=== PATIENT | male | born 1965 | race Caucasian/White ===

== ENCOUNTER 2021-12-19 12:47 | Inpatient (IN) | payer MEDICARE, MEDICAID, SELFPAY ==
--- NOTE | 2021-12-19 13:52 | ED_ITS ---
HPI - Psych General Chief Complaint: Psychiatric Symptoms <Slime Mcfarlane CNP - Last Filed: 12/19/21 17:21> Stated Complaint: SI <Slime Mcfarlane CNP - Last Filed: 12/19/21 17:21> Time Seen by Provider: 12/19/21 13:50 <Slime Mcfarlane CNP - Last Filed: 12/19/21 17:21> Source: patient <Slime Mcfarlane CNP - Last Filed: 12/19/21 17:21> Mode of arrival: EMS <Slime Mcfarlane CNP - Last Filed: 12/19/21 17:21> Limitations: no limitations <Slime Mcfarlane CNP - Last Filed: 12/19/21 17:21> History of Present Illness HPI Narrative: Patient presents to the emergency department via EMS on a Section 12. He is coming from a recovery treatment center. Patient has been having increased anxiety and depression. He is having suicidal ideations with plan and intent to cut himself with a knife. He states that approximately 1 year ago he attempted to hang himself in his apartment, but last minute stop himself from doing so and sought help. He is currently in the recovery program for reported use of alcohol and crack cocaine, however he states he has not used either in 1 year. He states he has been compliant with his medications. Denies any auditory or visual hallucinations. Denies any homicidal ideations. <Slime Mcfarlane CNP - Last Filed: 12/19/21 17:21> Related Data Home Medications: Home Medications Medication Instructions Recorded Confirmed benztropine 0.5 mg tablet 1 tab PO DAILY 12/19/21 12/19/21 chlorpromazine 100 mg tablet 2 tab PO BID 12/19/21 12/19/21 divalproex 500 mg tablet,extended 2 tab PO BID 12/19/21 12/19/21 release 24 hr hydroxyzine HCl 50 mg tablet 1 tab PO TID 12/19/21 12/19/21 lorazepam 0.5 mg tablet 1 tab PO TID PRN Anxiety 12/19/21 12/19/21 melatonin 3 mg tablet 2 tab PO BEDTIME 12/19/21 12/19/21 propranolol 10 mg tablet 1 tab PO TID 12/19/21 12/19/21 risperidone 2 mg tablet 1 mg PO DAILY 12/19/21 12/19/21 risperidone 2 mg tablet 2 mg PO BEDTIME 12/19/21 12/19/21 sennosides 8.6 mg tablet (senna) 2 tab DAILY PRN constipation 12/19/21 12/19/21 trazodone 100 mg tablet 2 tab PO BEDTIME PRN Insomnia 12/19/21 12/19/21 <Slime Mcfarlane CNP - Last Filed: 12/19/21 17:21> Allergies/Adverse Reactions: Allergies Allergy/AdvReac Type Severity Reaction Status Date / Time No Known Allergies Allergy Mild NOT Unverified 01/06/20 17:18 APPLICABLE <Slime Mcfarlane CNP - Last Filed: 12/19/21 17:21> Review of Systems 2 Review of Systems: Constitutional : No Fever, No Chills ENT/Mouth : No Ear Pain, No Nasal Congestion, No sore throat Eyes: No Eye Pain, No Swelling, No Redness Cardiovascular : No Chest Pain, No SOB Respiratory : No Cough, No Sputum, No Dyspnea Gastrointestinal : No Nausea, No Vomiting, No Diarrhea, No Hematochezia, No Melena Genitourinary : No Dysuria, No Urinary Frequency, No Hematuria Musculoskeletal : No Myalgias Skin : No Skin Lesions, No rash Neuro : No Weakness, No Numbness, No Paresthesias, No Dizziness, No Headache Psych : positive Anxiety, positive Depression, positive SI/HI Heme/Lymph: No Lymphadenopathy Endocrine : No Polyuria, No Polydipsia <Slime Mcfarlane CNP - Last Filed: 12/19/21 17:21> Yes all other systems are reviewed and are negative <Slime Mcfarlane CNP - Last Filed: 12/19/21 17:21> [facility] Past Medical History Attestation statement: The following information was validated with the patient. <Slime Mcfarlane CNP - Last Filed: 12/19/21 17:21> Social History Social History: Social History Advance Directives: No Advance Directives Information Provided: No <Slime Mcfarlane CNP - Last Filed: 12/19/21 17:21> Physical Exam Vital Signs: Vital Signs: Last Vital Signs Temp 97.2 F 12/19/21 20:07 Pulse 78 12/19/21 20:07 Resp 18 12/19/21 20:07 BP 128/67 12/19/21 20:07 Pulse Ox 95 12/19/21 20:07 O2 Del Method 12/19/21 20:07 BMI result Body Mass Index 22.2 <Slime Valentine SETPHANI Mcfarlane - Last Filed: 12/19/21 17:21> Vital Signs: Last Vital Signs Temp 97.2 F 12/19/21 20:07 Pulse 78 12/19/21 20:07 Resp 18 12/19/21 20:07 BP 128/67 12/19/21 20:07 Pulse Ox 95 12/19/21 20:07 O2 Del Method 12/19/21 20:07 BMI result Body Mass Index 22.2 <Bee Moe MD - Last Filed: 12/20/21 06:15> Appearance: Alert.?Oriented to person, place and time. No acute distress.?Normal affect. Eyes: Pupils equal, round and reactive to light.? ENT: Pharynx normal.?? Neck: Normal inspection.? Neck supple.?? CVS: Heart sounds normal. Normal heart rate and rhythm.? Pulses normal.?? Respiratory: No respiratory distress.? Lung sounds clear to auscultation bilaterally?? Abdomen: Soft and non-tender. Normoactive bowel sounds. Skin: Skin warm and dry.? Normal skin color.? Extremities: No lower extremity edema.? Neuro: Moves all extremities spontaneously. Sensation intact bilaterally. CN II- XII intact. No focal neuro deficits. Ambulates with normal steady gait. <Slime AlcazarSTEPHANI sanchez - Last Filed: 12/19/21 17:21> Course Course Course Narrative: Patient is a 56-year-old male with a past medical history of bipolar disorder, schizoaffective disorder, and alcohol usage who presents emergency department today on a Section 12 for suicidal ideations, he has already been evaluated in the community and is an inpatient bed search. He has a plan and reported intent to act upon it, and has attempted suicide within the last year. He is without any physical complaints. Overall well-appearing. No apparent d istress. Vital signs are stable. The obtain basic labs for medical clearance, and refer to [facility] for further evaluation for inpatient bed/ safe disposition <Slime Mcfarlane CNP - Last Filed: 12/19/21 17:21> Reevaluation(s) Reevaluation #1: Serum labs overall unremarkable, toxicology negative. Patient to be placed in physician observation at this time as he will require additional time for inpatient bed search. He is calm, cooperative, in no apparent distress. Speaking clear full sentences. <Slime McfarlaneSTEPHANI - Last Filed: 0 12/19/21 17:21> Time: 15:42 <Slime Mcfarlane REGENERATION OPERATOR - Last Filed: 12/19/21 17:21> Reevaluation #2: Advised by RN that patient has had a few outbursts, becoming very agitated and visibly distressed, seeming to respond to external stimuli. He has already had p.r.n. Ativan, will obtain EKG to assess QTC, and will trial Zyprexa at this time. <Slime McfarlaneSTEPHANI - Last Filed: 12/19/21 17:21> Time: 16:15 <Slime Mcfarlane REGENERATION OPERATOR - Last Filed: 12/19/21 17:21> Reevaluation #3: QTC is 418. EKG reveals normal sinus rhythm, V2 and V3 concerning for J- point elevations, however when compared to EKG in 2016 this does not appear new. Patient is without chest pain, shortness of breath, or alarming systems to be consistent with ACS. <Slime McfarlaneSTEPHANI - Last Filed: 12/19/21 17:21> Time: 16:20 <Slime Mcfarlane REGENERATION OPERATOR - Last Filed: 12/19/21 17:21> Additional Reevaluation(s): 1715: Patient has been calm in his room at this time. no additional outbursts per nursing staff. <Slime McfarlaneSTEPHANI - Last Filed: 12/19/21 17:21> 1715: Patient has been calm in his room at this time. no additional outbursts per nursing staff. 06:15 on 12/20/2021: No events overnight, patient has been taking his medications, remains on a Section 12, bed search. Vitals stable. <Bee Moe MD - Last Filed: 12/20/21 06:15> MDM - Psych Medical Records Attestation: I reviewed the patient's medical records. <Slime Mcfarlane CNP - Last Filed: 12/19/21 17:21> Lab Data Attestation: I reviewed the patient's lab results. <Slime Mcfarlane CNP - Last Filed: 12/19/21 17:21> Result diagrams: : 12/19/21 14:08 12/19/21 14:08 <Slime Mcfarlane CNP - Last Filed: 12/19/21 17:21> Labs: Lab Results 12/19/21 12/19/21 12/19/21 Range/Units 14:02 14:02 14:08 WBC 6.1 (4.8-10.8) X10*3/uL RBC 4.14 L (4.60-5.80) X10*6/uL Hgb 13.1 L (14.0-18.0) g/dl Hct 39.1 L (42.0-52.0) % MCV 94.4 (80.0-98.0) fL MCH 31.6 (27.0-33.0) pg MCHC 33.5 (31.0-36.0) g/dl RDW 12.8 (11.0-16.0) % Plt Count 217 (160-400) X10*3/uL MPV 9.5 (9.4-12.4) fL Immature Gran % (Auto) 0.2 (0.0-0.4) % Neut % (Auto) 56.8 (45-73) % Lymph % (Auto) 25.9 (20-40) % [place] % (Auto) 13.6 H (2-11) % Eos % (Auto) 2.5 (0-4) % Baso % (Auto) 1.0 (0-2) % Lymph # (Auto) 1.6 (1.2-4.9) X10*3/uL [place] # (Auto) 0.8 (0.1-1.2) X10*3/uL Eos # (Auto) 0.2 (0.0-0.4) X10*3/uL Baso # (Auto) 0.1 (0.0-0.2) X10*3/uL Abs Immat Gran (auto) 0.01 (0.00-0.03) X10*3/uL Absolute Neuts (auto) 3.5 (2.0-8.3) x10*3/uL Absolute Nucleated RBC 0.000 (0.0-0.012) X10*3/uL Nucleated RBC % (auto) 0.0 (0.0-0.2) /100WBC Sodium (135-145) mmol/L Potassium (3.3-5.1) mmol/L Chloride (96-108) mmol/L Carbon Dioxide (22-29) mmol/L Anion Gap (12-20) BUN (9-16) mg/dL Creatinine (0.5-1.4) mg/dL Estim Creat Clear Calc Estimated GFR Random Glucose (60-115) mg/dL Calcium (8.4-10.2) mg/dL Magnesium (1.6-2.6) mg/dL Total Bilirubin (0.0-1.0) mg/dL AST (5-37) U/L ALT (0-40) U/L Alkaline Phosphatase (39-117) U/L Total Protein (6.5-8.0) g/dL Albumin (3.5-5.0) g/dL Urine Opiates Screen Not Detected (Not Detect) Urine Fentanyl Screen Not Detected (Not Detect) Ur Barbiturates Screen Not Detected (Not Detect) Valproic Acid (50.0-100.0) mcg/mL Ur Phencyclidine Scrn Not Detected (Not Detect) Ur Amphetamines Screen Not Detected (Not Detect) U Benzodiazepines Scrn Not Detected (Not Detect) Urine Cocaine Screen Not Detected (Not Detect) U Marijuana (THC) Screen Not Detected (Not Detect) Ethyl Alcohol mg/dL COVID-19 (ZOILA) Negative (Negative) COVID-19 Clin Com See Note 12/19/21 12/19/21 Range/Units 14:08 14:08 WBC (4.8-10.8) X10*3/uL RBC (4.60-5.80) X10*6/uL Hgb (14.0-18.0) g/dl Hct (42.0-52.0) % MCV (80.0-98.0) fL MCH (27.0-33.0) pg MCHC (31.0-36.0) g/dl RDW (11.0-16.0) % Plt Count (160-400) X10*3/uL MPV (9.4-12.4) fL Immature Gran % (Auto) (0.0-0.4) % Neut % (Auto) (45-73) % Lymph % (Auto) (20-40) % [place]gard % (Auto) (2-11) % Eos % (Auto) (0-4) % Baso % (Auto) (0-2) % Lymph # (Auto) (1.2-4.9) X10*3/uL [place] # (Auto) (0.1-1.2) X10*3/uL Eos # (Auto) (0.0-0.4) X10*3/uL Baso # (Auto) (0.0-0.2) X10*3/uL Abs Immat Gran (auto) (0.00-0.03) X10*3/uL Absolute Neuts (auto) (2.0-8.3) x10*3/uL Absolute Nucleated RBC (0.0-0.012) X10*3/uL Nucleated RBC % (auto) (0.0-0.2) /100WBC Sodium 140 (135-145) mmol/L Potassium 4.1 (3.3-5.1) mmol/L Chloride 105 (96-108) mmol/L Carbon Dioxide 24 (22-29) mmol/L Anion Gap 15 (12-20) BUN 15 (9-16) mg/dL Creatinine 1.00 (0.5-1.4) mg/dL Estim Creat Clear Calc 83.9 Estimated GFR > 60 Random Glucose 128 H (60-115) mg/dL Calcium 9.1 (8.4-10.2) mg/dL Magnesium 2.1 (1.6-2.6) mg/dL Total Bilirubin 0.2 (0.0-1.0) mg/dL AST 19 (5-37) U/L ALT 9 (0-40) U/L Alkaline Phosphatase 48 (39-117) U/L Total Protein 7.1 (6.5-8.0) g/dL Albumin 4.0 (3.5-5.0) g/dL Urine Opiates Screen (Not Detect) Urine Fentanyl Screen (Not Detect) Ur Barbiturates Screen (Not Detect) Valproic Acid 74.7 (50.0-100.0) mcg/mL Ur Phencyclidine Scrn (Not Detect) Ur Amphetamines Screen (Not Detect) U Benzodiazepines Scrn (Not Detect) Urine Cocaine Screen (Not Detect) U Marijuana (THC) Screen (Not Detect) Ethyl Alcohol < 10 mg/dL COVID-19 (ZOILA) (Negative) COVID-19 Clin Com <Slime Mcfarlane CNP - Last Filed: 12/19/21 17:21> Lab Results 12/19/21 12/19/21 12/19/21 Range/Units 14:02 14:02 14:08 WBC 6.1 (4.8-10.8) X10*3/uL RBC 4.14 L (4.60-5.80) X10*6/uL Hgb 13.1 L (14.0-18.0) g/dl Hct 39.1 L (42.0-52.0) % MCV 94.4 (80.0-98.0) fL MCH 31.6 (27.0-33.0) pg MCHC 33.5 (31.0-36.0) g/dl RDW 12.8 (11.0-16.0) % Plt Count 217 (160-400) X10*3/uL MPV 9.5 (9.4-12.4) fL Immature Gran % (Auto) 0.2 (0.0-0.4) % Neut % (Auto) 56.8 (45-73) % Lymph % (Auto) 25.9 (20-40) % [place] % (Auto) 13.6 H (2-11) % Eos % (Auto) 2.5 (0-4) % Baso % (Auto) 1.0 (0-2) % Lymph # (Auto) 1.6 (1.2-4.9) X10*3/uL [place] # (Auto) 0.8 (0.1-1.2) X10*3/uL Eos # (Auto) 0.2 (0.0-0.4) X10*3/uL Baso # (Auto) 0.1 (0.0-0.2) X10*3/uL Abs Immat Gran (auto) 0.01 (0.00-0.03) X10*3/uL Absolute Neuts (auto) 3.5 (2.0-8.3) x10*3/uL Absolute Nucleated RBC 0.000 (0.0-0.012) X10*3/uL Nucleated RBC % (auto) 0.0 (0.0-0.2) /100WBC Sodium (135-145) mmol/L Potassium (3.3-5.1) mmol/L Chloride (96-108) mmol/L Carbon Dioxide (22-29) mmol/L Anion Gap (12-20) BUN (9-16) mg/dL Creatinine (0.5-1.4) mg/dL Estim Creat Clear Calc Estimated GFR Random Glucose (60-115) mg/dL Calcium (8.4-10.2) mg/dL Magnesium (1.6-2.6) mg/dL Total Bilirubin (0.0-1.0) mg/dL AST (5-37) U/L ALT (0-40) U/L Alkaline Phosphatase (39-117) U/L Total Protein (6.5-8.0) g/dL Albumin (3.5-5.0) g/dL Urine Opiates Screen Not Detected (Not Detect) Urine Fentanyl Screen Not Detected (Not Detect) Ur Barbiturates Screen Not Detected (Not Detect) Valproic Acid (50.0-100.0) mcg/mL Ur Phencyclidine Scrn Not Detected (Not Detect) Ur Amphetamines Screen Not Detected (Not Detect) U Benzodiazepines Scrn Not Detected (Not Detect) Urine Cocaine Screen Not Detected (Not Detect) U Marijuana (THC) Screen Not Detected (Not Detect) Ethyl Alcohol mg/dL COVID-19 (ZOILA) Negative (Negative) COVID-19 Clin Com See Note 12/19/21 12/19/21 Range/Units 14:08 14:08 WBC (4.8-10.8) X10*3/uL RBC (4.60-5.80) X10*6/uL Hgb (14.0-18.0) g/dl Hct (42.0-52.0) % MCV (80.0-98.0) fL MCH (27.0-33.0) pg MCHC (31.0-36.0) g/dl RDW (11.0-16.0) % Plt Count (160-400) X10*3/uL MPV (9.4-12.4) fL Immature Gran % (Auto) (0.0-0.4) % Neut % (Auto) (45-73) % Lymph % (Auto) (20-40) % Bea[place]gard % (Auto) (2-11) % Eos % (Auto) (0-4) % Baso % (Auto) (0-2) % Lymph # (Auto) (1.2-4.9) X10*3/uL [place]gard # (Auto) (0.1-1.2) X10*3/uL Eos # (Auto) (0.0-0.4) X10*3/uL Baso # (Auto) (0.0-0.2) X10*3/uL Abs Immat Gran (auto) (0.00-0.03) X10*3/uL Absolute Neuts (auto) (2.0-8.3) x10*3/uL Absolute Nucleated RBC (0.0-0.012) X10*3/uL Nucleated RBC % (auto) (0.0-0.2) /100WBC Sodium 140 (135-145) mmol/L Potassium 4.1 (3.3-5.1) mmol/L Chloride 105 (96-108) mmol/L Carbon Dioxide 24 (22-29) mmol/L Anion Gap 15 (12-20) BUN 15 (9-16) mg/dL Creatinine 1.00 (0.5-1.4) mg/dL Estim Creat Clear Calc 83.9 Estimated GFR > 60 Random Glucose 128 H (60-115) mg/dL Calcium 9.1 (8.4-10.2) mg/dL Magnesium 2.1 (1.6-2.6) mg/dL Total Bilirubin 0.2 (0.0-1.0) mg/dL AST 19 (5-37) U/L ALT 9 (0-40) U/L Alkaline Phosphatase 48 (39-117) U/L Total Protein 7.1 (6.5-8.0) g/dL Albumin 4.0 (3.5-5.0) g/dL Urine Opiates Screen (Not Detect) Urine Fentanyl Screen (Not Detect) Ur Barbiturates Screen (Not Detect) Valproic Acid 74.7 (50.0-100.0) mcg/mL Ur Phencyclidine Scrn (Not Detect) Ur Amphetamines Screen (Not Detect) U Benzodiazepines Scrn (Not Detect) Urine Cocaine Screen (Not Detect) U Marijuana (THC) Screen (Not Detect) Ethyl Alcohol < 10 mg/dL COVID-19 (ZOILA) (Negative) COVID-19 Clin Com <Bee Moe MD - Last Filed: 12/20/21 06:15> ECG Data Attestation: I personally reviewed and interpreted this ECG as follows: <Slime Mcfarlane CNP - Last Filed: 12/19/21 17:21> ECG interpretation date: 12/19/21 <Slime Mcfarlane CNP - Last Filed: 12/19/21 17:21> Prior ECG tracings: available for review <Slime Mcfarlane CNP - Last Filed: 12/19/21 17:21> Interpretation: Rate: 87 Rhythm:? Normal sinus rhythm [place]:? Normal Normal P waves.? Normal BRUCE.?? Normal QRS complex.?? ST T wave :??J-point elevation in V2-V3, however consistent with prior EKG in 2016 does not appear new. qTC: 418 The study has been interpreted contemporaneously by me. <Slime Mcfarlane CNP - Last Filed: 12/19/21 17:21> Discharge Plan Discharge Clinical Impression: Suicidal ideation, Bipolar disorder, Depression, Chronic schizophrenia <Slime Mcfarlane CNP - Last Filed: 12/19/21 17:21> Patient Disposition: Still a Patient <Slime Mcfarlane CNP - Last Filed: 12/19/21 17:21> Prescriptions: No Action sennosides [senna] 8.6 mg tablet 2 tab DAILY PRN (Reason: constipation) benztropine 0.5 mg tablet 1 tab PO DAILY chlorpromazine 100 mg tablet 2 tab PO BID hydroxyzine HCl 50 mg tablet 1 tab PO TID melatonin 3 mg tablet 2 tab PO BEDTIME risperidone 2 mg tablet 2 mg PO BEDTIME risperidone 2 mg tablet 1 mg PO DAILY propranolol 10 mg tablet 1 tab PO TID lorazepam 0.5 mg tablet 1 tab PO TID PRN (Reason: Anxiety) trazodone 100 mg tablet 2 tab PO BEDTIME PRN (Reason: Insomnia) divalproex 500 mg tablet extended release 24 hr 2 tab PO BID <Slime Mcfarlane, STEPHANI - Last Filed: 12/19/21 17:21>
[2021-12-19] MEDS: LORazepam 0.5 MG TABLET PO (13:59)
[2021-12-19 14:14] VITALS: BP 120/90; BP 122/87; PULSE 111; PULSE 88; RESP 18; TEMP 36.6; O2SAT 97; O2SAT 98; BMI 22.2
[2021-12-19 14:17] LABS: Basophils Absolute Auto 0.1 X10*3/uL (0.0-0.2); Eosinophils Absolute Auto 0.2 X10*3/uL (0.0-0.4); Eosinophils Percent Auto 2.5 % (0-4); Hematocrit 39.1 % (42.0-52.0); Hemoglobin 13.1 g/dl (14.0-18.0); Imm Gran Abs Auto 0.01 X10*3/uL (0.00-0.03); Imm Gran Pct Auto 0.2 % (0.0-0.4); Lymphocytes Absolute Auto 1.6 X10*3/uL (1.2-4.9); Lymphocytes Percent Auto 25.9 % (20-40); MANUAL DIFF FLAG NO; Mean Corpuscular HGB Conc 33.5 g/dl (31.0-36.0); Mean Corpuscular Hemoglobin 31.6 pg (27.0-33.0); Mean Corpuscular Volume 94.4 fL (80.0-98.0); Mean Platelet Volume 9.5 fL (9.4-12.4); Monocytes Absolute Auto 0.8 X10*3/uL (0.1-1.2); Monocytes Percent Auto 13.6 % (2-11); Neutrophils Absolute Auto 3.5 x10*3/uL (2.0-8.3); Neutrophils Percent Auto 56.8 % (45-73); Platelet Count 217 X10*3/uL (160-400); Red Blood Count 4.14 X10*6/uL (4.60-5.80); Red Cell Distribution Width 12.8 % (11.0-16.0); White Blood Count 6.1 X10*3/uL (4.8-10.8)
[2021-12-19 14:33] LABS: Amphetamine Screen Urine Not Detected (Not Detect); Barbiturates, Urine Not Detected (Not Detect); Benzodiazepines Screen Urine Not Detected (Not Detect); Cannabinoid Screen Urine Not Detected (Not Detect); Cocaine Screen Urine Not Detected (Not Detect); Fentanyl, urine Not Detected (Not Detect); Opiate Screen Urine Not Detected (Not Detect); Phencyclidine Screen Urine Not Detected (Not Detect)
[2021-12-19 14:36] LABS: Alanine Aminotransferase 9 U/L (0-40); Alkaline Phosphatase 48 U/L (39-117); Anion Gap 15 (12-20); Aspartate Amino Transferase 19 U/L (5-37); Bilirubin Total 0.2 mg/dL (0.0-1.0); Blood Urea Nitrogen 15 mg/dL (9-16); Calcium 9.1 mg/dL (8.4-10.2); Carbon Dioxide 24 mmol/L (22-29); Chloride 105 mmol/L (96-108); Creatinine Clr Calc Pharmacy 83.9; Estimated Glomerular Filt Rate > 60; Ethanol < 10 mg/dL; Glucose Random 128 mg/dL (60-115); Magnesium 2.1 mg/dL (1.6-2.6); Potassium 4.1 mmol/L (3.3-5.1); Sodium 140 mmol/L (135-145); Total Protein 7.1 g/dL (6.5-8.0)
[2021-12-19 14:43] LABS: COVID-19 Test Negative (Negative); IDNOW Serial# 16C4AD1C
[2021-12-19 14:47] LABS: Valproate 74.7 mcg/mL (50.0-100.0)
--- NOTE | 2021-12-19 14:59 | PHA.MEDREC ---
Pharmacy Consult ? Medication Reconciliation Pharmacy has completed the medication reconciliation.
--- NOTE | 2021-12-19 16:12 | ECG_ITS ---
Test Reason : medical clearance Blood Pressure : / mmHG Vent. Rate : 087 BPM Atrial Rate : 087 BPM P-R Int : 136 ms QRS Dur : 086 ms QT Int : 348 ms P-R-T Axes : 054 061 037 degrees QTc Int : 418 ms Normal sinus rhythm Early Repolarization Abnormal ECG When compared with ECG of 11-MAR-2016 14:48, Heart rate has decreased Early Repolarization is now Present Referred By: Slime Mcfarlane Electronically Signed By:DANYEL GAMBOA
[2021-12-19] MEDS: OLANZapine 5 MG TABLET 10 MG PO (16:33)
--- NOTE | 2021-12-19 17:33 | PC.NURSE ---
patient while cohorted with peer got up and unprovoked yelling episode toward peer
[2021-12-19 20:07] VITALS: BP 128/67; PULSE 78; RESP 18; TEMP 36.2; O2SAT 95
[2021-12-19] MEDS: hydrOXYzine HCL 50 MG TABLET PO (20:08)
[2021-12-19] MEDS: Propranolol HCL 10 MG TABLET PO (20:08)
[2021-12-19] MEDS: chlorproMAZINE HCl 100 MG TABLET 200 MG PO (20:08)
[2021-12-19] MEDS: Divalproex Sodium ER 500 MG TAB.ER.24H 1000 MG PO (20:08)
[2021-12-19] MEDS: Melatonin 3 MG TABLET 6 MG PO (20:08)
[2021-12-19] MEDS: risperiDONE 2 MG TABLET PO (20:08)
--- NOTE | 2021-12-20 07:07 | PC.NURSE ---
Patient slept through the night, no distress observed/reported, behavior non concerning, N section 12 inpatient bed search, VSS, medication compliant, will continue to monitor.
--- NOTE | 2021-12-20 07:37 | PC.NURSE ---
patient appears to remain asleep at present respirations are even and unlabored patient appears in no distress
--- NOTE | 2021-12-20 07:57 | PC.NURSE ---
late entry from afternoon
[2021-12-20] MEDS: chlorproMAZINE HCl 100 MG TABLET 200 MG PO ×2 (08:03→20:44)
[2021-12-20] MEDS: hydrOXYzine HCL 50 MG TABLET PO ×3 (08:03→20:44)
[2021-12-20] MEDS: risperiDONE 1 MG TABLET PO (08:03)
[2021-12-20] MEDS: Benztropine Mesylate 0.5 MG TABLET PO (08:03)
[2021-12-20] MEDS: Propranolol HCL 10 MG TABLET PO ×3 (08:03→20:44)
[2021-12-20] MEDS: Divalproex Sodium ER 500 MG TAB.ER.24H 1000 MG PO ×2 (08:04→20:44)
[2021-12-20 10:20] VITALS: BP 120/69; PULSE 92; RESP 16; TEMP 36.3; O2SAT 97
--- NOTE | 2021-12-20 12:46 | PC.NURSE ---
Report received from Doretha ARNDT. Patient has been walking about the pod, resting in his room at times. Patient with loud verbal outbursts at times. Easily able to de-escalate and regain control. Patient has been cooperative. Respirations regular and even. Ambulates with balanced and steady gait. Skin PWD. Plan is for patient to be admitted to later today.
[2021-12-20 17:48] VITALS: BP 113/72; PULSE 87; TEMP 36.6; O2SAT 97
--- NOTE | 2021-12-20 18:38 | PC.ADMIT ---
pt is a 56 year old male who presented to the ED with SI with a plan to slit his wrist with a knife and increased anxiety. pt has a history of alcohol use disorder( been in a few treatment facilities), cocaine use disorder, anxiety, aggressive behavior and paranoid thought process. pt has limited support and is homeless. during admission, pt refused to answer questions and had angry outbursts. pt wanted to sleep and be left alone. pt is assaultive and throws objects during outbursts. pt has limited coping skills.
[2021-12-20] MEDS: Melatonin 3 MG TABLET 6 MG PO (20:44)
[2021-12-20] MEDS: risperiDONE 2 MG TABLET PO (20:46)
[2021-12-20 20:53] VITALS: BP 104/64
[2021-12-21 08:58] LABS: Cholesterol 162 mg/dL; HDL Cholesterol 41 mg/dL; LDL Cholesterol Calculated 107 mg/dl; Magnesium 2.1 mg/dL (1.6-2.6); Triglycerides 71 mg/dL
[2021-12-21 09:05] VITALS: BP 108/77; PULSE 94; TEMP 36.6
[2021-12-21] MEDS: LORazepam 0.5 MG TABLET PO ×2 (09:13→11:16)
[2021-12-21] MEDS: Benztropine Mesylate 0.5 MG TABLET PO (09:14)
[2021-12-21] MEDS: chlorproMAZINE HCl 100 MG TABLET 200 MG PO ×3 (09:14→19:26)
[2021-12-21] MEDS: Divalproex Sodium ER 500 MG TAB.ER.24H 1000 MG PO ×2 (09:14→19:25)
[2021-12-21] MEDS: risperiDONE 1 MG TABLET PO (09:14)
[2021-12-21] MEDS: Propranolol HCL 10 MG TABLET PO ×3 (09:14→19:25)
[2021-12-21] MEDS: hydrOXYzine HCL 50 MG TABLET PO ×3 (09:14→19:25)
[2021-12-21 09:22] LABS: Free T4 (Free Thyroxine) 1.21 ng/dL (0.71-1.85); Thyroid Stimulating Hormone 1.95 uIU/mL (0.32-4.0)
[2021-12-21 09:23] LABS: Estimated Average Glucose 97 mg/dL
[2021-12-21 09:34] LABS: Folate 10.5 ng/mL (> or = 4.0); Vitamin B12 411 pg/mL (200-900)
[2021-12-21] MEDS: hydrOXYzine HCL 25 MG TABLET PO (11:16)
[2021-12-21] MEDS: Nicotine Polacrilex 2 MG GUM 4 MG BUCCAL (12:40)
--- NOTE | 2021-12-21 13:47 | PC.NURSE ---
Pt states he uses tobacco. Pt reports smoking 3 packs a day. Pt received Rx for nicotine gum and patch.
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
[2021-12-21] MEDS: Benztropine Mesylate 1 MG TABLET PO (14:14)
[2021-12-21 16:07] VITALS: BP 103/61; PULSE 81; RESP 18; TEMP 36.7; O2SAT 96
[2021-12-21] MEDS: Acetaminophen 325 MG TABLET 650 MG PO (16:45)
[2021-12-21] MEDS: risperiDONE 2 MG TABLET PO (19:25)
[2021-12-21] MEDS: Melatonin 3 MG TABLET 6 MG PO (19:25)
[2021-12-22] MEDS: LORazepam 0.5 MG TABLET PO ×2 (05:04→17:39)
[2021-12-22 06:00] VITALS: BP 115/60; PULSE 85; RESP 20; TEMP 35.7; O2SAT 98
[2021-12-22] MEDS: hydrOXYzine HCL 50 MG TABLET PO ×3 (08:36→19:51)
[2021-12-22] MEDS: risperiDONE 1 MG TABLET PO (08:36)
[2021-12-22] MEDS: Propranolol HCL 10 MG TABLET PO ×3 (08:36→19:51)
[2021-12-22] MEDS: chlorproMAZINE HCl 100 MG TABLET 200 MG PO ×2 (08:37→19:50)
[2021-12-22] MEDS: Divalproex Sodium ER 500 MG TAB.ER.24H 1000 MG PO ×2 (08:37→19:50)
[2021-12-22] MEDS: Benztropine Mesylate 1 MG TABLET PO (08:37)
[2021-12-22] MEDS: Nicotine Polacrilex 2 MG GUM 4 MG BUCCAL (08:48)
[2021-12-22] MEDS: hydrOXYzine HCL 25 MG TABLET PO ×2 (09:41→17:41)
[2021-12-22] MEDS: chlorproMAZINE HCl 100 MG TABLET PO ×2 (09:41→16:40)
--- NOTE | 2021-12-22 11:54 | PC.NURSE ---
pt appears very sedated, vitals checked, WNL. Pt responsive and arousable.
[2021-12-22 14:50] VITALS: BP 123/71; PULSE 106
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
[2021-12-22 19:30] VITALS: BP 103/57; PULSE 86; TEMP 35.9
[2021-12-22] MEDS: risperiDONE 2 MG TABLET PO (19:49)
[2021-12-22] MEDS: Melatonin 3 MG TABLET 6 MG PO (19:50)
[2021-12-22] MEDS: Ibuprofen 600 MG TABLET PO (22:44)
--- NOTE | 2021-12-22 23:48 | PC.NURSE ---
Pt had a witnessed fall in the [place] at about 2150. Staff said pt appeared to walk into the wall. Pt said he was running in the [place] and moving too fast. Pt had an abrasion on his right knee and c/o pain 12/29. Pt had a full ROM and visible swelling. Pt requested Ibuprofen. Dr. Cervantes was informed and an order was obtained for Ibuprofen 600mg PO Q6H. Pt received med and appeared to go to sleep in bed in his room.
[2021-12-23] MEDS: Acetaminophen 325 MG TABLET 650 MG PO (03:38)
[2021-12-23] MEDS: Nicotine Polacrilex 2 MG GUM 4 MG BUCCAL ×4 (06:04→13:53)
[2021-12-23 08:02] VITALS: BP 109/63; PULSE 75; TEMP 36.2
[2021-12-23] MEDS: Benztropine Mesylate 1 MG TABLET PO (08:48)
[2021-12-23] MEDS: chlorproMAZINE HCl 100 MG TABLET 200 MG PO ×2 (08:48→20:28)
[2021-12-23] MEDS: hydrOXYzine HCL 50 MG TABLET PO ×3 (08:49→20:27)
[2021-12-23] MEDS: risperiDONE 1 MG TABLET PO (08:49)
[2021-12-23] MEDS: Divalproex Sodium ER 500 MG TAB.ER.24H 1000 MG PO ×2 (08:49→20:29)
[2021-12-23] MEDS: Propranolol HCL 10 MG TABLET PO ×3 (08:49→20:27)
[2021-12-23] MEDS: hydrOXYzine HCL 25 MG TABLET PO ×2 (09:51→17:02)
[2021-12-23] MEDS: LORazepam 0.5 MG TABLET PO ×3 (09:57→18:05)
[2021-12-23] MEDS: buPROPion HCl XL 150 MG TAB.ER.24H PO (12:38)
[2021-12-23 13:45] VITALS: BP 90/68; PULSE 92
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
[2021-12-23] MEDS: chlorproMAZINE HCl 100 MG TABLET PO (17:02)
[2021-12-23 20:20] VITALS: BP 108/71; PULSE 85; TEMP 35.9
[2021-12-23] MEDS: Melatonin 3 MG TABLET 6 MG PO (20:28)
[2021-12-23] MEDS: risperiDONE 2 MG TABLET PO (20:28)
[2021-12-24] MEDS: Ibuprofen 600 MG TABLET PO (04:22)
[2021-12-24 06:00] VITALS: BP 93/59; PULSE 97; RESP 18; TEMP 36.3; O2SAT 97
[2021-12-24] MEDS: Propranolol HCL 10 MG TABLET PO ×3 (08:10→19:58)
[2021-12-24] MEDS: buPROPion HCl XL 150 MG TAB.ER.24H PO (08:10)
[2021-12-24] MEDS: chlorproMAZINE HCl 100 MG TABLET 200 MG PO ×2 (08:11→19:58)
[2021-12-24] MEDS: Nicotine Polacrilex 2 MG GUM 4 MG BUCCAL (08:11)
[2021-12-24] MEDS: risperiDONE 1 MG TABLET PO (08:11)
[2021-12-24] MEDS: Benztropine Mesylate 1 MG TABLET PO (08:11)
[2021-12-24] MEDS: Divalproex Sodium ER 500 MG TAB.ER.24H 1000 MG PO ×2 (08:11→19:59)
[2021-12-24] MEDS: hydrOXYzine HCL 50 MG TABLET PO ×3 (08:11→19:58)
[2021-12-24 08:24] VITALS: BP 123/64; PULSE 95; RESP 16
[2021-12-24] MEDS: LORazepam 0.5 MG TABLET PO ×2 (09:52→19:58)
[2021-12-24] MEDS: chlorproMAZINE HCl 100 MG TABLET PO ×2 (09:52→17:41)
[2021-12-24] MEDS: Acetaminophen 325 MG TABLET 650 MG PO (10:42)
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
[2021-12-24 14:20] VITALS: BP 102/65; PULSE 83
[2021-12-24] MEDS: hydrOXYzine HCL 25 MG TABLET PO (17:41)
[2021-12-24 19:45] VITALS: BP 121/71; PULSE 110; TEMP 36.8
[2021-12-24] MEDS: risperiDONE 2 MG TABLET PO (19:57)
[2021-12-24] MEDS: Melatonin 3 MG TABLET 6 MG PO (19:58)
[2021-12-25 08:42] VITALS: BP 108/71; PULSE 94; RESP 17; TEMP 36.2; O2SAT 99
[2021-12-25] MEDS: chlorproMAZINE HCl 100 MG TABLET 200 MG PO ×2 (08:44→20:27)
[2021-12-25] MEDS: Divalproex Sodium ER 500 MG TAB.ER.24H 1000 MG PO ×2 (08:45→20:28)
[2021-12-25] MEDS: hydrOXYzine HCL 50 MG TABLET PO ×3 (08:45→20:28)
[2021-12-25] MEDS: risperiDONE 1 MG TABLET PO (08:46)
[2021-12-25] MEDS: Benztropine Mesylate 1 MG TABLET PO (08:46)
[2021-12-25] MEDS: Propranolol HCL 10 MG TABLET PO ×3 (08:46→20:27)
[2021-12-25] MEDS: buPROPion HCl XL 150 MG TAB.ER.24H PO (08:46)
[2021-12-25] MEDS: Nicotine Polacrilex 2 MG GUM 4 MG BUCCAL (09:14)
[2021-12-25] MEDS: hydrOXYzine HCL 25 MG TABLET PO (12:09)
[2021-12-25] MEDS: LORazepam 0.5 MG TABLET PO ×2 (12:09→21:09)
[2021-12-25 18:00] VITALS: BP 122/82; PULSE 96; RESP 16; TEMP 36.4; O2SAT 99
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
[2021-12-25] MEDS: Melatonin 3 MG TABLET 6 MG PO (20:27)
[2021-12-25] MEDS: risperiDONE 2 MG TABLET PO (20:28)
[2021-12-26] MEDS: Benztropine Mesylate 1 MG TABLET PO (07:54)
[2021-12-26] MEDS: Propranolol HCL 10 MG TABLET PO ×3 (07:54→20:44)
[2021-12-26] MEDS: chlorproMAZINE HCl 100 MG TABLET 200 MG PO ×2 (07:54→20:44)
[2021-12-26] MEDS: buPROPion HCl XL 150 MG TAB.ER.24H PO (07:54)
[2021-12-26] MEDS: risperiDONE 1 MG TABLET PO (07:54)
[2021-12-26] MEDS: Divalproex Sodium ER 500 MG TAB.ER.24H 1000 MG PO ×2 (07:54→20:44)
[2021-12-26 07:55] VITALS: BP 101/70; PULSE 84; TEMP 36.1; O2SAT 98
[2021-12-26] MEDS: Nicotine Polacrilex 2 MG GUM 4 MG BUCCAL ×5 (07:55→20:44)
[2021-12-26] MEDS: hydrOXYzine HCL 50 MG TABLET PO ×3 (08:05→20:44)
[2021-12-26 13:58] VITALS: BP 101/64; PULSE 84
[2021-12-26] MEDS: LORazepam 0.5 MG TABLET PO (14:03)
[2021-12-26] MEDS: hydrOXYzine HCL 25 MG TABLET PO (16:43)
[2021-12-26] MEDS: chlorproMAZINE HCl 100 MG TABLET PO (16:44)
[2021-12-26 17:58] VITALS: BP 99/65; PULSE 85; RESP 16; TEMP 36.6; O2SAT 99
[2021-12-26] MEDS: risperiDONE 2 MG TABLET PO (20:43)
[2021-12-26] MEDS: Melatonin 3 MG TABLET 6 MG PO (20:43)
[2021-12-26] MEDS: Benztropine Mesylate 0.5 MG TABLET PO (21:15)
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
[2021-12-27] MEDS: Nicotine Polacrilex 2 MG GUM 4 MG BUCCAL ×5 (05:49→19:09)
[2021-12-27 08:10] VITALS: BP 113/74; PULSE 94; RESP 16; TEMP 36.4; O2SAT 98
[2021-12-27] MEDS: chlorproMAZINE HCl 100 MG TABLET 200 MG PO ×2 (08:13→20:09)
[2021-12-27] MEDS: buPROPion HCl XL 150 MG TAB.ER.24H PO (08:14)
[2021-12-27] MEDS: risperiDONE 1 MG TABLET PO (08:14)
[2021-12-27] MEDS: Divalproex Sodium ER 500 MG TAB.ER.24H 1000 MG PO ×2 (08:14→20:11)
[2021-12-27] MEDS: Propranolol HCL 10 MG TABLET PO ×3 (08:14→20:10)
[2021-12-27] MEDS: Benztropine Mesylate 0.5 MG TABLET PO ×3 (08:14→20:10)
[2021-12-27] MEDS: hydrOXYzine HCL 50 MG TABLET PO ×3 (08:14→20:10)
[2021-12-27] MEDS: Acetaminophen 325 MG TABLET 650 MG PO (08:42)
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
[2021-12-27] MEDS: LORazepam 0.5 MG TABLET PO (13:55)
[2021-12-27] MEDS: hydrOXYzine HCL 25 MG TABLET PO (17:50)
[2021-12-27] MEDS: chlorproMAZINE HCl 100 MG TABLET PO (17:50)
[2021-12-27 20:00] VITALS: BP 118/74; PULSE 77; TEMP 36.4
[2021-12-27] MEDS: Melatonin 3 MG TABLET 6 MG PO (20:11)
[2021-12-27] MEDS: risperiDONE 2 MG TABLET PO (20:11)
[2021-12-28 08:30] VITALS: BP 107/68; PULSE 78; RESP 18; TEMP 35.6; O2SAT 99
[2021-12-28] MEDS: Propranolol HCL 10 MG TABLET PO (08:36)
[2021-12-28] MEDS: Benztropine Mesylate 0.5 MG TABLET PO ×3 (08:36→20:04)
[2021-12-28] MEDS: hydrOXYzine HCL 50 MG TABLET PO ×3 (08:36→20:04)
[2021-12-28] MEDS: Divalproex Sodium ER 500 MG TAB.ER.24H 1000 MG PO ×2 (08:37→20:04)
[2021-12-28] MEDS: Naltrexone HCl 50 MG TABLET PO (08:37)
[2021-12-28] MEDS: buPROPion HCl XL 150 MG TAB.ER.24H PO (08:37)
[2021-12-28] MEDS: risperiDONE 1 MG TABLET PO (08:37)
[2021-12-28] MEDS: chlorproMAZINE HCl 100 MG TABLET 200 MG PO ×2 (08:38→20:04)
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
[2021-12-28] MEDS: Nicotine Polacrilex 2 MG GUM 4 MG BUCCAL ×2 (10:00→11:51)
[2021-12-28 16:55] VITALS: BP 114/72; PULSE 83
[2021-12-28] MEDS: Melatonin 3 MG TABLET 6 MG PO (20:04)
[2021-12-28] MEDS: risperiDONE 2 MG TABLET PO (20:04)
[2021-12-29 06:00] VITALS: BP 121/70; PULSE 86; RESP 17; TEMP 36.3; O2SAT 98
[2021-12-29 08:08] LABS: MANUAL DIFF FLAG NO
[2021-12-29 08:18] LABS: Basophils Absolute Auto 0.1 X10*3/uL (0.0-0.2); Basophils Percent Auto 0.9 % (0-2); Eosinophils Absolute Auto 0.3 X10*3/uL (0.0-0.4); Eosinophils Percent Auto 5.2 % (0-4); Hematocrit 40.2 % (42.0-52.0); Hemoglobin 13.4 g/dl (14.0-18.0); Imm Gran Abs Auto 0.02 X10*3/uL (0.00-0.03); Imm Gran Pct Auto 0.4 % (0.0-0.4); Lymphocytes Absolute Auto 2.4 X10*3/uL (1.2-4.9); Lymphocytes Percent Auto 42.9 % (20-40); Mean Corpuscular HGB Conc 33.3 g/dl (31.0-36.0); Mean Corpuscular Hemoglobin 31.7 pg (27.0-33.0); Mean Platelet Volume 10.2 fL (9.4-12.4); Monocytes Absolute Auto 0.6 X10*3/uL (0.1-1.2); Monocytes Percent Auto 11.3 % (2-11); Neutrophils Absolute Auto 2.2 x10*3/uL (2.0-8.3); Neutrophils Percent Auto 39.3 % (45-73); Platelet Count 243 X10*3/uL (160-400); Red Blood Count 4.23 X10*6/uL (4.60-5.80); Red Cell Distribution Width 12.2 % (11.0-16.0); White Blood Count 5.6 X10*3/uL (4.8-10.8)
[2021-12-29 08:40] LABS: Valproate 72.7 mcg/mL (50.0-100.0)
[2021-12-29] MEDS: hydrOXYzine HCL 50 MG TABLET PO ×3 (08:54→20:05)
[2021-12-29] MEDS: buPROPion HCl XL 150 MG TAB.ER.24H PO (08:54)
[2021-12-29] MEDS: Naltrexone HCl 50 MG TABLET PO (08:55)
[2021-12-29] MEDS: Divalproex Sodium ER 500 MG TAB.ER.24H 1000 MG PO ×2 (08:55→20:05)
[2021-12-29] MEDS: chlorproMAZINE HCl 100 MG TABLET 200 MG PO ×2 (08:55→20:06)
[2021-12-29] MEDS: risperiDONE 1 MG TABLET PO (08:55)
[2021-12-29] MEDS: Benztropine Mesylate 0.5 MG TABLET PO ×3 (08:55→20:05)
[2021-12-29] MEDS: Ibuprofen 600 MG TABLET PO (09:46)
[2021-12-29] MEDS: Nicotine Polacrilex 2 MG GUM 4 MG BUCCAL (09:46)
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
[2021-12-29 18:00] VITALS: BP 128/86; PULSE 79; RESP 16; TEMP 36.8; O2SAT 99
[2021-12-29] MEDS: risperiDONE 2 MG TABLET PO (20:05)
[2021-12-29] MEDS: Melatonin 3 MG TABLET 6 MG PO (20:06)
[2021-12-30] MEDS: chlorproMAZINE HCl 100 MG TABLET 200 MG PO ×2 (08:56→21:07)
[2021-12-30] MEDS: buPROPion HCl XL 150 MG TAB.ER.24H PO (08:57)
[2021-12-30] MEDS: Benztropine Mesylate 0.5 MG TABLET PO ×3 (08:57→21:07)
[2021-12-30] MEDS: hydrOXYzine HCL 50 MG TABLET PO ×3 (08:57→21:08)
[2021-12-30] MEDS: Nicotine Polacrilex 2 MG GUM 4 MG BUCCAL (08:57)
[2021-12-30] MEDS: risperiDONE 1 MG TABLET PO (08:57)
[2021-12-30] MEDS: Naltrexone HCl 50 MG TABLET PO (08:57)
[2021-12-30] MEDS: Divalproex Sodium ER 500 MG TAB.ER.24H 1000 MG PO ×2 (08:57→21:08)
[2021-12-30] MEDS: Nicotine 21 MG PATCH.TD24 TRANSDERMA (08:58)
[2021-12-30 09:00] VITALS: BP 110/77; PULSE 86; TEMP 36.1
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
[2021-12-30 18:00] VITALS: BP 96/66; PULSE 114; RESP 18; TEMP 36.3; O2SAT 97
[2021-12-30] MEDS: risperiDONE 2 MG TABLET PO (21:08)
[2021-12-30] MEDS: Melatonin 3 MG TABLET 6 MG PO (21:08)
[2021-12-30] MEDS: LORazepam 0.5 MG TABLET PO (21:09)
[2021-12-31 06:00] VITALS: BP 116/69; PULSE 81; RESP 16; TEMP 36.7; O2SAT 99
[2021-12-31] MEDS: Nicotine Polacrilex 2 MG GUM 4 MG BUCCAL ×2 (08:58→17:07)
[2021-12-31] MEDS: Divalproex Sodium ER 500 MG TAB.ER.24H 1000 MG PO ×2 (08:58→21:24)
[2021-12-31] MEDS: chlorproMAZINE HCl 100 MG TABLET 200 MG PO ×2 (08:58→21:25)
[2021-12-31] MEDS: hydrOXYzine HCL 50 MG TABLET PO ×3 (08:59→21:25)
[2021-12-31] MEDS: Benztropine Mesylate 0.5 MG TABLET PO ×3 (08:59→21:25)
[2021-12-31] MEDS: Nicotine 21 MG PATCH.TD24 TRANSDERMA (08:59)
[2021-12-31] MEDS: buPROPion HCl XL 150 MG TAB.ER.24H PO (08:59)
[2021-12-31] MEDS: risperiDONE 1 MG TABLET PO (08:59)
[2021-12-31] MEDS: Naltrexone HCl 50 MG TABLET PO (09:00)
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
[2021-12-31 18:15] VITALS: BP 108/63; PULSE 125; TEMP 36; O2SAT 98
[2021-12-31] MEDS: Melatonin 3 MG TABLET 6 MG PO (21:25)
[2021-12-31] MEDS: risperiDONE 2 MG TABLET PO (21:25)
[2022-01-01 06:00] VITALS: BP 122/72; PULSE 87; RESP 16; TEMP 36.4; O2SAT 99
[2022-01-01] MEDS: Nicotine 21 MG PATCH.TD24 TRANSDERMA (08:31)
[2022-01-01] MEDS: chlorproMAZINE HCl 100 MG TABLET 200 MG PO ×2 (08:31→20:32)
[2022-01-01] MEDS: Divalproex Sodium ER 500 MG TAB.ER.24H 1000 MG PO ×2 (08:31→20:32)
[2022-01-01] MEDS: risperiDONE 1 MG TABLET PO (08:32)
[2022-01-01] MEDS: Naltrexone HCl 50 MG TABLET PO (08:32)
[2022-01-01] MEDS: Benztropine Mesylate 0.5 MG TABLET PO ×3 (08:32→20:33)
[2022-01-01] MEDS: buPROPion HCl XL 150 MG TAB.ER.24H PO (08:32)
[2022-01-01] MEDS: hydrOXYzine HCL 50 MG TABLET PO ×3 (08:32→20:33)
[2022-01-01] MEDS: Nicotine Polacrilex 2 MG GUM 4 MG BUCCAL (17:15)
[2022-01-01 18:00] VITALS: BP 106/63; PULSE 91; RESP 16; TEMP 36.9; O2SAT 96
[2022-01-01] MEDS: risperiDONE 2 MG TABLET PO (20:33)
[2022-01-01] MEDS: Melatonin 3 MG TABLET 6 MG PO (20:33)
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
[2022-01-02 06:00] VITALS: BP 116/78; PULSE 97; TEMP 36.6; O2SAT 100
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
[2022-01-02] MEDS: chlorproMAZINE HCl 100 MG TABLET 200 MG PO (08:17)
[2022-01-02] MEDS: Benztropine Mesylate 0.5 MG TABLET PO (08:18)
[2022-01-02] MEDS: risperiDONE 1 MG TABLET PO (08:18)
[2022-01-02] MEDS: buPROPion HCl XL 150 MG TAB.ER.24H PO (08:18)
[2022-01-02] MEDS: Naltrexone HCl 50 MG TABLET PO (08:18)
[2022-01-02] MEDS: Divalproex Sodium ER 500 MG TAB.ER.24H 1000 MG PO (08:18)
[2022-01-02] MEDS: Nicotine Polacrilex 2 MG GUM 4 MG BUCCAL (08:18)
[2022-01-02] MEDS: hydrOXYzine HCL 50 MG TABLET PO (08:18)
[2022-01-02] MEDS: Naloxone HCl Nasal TAKE HOME 4 MG SPRAY NOSTRILALT (13:39)
== END 2022-01-02 13:50 | disposition home or self-care (01) | DRG 885 ==
LOC: HO.ED 12-20 11:12 → HO.PM5 12-20 14:18
PROVIDERS: Nurse Practitioner Family; Admitting Provider Psychiatry & Neurology Psychiatry; Emergency Provider Emergency Medicine; PCP Pediatrics; Visit Provider Clinical Nurse Specialist Psychiatric/Mental Health, Adult
DX: F25.0 Schizoaffective disorder, bipolar type (principal); R45.851 Suicidal ideations; I95.9 Hypotension, unspecified; F43.10 Post-traumatic stress disorder, unspecified; F10.20 Alcohol dependence, uncomplicated; F14.10 Cocaine abuse, uncomplicated; Z20.822 Contact with and (suspected) exposure to COVID-19; Z79.899 Other long term (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
CPT/HCPCS: 36415; 80053; 80061; 80164; 80307; 82077; 82607; 82746; 83036; 83735; 84439; 84443; 85025; 87635; 93005; 99285

== ENCOUNTER 2024-07-17 09:35 | Emergency (ER) | payer MEDICAID, SELFPAY ==
[2024-07-17 09:42] VITALS: BP 135/78; BP 140/90; PULSE 100; PULSE 93; RESP 18; TEMP 36.2; O2SAT 99; BMI 33.7
--- NOTE | 2024-07-17 09:45 | ED_ITS ---
HPI - Psych General Chief Complaint: Psychiatric Symptoms Stated Complaint: SI PER EMS Time Seen by Provider: 07/17/24 09:45 Source: patient and EMS Mode of arrival: EMS Limitations: no limitations History of Present Illness ED Provider: CLARA ATKINSON PA-C HPI Narrative: 59 year old male with pmhx significant for polysubstance use disorder, PTSD, bipolar disorder, schizoaffective disorder, and etoh use disorder presents to the ED today via EMS from care home for evaluation of SI. He reports feelings of increased anxiety, depression, and paranoia. Feels overwhelmed at his care home. Contacted EMS himself today and requested to be brought to the ED today. He endorses SI with plan to cut wrists with butter knife. Denies HI. He endorses auditory hallucinations. States that these voices are telling him to harm himself. They do not tell him to harm anyone else. Reports visual hallucinations. Denies any illicit substance use. Denies EtOH consumption. Reports compliance with all medications. No missed doses. He admits he was recently evaluated at [facility] for same approximately 1 week ago. He denies any physical concerns at this time. Related Data Home Medications ?Medication ?Instructions ?Recorded ?Confirmed albuterol 90 mcg/actuation aerosol 90 mcg inhalation Q4H PRN SOB 07/17/24 07/17/24 inhaler ammonium lactate 12 % lotion 1 appl topical DAILY PRN Dry Skin 07/17/24 07/17/24 benztropine 1 mg tablet 1 mg PO BEDTIME 07/17/24 07/17/24 buspirone 15 mg tablet 15 mg PO BID 07/17/24 07/17/24 divalproex 500 mg tablet,extended 1,000 mg PO BEDTIME 07/17/24 07/17/24 release 24 hr (Depakote ER) fluoxetine 40 mg capsule 40 mg PO DAILY 07/17/24 07/17/24 hydroxyzine pamoate 50 mg capsule 50 mg PO QID PRN Anxiety 07/17/24 07/17/24 ibuprofen 400 mg tablet 400 mg PO Q6H PRN Pain 07/17/24 07/17/24 melatonin 6 mg PO BEDTIME 07/17/24 07/17/24 naltrexone 50 mg tablet 50 mg PO DAILY 07/17/24 07/17/24 nicotine (polacrilex) 4 mg gum 4 mg buccal Q2H PRN Nicotine 07/17/24 07/17/24 Cravings olanzapine 10 mg tablet (Zyprexa) 10 mg PO BID 07/17/24 07/17/24 pantoprazole 40 mg tablet,delayed 40 mg PO DAILY 07/17/24 07/17/24 release (Protonix) prazosin 2 mg capsule 2 mg PO BEDTIME 07/17/24 07/17/24 risperidone 2 mg tablet (Risperdal) 2 mg PO DAILY 07/17/24 07/17/24 risperidone 4 mg tablet (Risperdal) 4 mg PO BEDTIME 07/17/24 07/17/24 vitamin E 400 unit tablet 400 unit PO DAILY 07/17/24 07/17/24 Allergies Allergy/AdvReac Type Severity Reaction Status Date / Time No Known Allergies Allergy Mild NOT Verified 07/17/24 09:46 APPLICABLE Review of Systems 2 Review of Systems: Yes all other systems are reviewed and are negative PMFSH Past Medical History Attestation statement: The following information was validated with the patient. Source: old records reviewed and nursing notes reviewed Medical History Cocaine use disorder Alcohol use disorder, severe, dependence PTSD (post-traumatic stress disorder) Schizoaffective disorder, bipolar type Chronic schizophrenia Depression Bipolar disorder Suicidal ideation Social History Social History Housing: Homeless Do you presently have visiting nurse or other home services: No Unable to assess alcohol history related to: Refusing to respond Patient Tobacco Use Status: Tobacco use Unknown Substance Use Type: Crack/Cocaine Advance Directives: No Advance Directives Information Provided: Yes Do you have a plan to hurt others: Vague service: No Sexual orientation: Straight/Heterosexual Physical Exam 2 Vital Signs: Vital Signs: Last Vital Signs Temp 97.2 F 07/17/24 09:42 Pulse 93 07/17/24 09:42 Resp 18 07/17/24 09:42 BP 135/78 07/17/24 09:42 Pulse Ox 99 07/17/24 09:42 O2 Del Method Room Air 07/17/24 09:42 BMI result Body Mass Index 33.7 vital signs stable General: Well appearing, in no acute distress. Skin: +psoriatic lesions noted to b/l LEs Head: Normocephalic, atraumatic. EENT: Hearing is intact b/l. Conjunctiva clear. PERRLA. EOM intact. Moist mucous membranes.? Cardiac: Chest wall symmetric. RRR Lungs: Normal respiratory effort without accessory muscle use. CTA bilaterally Abdomen: Soft, non-tender, non-distended. No rebound tenderness or guarding. Positive BS x4. Back: No midline spinous or paraspinal tenderness. No step off deformity. Ext: Upper and lower extremities atraumatic, without tenderness, deformity, swelling or erythema Neuro: AOx3. Normal speech. CN 2-12 grossly intact. Ambulating with steady gait. Psych: Appropriate mood and affect. Responds appropriately to questions. Course Course Course Narrative: 1044 -- CBC without leukocytosis or left shift. Normocytic anemia, H and H around patient's baseline and above transfusion threshold. BUN slightly elevated at 28, creatinine WNL. Liver function at baseline. Urine without infection. Urine toxicology negative. Acetaminophen, salicylate and ethanol undetectable. > patient is medically cleared at this time. physician observation initiated pending CARE team evaluation. Medical Decision Making Medical Decision Making [facility] Narrative: 59 year old male with pmhx significant for polysubstance use disorder, PTSD, bipolar disorder, schizoaffective disorder, and etoh use disorder presents to the ED today via EMS from care home for evaluation of SI. ? Differential diagnosis includes anemia, electrolyte abnormality, mood disorder, anxiety, depression, SI, polysubstance abuse Presentation not consistent with acute organic causes to include delirium, dementia or drug induced disorders (acute ingestions or withdrawal; no evidence of toxidrome).? Given the H&P, I suspect this patient is suicidal and will require observation. Placed in the behavioral POD. Will consult care team to evaluate the patient. Will also obtain labs for medical clearance. Plan: labs, EKG, ASA/APAP levels, ETOH level, UDS, care team consultation, reassessment Differential Diagnosis Differential Diagnoses: The differential diagnosis associated with the presentation includes as above. Admission/Observation Consideration of admission/observation: Escalation of care including admission/observation considered Lab Data [facility] Lab Attestation statement: I reviewed the patient's lab results. as above. 07/17/24 10:14 07/17/24 10:14 Labs: Lab Results 03/29/25 Range/Units 10:14 WBC 5.5 (4.8-10.8) X10*3/uL RBC 4.07 L (4.60-5.80) X10*6/uL Hgb 12.5 L (14.0-18.0) g/dl Hct 37.6 L (42.0-52.0) % MCV 92.4 (80.0-98.0) fL MCH 30.7 (27.0-33.0) pg MCHC 33.2 (31.0-36.0) g/dl RDW 13.0 (11.0-16.0) % Plt Count 263 (160-400) X10*3/uL MPV 9.6 (9.4-12.4) fL Immature Gran % (Auto) 0.2 (0.0-0.4) % Neut % (Auto) 55.3 (45-73) % Lymph % (Auto) 27.4 (20-40) % [place] % (Auto) 11.3 H (2-11) % Eos % (Auto) 5.3 H (0-4) % Baso % (Auto) 0.5 (0-2) % Lymph # (Auto) 1.5 (1.2-4.9) X10*3/uL [place] # (Auto) 0.6 (0.1-1.2) X10*3/uL Eos # (Auto) 0.3 (0.0-0.4) X10*3/uL Baso # (Auto) 0.0 (0.0-0.2) X10*3/uL Abs Immat Gran (auto) 0.01 (0.00-0.03) X10*3/uL Absolute Neuts (auto) 3.1 (2.0-8.3) x10*3/uL Absolute Nucleated RBC 0.000 (0.0-0.012) X10*3/uL Nucleated RBC % (auto) 0.0 (0.0-0.2) /100WBC Sodium 141 (135-145) mmol/L Potassium 4.3 (3.3-5.1) mmol/L Chloride 113 H (96-108) mmol/L Carbon Dioxide 24 (22-29) mmol/L Anion Gap 8 L (12-20) BUN 28 H (9-16) mg/dL Creatinine 0.80 (0.5-1.4) mg/dL Estim Creat Clear Calc 98.8 Estimated GFR > 60 Random Glucose 94 (60-115) mg/dL Calcium 9.1 (8.4-10.2) mg/dL Magnesium 2.0 (1.6-2.6) mg/dL Total Bilirubin 0.2 (0.0-1.0) mg/dL AST 37 (5-37) U/L ALT 20 (0-40) U/L Alkaline Phosphatase 54 (39-117) U/L Total Protein 7.4 (6.5-8.0) g/dL Albumin 3.8 (3.5-5.0) g/dL Lipase 25 (8-78) U/L Urine Color Yellow Urine Appearance Clear Urine pH 6.5 (5.0-9.0) Ur Specific [place] 1.020 (1.005-1.025) Urine Protein Negative (Neg-Trace) mg/dL Urine Glucose (UA) Negative (Negative) mg/dL Urine Ketones Negative (Negative) mg/dL Urine Blood Small (1+) H (Negative) Urine Nitrite Negative (Negative) Ur Leukocyte Esterase Negative (Negative) Urine RBC 3-5 H (0-2) /HPF Urine WBC 0-5 (0-5) /HPF Ur Squamous Epith Cells 0-2 (0-2) /HPF Urine Bacteria None Seen (None Seen) Hyaline Casts 0-2 (0-2) /LPF Salicylates < 5.0 L (15-30) mg/dL Urine Opiates Screen Not Detected (Not Detect) Ur Buprenorphine Scrn Not Detected (Not Detect) ng/mL Ur Oxycodone Screen Not Detected (Not Detect) ng/mL Urine Methadone Screen Not Detected (Not Detect) ng/mL Urine Fentanyl Screen Not Detected (Not Detect) Acetaminophen < 3 (<30) mcg/mL Ur Barbiturates Screen Not Detected (Not Detect) Ur Phencyclidine Scrn Not Detected (Not Detect) Ur Amphetamines Screen Not Detected (Not Detect) U Benzodiazepines Scrn Not Detected (Not Detect) Urine Cocaine Screen Not Detected (Not Detect) U Marijuana (THC) Screen Not Detected (Not Detect) Ethyl Alcohol < 10 mg/dL External Record Review External record reviewed: Inpatient record Chronic Conditions Patient?s care impacted by: Other (Polysubstance use, ETOH abuse, SI, PTSD, bipolar, schizoaffective) Social Determinants Patient?s care significantly limited by Social Determinants of Health including: Alcoholism and drug addiction in family and Other Social Determinant of Health Critical Care Time Critical Care Time Critical Care Time: No Discharge Plan Discharge Clinical Impression: Suicidal ideation Patient Disposition: Still a Patient Prescriptions: No Action fluoxetine 40 mg Capsule 40 mg PO DAILY ammonium lactate 12 % Lotion 1 appl TOPICAL DAILY PRN (Reason: Dry Skin) risperidone [Risperdal] 4 mg Tablet 4 mg PO BEDTIME naltrexone 50 mg Tablet 50 mg PO DAILY olanzapine [Zyprexa] 10 mg Tablet 10 mg PO BID risperidone [Risperdal] 2 mg Tablet 2 mg PO DAILY nicotine (polacrilex) 4 mg Gum 4 mg BUCCAL Q2H PRN (Reason: Nicotine Cravings) pantoprazole [Protonix] 40 mg Tablet,Delayed Release (Dr/Ec) 40 mg PO DAILY ibuprofen 400 mg Tablet 400 mg PO Q6H PRN (Reason: Pain) vitamin E 400 unit Tablet 400 unit PO DAILY albuterol 90 mcg/actuation Aerosol 90 mcg INHALATION Q4H PRN (Reason: SOB) Rx Instructions: 2 puffs Q 4 hours PRN buspirone [BuSpar] 15 mg Tablet 15 mg PO BID hydroxyzine pamoate 50 mg Capsule 50 mg PO QID PRN (Reason: Anxiety) divalproex [Depakote ER] 500 mg Tablet Extended Release 24 Hr 1,000 mg PO BEDTIME benztropine [Cogentin] 1 mg Tablet 1 mg PO BEDTIME prazosin 2 mg Capsule 2 mg PO BEDTIME melatonin 6 MG tablet 6 mg PO BEDTIME Interventions: [place]-Suicide Risk Severity Scale Last Done: 07/17/24 09:47 Print Language: Hong Konger
[2024-07-17 10:19] LABS: MANUAL DIFF FLAG NO
[2024-07-17 10:20] LABS: Basophils Percent Auto 0.5 % (0-2); Eosinophils Absolute Auto 0.3 X10*3/uL (0.0-0.4); Eosinophils Percent Auto 5.3 % (0-4); Hematocrit 37.6 % (42.0-52.0); Hemoglobin 12.5 g/dl (14.0-18.0); Imm Gran Abs Auto 0.01 X10*3/uL (0.00-0.03); Imm Gran Pct Auto 0.2 % (0.0-0.4); Lymphocytes Absolute Auto 1.5 X10*3/uL (1.2-4.9); Lymphocytes Percent Auto 27.4 % (20-40); Mean Corpuscular HGB Conc 33.2 g/dl (31.0-36.0); Mean Corpuscular Hemoglobin 30.7 pg (27.0-33.0); Mean Corpuscular Volume 92.4 fL (80.0-98.0); Mean Platelet Volume 9.6 fL (9.4-12.4); Monocytes Absolute Auto 0.6 X10*3/uL (0.1-1.2); Monocytes Percent Auto 11.3 % (2-11); Neutrophils Absolute Auto 3.1 x10*3/uL (2.0-8.3); Neutrophils Percent Auto 55.3 % (45-73); Platelet Count 263 X10*3/uL (160-400); Red Blood Count 4.07 X10*6/uL (4.60-5.80); White Blood Count 5.5 X10*3/uL (4.8-10.8)
[2024-07-17 10:21] LABS: Appearance Urine Clear; Color Urine Yellow; Glucose Urine UA Negative (Negative); Leukocyte Esterase Urine Negative (Negative); Nitrite Urine Negative (Negative); PH 6.5 (5.0-9.0); UMIC TRIGGER UACC YES; Urine Blood Small (1+) (Negative); Urine Ketones Negative (Negative); Urine Protein Negative (Neg-Trace)
[2024-07-17 10:36] LABS: Amphetamine Screen Urine Not Detected (Not Detect); Bacteria Urine None Seen (None Seen); Barbiturates, Urine Not Detected (Not Detect); Benzodiazepines Screen Urine Not Detected (Not Detect); Buprenorphine Scr Not Detected (Not Detect); Cannabinoid Screen Urine Not Detected (Not Detect); Cocaine Screen Urine Not Detected (Not Detect); Fentanyl, urine Not Detected (Not Detect); Hyaline Casts Urine 0-2 /LPF (0-2); Methadone Screen, Urine Not Detected (Not Detect); Opiate Screen Urine Not Detected (Not Detect); Oxycodone Screen Urine Not Detected (Not Detect); Phencyclidine Screen Urine Not Detected (Not Detect); Squamous Epithelial Cell Urine 0-2 /HPF (0-2); WBC Urine 0-5 /HPF (0-5)
[2024-07-17 10:41] LABS: Acetaminophen LAB < 3 mcg/mL (<30); Alanine Aminotransferase 20 U/L (0-40); Albumin Level 3.8 g/dL (3.5-5.0); Alkaline Phosphatase 54 U/L (39-117); Anion Gap 8 (12-20); Aspartate Amino Transferase 37 U/L (5-37); Bilirubin Total 0.2 mg/dL (0.0-1.0); Blood Urea Nitrogen 28 mg/dL (9-16); Calcium 9.1 mg/dL (8.4-10.2); Carbon Dioxide 24 mmol/L (22-29); Chloride 113 mmol/L (96-108); Creatinine Clr Calc Pharmacy 98.8; Estimated Glomerular Filt Rate > 60; Ethanol < 10 mg/dL; Glucose Random 94 mg/dL (60-115); Lipase 25 U/L (8-78); Potassium 4.3 mmol/L (3.3-5.1); Salicylate < 5.0 mg/dL (15-30); Sodium 141 mmol/L (135-145); Total Protein 7.4 g/dL (6.5-8.0)
--- NOTE | 2024-07-17 11:30 | PC.NURSE ---
Patient alert and oriented. Cooperative with care. Patient hyper-focusing on items throughout the day with assoc psychomotor agitation. Unable to remain in one place for an extended period of time. Respirations even and non-labored. Lunch provided. Patient denies any complaints. No distress noted at this time. Pending care team eval.
[2024-07-17 14:00] VITALS: BP 121/69; PULSE 84; RESP 14; TEMP 37.1; O2SAT 99
--- NOTE | 2024-07-17 17:15 | MHC.CARE ---
Patient evaluated by the CARE Team, disposition not reached today, will be reassessed in the morning. ED provider Dr. Allen updated
--- NOTE | 2024-07-17 19:32 | PC.NURSE ---
patient appears to remain at rest prsently respirations are even and unlabored patient appears in no distress.
[2024-07-17] MEDS: OLANZapine 10 MG TABLET PO (22:43)
[2024-07-17] MEDS: Divalproex Sodium ER 500 MG TAB.ER.24H 1000 MG PO (22:43)
[2024-07-18 06:07] VITALS: RESP 16
--- NOTE | 2024-07-18 08:00 | PHA.MEDREC ---
Addendum entered by Reji Fuentes [facility] 07/18/24 08:19: MED REC CHECK BY [facility] Original Note: Pharmacy Consult ? Medication Reconciliation Pharmacy has completed the medication reconciliation. Reviewed med rec done by nursing. CARE note explains, Per group home manager, at patient's most recent psychiatric appointment the provider discontinued all medications except Prozac, Depakote and Olanzapine.
[2024-07-18 08:56] VITALS: BP 100/69; PULSE 83; RESP 16; TEMP 36.5; O2SAT 100
[2024-07-18] MEDS: FLUoxetine HCl 20 MG CAPSULE 40 MG PO (09:09)
[2024-07-18] MEDS: OLANZapine 10 MG TABLET PO (09:09)
[2024-07-18 10:12] VITALS: BP 100/69; PULSE 83; RESP 16; TEMP 36.5; O2SAT 100
== END 2024-07-18 10:12 | disposition home or self-care (01) ==
PROVIDERS: Physician Assistant Medical; Emergency Provider Internal Medicine; PCP Internal Medicine
DX: R45.851 Suicidal ideations (principal); F33.1 Major depressive disorder, recurrent, moderate; F41.9 Anxiety disorder, unspecified; F20.0 Paranoid schizophrenia; F14.90 Cocaine use, unspecified, uncomplicated; Z51.81 Encounter for therapeutic drug level monitoring; Z79.899 Other long term (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
CPT/HCPCS: 36415; 80053; 80143; 80179; 80307; 81001; 83690; 83735; 85025; 99285; S9485

== ENCOUNTER 2024-07-28 09:48 | Inpatient (IN) | payer MEDICARE, SELFPAY ==
[2024-07-28 09:55] VITALS: BP 136/76; PULSE 105; O2SAT 100
[2024-07-28 10:03] VITALS: RESP 16; BMI 22.3
[2024-07-28 10:06] VITALS: BP 110/59; PULSE 95; RESP 18; TEMP 36.1; O2SAT 99
--- NOTE | 2024-07-28 10:10 | ED.GENADULT ---
HPI - General Adult General Chief complaint: Psychiatric Symptoms Stated complaint: SI, ATTEMPTED TO RUN IN STREET TO GET HIT Time Seen by Provider: 07/28/24 10:10 Source: patient and EMS Mode of arrival: EMS Limitations: no limitations History of Present Illness ED Provider: Brittney Madden PA-C HPI narrative: Patient is a 59 year old assigned male at with a history of cocaine use disorder, PTSD, alcohol use, depression, schizoaffective disorder, and bipolar disorder presenting to the emergency department today with suicidal ideation. Patient states that he has been having increasing issues at his residential and they are making him suicidal. Patient denies any dizziness, lightheadedness, abdominal pain, nausea, vomiting, fever, chills, blurry vision, double vision, loss of vision, chest pain, difficulty breathing, shortness of breath, back pain, night sweats, pain with urination, increased urinary frequency, increased urinary urgency, blood in his urine or stool, syncope or a near syncopal episode, recent trauma or falls, bowel incontinence, bladder incontinence, or any other complaints at this time. Relieving factors: none Exacerbating factors: none Associated symptoms: denies other symptoms Treatments prior to arrival: none Related Data Home Medications ?Medication ?Instructions ?Recorded ?Confirmed albuterol 90 mcg/actuation aerosol 90 mcg inhalation Q4H PRN SOB 07/17/24 07/28/24 inhaler ibuprofen 400 mg tablet 400 mg PO Q6H PRN Pain 07/17/24 07/28/24 ammonium lactate 12 % lotion 1 appl topical DAILY PRN Dry Skin 07/28/24 07/28/24 divalproex 250 mg tablet,extended 750 mg PO BEDTIME 07/28/24 07/28/24 release 24 hr (Depakote ER) fluoxetine 20 mg capsule 20 mg PO DAILY 07/28/24 07/28/24 melatonin 1 mg tablet 6 mg PO BEDTIME 07/28/24 07/28/24 nicotine (polacrilex) 4 mg gum 4 mg buccal Q2H PRN Nicotine 07/28/24 07/28/24 Cravings olanzapine 15 mg tablet (Zyprexa) 15 mg PO BID 07/28/24 07/28/24 pantoprazole 40 mg tablet,delayed 40 mg PO DAILY 07/28/24 07/28/24 release (Protonix) vitamin E 400 unit tablet 400 unit PO DAILY 07/28/24 07/28/24 Allergies Allergy/AdvReac Type Severity Reaction Status Date / Time No Known Allergies Allergy Mild NOT Verified 07/28/24 10:06 APPLICABLE Review of Systems Constitutional: Constitutional: Reports no additional constitutional complaints, Denies chills, Denies fever(s) and Denies night sweats Eyes: Eyes: Reports no additional eye complaints, Denies blurry vision, Denies change in vision, Denies diplopia, Denies eye discharge, Denies loss of vision and Denies eye pain ENT: Denies dizziness Cardiovascular: Cardiovascular: Reports no additional cardiovascular complaints, Denies chest pain, Denies lightheadedness, Denies Loss of Consciousness and Denies dyspnea Respiratory: Respiratory: Reports no additional respiratory complaints and Denies dyspnea Gastrointestinal: Gastrointestinal: Reports no additional gastrointestinal complaints, Denies abdominal pain, Denies melena, Denies hematochezia, Denies change in bowel habits and Denies change in stool character Genitourinary: Genitourinary: Reports no additional male genitourinary complaints, Denies hematuria, Denies oliguria, Denies difficulty urinating, Denies dysuria, Denies urinary frequency, Denies urinary hesitancy, Denies urinary incontinence and Denies urinary urgency Musculoskeletal: Musculoskeletal: Reports no additional musculoskeletal complaints, Denies numbness and Denies tingling Neurologic: Denies dizziness, Denies loss of vision, Denies numbness and Denies tingling Psychiatric: Psychiatric: Denies homicidal ideation and Reports suicidal ideation Endocrine: Endocrine: Reports no additional endocrine complaints Hematologic/Lymphatic: Hematologic/Lymphatic: Reports no additional hematologic/lymphatic complaints Allergic/Immunologic: Allergic/Immunologic: Reports no additional allergic/immunologic complaints [facility] Past Medical History Attestation statement: The following information was validated with the patient. Source: old records reviewed and nursing notes reviewed Medical History Cocaine use disorder Alcohol use disorder, severe, dependence PTSD (post-traumatic stress disorder) Schizoaffective disorder, bipolar type Chronic schizophrenia Depression Bipolar disorder Suicidal ideation Social History Social History Household Members: Other Household Members Other:: Pt resides in residential. Housing: Homeless Do you presently have visiting nurse or other home services: No Unable to assess alcohol history related to: Refusing to respond Patient Tobacco Use Status: Current everyday Tobacco user Tobacco use type: Cigarette Cigarette Packs Per Day: 0.5 Cigarettes Per Day: 10.0 Smoked in Last 30 Days: Yes Patient Interested in Nicotine Replacement: Yes Use of substances other than those prescribed or required for medical reasons: No Substance Use Type: Crack/Cocaine Currently Displaying Signs/Symptoms of Drug Intoxication Withdrawal: No Other Past Substance Use Problem:: hx of cocaine/ETOH use, but pt reports no substance use in several years. Any prior treatment program specific to substance use: Yes Have you been hit, kicked, punched, or otherwise hurt by someone within the past year? If so, by whom?: No Do you feel safe in your current relationship?: No Current Relationship Is there a partner from a previous relationship who is making you feel unsafe now?: No Are you made to feel afraid or neglected: No Advance Directives: No Advance Directives Information Provided: Yes Do you have a plan to hurt others: No Plan Recently lost weight without trying: No Eating poorly because of decreased appetite: No Nutrition Risks: No Nutritional Risk service: No Sexual orientation: Straight/Heterosexual Physical Exam ED Vital Signs: Vital Signs - 24 hr 07/28/24 17:33 07/29/24 06:11 Temperature 97.2 F 98.4 F Pulse Rate 77 69 Respiratory Rate 20 17 Blood Pressure 105/67 113/76 Pulse Oximetry 98 98 Oxygen Delivery Method Room Air Room Air BMI result Body Mass Index 22.3 Const General: cooperative, no acute distress, alert and awake Nutritional Appearance: well nourished Orientation/consciousness: patient oriented x3 Limitations: no limitations [facility] Head: Yes normal to inspection and Yes atraumatic Ears: hearing grossly normal bilaterally and external ears normal General nose exam: Normal external nose present, no nasal discharge noted and no epistaxis Face and sinus: Yes normal facial exam, No abrasion and No laceration Mouth: Normal oral and palatal mucosa present, no drooling and no muffled voice Eyes General: appearance normal, both eyes and all related structures Periorbital: periorbital findings normal Eyelids: Yes eyelids normal Conjunctivae: conjunctivae normal Pupils: Equal, round and reactive pupils present EOM: EOMs intact bilaterally Neck Neck: Yes normal visual inspection, Yes full ROM and Yes no lymphadenopathy Chest Chest palpation & inspection: normal inspection of the chest Resp Effort & Inspection: normal respiratory effort and able to speak in complete sentences GI Inspection: Yes normal to inspection Neuro General: patient oriented x3, moves all extremities and CN's II-XI intact bilaterally Cranial nerves: Yes Equal, round and reactive pupils present Cognition (Neuro): normal cognition Extrem General: Yes normal to inspection, Yes full ROM and Yes capillary refill normal Psych Appearance: grossly normal Mental Status: mental status grossly normal Affect: Labile affect present Attitude: Guarded attititude/behavior present Thought process: Circumstantial thought process present Thought content: Suicidality present Course Course Course Narrative: Brittney Madden PA-C 07/29/2024 1130 --> Patient admitted to the inpatient psychiatric unit here at [facility]. Medications Administered Generic Name Dose Route Start Last Admin Trade Name Freq PRN Reason Stop Dose Admin Divalproex Sodium 750 mg 07/28/24 21:00 07/28/24 21:59 Divalproex Sodium Er 250 Mg Tab.Er.24h PO 750 mg BEDTIME CARLITA Administration Fluoxetine HCl 20 mg 07/29/24 09:00 07/29/24 08:32 Fluoxetine Hcl 20 Mg Capsule PO 20 mg DAILY CARLITA Administration Melatonin 6 mg 07/28/24 21:00 07/28/24 21:58 Melatonin 3 Mg Tablet PO 6 mg BEDTIME CARLITA Administration Multi-Ingred Cream/Lotion/Oil/Oint 1 appl 07/29/24 13:13 07/29/24 15:07 Mineral Oil/Petrolatum,White 106 Gm Tube TOPICAL 1 appl BID CARLITA Administration Protocol Nicotine Polacrilex 4 mg 07/28/24 11:25 07/29/24 05:49 Nicotine Polacrilex 2 Mg Gum BUCCAL 4 mg Q2H PRN Administration Nicotine Cravings Olanzapine 15 mg 07/28/24 21:00 07/29/24 08:32 Olanzapine 7.5 Mg Tablet PO 15 mg BID CARLITA Administration Pantoprazole Sodium 40 mg 07/29/24 06:30 07/29/24 05:46 Pantoprazole Sodium 20 Mg Tablet. PO 40 mg DAILY@0630 CARLITA Administration Vitamin E 180 mg 07/29/24 09:00 07/29/24 09:03 Vitamin E (Dl,Tocopheryl Acet) 180 Mg (400 Unit) Capsule PO 180 mg DAILY CARLITA Administration Discontinued Medications Generic Name Dose Route Start Last Admin Trade Name Freq PRN Reason Stop Dose Admin Lorazepam 1 mg 07/28/24 10:37 07/28/24 10:41 Lorazepam 1 Mg Tablet PO 07/28/24 10:38 1 mg ONCE ONE Administration Medical Decision Making Medical Decision Making [facility] Narrative: Patient is a 59 year old assigned male at with a history of cocaine use disorder, PTSD, alcohol use, depression, schizoaffective disorder, and bipolar disorder presenting to the emergency department today with suicidal ideation. Patient's physical exam was as noted in the physical exam portion of this note. Patient's blood work showed a valporic acid level of <12.5 - this is concerning given the patient and residential have stated he is compliant with his medications including Depakote yet it is not at therapeutic level. Patient's urine showed no acute process. Patient's EKG was unremarkable. I explained my physical exam findings as well as all test results to the patient. I answered all questions asked by the patient. Patient was feeling anxious upon arrival to the department and was given PO ativan. Patient's disposition will be determined after CARE team evaluation. Differential Diagnosis Differential Diagnoses: The differential diagnosis associated with the presentation includes Suicidal Depression Increased life stressors Medication non-compliance Admission/Observation Consideration of admission/observation: Escalation of care including admission/observation considered Patient's disposition will be determined after CARE team evaluation. Lab Data [facility] Lab Attestation statement: I reviewed the patient's lab results. My interpretation of these results are in the MDM Rationale portion of this note. 07/28/24 10:10 07/28/24 10:10 Labs: Lab Results 07/28/24 07/28/24 Range/Units 10:10 10:45 WBC 6.3 (4.8-10.8) X10*3/uL RBC 4.50 L (4.60-5.80) X10*6/uL Hgb 13.8 L (14.0-18.0) g/dl Hct 39.7 L (42.0-52.0) % MCV 88.2 (80.0-98.0) fL MCH 30.7 (27.0-33.0) pg MCHC 34.8 (31.0-36.0) g/dl RDW 13.0 (11.0-16.0) % Plt Count 338 D (160-400) X10*3/uL MPV 9.6 (9.4-12.4) fL Immature Gran % (Auto) 0.3 (0.0-0.4) % Neut % (Auto) 60.1 (45-73) % Lymph % (Auto) 27.6 (20-40) % King % (Auto) 8.5 (2-11) % Eos % (Auto) 2.9 (0-4) % Baso % (Auto) 0.6 (0-2) % Lymph # (Auto) 1.7 (1.2-4.9) X10*3/uL King # (Auto) 0.5 (0.1-1.2) X10*3/uL Eos # (Auto) 0.2 (0.0-0.4) X10*3/uL Baso # (Auto) 0.0 (0.0-0.2) X10*3/uL Abs Immat Gran (auto) 0.02 (0.00-0.03) X10*3/uL Absolute Neuts (auto) 3.8 (2.0-8.3) x10*3/uL Absolute Nucleated RBC 0.000 (0.0-0.012) X10*3/uL Nucleated RBC % (auto) 0.0 (0.0-0.2) /100WBC Sodium 139 (135-145) mmol/L Potassium 3.8 (3.3-5.1) mmol/L Chloride 110 H (96-108) mmol/L Carbon Dioxide 22 (22-29) mmol/L Anion Gap 11 L (12-20) BUN 25 H (9-16) mg/dL Creatinine 0.95 (0.5-1.4) mg/dL Estim Creat Clear Calc 88.0 Estimated GFR > 60 Random Glucose 82 (60-115) mg/dL Calcium 9.2 (8.4-10.2) mg/dL Total Bilirubin 0.3 (0.0-1.0) mg/dL AST 24 (5-37) U/L ALT 17 (0-40) U/L Alkaline Phosphatase 56 (39-117) U/L Total Protein 7.9 (6.5-8.0) g/dL Albumin 4.2 (3.5-5.0) g/dL Hold Yellow Top See Note Urine Color Yellow Urine Appearance Clear Urine pH 5.5 (5.0-9.0) Ur Specific [place] 1.025 (1.005-1.025) Urine Protein Trace (Neg-Trace) mg/dL Urine Glucose (UA) Negative (Negative) mg/dL Urine Ketones Trace (Negative) mg/dL Urine Blood Small (1+) H (Negative) Urine Nitrite Negative (Negative) Ur Leukocyte Esterase Trace H (Negative) Urine RBC 3-5 H (0-2) /HPF Urine WBC 11-20 H (0-5) /HPF Ur Squamous Epith Cells 0-2 (0-2) /HPF Urine Bacteria None Seen (None Seen) Hyaline Casts 3-5 (0-2) /LPF Granular Casts Present Urine Opiates Screen Not Detected (Not Detect) Ur Buprenorphine Scrn Not Detected (Not Detect) ng/mL Ur Oxycodone Screen Not Detected (Not Detect) ng/mL Urine Methadone Screen Not Detected (Not Detect) ng/mL Urine Fentanyl Screen Not Detected (Not Detect) Ur Barbiturates Screen Not Detected (Not Detect) Valproic Acid < 12.5 L (50.0-100.0) mcg/mL Ur Phencyclidine Scrn Not Detected (Not Detect) Ur Amphetamines Screen Not Detected (Not Detect) U Benzodiazepines Scrn Not Detected (Not Detect) Urine Cocaine Screen Not Detected (Not Detect) U Marijuana (THC) Screen Not Detected (Not Detect) Ethyl Alcohol < 10 mg/dL Independent Interpretation I performed an independent interpretation of an: EKG Interpretation: I independently interpreted this EKG and am in agreement with the below findings: Vent. Rate: 75 BPM Atrial Rate: 75 BPM P-R Int: 146 ms QRS Dur: 84 ms QT Int: 382 ms P-R-T Axes: 54 68 69 degrees QTcB Int: 426 ms Normal sinus rhythm Normal ECG When compared with ECG of 19-Dec-2021 16:09, No significant change was found Electronically Signed By: Keyshawn Plasencia Dictated By: Keyshawn Plasencia MD Signed By: Electronically signed by Keyshawn Plasencia MD 07/28/24 1422 Independent Historian Clinical information obtained from an independent historian. History obtained from or confirmed by: EMS (EMS provided additional history and confirmed the history provided by the patient.) External Record Review External record reviewed: Inpatient record Critical Care Time Critical Care Time Critical Care Time: Yes Total Critical Care Time: 34 Attestation: I spent 34 minutes of Critical Care Time with this patient. This does not include time spent on separately reported billable procedures. Discharge Plan Discharge Clinical Impression: Suicidal ideation Patient Disposition: Admitted As Inpatient Interventions: Admission Worksheet (ED) Last Done: 07/29/24 12:14 Discharge Date/Time: 07/29/24 13:50
--- NOTE | 2024-07-28 10:11 | PC.NURSE ---
Belongings: LOCKER 1
[2024-07-28 10:25] LABS: MANUAL DIFF FLAG NO
[2024-07-28 10:27] LABS: Basophils Percent Auto 0.6 % (0-2); Eosinophils Absolute Auto 0.2 X10*3/uL (0.0-0.4); Eosinophils Percent Auto 2.9 % (0-4); Hematocrit 39.7 % (42.0-52.0); Hemoglobin 13.8 g/dl (14.0-18.0); Imm Gran Abs Auto 0.02 X10*3/uL (0.00-0.03); Imm Gran Pct Auto 0.3 % (0.0-0.4); Lymphocytes Absolute Auto 1.7 X10*3/uL (1.2-4.9); Lymphocytes Percent Auto 27.6 % (20-40); Mean Corpuscular HGB Conc 34.8 g/dl (31.0-36.0); Mean Corpuscular Hemoglobin 30.7 pg (27.0-33.0); Mean Corpuscular Volume 88.2 fL (80.0-98.0); Mean Platelet Volume 9.6 fL (9.4-12.4); Monocytes Absolute Auto 0.5 X10*3/uL (0.1-1.2); Monocytes Percent Auto 8.5 % (2-11); Neutrophils Absolute Auto 3.8 x10*3/uL (2.0-8.3); Neutrophils Percent Auto 60.1 % (45-73); Platelet Count 338 X10*3/uL (160-400); White Blood Count 6.3 X10*3/uL (4.8-10.8)
[2024-07-28] MEDS: LORazepam 1 MG TABLET PO (10:41)
[2024-07-28 11:01] LABS: Appearance Urine Clear; Color Urine Yellow; Glucose Urine UA Negative (Negative); Leukocyte Esterase Urine Trace (Negative); Nitrite Urine Negative (Negative); PH 5.5 (5.0-9.0); Specific Gravity - Urine 1.025 (1.005-1.025); UMIC TRIGGER UACC YES; Urine Blood Small (1+) (Negative); Urine Ketones Trace mg/dL (Negative); Urine Protein Trace mg/dL (Neg-Trace)
[2024-07-28 11:05] LABS: Alanine Aminotransferase 17 U/L (0-40); Albumin Level 4.2 g/dL (3.5-5.0); Alkaline Phosphatase 56 U/L (39-117); Anion Gap 11 (12-20); Aspartate Amino Transferase 24 U/L (5-37); Bilirubin Total 0.3 mg/dL (0.0-1.0); Blood Urea Nitrogen 25 mg/dL (9-16); Calcium 9.2 mg/dL (8.4-10.2); Carbon Dioxide 22 mmol/L (22-29); Chloride 110 mmol/L (96-108); Estimated Glomerular Filt Rate > 60; Ethanol < 10 mg/dL; Glucose Random 82 mg/dL (60-115); Potassium 3.8 mmol/L (3.3-5.1); Sodium 139 mmol/L (135-145); Total Protein 7.9 g/dL (6.5-8.0)
[2024-07-28 11:09] LABS: Amphetamine Screen Urine Not Detected (Not Detect); Barbiturates, Urine Not Detected (Not Detect); Benzodiazepines Screen Urine Not Detected (Not Detect); Buprenorphine Scr Not Detected (Not Detect); Cannabinoid Screen Urine Not Detected (Not Detect); Cocaine Screen Urine Not Detected (Not Detect); Fentanyl, urine Not Detected (Not Detect); Methadone Screen, Urine Not Detected (Not Detect); Opiate Screen Urine Not Detected (Not Detect); Oxycodone Screen Urine Not Detected (Not Detect); Phencyclidine Screen Urine Not Detected (Not Detect)
[2024-07-28 11:11] LABS: Valproate < 12.5 mcg/mL (50.0-100.0)
[2024-07-28 11:19] LABS: Bacteria Urine None Seen (None Seen); Granular Casts Urine Present; Squamous Epithelial Cell Urine 0-2 /HPF (0-2); UACC Culture Trigger YES
--- NOTE | 2024-07-28 11:43 | PHA.MEDREC ---
Pharmacy Consult ? Medication Reconciliation Pharmacy has reviewed the medication reconciliation done by RN. Patient was sent from custodial with a medications list. The med rec matches medication list but does not make claim history. When I spoke with the RN she stated the patient doesnt know much about his medications and takes them how the custodial administers them. For this reason the custodial list was utilized.
--- NOTE | 2024-07-28 12:33 | ECG_ITS ---
Test Reason : medical clearance Blood Pressure : */* mmHG Vent. Rate : 75 BPM Atrial Rate : 75 BPM P-R Int : 146 ms QRS Dur : 84 ms QT Int : 382 ms P-R-T Axes : 54 68 69 degrees QTcB Int : 426 ms Normal sinus rhythm Normal ECG When compared with ECG of 19-Dec-2021 16:09, No significant change was found Referred By: Brittney Madden Electronically Signed By: Keyshawn Plasencia
--- NOTE | 2024-07-28 13:42 | MHC.CARE ---
Pt will be a bedsearch
--- OUTSIDE RECORDS SUMMARY | 2024-07-28 14:04 | XMS_ITS | Encounter Summary ---
Author Organization [employer] Address [address] [facility] [address] [place] [address] Care Team Providers Care Mainspring Strip Gauger Name Role Phone Alison Valentine MD Primary Care Provider [phone] Encounter Details Date Type Department Care Team (Late st Contact Info) Description 04/12/2022 Orders Only [facility] [address] [place] [address] Alison Valentine MD [address] [place], [place] [phone] Gastroesophageal reflux disease without esophagitis (Primary Dx) Social History Tobacco Use Types Packs/Day Years Used Date Smoking Tobacco: Never Assessed Sex and Gender Information Value Date Recorded Sex Assigned at Male 02/18/2022 10:20 AM EDT Legal Sex Male 10:20 AM EDT Gender Identity Choose not to disclose 10:20 AM EDT Sexual Orientation Choose not to disclose 2021 10:20 AM EDT documented as of this encounter Plan of Treatment Not on file documented as of this encounter Visit Diagnoses Diagnosis Gastroesophageal reflux disease without esophagitis- Primary Esophageal reflux documented in this encounter Care Teams [employer] Strip Gauger Relationship Specialty Start Date End Date Alison Valentine MD [address] [place], [place] [phone] PCP - General Internal Medicine 05/21/13 documented as of this encounter
--- OUTSIDE RECORDS SUMMARY | 2024-07-28 14:05 | XMS_ITS | Encounter Summary ---
Author Organization [employer] Address [address] [facility] [address] [place] [address] Care Team Providers Care Oil Pit Attendant Name Role Phone Alison Valentine MD Primary Care Provider [phone]- [phone] Reason for Visit * Reason Comments Med Refill Encounter Details Date Type Department Care Team ([facility] st Contact Info) Description 07/22/2023 Refill [facility] [address] [place], [place] [phone] Alison Valentine MD [address] [place], [place] [phone] Acute pain of right shoulder Social History Tobacco Use Types Packs/Day Years Used Date Smoking Tobacco: Every Day Cigarettes 3 35 Passive Smoke Exposure: Current Smokeless Tobacco: Never Depression Answer Date Recorded Patient Health Questionnaire-9 Score 4 09/23/2022 Housing Stability Answer Date Recorded What is your housing situation today? I have emely fowler 02/13/[address] you li ve. Do you have problems with any of the following? None of the above 02/13/2023 Food Insecurity Answer Date Recorded Within the past 12 months, y ou worried that your food would run out before you got money to buy more: Never True 02/13/2023 Within the past 12 months,th e food you bought just didn't last and you didn't have enough money to get more: Never True Transportation Answer Date Recorded In the past 12 months, has l ack of transportation kept you from medical appts, meetings, work or from getting things needed for daily living? No 02/13/2023 Utilities Answer Date Recorded In the past 12 months, has t he electric, gas, oil or water company threatened to shut off services in your home? No 02/13/2023 Depression Answer Date Recorded Patient Health Questionnaire-2 Score 1 09/23/2022 Sex and Gender Information Value Date Recorded Sex Assigned at Male 02/18/2022 10:20 AM EDT Legal Sex Male 10:20 AM EDT Gender Identity Choose not to disclose 10:20 AM EDT Sexual Orientation Choose not to disclose 2021 10:20 AM EDT documented as of this encounter Plan of Treatment Not on file documented as of this encounter Visit Diagnoses Diagnosis Acute pain of right shoulder documented in this encounter Additional Health Concerns Assessment Noted Time PHQ-9 Depression Total Score: 4 09/24/19 23 8:42 AM EDT documented as of this encounter Care Teams Oil Pit Attendant Relationship Specialty Start Date End Date Alison Valentine MD [address] [place] [id number] PCP - General Internal Medicine 05/21/13 documented as of this encounter
--- OUTSIDE RECORDS SUMMARY | 2024-07-28 14:05 | XMS_ITS | Clinical Summary ---
Author Organization [facility] Address [address] [place] [address] Phone Care Team Providers Care Glaze Supervisor Name Role Phone Physician, No Pcp Primary Care Provider Unavaila ble Allergies Active Allergy Reactions Criticality Noted Date Comments Lactose Other 09/12/2023 Nausea/vomiting/loose stools Encounters Date Type Department Care Team Description 05/28/2024 Lab Requisition [facility] - Main Lab [address] [facility] [place] [address] Radha Damon NP from Last 3 Months Medical History Medical History Date Comments Bipolar 1 disorder (CMS/HCC) Depression Schizoaffective disorder ([facility]) Social History Tobacco Use Types Packs/Day Years Used Date Smoking Tobacco: Never Assessed Sex and Gender Information Value Date Recorded Sex Assigned at Male 03/14/2024 10:32 AM EST Legal Sex Male 5:43 AM EST Gender Identity Male 03/14/2024 10:32 AM EST Sexual Orientation Straight 03/14/2024 10 :32 AM EST Obstetrics History Last Filed Vital Signs Vital Sign Reading Time Taken Comments Blood Pressure 110/69 03/14/2024 8:26 AM EST Pulse 93 03/14/2024 8:26 AM EST Temperature 36.5 ??C (97.7 ??F) 03/14/2024 8:26 AM ES T Respiratory Rate 18 03/14/2024 8:26 AM EST Oxygen Saturation 97% 03/14/2024 8:26 AM EST Inhaled Oxygen Concentration - - Weight 80.7 kg (178 lb) 03/14/2024 9:03 AM EST Height 180.3 cm (5' 11 ) 03/14/2024 9:03 AM EST Body Mass Index 24.83 03/14/2024 9:03 AM EST Plan of Treatment Health Maintenance Due Date Last Done Comments Hepatitis B Vaccines (1 of 3 - 19+ 3-dose series) 1986 Pneumococcal Vaccine: 50+ Years (2 of 2 - PCV) 08/27/2021 08/27/2020, 11/01/2009 Pneumococcal Vaccine: Pediatrics (0 to 5 Years) and At-Risk Patients (6 to 64 Years) (2 of 2 - PCV) 08/27/2021 08/27/2020, 11/01/2009 Zoster Vaccines (2 of 2) 02/11/2022 12/17/2021 Colorectal Cancer Screening: Colonoscopy 03/24/2022 HIV Screening 03/24/2022 Hepatitis C Screening 03/24/2022 Lung Cancer Screening (Low Dose CT) 03/24/2022 Medicare Annual Wellness Visit 03/24/2022 Social Influencers of Health Screening 03/24/2022 Depression Screening 09/24/2023 09/23/2022 COVID-19 Vaccine ( season) 2023 08/29/2021, 08/01/2021 Influenza Vaccine (#1) 2023 , 01/15/2022, 02/12/2021, Additional history exists Hypertension/CHF/CAD Annual BMP Blood Test 03/14/2025 03/14/2024 Cholesterol Screening (Lipid Panel) 04/28/2029 04/28/2024, 09/10/2023 DTaP,Tdap,and Td Vaccines (3 - Td or Tdap) 01/09/2034 01/10/2024, 10/01/2008 HIB Vaccines Aged Out No longer eligi ble based on patient's age to complete this topic HPV Vaccines Aged Out No longer eligi ble based on patient's age to complete this topic Hepatitis A Vaccines Aged Out No long er eligible based on patient's age to complete this topic IPV Vaccines Aged Out No longer eligi ble based on patient's age to complete this topic MMR Vaccines Aged Out No longer eligi ble based on patient's age to complete this topic Meningococcal ACWY Vaccine Aged Out N o longer eligible based on patient's age to complete this topic Meningococcal B Vaccine Aged Out No l onger eligible based on patient's age to complete this topic RSV Immunization Patients Under 20 months Aged Out No longer eligible based on patient's age to complete this topic Varicella Vaccines Aged Out No longer eligible based on patient's age to complete this topic Procedures Procedure Name Priority Date/Time Associated Diagnosis Comments LIPID PANEL WITH REFLEX TO DIRECT LDL Routine 04/28/2024 7:00 AM EST Other alf (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 COMPREHENSIVE METABOLIC PANEL STAT 03/14/2024 8:39 AM EST from Last 3 Months or Most Recently Relevant to Health Maintenance Results * (ABNORMAL) Lipid panel with reflex to direct LDL (04/28/2024 7:00 AM EST) Cholesterol 201(H) 0 - 200 mg/dL LAB CHEMISTRY METHOD 04/28/2024 1:24 PM EST [facility] Triglycerides 116 0 - 150 mg/dL LAB CHEMISTRY METHOD 04/28/2024 1:24 PM EST [facility] HDL 47 >=40 mg/dL LAB CHEMISTRY METHOD 04/28/2024 1:24 PM EST [facility] LDL Calculated 131(H) 0 - 100 mg/dL LAB CHEMISTRY METHOD 04/28/2024 1:24 PM EST [facility] VLDL Cholesterol Von 23.2 mg/dL LAB CHEMISTRY METHOD 04/28/2024 1:24 PM EST [facility] Non HDL Chol. (LDL+VLDL) 154(H) <145 mg/dL LAB CHEMISTRY METHOD 04/28/2024 1:24 PM EST [facility] Chol/HDL Ratio 4.3 0.0 - 4.4 LAB CHEMISTRY METHOD 04/28/2024 1:24 PM [facility] Blood Venous blood specimen / Unknown Venipuncture / Unknown 04/28/2024 7:00 AM EST 04/28/2024 12:15 PM EST us Radha Neel Damon [employer] LAB BLOOD ORDERABLES Fi nal Result [facility] [address] [place] [address], [place] [phone] * (ABNORMAL) Comprehensive metabolic panel (03/14/2024 8:39 AM EST) Sodium 141 133 - 145 mmol/L LAB CHEMISTRY METHOD 03/14/2024 9:29 AM [facility] Potassium 4.5 3.5 - 5.5 mmol/L LAB CHEMISTRY METHOD 03/14/2024 9:29 AM [facility] Comment:Hemolysis present Chloride 109 96 - 110 mmol/L LAB CHEMISTRY METHOD 03/14/2024 9:29 AM [facility] CO2 25 21 - 32 mmol/L LAB CHEMISTRY METHOD 03/14/2024 9:29 AM [facility] Anion Gap 7 3 - 11 LAB CHEMISTRY METHOD 03/14/2024 9:29 AM [facility] Glucose 93 70 - 100 mg/dL LAB CHEMISTRY METHOD 03/14/2024 9:29 AM [facility] BUN 17 5 - 25 mg/dL LAB CHEMISTRY METHOD 03/14/2024 9:29 AM [facility] Creatinine 1.05 0.70 - 1.30 mg/dL LAB CHEMISTRY METHOD 03/14/2024 9:29 AM [facility] eGFR 83 >=60 mL/min/1. 73m2 LAB CHEMISTRY METHOD 03/14/2024 9:29 AM [facility] Comment:Calculation based on the??Chronic Kidney Disease Epidemiology Collaboration (CKD-EPI) equation refit??without adjustment for race. BUN/Creatinine Ratio 16.2 LAB CHEMISTRY METHOD 03/14/2024 9:29 AM [facility] Calcium 9.0 8.5 - 10.5 mg/dL LAB CHEMISTRY METHOD 03/14/2024 9:29 AM [facility] AST (SGOT) 55(H) 10 - 42 unit/L LAB CHEMISTRY METHOD 03/14/2024 9:29 AM [facility] Comment:Hemolysis present ALT (SGPT) 116(H) 10 - 60 unit/L LAB CHEMISTRY METHOD 03/14/2024 9:29 AM [facility] Alkaline Phosphatase 91 42 - 121 unit/L LAB CHEMISTRY METHOD 03/14/2024 9:29 AM [facility] Total Protein 7.0 6.0 - 8.0 g/dL LAB CHEMISTRY METHOD 03/14/2024 9:29 AM [facility] Albumin 3.4 3.2 - 5.0 g/dL LAB CHEMISTRY METHOD 03/14/2024 9:29 AM [facility] Total Bilirubin 0.2 0.0 - 1.4 mg/dL LAB CHEMISTRY METHOD 03/14/2024 9:29 AM [facility] Blood Venous blood specimen / Unknown Venipuncture / Unknown 03/14/2024 8:39 AM EST 03/14/2024 8:42 AM EST us Last Aponte MD LAB BLOOD ORDERABLES Final Res ult [facility] [address] [place] [address], from Last 3 Months or Most Recently Relevant to Health Maintenance Insurance MEDICARE MEDICAID - [place] Advance Directives Documents on File Type Date Recorded Patient Knife Glazer Expl anation Health Care Decision (hx) 04/17/2017 AD WOLF DIRECTIVE Health Care Decision (hx) 04/17/2017 AD WOLF DIRECTIVE Health Care Decision (hx) 04/17/2017 AD WOLF DIRECTIVE Health Care Decision (hx) 04/17/2017 AD WOLF DIRECTIVE Health Care Decision (hx) 04/17/2017 AD WOLF DIRECTIVE Health Care Decision (hx) 04/17/2017 AD WOLF DIRECTIVE Health Care Decision (hx) 04/17/2017 AD WOLF DIRECTIVE Health Care Decision (hx) 04/17/2017 AD WOLF DIRECTIVE Health Care Decision (hx) 04/17/2017 AD WOLF DIRECTIVE Health Care Decision (hx) 04/17/2017 AD WOLF DIRECTIVE Health Care Decision (hx) 04/17/2017 AD WOLF DIRECTIVE Health Care Decision (hx) 04/17/2017 AD WOLF DIRECTIVE Care Teams Glaze Supervisor Relationship Specialty Start Date End Date Physician, No Pcp PCP - General 03/14/24
--- OUTSIDE RECORDS SUMMARY | 2024-07-28 14:05 | XMS_ITS | Clinical Summary ---
Author Organization [employer] Address [address] [facility] [address] [place] [address] Care Team Providers Care In Service Educator Name Role Phone Alison Valentine MD Primary Care Provider [phone]- [phone] Allergies Active Allergy Reactions Criticality Noted Date Comments Lactose Other 09/12/2023 Nausea/vomiting/loose stools Medications * This document contains information received from the source organization and may not represent a complete record from that organization. naltrexone (Depade) 50 MG tablet Take 1 tablet by mouth 1 (one) time each day. 2 Active Elastic Bandages & Supports (Medical Compression Socks) misc Active Ventolin HFA 108 (90 Base) MCG/ACT inhaler Inhale 1-2 puffs by mouth every 4-6 hours as needed; 2 hours prior to exercise 3 Active busPIRone (Buspar) 15 MG tablet Take 1 tablet by mouth 3 times daily. 3 Active gabapentin (Neurontin) 400 MG capsule Take 400 mg by mouth 3 times daily. 3 Active benztropine (Cogentin) 1 MG tablet Take 1 tablet by mouth at bedtime. Active melatonin 3 MG tablet Take 3 tablets by mouth at bedtime. Active Skin Protectants, Misc. (eucerin) cream Apply topically if needed in the morning and at bedtime for dry skin. Active Docusate Sodium (DSS) 100 MG capsule Take 1 capsule (100 mg) by mouth if needed at bedtime (nightly as needed). 90 capsule 1 3 Active divalproex (Depakote ER) 500 MG 24 hr tabletIndications:C hronic schizoaffective schizophrenia (CMS/HCC) Do not crush, chew, or split. 4 tablets daily at bedtime 160 tablet 11 3 Active risperiDONE (RisperDAL) 4 MG tabletIndications:C hronic schizoaffective schizophrenia (CMS/HCC) 4 mg at bedtime 30 tablet 11 3 Active hydrOXYzine HCl (Atarax) 50 MG tablet Take 1 tablet by mouth if needed in the morning, at noon, in the evening, and at bedtime for anxiety. 4 Active OLANZapine (ZyPREXA) 5 MG tablet Take 1 tablet by mouth every 4 (four) hours if needed. 4 Active traZODone (Desyrel) 50 MG tablet Take 1 tablet by mouth if needed at bedtime for sleep. 4 Active pantoprazole (ProtoNix) 40 MG EC tabletIndications:G astroesophageal reflux disease without esophagitis Take 1 tablet (40 mg) by mouth Once per day. 30 tablet 11 4 Active nicotine polacrilex (Nicorette) 4 MG gumIndications:Smok ing CHEW AND PARK 1 PIECE (4 MG) IF NEEDED FOR SMOKING CESSATION. 100 each 4 Active OLANZapine (ZyPREXA) 10 MG tablet Take 1 tablet by mouth 2 times daily. 4 Active ammonium lactate (Amlactin) 12 % creamIndications:Dr holguin skin dermatitis APPLY TOPICALLY DAILY IF NEEDED FOR DRY SKIN. 385 g 11 4 Active vitamin E 180 MG (400 UNIT) capsule PLACE 1 CAPSULE (180 MG) INTO MOUTH BETWEEN CHEEK AND GUM IN THE MORNING. 30 capsule 4 4 025 Active Active Problems Problem Noted Date Diagnosed Date Schizoaffective disorder 09/10/2023 Macrocytic anemia 01/23/2017 Chronic schizoaffective schizophrenia 11/14/2011 Assessment & Plan (09/23/2022 9:46 AM EDT): Assessment: Bishnu is being seen for a HDF after being admitted for agressive behavior (yelling and threatening staff member). Bishnu has a history of depression and anxiety. Bishnu denies SI, HI, hallucinations, self-harm, and suicidal attempts.Today he reports symptoms of feeling sad, low self-esteem, nervousness, not able to control worrying, worrying too much about different things, becoming easily irritated and worries something bad may happen. Bishnu has been in recovery for 10 months; he attends daily AA meeting, has a sponsor, and a voice coach that comes to the house on Tuesdays. Bishnu has also signed up for anger management classes. He is currently connected to a therapist and psychiatrist thru [facility]. At this time Bishnu Yen meets criteria for Visit Diagnoses: Problem List Items Addressed This Visit Other Chronic schizoaffective schizophrenia ([facility]) Patient ready to address current needs Yes Strengths include independence PLAN: 1. Follow up with [facility]: Not recommended for follow-up 2. Patient goal is to continue to engage in substance abuse and behavioral health services 3. Behavioral Recommendations a. Patient will continue to engage in OP therapy b. Patient will comply with medication and psychiatric appointment c. Patient will continue to attend AA and meet with sponsor and recover scrum coach d. Patient will engage in anger management class, once it begins Deep venous thrombosis of lower extremity 2011 Seizure 11/14/2011 Encounters Date Type Department Care Team Description 07/17/2024 Orders Only GENERIC EXTERNAL DATA DEPARTMENT Provider, Generic External Data 07/05/2024 Telephone [facility] [address] [place] [address] Alison Valentine MD No Show 06/24/2024 Telephone [facility] [address] [place] [address] Alison Valentine MD Appointment Request 06/15/2024 Telephone [facility] [address] [place] [address] Alison Valentine MD ER Follow-up 05/13/2024 Telephone [facility] [address] [place], [place] [phone] Alessia Gonzalez RN from Last 3 Months Immunizations Name Administration Dates Next Due Influenza injectable quadriv alent IIV4 with preservative 02/23/2018 Influenza injectable quadriv alent preservative free 04/10/2023,01/15/2022,02/12/2021,03/21,01/23/2017 Influenza, IIV3, injectable 03/20/2010 Influenza, Split (incl. gaudencio fied surface antigen) 02/11/2013 Influenza, seasonal, injecta ble, preservative free 03/12/2016 Influenza, trivalent, adjuvanted 03/12/2016 Moderna Covid-19 Vaccine 12+ 08/29/2021,08/02/19 Pneumococcal Polysaccharide PPSV23 08/27/2020 Zoster, Recombinant 12/17/2021 Social History Tobacco Use Types Packs/Day Years Used Date Smoking Tobacco: Every Day Cigarettes 3 35 Passive Smoke Exposure: Current Smokeless Tobacco: Never Depression Answer Date Recorded Patient Health Questionnaire-9 Score 4 09/23/2022 Housing Stability Answer Date Recorded What is your housing situation today? I have emely fowler 10/07/[address] you li ve. Do you have problems with any of the following? None of the above 10/07/2023 Food Insecurity Answer Date Recorded Within the past 12 months, y ou worried that your food would run out before you got money to buy more: Never True 10/07/2023 Within the past 12 months,th e food you bought just didn't last and you didn't have enough money to get more: Never True Transportation Answer Date Recorded In the past 12 months, has l ack of transportation kept you from medical appts, meetings, work or from getting things needed for daily living? No 10/07/2023 Utilities Answer Date Recorded In the past 12 months, has t he electric, gas, oil or water company threatened to shut off services in your home? No 10/07/2023 Depression Answer Date Recorded Patient Health Questionnaire-2 Score 1 09/23/2022 Internet Access Answer Date Recorded Internet Access Q1 Yes 12/22/2023 Internet Access Q2 Not on file 12/22/2023 Sex and Gender Information Value Date Recorded Sex Assigned at Male 02/18/2022 10:20 AM EDT Legal Sex Male 10:20 AM EDT Gender Identity Choose not to disclose 10:20 AM EDT Sexual Orientation Choose not to disclose 2021 10:20 AM EDT Last Filed Vital Signs Vital Sign Reading Time Taken Comments Blood Pressure 103/70 10/14/2023 2:19 PM EDT Pulse 107 10/14/2023 2:19 PM EDT Temperature 36.3 ??C (97.4 ??F) 10/14/2023 2:19 PM ED T Respiratory Rate 20 10/14/2023 2:19 PM EDT Oxygen Saturation 99% 10/14/2023 2:19 PM EDT Inhaled Oxygen Concentration - - Weight 74.8 kg (165 lb) 10/14/2023 2:19 PM EDT Height 180.3 cm (5' 11 ) 10/14/2023 2:19 PM EDT Body Mass Index 23.01 10/14/2023 2:19 PM EDT Plan of Treatment Health Maintenance Due Date Last Done Comments CT Colonography 1967 Colonoscopy 1967 Colorectal Cancer Screening 1967 Dental Oral Exam 1967 Dental Prophylaxis 1967 Dental X-Ray: Bitewings 1967 Dental X-Ray: Full Mouth 1967 FIT DNA/Cologuard 1967 FIT 1967 FOBT 1967 HIV Screening 1967 Lipid Panel 1967 Sigmoidoscopy 1967 Alcohol/Substance Use Screening 1979 Hepatitis C Screening 1985 Hepatitis B Vaccines (1 of 3 - 19+ 3-dose series) 1986 Lung Cancer Screening 2017 Pneumococcal Vaccine: 50+ Years (2 of 2 - PCV) 08/27/2021 08/27/2020 Zoster Vaccines (2 of 2) 02/11/2022 12/17/2021 Depression Screening 09/24/2023 09/23/2022, 09/24/19 23 COVID-19 Vaccine (3 - 2023- season) 2023 08/29/2021, 08/01/2021 Influenza Vaccine (#1) 2023 3, 01/15/2022, 02/12/2021, Additional history exists SDOH Screening 10/06/2024 10/07/2023 Tobacco Screening 10/14/2024 10/15/2023 DTaP/Tdap/Td Vaccines (2 - Td or Tdap) 01/09/2034 01/10/2024 RSV Patients and Patients Aged 60 years or older (1 - 1-dose 75+ series) 2042 HIB Vaccines Aged Out No longer eligi [...] patient's age to complete this topic Meningococcal Vaccine Aged Out No lissett mariah eligible based on patient's age to complete this topic RSV under 20 months Aged Out No longe r eligible based on patient's age to complete this topic Rotavirus Vaccines Aged Out No longer eligible based on patient's age to complete this topic Procedures Procedure Name Priority Date/Time Associated Diagnosis Comments ETHANOL Routine 07/17/2024 10:14 AM EDT LIPASE Routine 07/17/2024 10:14 AM EDT MAGNESIUM Routine 07/17/2024 10:14 AM EDT COMPREHENSIVE METABOLIC PANEL Routine 07/17/2024 10:14 AM EDT ACETAMINOPHEN LEVEL Routine 07/17/2024 1 0:14 AM EDT SALICYLATE Routine 07/17/2024 10:14 AM EDT DRUG MONITOR, PANEL 1, SCREEN, URINE Routine 07/17/2024 10:14 AM EDT URINALYSIS, COMPLETE, WITH REFLEX TO CULTURE Routine 07/17/2024 10:14 AM EDT CBC WITH AUTO DIFFERENTIAL Routine 07/17/2024 10:14 AM EDT from Last 3 Months Results * Ethanol (07/17/2024 10:14 AM EDT) ETHANOL (MG/DL) IN SER/PLAS <10 mg/dL [facility] Comment:Serum/plasma ethanol results are to be used formedical/treatment purposes only. 07/17/2024 10:1 4 AM EDT 07/17/2024 10:17 AM EDT us Generic External Data Provider LAB BLOOD ORDERAB LES Final Result Performing Organization Address [facility]/ZIP Co de Phone Number [facility] [address] [place] [address] [phone] * (ABNORMAL) Urinalysis, Complete, with Reflex to Culture (07/17/2024 10:14 AM EDT) Color Urine Yellow [facility] Appearance Urine Clear [facility] PH 6.5 5.0 - 9.0 [facility] Glucose Urine UA Negative Negative mg/dL [facility] Urine Blood Small (1+)(A) Negative [facility] Specific [place] - Urine 1.020 1.005 - 1.025 [facility] Urine Protein Negative Neg-Trace mg/dL [facility] Urine Ketones Negative Negative mg/dL [facility] Nitrite Urine Negative Negative [facility] Leukocyte Esterase Urine Negative Negative [facility] RBC Urine 3-5(A) 0 - 2 /HPF [facility] Urine WBC 0-5 0 - 5 /HPF [facility] Urine Squamous Epithelial Cell 0-2 0 - 2 /HPF [facility] Urine Bacteria None Seen None Seen [facility] Hyaline Casts, Urine 0-2 0 - 2 /LPF [facility] 07/17/2024 10:1 4 AM EDT 07/17/2024 10:17 AM EDT Narrative [facility] - 07/17/2024 10:37 AM EDT [id number], Clean Catch us Generic External Data Provider LAB URINE ORDERAB LES Final Result Performing Organization Address [facility]/ZIP Co de Phone Number [facility] [address] [place] [address] [phone] * Drug Monitoring, Panel 1, Screen, Urine (07/17/2024 10:14 AM EDT) Pathologist [facility] Opiate Screen Urine Not Detected Not Detect [facility] Comment:Opiate cut-off is 30 0 ng/mL.Positive results are unconfirmed and should not be used fornon-medical purposes. Barbiturates, Urine Not Detected Not Detect [facility] Comment:Barbiturate cut-off is 200 ng/mL.Positive results are unconfirmed and should not be used fornon-medical purposes. Phencyclidine Screen Urine Not Detected Not Detect [facility] Comment:Phencyclidine cut-of f is 25 ng/mL.Positive results are unconfirmed and should not be used fornon-medical purposes. Amphetamine Screen Urine Not Detected Not Detect [facility] Comment:Amphetamine cut-off is 1000 ng/mL.Positive results are unconfirmed and should not be used fornon-medical purposes. Benzodiazepines Screen Urine Not Detected Not Detect [facility] Comment:Benzodiazepine cut-o ff is 200 ng/mL.Positive results are unconfirmed and should not be used fornon-medical purposes. Cocaine Screen Urine Not Detected Not Detect [facility] Comment:Cocaine cut-off is 3 00 ng/mL.Positive results are unconfirmed and should not be used fornon-medical purposes. Cannabinoid Screen Urine Not Detected Not Detect [facility] Comment:Cannabinoid cut-off is 50 ng/mL.Positive results are unconfirmed and should not be used fornon-medical purposes. Methadone Screen, Urine Not Detected Not Detect ng/mL [facility] Comment:Methadone cut-off is 300 ng/mL.Positive results are unconfirmed and should not be used fornon-medical purposes. FENTANYL URINE Not Detected Not Detect [facility] Comment:Fentanyl cut-off is 1 ng/mL.Positive results are unconfirmed and should not be used fornon-medical purposes. Oxycodone Urine Screen Not Detected Not Detect ng/mL [facility] Comment:Oxycodone cut-off is 100 ng/mL.Positive results are unconfirmed and should not be used fornon-medical purposes. Buprenorphine Screen Not Detected Not Detect ng/mL [facility] Comment:Buprenorphine cut-of f is 5 ng/mL.Positive results are unconfirmed and should not be used fornon-medical purposes. 07/17/2024 10:1 4 AM EDT 07/17/2024 10:17 AM EDT us Generic External Data Provider LAB URINE ORDERAB LES Final Result [facility] [address] [place] [address] [phone] * (ABNORMAL) CBC auto differential (07/17/2024 10:14 AM EDT) White Blood Count 5.5 4.8 - 10.8 X10*3/uL [facility] Red Blood Count 4.07(L) 4.60 - 5.80 X10*6/uL [facility] Hemoglobin 12.5(L) 14.0 - 18.0 g/dl [facility] Hematocrit 37.6(L) 42.0 - 52.0 % [facility] Mean Corpuscular Volume 92.4 80.0 - 98.0 fL [facility] Mean Corpuscular Hemoglobin 30.7 27.0 - 33.0 pg [facility] Mean Corpuscular HGB Conc 33.2 31.0 - 36.0 g/dl [facility] Red Cell Distribution Width 13.0 11.0 - 16.0 % [facility] Platelet Count 263 160 - 400 X10*3/uL [facility] Mean Platelet Volume 9.6 9.4 - 12.4 fL [facility] Neutrophils Percent Auto 55.3 45 - 73 % [facility] Imm Gran Pct Auto 0.2 0.0 - 0.4 % [facility] Lymphocytes Percent Auto 27.4 20 - 40 % [facility] Monocytes Percent Auto 11.3(H) 2 - 11 % [facility] Eosinophils Percent Auto 5.3(H) 0 - 4 % [facility] Basophils Percent Auto 0.5 0 - 2 % [facility] NRBC Pct Auto 0.0 0.0 - 0.2 /100WBC [facility] Neutrophils Absolute Auto 3.1 2.0 - 8.3 x10*3/uL [facility] Imm Gran Abs Auto 0.01 0.00 - 0.03 X10*3/uL [facility] Lymphocytes Absolute Auto 1.5 1.2 - 4.9 X10*3/uL [facility] Monocytes Absolute Auto 0.6 0.1 - 1.2 X10*3/uL [facility] Eosinophils Absolute Auto 0.3 0.0 - 0.4 X10*3/uL [facility] Basophils Absolute Auto 0.0 0.0 - 0.2 X10*3/uL [facility] NRBC Abs Auto 0.000 0.0 - 0.012 X10*3/uL [facility] 07/17/2024 10:1 4 AM EDT 07/17/2024 10:17 AM EDT Generic External Data Provider LAB BLOOD ORDERAB LES Final Result Performing Organization Address City/[facility]/ZIP Co de Phone Number [facility] [address] [place] [phone] [phone] * Magnesium (07/17/2024 10:14 AM EDT) Magnesium 2.0 1.6 - 2.6 mg/dL [facility] 07/17/2024 10:1 4 AM EDT 07/17/2024 10:17 AM EDT Generic External Data Provider LAB BLOOD ORDERAB LES Final Result Performing Organization Address [facility] Co de Phone Number [facility] [address] [place] [address] [phone] * Lipase (07/17/2024 10:14 AM EDT) Lipase 25 8 - 78 U/L [facility] 07/17/2024 10:1 4 AM EDT 07/17/2024 10:17 AM EDT us Generic External Data Provider LAB BLOOD ORDERAB LES Final Result Performing Organization Address [facility]/ZIP Co de Phone Number [facility] [address] [place] [phone] * Acetaminophen level (07/17/2024 10:14 AM EDT) Acetaminophen LAB <3 <30 mcg/mL [facility] 07/17/2024 10:1 4 AM EDT 07/17/2024 10:17 AM EDT us Generic External Data Provider LAB BLOOD ORDERAB LES Final Result Performing Organization Address [facility] Co de Phone Number [facility] [address] [place] [phone] * (ABNORMAL) Salicylate (07/17/2024 10:14 AM EDT) Salicylate <5.0(L) 15 - 30 mg/dL [facility] 07/17/2024 10:1 4 AM EDT 07/17/2024 10:17 AM EDT us Generic External Data Provider LAB BLOOD ORDERAB LES Final Result Performing Organization Address [facility] Co de Phone Number [facility] [address] [place] [phone] * (ABNORMAL) Comprehensive Metabolic Panel (07/17/2024 10:14 AM EDT) Sodium 141 135 - 145 mmol/L [facility] Potassium 4.3 3.3 - 5.1 mmol/L [facility] Chloride 113(H) 96 - 108 mmol/L [facility] Carbon Dioxide 24 22 - 29 mmol/L [facility] Anion Gap 8(L) 12 - 20 [facility] Urea Nitrogen (BUN) 28(H) 9 - 16 mg/dL [facility] Creatinine, Serum 0.80 0.5 - 1.4 mg/dL [facility] Creatinine Clr Calc Pharmacy 98.8 [facility] Comment:eGFR (calculated fro m the MDRD study equation) and eCrCl(calculated from the Cockcroft-Gault equation) are based ondifferent parameters and may not yield comparable results.If eCrCl result is absurd, please check patient'sheight/weight. Estimated Glomerular Filt Rate >60 [facility] Comment:Chronic Kidney Disea se: Estimated GFR < 60 mL/min/[id number] Kidney Disease: Estimated GFR < 15 mL/min/1.73m2 Glucose 94 60 - 115 mg/dL [facility] Calcium 9.1 8.4 - 10.2 mg/dL [facility] Bilirubin, Total 0.2 0.0 - 1.0 mg/dL [facility] Aspartate Amino Transferase 37 5 - 37 U/L [facility] Alanine Aminotransferase 20 0 - 40 U/L [facility] Total Protein 7.4 6.5 - 8.0 g/dL [facility] Albumin Level 3.8 3.5 - 5.0 g/dL [facility] Alkaline Phosphatase 54 39 - 117 U/L [facility] 07/17/2024 10:1 4 AM EDT 07/17/2024 10:17 AM EDT us Generic External Data Provider LAB BLOOD ORDERAB LES Final Result [facility] [address] [place] [address] [phone] from Last 3 Months Insurance [facility] [employer]ICARE Care Teams In Service Educator Relationship Specialty Start Date End Date Alison Valentine MD [address] [place] [phone] PCP - General Internal Medicine 05/21/13
--- OUTSIDE RECORDS SUMMARY | 2024-07-28 14:05 | XMS_ITS | Encounter Summary ---
Author Organization [facility] Address [address] [place] [address] Care Team Providers Care Computer Forensic Examiner Name Role Phone Physician, No Pcp Primary Care Provider Unavaila ble Encounter Details Date Type Department Care Team (Late st Contact Info) Description 04/28/2024 Lab Requisition [facility] - Main Lab [address] [facility] [place] [place] [address] Radha Damon NP [address] [place] [address] Other assisted (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 Social History Tobacco Use Types Packs/Day Years Used Date Smoking Tobacco: Never Assessed Sex and Gender Information Value Date Recorded Sex Assigned at Male 03/14/2024 10:32 AM EST Legal Sex Male 5:43 AM EST Gender Identity Male 03/14/2024 10:32 AM EST Sexual Orientation Straight 03/14/2024 10 :32 AM EST documented as of this encounter Plan of Treatment Not on file documented as of this encounter Procedures Procedure Name Priority Date/Time Associated Diagnosis Comments LIPID PANEL WITH REFLEX TO DIRECT LDL Routine 04/28/2024 7:00 AM EST Other assisted (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 HEMOGLOBIN A1C Routine 04/28/2024 7:00 AM EST Other assisted (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 VALPROIC ACID LEVEL, TOTAL Routine 04/28/2024 7:00 AM EST Other manager bakery (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 documented in this encounter Results * Valproic acid level, total (04/28/2024 7:00 AM EST) Valproic Acid, Total 91 50 - 100 mcg/mL LAB CHEMISTRY METHOD 04/28/2024 1:24 PM EST [facility] Blood Venous blood specimen / Unknown Venipuncture / Unknown 04/28/2024 7:00 AM EST 04/28/2024 12:15 PM EST us Radha Damon REPORTING COORDINATOR LAB BLOOD ORDERABLES Fi nal Result [facility] [address] [place] [address], [place] [phone] * (ABNORMAL) Lipid panel with reflex to direct LDL (04/28/2024 7:00 AM EST) Cholesterol 201(H) 0 - 200 mg/dL LAB CHEMISTRY METHOD 04/28/2024 1:24 PM EST [facility] Triglycerides 116 0 - 150 mg/dL LAB CHEMISTRY METHOD 04/28/2024 1:24 PM [facility] HDL 47 >=40 mg/dL LAB CHEMISTRY METHOD 04/28/2024 1:24 PM [facility] LDL Calculated 131(H) 0 - 100 mg/dL LAB CHEMISTRY METHOD 04/28/2024 1:24 PM [facility] VLDL Cholesterol Von 23.2 mg/dL LAB CHEMISTRY METHOD 04/28/2024 1:24 PM [facility] Non HDL Chol. (LDL+VLDL) 154(H) <145 mg/dL LAB CHEMISTRY METHOD 04/28/2024 1:24 PM [facility] Chol/HDL Ratio 4.3 0.0 - 4.4 LAB CHEMISTRY METHOD 04/28/2024 1:24 PM [facility] Blood Venous blood specimen / Unknown Venipuncture / Unknown 04/28/2024 7:00 AM EST 04/28/2024 12:15 PM EST us Radha Damon REPORTING COORDINATOR LAB BLOOD ORDERABLES Fi nal Result Performing Organization Address City/[facility]/ZIP Co de Phone Number [facility] [address] [place] [address], [place] [phone] * Hemoglobin A1c (04/28/2024 7:00 AM EST) Hemoglobin A1C 5.2 <6.5 % LAB CHEMISTRY METHOD 04/28/2024 3:37 PM EST [facility] Mean Bld Glu Estim. 103 mg/dL LAB CHEMISTRY METHOD 04/28/2024 3:37 PM EST [facility] Blood Venous blood specimen / Unknown Venipuncture / Unknown 04/28/2024 7:00 AM EST 04/28/2024 12:15 PM EST Radha Damon REPORTING COORDINATOR LAB BLOOD ORDERABLES Fi nal Result Performing Organization Address 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
--- OUTSIDE RECORDS SUMMARY | 2024-07-28 14:05 | XMS_ITS | Encounter Summary ---
Author Organization [facility] Address [address] [place] [address] Care Team Providers Care Apparel Merchandiser Name Role Phone Physician, No Pcp Primary Care Provider Unavaila ble Encounter Details Date Type Department Care Team (Late st Contact Info) Description 05/28/2024 Lab Requisition [facility] - Main Lab [address] [facility] [place] [address] Radha Damon NP [address] [place] [address] Social History Tobacco Use Types Packs/Day Years Used Date Smoking Tobacco: Never Assessed Sex and Gender Information Value Date Recorded Sex Assigned at Male 03/14/2024 10:32 AM EST Legal Sex Male 5:43 AM EST Gender Identity Male 03/14/2024 10:32 AM EST Sexual Orientation Straight 03/14/2024 10 :32 AM EST documented as of this encounter Plan of Treatment Scheduled Orders Name Type Priority Associated Diagnoses Orde r Schedule Lipid panel with reflex to direct LDL Lab Routine Ordered: 025 Valproic acid level, total Lab Routine Ordered: 05/28/2024 Hemoglobin A1c Lab Routine Ordered: 0 05/28/2024 documented as of this encounter Visit Diagnoses Not on filedocumented in this encounter Care Teams Apparel Merchandiser Relationship Specialty Start Date End Date Physician, No Pcp PCP - General 03/14/24 documented as of this encounter
[2024-07-28] MEDS: Nicotine Polacrilex 2 MG GUM 4 MG BUCCAL (17:25)
--- NOTE | 2024-07-28 17:26 | PC.NURSE ---
patient sitting in rocking chair listening to music
[2024-07-28 17:33] VITALS: BP 105/67; PULSE 77; RESP 20; TEMP 36.2; O2SAT 98
[2024-07-28] MEDS: OLANZapine 7.5 MG TABLET 15 MG PO (21:58)
[2024-07-28] MEDS: Melatonin 3 MG TABLET 6 MG PO (21:58)
[2024-07-28] MEDS: Divalproex Sodium ER 250 MG TAB.ER.24H 750 MG PO (21:59)
[2024-07-29] MEDS: Pantoprazole Sodium 20 MG TABLET.DR 40 MG PO (05:46)
[2024-07-29] MEDS: Nicotine Polacrilex 2 MG GUM 4 MG BUCCAL ×3 (05:49→20:56)
[2024-07-29 06:11] VITALS: BP 113/76; PULSE 69; RESP 17; TEMP 36.9; O2SAT 98
--- NOTE | 2024-07-29 07:20 | PC.NURSE ---
Care of Pt assumed at change of shift. Pt currently resting comfortably in bed. NAD noted at this time.
[2024-07-29] MEDS: OLANZapine 7.5 MG TABLET 15 MG PO ×2 (08:32→20:55)
[2024-07-29] MEDS: FLUoxetine HCl 20 MG CAPSULE PO (08:32)
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
[2024-07-29] MEDS: Vitamin E (Dl,Tocopheryl Acet) 180 MG (400 UNIT) CAPSULE PO (09:03)
[2024-07-29 13:05] VITALS: BP 109/77; PULSE 83; RESP 16; TEMP 36.4; O2SAT 98
[2024-07-29] MEDS: Mineral Oil/Petrolatum,White 106 GM Tube 1 APPL TOPICAL ×2 (15:07→20:59)
[2024-07-29 15:13] VITALS: BMI 22.6
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
[2024-07-29] MEDS: hydrOXYzine HCL 25 MG TABLET PO (17:32)
[2024-07-29 20:15] VITALS: BP 116/72; PULSE 101; RESP 20; TEMP 36.6; O2SAT 98
[2024-07-29] MEDS: Acetaminophen 325 MG TABLET 650 MG PO (20:54)
[2024-07-29] MEDS: Melatonin 3 MG TABLET 6 MG PO (20:54)
[2024-07-29] MEDS: Divalproex Sodium ER 250 MG TAB.ER.24H 750 MG PO (20:54)
[2024-07-29] MEDS: traZODone HCL 50 MG TABLET PO (20:56)
[2024-07-30] MEDS: hydrOXYzine HCL 25 MG TABLET PO ×2 (00:51→14:20)
[2024-07-30] MEDS: traZODone HCL 50 MG TABLET PO (00:52)
[2024-07-30] MEDS: Nicotine Polacrilex 2 MG GUM 4 MG BUCCAL ×5 (04:09→21:09)
[2024-07-30] MEDS: Pantoprazole Sodium 20 MG TABLET.DR 40 MG PO (06:39)
[2024-07-30 08:00] VITALS: BP 108/70; PULSE 93; TEMP 36.4; O2SAT 100
[2024-07-30 08:10] LABS: Estimated Average Glucose 105 mg/dL; Hemoglobin A1C 124.8753 umol/L; Hemoglobin A1c % 5.3 % (<6.0); Total Hemoglobin (HGBA1C) 3635.5581 umol/L
[2024-07-30] MEDS: OLANZapine 7.5 MG TABLET 15 MG PO ×2 (08:22→21:07)
[2024-07-30] MEDS: FLUoxetine HCl 20 MG CAPSULE PO (08:22)
[2024-07-30] MEDS: Mineral Oil/Petrolatum,White 106 GM Tube 1 APPL TOPICAL (08:25)
[2024-07-30 08:27] LABS: Cholesterol 201 mg/dL (<200); HDL Cholesterol 40 mg/dL (>40); LDL Cholesterol Calculated 129 mg/dL (<100); Magnesium 2.2 mg/dL (1.6-2.6); Triglycerides 164 mg/dL (<150)
[2024-07-30 08:42] LABS: Free T4 (Free Thyroxine) 1.44 ng/dL (0.71-1.85); Thyroid Stimulating Hormone 5.64 uIU/mL (0.32-4.0)
[2024-07-30 08:57] LABS: Folate 10.8 ng/mL (> or = 4.0); Vitamin B12 384 pg/mL (200-900)
[2024-07-30] MEDS: Acetaminophen 325 MG TABLET 650 MG PO ×2 (09:27→16:46)
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
[2024-07-30] MEDS: Ibuprofen 800 MG TABLET PO (10:28)
[2024-07-30] MEDS: chlorproMAZINE HCl 25 MG TABLET 50 MG PO (17:12)
[2024-07-30 20:00] VITALS: BP 120/76; PULSE 94; RESP 16; TEMP 36.5; O2SAT 100
[2024-07-30] MEDS: Divalproex Sodium ER 500 MG TAB.ER.24H 1000 MG PO (21:05)
[2024-07-30] MEDS: Melatonin 3 MG TABLET 6 MG PO (21:06)
[2024-07-31 08:00] VITALS: BP 128/74; PULSE 87; RESP 16; TEMP 36.4; O2SAT 98
--- NOTE | 2024-07-31 08:04 | P.PNPSI_ITS ---
Subjective Subjective Date of Service: 07/31/24 Reason For Visit: Schizoaffective D/O Bipolar Type SI Subjective Notes: Conditional Voluntary Healthcare Proxy: No Guardianship: No Medical Problems Affecting Mental Status: No Interim History: 59 yo not feeling well not really wanting to meet- denies s/e with medications, slept , denies si Medication Compliance: Yes Side effects from medications: No Attending Groups: No Review of Systems Acute medical concerns: No Medical Review of Systems: changed (not feeling well) Mental Status Exam Mental Status Exam Patient Appearance: Unkempt Patient Orientation: Person and Place Level of Consciousness: Awake Patient Behavior: Passive, Resistive to Care and Isolative Mood Description: Withdrawn Affect Description: Constricted Patient Cognition Impaired: No Ability to Follow Directions: Fair Speech Pattern: Impoverished Thought Process: Intact and Goal Oriented Thought Content: positive for [place] Judgement: Fair Diagnostics Vital Signs (24Hr): Vital Signs - 24 hr 07/30/24 20:00 Temperature 97.7 F Pulse Rate 94 Respiratory Rate 16 Blood Pressure 120/76 Pulse Oximetry 100 Oxygen Delivery Method Room Air BMI result Body Mass Index 22.6 Labs 07/28/24 10:10 07/28/24 10:10 Labs: Laboratory Results - last 48 hr 07/30/24 07:54 Estimat Average Glucose 105 Hemoglobin A1c % 5.3 Magnesium 2.2 Triglycerides 164 H Cholesterol 201 H LDL Cholesterol, Calc 129 H HDL Cholesterol 40 L Vitamin B12 384 Folate 10.8 TSH 5.64 H Free T4 1.44 Medications Medications Current Medications Acetaminophen (Acetaminophen 325 Mg Tablet) 650 mg PO Q6H PRN PRN Reason: Headache/Pain, Scale 1-10 Last Admin: 07/30/24 16:46 Dose: 650 mg Al Hydroxide/Mg Hydroxide (Magnesium Hydrox/Alum Hydrox 30 Ml Oral.Susp) 30 ml PO Q6H PRN PRN Reason: Heartburn/Nausea Albuterol Sulfate (Albuterol Sulfate 90 Mcg 8 Gm Inhaler) 2 puff INHALE RQ4H PRN PRN Reason: Shortness of Breath Chlorpromazine HCl (Chlorpromazine Hcl 25 Mg Tablet) 50 mg PO TID PRN PRN Reason: agitation, anxiety,[place] Last Admin: 07/30/24 17:12 Dose: 50 mg Divalproex Sodium (Divalproex Sodium Er 500 Mg Tab.Er.24h) 1,000 mg PO BEDTIME [facility] Last Admin: 07/30/24 21:05 Dose: 1,000 mg Fluoxetine HCl (Fluoxetine Hcl 20 Mg Capsule) 20 mg PO DAILY [facility] Last Admin: 07/30/24 08:22 Dose: 20 mg Hydroxyzine HCl (Hydroxyzine Hcl 25 Mg Tablet) 25 mg PO Q6H PRN PRN Reason: mild anxiety Last Admin: 07/30/24 14:20 Dose: 25 mg Ibuprofen (Ibuprofen 800 Mg Tablet) 800 mg PO Q8H PRN PRN Reason: back pain Last Admin: 07/30/24 10:28 Dose: 800 mg Lactic Acid (Ammonium Lactate 12 % Lotion 226 Gm Bottle) 1 appl TOPICAL DAILY PRN; Protocol PRN Reason: Dry Skin Magnesium Hydroxide (Milk Of Magnesia 30 Ml Oral.Susp) 30 ml PO DAILY PRN PRN Reason: Constipation Magnesium Hydroxide (Milk Of Magnesia 30 Ml Oral.Susp) 30 ml PO DAILY PRN PRN Reason: Constipation Melatonin (Melatonin 3 Mg Tablet) 6 mg PO BEDTIME [facility] Last Admin: 07/30/24 21:06 Dose: 6 mg Multi-Ingred Cream/Lotion/Oil/Oint (Mineral Oil/Petrolatum,White 106 Gm Tube) 1 appl TOPICAL BID [facility]; Protocol Last Admin: 07/30/24 21:30 Dose: Not Given Nicotine Polacrilex (Nicotine Polacrilex 2 Mg Gum) 4 mg BUCCAL Q2H PRN PRN Reason: Nicotine Cravings Last Admin: 07/30/24 21:09 Dose: 4 mg Olanzapine (Olanzapine 7.5 Mg Tablet) 15 mg PO BID [facility] Last Admin: 07/30/24 21:07 Dose: 15 mg Pantoprazole Sodium (Pantoprazole Sodium 20 Mg Tablet.Dr) 40 mg PO DAILY@0630 [facility] Last Admin: 07/30/24 06:39 Dose: 40 mg Trazodone HCl (Trazodone Hcl 50 Mg Tablet) 50 mg PO BEDTIME MRX1 PRN PRN Reason: Insomnia Last Admin: 07/30/24 00:52 Dose: 50 mg Vitamin E (Vitamin E (Dl,Tocopheryl Acet) 180 Mg (400 Unit) Capsule) 180 mg PO DAILY [facility] Last Admin: 07/30/24 08:24 Dose: Not Given Allergies Allergies Allergy/AdvReac Type Severity Reaction Status Date / Time No Known Allergies Allergy Mild NOT Verified 07/28/24 10:06 APPLICABLE Assessment & Plan Assessment & Plan (1) Schizoaffective disorder, bipolar type: Status: Acute Code(s): F25.0 - Schizoaffective disorder, bipolar type Plan Admit, CV, 15 minute checks Re-establish regime Titrate Valproate- 1000 mg HS Pt has filed a three day notice. Today, he has no insight as to the severity of this attempt which is very concerning. Diagnostics as needed Collateral contact Encourage milieu engagement 07/31- somewhat withdrawn and resistent to care today - hx multiple suicide attempts over the years- Reason for continued inpatient stay Substantial Risk for: harm to self and rapid decompensation Time Spent With Patient Time: Total time managing care of this patient today ____ minutes.
[2024-07-31] MEDS: FLUoxetine HCl 20 MG CAPSULE PO (08:31)
[2024-07-31] MEDS: Vitamin E (Dl,Tocopheryl Acet) 180 MG (400 UNIT) CAPSULE PO (08:31)
[2024-07-31] MEDS: OLANZapine 7.5 MG TABLET 15 MG PO ×2 (08:31→20:19)
[2024-07-31] MEDS: Nicotine Polacrilex 2 MG GUM 4 MG BUCCAL ×2 (08:54→20:22)
[2024-07-31 19:58] VITALS: BP 139/82; PULSE 103; TEMP 36.4; O2SAT 97
[2024-07-31] MEDS: Melatonin 3 MG TABLET 6 MG PO (20:19)
[2024-07-31] MEDS: Divalproex Sodium ER 500 MG TAB.ER.24H 1000 MG PO (20:19)
--- NOTE | 2024-08-01 08:02 | HO.PSYCHPN ---
Subjective Subjective Date of Service: 08/01/24 Reason For Visit: Schizoaffective D/O Bipolar Type SI Subjective Notes: Conditional Voluntary Healthcare Proxy: No Guardianship: No Medical Problems Affecting Mental Status: No Interim History: 59 yo WM reported that he had conflict at custodial and became violent throwing and breaking his cell phone- said he spoke to his amanger and plans to go back there after 3 day up. Medication Compliance: Yes Side effects from medications: No Attending Groups: No Review of Systems Acute medical concerns: No Medical Review of Systems: unchanged Mental Status Exam Mental Status Exam Narrative: out of bed and dressed today Patient Appearance: Well Grooomed Patient Orientation: Person, Place and Situation Level of Consciousness: Awake Patient Behavior: Appropriate and Cooperative Mood Description: Calm Affect Description: Blunted Patient Cognition Impaired: No Ability to Follow Directions: Fair Speech Pattern: Clear Thought Process: Intact Depressive Symptoms: Increased Irritability (at the home) Diagnostics Vital Signs (24Hr): Vital Signs - 24 hr 07/31/24 19:58 Temperature 97.5 F Pulse Rate 103 H Blood Pressure 139/82 Pulse Oximetry 97 Oxygen Delivery Method Room Air BMI result Body Mass Index 22.6 Labs 07/28/24 10:10 07/28/24 10:10 Labs: Laboratory Results - last 48 hr 07/30/24 07:54 Estimat Average Glucose 105 Hemoglobin A1c % 5.3 Magnesium 2.2 Triglycerides 164 H Cholesterol 201 H LDL Cholesterol, Calc 129 H HDL Cholesterol 40 L Vitamin B12 384 Folate 10.8 TSH 5.64 H Free T4 1.44 Medications Medications Current Medications Acetaminophen (Acetaminophen 325 Mg Tablet) 650 mg PO Q6H PRN PRN Reason: Headache/Pain, Scale 1-10 Last Admin: 07/30/24 16:46 Dose: 650 mg Al Hydroxide/Mg Hydroxide (Magnesium Hydrox/Alum Hydrox 30 Ml Oral.Susp) 30 ml PO Q6H PRN PRN Reason: Heartburn/Nausea Albuterol Sulfate (Albuterol Sulfate 90 Mcg 8 Gm Inhaler) 2 puff INHALE RQ4H PRN PRN Reason: Shortness of Breath Chlorpromazine HCl (Chlorpromazine Hcl 25 Mg Tablet) 50 mg PO TID PRN PRN Reason: agitation, anxiety,[place] Last Admin: 07/30/24 17:12 Dose: 50 mg Divalproex Sodium (Divalproex Sodium Er 500 Mg Tab.Er.24h) 1,000 mg PO BEDTIME [facility] Last Admin: 07/31/24 20:19 Dose: 1,000 mg Fluoxetine HCl (Fluoxetine Hcl 20 Mg Capsule) 20 mg PO DAILY [facility] Last Admin: 07/31/24 08:31 Dose: 20 mg Hydroxyzine HCl (Hydroxyzine Hcl 25 Mg Tablet) 25 mg PO Q6H PRN PRN Reason: mild anxiety Last Admin: 07/30/24 14:20 Dose: 25 mg Ibuprofen (Ibuprofen 800 Mg Tablet) 800 mg PO Q8H PRN PRN Reason: back pain Last Admin: 07/30/24 10:28 Dose: 800 mg Lactic Acid (Ammonium Lactate 12 % Lotion 226 Gm Bottle) 1 appl TOPICAL DAILY PRN; Protocol PRN Reason: Dry Skin Magnesium Hydroxide (Milk Of Magnesia 30 Ml Oral.Susp) 30 ml PO DAILY PRN PRN Reason: Constipation Magnesium Hydroxide (Milk Of Magnesia 30 Ml Oral.Susp) 30 ml PO DAILY PRN PRN Reason: Constipation Melatonin (Melatonin 3 Mg Tablet) 6 mg PO BEDTIME [facility] Last Admin: 07/31/24 20:19 Dose: 6 mg Multi-Ingred Cream/Lotion/Oil/Oint (Mineral Oil/Petrolatum,White 106 Gm Tube) 1 appl TOPICAL BID [facility]; Protocol Last Admin: 08/01/24 00:53 Dose: Not Given Nicotine Polacrilex (Nicotine Polacrilex 2 Mg Gum) 4 mg BUCCAL Q2H PRN PRN Reason: Nicotine Cravings Last Admin: 07/31/24 20:22 Dose: 4 mg Olanzapine (Olanzapine 7.5 Mg Tablet) 15 mg PO BID [facility] Last Admin: 07/31/24 20:19 Dose: 15 mg Pantoprazole Sodium (Pantoprazole Sodium 20 Mg Tablet.Dr) 40 mg PO DAILY@0630 [facility] Last Admin: 07/31/24 08:32 Dose: Not Given Trazodone HCl (Trazodone Hcl 50 Mg Tablet) 50 mg PO BEDTIME MRX1 PRN PRN Reason: Insomnia Last Admin: 07/30/24 00:52 Dose: 50 mg Vitamin E (Vitamin E (Dl,Tocopheryl Acet) 180 Mg (400 Unit) Capsule) 180 mg PO DAILY [facility] Last Admin: 07/31/24 08:31 Dose: 180 mg Allergies Allergies Allergy/AdvReac Type Severity Reaction Status Date / Time No Known Allergies Allergy Mild NOT Verified 07/28/24 10:06 APPLICABLE Assessment & Plan Assessment & Plan (1) Schizoaffective disorder, bipolar type: Status: Acute Code(s): F25.0 - Schizoaffective disorder, bipolar type Plan Admit, CV, 15 minute checks Re-establish regime Titrate Valproate- 1000 mg HS Pt has filed a three day notice. Today, he has no insight as to the severity of this attempt which is very concerning. Diagnostics as needed Collateral contact Encourage milieu engagement 07/31- somewhat withdrawn and resistent to care today - hx multiple suicide attempts over the years- 08/01 - more open to discussion today, up and dressed, less withdrawn. tolerating inc depakote dose Patient educated on: medication risk/benefits and therapeutic strategies Informed Consent: understands Reason for continued inpatient stay Substantial Risk for: harm to others and rapid decompensation Time Spent With Patient Time: Total time managing care of this patient today ____ minutes.
[2024-08-01] MEDS: FLUoxetine HCl 20 MG CAPSULE PO (08:21)
[2024-08-01] MEDS: OLANZapine 7.5 MG TABLET 15 MG PO ×2 (08:21→21:03)
[2024-08-01] MEDS: Pantoprazole Sodium 20 MG TABLET.DR 40 MG PO (08:21)
[2024-08-01] MEDS: Vitamin E (Dl,Tocopheryl Acet) 180 MG (400 UNIT) CAPSULE PO (08:21)
[2024-08-01] MEDS: Nicotine Polacrilex 2 MG GUM 4 MG BUCCAL ×4 (08:26→21:02)
[2024-08-01 08:30] VITALS: BP 102/61; PULSE 82; RESP 18; TEMP 36.5; O2SAT 99
[2024-08-01] MEDS: chlorproMAZINE HCl 25 MG TABLET 50 MG PO ×3 (11:46→21:03)
[2024-08-01] MEDS: hydrOXYzine HCL 25 MG TABLET PO (16:18)
[2024-08-01 19:49] VITALS: RESP 18
[2024-08-01] MEDS: Divalproex Sodium ER 500 MG TAB.ER.24H 1000 MG PO (21:02)
[2024-08-01] MEDS: Melatonin 3 MG TABLET 6 MG PO (21:03)
[2024-08-02] MEDS: Nicotine Polacrilex 2 MG GUM 4 MG BUCCAL ×7 (01:53→23:34)
[2024-08-02] MEDS: Pantoprazole Sodium 20 MG TABLET.DR 40 MG PO (06:41)
[2024-08-02 08:00] VITALS: BP 127/74; PULSE 98; RESP 15; TEMP 36.9; O2SAT 100
[2024-08-02] MEDS: OLANZapine 7.5 MG TABLET 15 MG PO ×2 (08:21→20:45)
[2024-08-02] MEDS: FLUoxetine HCl 20 MG CAPSULE PO (08:21)
[2024-08-02] MEDS: Vitamin E (Dl,Tocopheryl Acet) 180 MG (400 UNIT) CAPSULE PO (08:21)
--- NOTE | 2024-08-02 09:40 | P.PNPSI_ITS ---
Subjective Subjective Date of Service: 08/02/24 Reason For Visit: Schizoaffective D/O Bipolar Type SI Subjective Notes: Conditional Voluntary Healthcare Proxy: No Guardianship: No Medical Problems Affecting Mental Status: No Interim History: Team reports a difficult weekend with outbursts of anger/lability. Tolerating increase of Depakote. Olanzapine prn added per team request. Will order Valproate level for 08/03. Pt very focused on discharge, planning rides. TDN to on 08/04. Medication Compliance: Yes Side effects from medications: No Attending Groups: Intermittent Review of Systems Acute medical concerns: No Medical Review of Systems: unchanged Review of Systems Review of Systems Denies Mental Status Exam Mental Status Exam Patient Appearance: Appropriate Patient Orientation: Person, Place, Time and Situation Level of Consciousness: Alert Patient Behavior: Talkative, Hyperactive, Anxious, Fearful, Distractible and Good Eye Contact Mood Description: Anxious, Labile and Apprehensive Affect Description: Anxious, Labile and Apprehensive Patient Cognition Impaired: No Ability to Follow Directions: Good Speech Pattern: Spontaneous Speech Memory Description: Episodic Impaired Hallucinations: None Delusions: Paranoid Ideation and Present Thought Process: Distracted Thought Content: positive for Circumstantial, positive for Perseveration, positive for Tangential and positive for Suicidal Ideation (denies) Depressive Symptoms: Increased Anxiety and Thoughts of /Suicide (denies) Abnormal Motor Activity Signs and Symptoms: Restlessness Judgement: Fair Diagnostics Vital Signs (24Hr): Vital Signs - 24 hr 08/01/24 19:49 08/02/24 08:00 Temperature 98.5 F Pulse Rate 98 Respiratory Rate 18 15 Blood Pressure 127/74 Pulse Oximetry 100 Oxygen Delivery Method Room Air BMI result Body Mass Index 22.6 Labs 07/28/24 10:10 07/28/24 10:10 Medications Medications Current Medications Acetaminophen (Acetaminophen 325 Mg Tablet) 650 mg PO Q6H PRN PRN Reason: Headache/Pain, Scale 1-10 Last Admin: 07/30/24 16:46 Dose: 650 mg Al Hydroxide/Mg Hydroxide (Magnesium Hydrox/Alum Hydrox 30 Ml Oral.Susp) 30 ml PO Q6H PRN PRN Reason: Heartburn/Nausea Albuterol Sulfate (Albuterol Sulfate 90 Mcg 8 Gm Inhaler) 2 puff INHALE RQ4H PRN PRN Reason: Shortness of Breath Chlorpromazine HCl (Chlorpromazine Hcl 25 Mg Tablet) 50 mg PO TID PRN PRN Reason: agitation, anxiety,[place] Last Admin: 08/01/24 21:03 Dose: 50 mg Divalproex Sodium (Divalproex Sodium Er 500 Mg Tab.Er.24h) 1,000 mg PO BEDTIME [facility] Last Admin: 08/01/24 21:02 Dose: 1,000 mg Fluoxetine HCl (Fluoxetine Hcl 20 Mg Capsule) 20 mg PO DAILY [facility] Last Admin: 08/02/24 08:21 Dose: 20 mg Hydroxyzine HCl (Hydroxyzine Hcl 25 Mg Tablet) 25 mg PO Q6H PRN PRN Reason: mild anxiety Last Admin: 08/01/24 16:18 Dose: 25 mg Ibuprofen (Ibuprofen 800 Mg Tablet) 800 mg PO Q8H PRN PRN Reason: back pain Last Admin: 07/30/24 10:28 Dose: 800 mg Lactic Acid (Ammonium Lactate 12 % Lotion 226 Gm Bottle) 1 appl TOPICAL DAILY PRN; Protocol PRN Reason: Dry Skin Magnesium Hydroxide (Milk Of Magnesia 30 Ml Oral.Susp) 30 ml PO DAILY PRN PRN Reason: Constipation Magnesium Hydroxide (Milk Of Magnesia 30 Ml Oral.Susp) 30 ml PO DAILY PRN PRN Reason: Constipation Melatonin (Melatonin 3 Mg Tablet) 6 mg PO BEDTIME [facility] Last Admin: 08/01/24 21:03 Dose: 6 mg Multi-Ingred Cream/Lotion/Oil/Oint (Mineral Oil/Petrolatum,White 106 Gm Tube) 1 appl TOPICAL BID [facility]; Protocol Last Admin: 08/02/24 08:26 Dose: Not Given Nicotine Polacrilex (Nicotine Polacrilex 2 Mg Gum) 4 mg BUCCAL Q2H PRN PRN Reason: Nicotine Cravings Last Admin: 08/02/24 06:44 Dose: 4 mg Olanzapine (Olanzapine 7.5 Mg Tablet) 15 mg PO BID [facility] Last Admin: 08/02/24 08:21 Dose: 15 mg Pantoprazole Sodium (Pantoprazole Sodium 20 Mg Tablet.Dr) 40 mg PO DAILY@0630 [facility] Last Admin: 08/02/24 06:41 Dose: 40 mg Trazodone HCl (Trazodone Hcl 50 Mg Tablet) 50 mg PO BEDTIME MRX1 PRN PRN Reason: Insomnia Last Admin: 07/30/24 00:52 Dose: 50 mg Vitamin E (Vitamin E (Dl,Tocopheryl Acet) 180 Mg (400 Unit) Capsule) 180 mg PO DAILY [facility] Last Admin: 08/02/24 08:21 Dose: 180 mg Allergies Allergies Allergy/AdvReac Type Severity Reaction Status Date / Time No Known Allergies Allergy Mild NOT Verified 07/28/24 10:06 APPLICABLE Assessment & Plan Assessment & Plan (1) Schizoaffective disorder, bipolar type: Status: Acute Code(s): F25.0 - Schizoaffective disorder, bipolar type Plan Admit, CV, 15 minute checks Re-establish regime Titrate Valproate- 1000 mg HS Pt has filed a three day notice. Today, he has no insight as to the severity of this attempt which is very concerning. Diagnostics as needed Collateral contact Encourage milieu engagement 07/31- somewhat withdrawn and resistent to care today - hx multiple suicide attempts over the years- 08/01 - more open to discussion today, up and dressed, less withdrawn. tolerating inc depakote dose 08/02- Valproate level 08/03. Continue titration when level is known. Reason for continued inpatient stay Substantial Risk for: rapid decompensation Time Spent With Patient Time: Total time managing care of this patient today ____ minutes.
[2024-08-02] MEDS: chlorproMAZINE HCl 25 MG TABLET 50 MG PO ×3 (11:22→19:01)
[2024-08-02] MEDS: hydrOXYzine HCL 25 MG TABLET PO (14:50)
[2024-08-02] MEDS: OLANZapine 5 MG TABLET PO ×2 (16:11→23:34)
[2024-08-02 19:57] VITALS: BP 127/81; PULSE 129; RESP 18; TEMP 36.5; O2SAT 99
[2024-08-02] MEDS: Divalproex Sodium ER 500 MG TAB.ER.24H 1000 MG PO (20:44)
[2024-08-02] MEDS: Melatonin 3 MG TABLET 6 MG PO (20:44)
[2024-08-02] MEDS: traZODone HCL 50 MG TABLET PO (23:34)
[2024-08-03] MEDS: Pantoprazole Sodium 20 MG TABLET.DR 40 MG PO (06:59)
[2024-08-03] MEDS: Nicotine Polacrilex 2 MG GUM 4 MG BUCCAL ×7 (07:14→22:17)
[2024-08-03 08:00] VITALS: BP 134/87; PULSE 110; TEMP 36.3; O2SAT 99
[2024-08-03] MEDS: OLANZapine 7.5 MG TABLET 15 MG PO ×2 (08:25→20:28)
[2024-08-03] MEDS: FLUoxetine HCl 20 MG CAPSULE PO (08:26)
[2024-08-03] MEDS: Vitamin E (Dl,Tocopheryl Acet) 180 MG (400 UNIT) CAPSULE PO (08:26)
[2024-08-03 08:28] LABS: Valproate 67.7 mcg/mL (50.0-100.0)
--- NOTE | 2024-08-03 11:24 | HO.PSYCHPN ---
Subjective Subjective Date of Service: 08/03/24 Reason For Visit: Schizoaffective D/O Bipolar Type SI Interim History: Met with patient; discussed with team Patient tells television writer that he wants to go home tomorrow SS 3 day notice is due. Says AH is low and denies any SI. Patient however remains intermittently agitated and was slamming doors on unit. Later, totally unprovoked yelled loudly in the hallway fuck you..fuck you and postured at this peer Mental Status Exam Mental Status Exam Narrative: Pt is alert and oriented; behavior is intermittently agitated and disorganized; patient is not in distress; dressed in casual attire with adequate hygiene; mood is described as anxious and affect congruent; eye contact appropriate; Speech is normal rate, volume and prosody and not pressured; psychomotor agitation present; thought process is goal directed; Thought content is on discharge but also with angry thoughts and some paranoid ideation; denies any SI/HI. Says AH is lower; Patients insight and judgment impaired Diagnostics Vital Signs (24Hr): Vital Signs - 24 hr 08/02/24 19:57 08/03/24 08:00 Temperature 97.7 F 97.4 F Pulse Rate 129 H 110 H Respiratory Rate 18 Blood Pressure 127/81 134/87 Pulse Oximetry 99 99 Oxygen Delivery Method Room Air Room Air BMI result Body Mass Index 22.6 Labs 07/28/24 10:10 07/28/24 10:10 Labs: Laboratory Results - last 48 hr 08/03/24 08:04 Valproic Acid 67.7 Medications Medications Current Medications Acetaminophen (Acetaminophen 325 Mg Tablet) 650 mg PO Q6H PRN PRN Reason: Headache/Pain, Scale 1-10 Last Admin: 07/30/24 16:46 Dose: 650 mg Al Hydroxide/Mg Hydroxide (Magnesium Hydrox/Alum Hydrox 30 Ml Oral.Susp) 30 ml PO Q6H PRN PRN Reason: Heartburn/Nausea Albuterol Sulfate (Albuterol Sulfate 90 Mcg 8 Gm Inhaler) 2 puff INHALE RQ4H PRN PRN Reason: Shortness of Breath Chlorpromazine HCl (Chlorpromazine Hcl 25 Mg Tablet) 50 mg PO TID PRN PRN Reason: agitation, anxiety,[place] Last Admin: 08/02/24 19:01 Dose: 50 mg Divalproex Sodium (Divalproex Sodium Er 500 Mg Tab.Er.24h) 1,000 mg PO BEDTIME [facility] Last Admin: 08/02/24 20:44 Dose: 1,000 mg Fluoxetine HCl (Fluoxetine Hcl 20 Mg Capsule) 20 mg PO DAILY [facility] Last Admin: 08/03/24 08:26 Dose: 20 mg Hydroxyzine HCl (Hydroxyzine Hcl 25 Mg Tablet) 25 mg PO Q6H PRN PRN Reason: mild anxiety Last Admin: 08/02/24 14:50 Dose: 25 mg Ibuprofen (Ibuprofen 800 Mg Tablet) 800 mg PO Q8H PRN PRN Reason: back pain Last Admin: 07/30/24 10:28 Dose: 800 mg Lactic Acid (Ammonium Lactate 12 % Lotion 226 Gm Bottle) 1 appl TOPICAL DAILY PRN; Protocol PRN Reason: Dry Skin Magnesium Hydroxide (Milk Of Magnesia 30 Ml Oral.Susp) 30 ml PO DAILY PRN PRN Reason: Constipation Magnesium Hydroxide (Milk Of Magnesia 30 Ml Oral.Susp) 30 ml PO DAILY PRN PRN Reason: Constipation Melatonin (Melatonin 3 Mg Tablet) 6 mg PO BEDTIME [facility] Last Admin: 08/02/24 20:44 Dose: 6 mg Multi-Ingred Cream/Lotion/Oil/Oint (Mineral Oil/Petrolatum,White 106 Gm Tube) 1 appl TOPICAL BID [facility]; Protocol Last Admin: 08/03/24 09:29 Dose: Not Given Nicotine Polacrilex (Nicotine Polacrilex 2 Mg Gum) 4 mg BUCCAL Q2H PRN PRN Reason: Nicotine Cravings Last Admin: 08/03/24 07:14 Dose: 4 mg Olanzapine (Olanzapine 7.5 Mg Tablet) 15 mg PO BID [facility] Last Admin: 08/03/24 08:25 Dose: 15 mg Olanzapine (Olanzapine 5 Mg Tablet) 5 mg PO BID PRN PRN Reason: agitation Last Admin: 08/02/24 23:34 Dose: 5 mg Pantoprazole Sodium (Pantoprazole Sodium 20 Mg Tablet.Dr) 40 mg PO DAILY@0630 [facility] Last Admin: 08/03/24 06:59 Dose: 40 mg Trazodone HCl (Trazodone Hcl 50 Mg Tablet) 50 mg PO BEDTIME MRX1 PRN PRN Reason: Insomnia Last Admin: 08/02/24 23:34 Dose: 50 mg Vitamin E (Vitamin E (Dl,Tocopheryl Acet) 180 Mg (400 Unit) Capsule) 180 mg PO DAILY [facility] Last Admin: 08/03/24 08:26 Dose: 180 mg Allergies Allergies Allergy/AdvReac Type Severity Reaction Status Date / Time No Known Allergies Allergy Mild NOT Verified 07/28/24 10:06 APPLICABLE Assessment & Plan Assessment & Plan (1) Schizoaffective disorder, bipolar type: Status: Acute Code(s): F25.0 - Schizoaffective disorder, bipolar type Plan Admit, CV, 15 minute checks Re-establish regime Titrate Valproate- 1000 mg HS Pt has filed a three day notice. Today, he has no insight as to the severity of this attempt which is very concerning. Diagnostics as needed Collateral contact Encourage milieu engagement 07/31- somewhat withdrawn and resistent to care today - hx multiple suicide attempts over the years- 08/01 - more open to discussion today, up and dressed, less withdrawn. tolerating inc depakote dose 08/02- Valproate level 08/03. Continue titration when level is known. 08/03 Patient tells television writer that he wants to go home tomorrow SS 3 day notice is due. Says AH is low and denies any SI. Patient however remains intermittently agitated and was slamming doors on unit. Later, totally unprovoked yelled loudly in the hallway govindk you..fuck you and postured at this peer -Depakote level WNL but room to increase. -increase Depakote ER to 1500 mg q.h.s. Patient educated on: diagnosis, medication risk/benefits and therapeutic strategies Informed Consent: understands, does not understand and further education needed Reason for continued inpatient stay Substantial Risk for: rapid decompensation Time Spent With Patient Time: Total time managing care of this patient today ____ minutes.
[2024-08-03] MEDS: chlorproMAZINE HCl 25 MG TABLET 50 MG PO ×3 (11:33→20:34)
[2024-08-03] MEDS: OLANZapine 5 MG TABLET PO ×2 (13:33→20:34)
[2024-08-03] MEDS: hydrOXYzine HCL 25 MG TABLET PO ×2 (13:33→20:33)
[2024-08-03] MEDS: LORazepam 1 MG TABLET PO (14:47)
[2024-08-03] MEDS: Divalproex Sodium ER 500 MG TAB.ER.24H PO (14:47)
[2024-08-03 20:00] VITALS: BP 129/65; PULSE 100; RESP 16; TEMP 36.6; O2SAT 98
[2024-08-03] MEDS: Divalproex Sodium ER 500 MG TAB.ER.24H 1000 MG PO (20:27)
[2024-08-03] MEDS: Melatonin 3 MG TABLET 6 MG PO (20:28)
[2024-08-03] MEDS: traZODone HCL 50 MG TABLET PO (22:15)
[2024-08-04] MEDS: Pantoprazole Sodium 20 MG TABLET.DR 40 MG PO (06:32)
[2024-08-04] MEDS: Nicotine Polacrilex 2 MG GUM 4 MG BUCCAL ×7 (06:32→22:03)
[2024-08-04] MEDS: chlorproMAZINE HCl 25 MG TABLET 50 MG PO (06:34)
[2024-08-04] MEDS: OLANZapine 5 MG TABLET PO ×2 (06:35→14:20)
[2024-08-04] MEDS: hydrOXYzine HCL 25 MG TABLET PO ×2 (06:36→12:10)
[2024-08-04 08:00] VITALS: BP 124/82; PULSE 112; TEMP 36.3
[2024-08-04] MEDS: OLANZapine 7.5 MG TABLET 15 MG PO ×2 (08:47→21:57)
[2024-08-04] MEDS: Vitamin E (Dl,Tocopheryl Acet) 180 MG (400 UNIT) CAPSULE PO (08:48)
[2024-08-04] MEDS: FLUoxetine HCl 20 MG CAPSULE PO (08:48)
[2024-08-04] MEDS: HaloperidoL 5 MG TABLET 10 MG PO ×2 (09:45→21:58)
--- NOTE | 2024-08-04 13:37 | HO.PSYCHPN ---
Subjective Subjective Date of Service: 08/04/24 Reason For Visit: Schizoaffective D/O Bipolar Type SI Subjective Notes: Section 7 Healthcare Proxy: No Guardianship: No Medical Problems Affecting Mental Status: No Interim History: Section 7 filed. Met with pt and team. Pt's MHC attended who is a significant support and who pt trusts. Explained to pt that his suicide attempt, reports from his OP team and his reported level of distress with mood changes need work and he is not ready for discharge at this time, possibly next week. Discussed Depakote increase, Haldol increase. Later in the day pt tells team anxiety is a real issue-Klonopin trial initiated. Pt was able to hear these rationales, mainly due to the support of his MHC. Medication Compliance: Yes Side effects from medications: No Attending Groups: Intermittent Review of Systems Acute medical concerns: No Medical Review of Systems: unchanged Review of Systems Review of Systems Denies Mental Status Exam Mental Status Exam Patient Appearance: Appropriate Patient Orientation: Person, Place, Time and Situation Level of Consciousness: Alert Patient Behavior: Appropriate, Talkative, Cooperative, Anxious, Distractible and Good Eye Contact Mood Description: Anxious, Labile and Apprehensive Affect Description: Anxious and Apprehensive Patient Cognition Impaired: No Ability to Follow Directions: Good Speech Pattern: Spontaneous Speech Memory Description: Episodic Impaired Hallucinations: None (denies,?) Delusions: Paranoid Ideation and Present Perceptual Disturbances: Depersonalization Thought Process: Rumination Thought Content: positive for [place], positive for Obsessional Thoughts, positive for Perseveration and positive for Suicidal Ideation (denies) Depressive Symptoms: Increased Anxiety, Diff. Making Decisions, Increased Irritability and Difficulty Concentrating Abnormal Motor Activity Signs and Symptoms: Restlessness Judgement: Poor Diagnostics Vital Signs (24Hr): Vital Signs - 24 hr 08/03/24 20:00 08/04/24 08:00 Temperature 97.8 F 97.4 F Pulse Rate 100 112 H Respiratory Rate 16 Blood Pressure 129/65 124/82 Pulse Oximetry 98 Oxygen Delivery Method Room Air Room Air BMI result Body Mass Index 22.6 Labs 07/28/24 10:10 07/28/24 10:10 Labs: Laboratory Results - last 48 hr 08/03/24 08:04 Valproic Acid 67.7 Medications Medications Current Medications Acetaminophen (Acetaminophen 325 Mg Tablet) 650 mg PO Q6H PRN PRN Reason: Headache/Pain, Scale 1-10 Last Admin: 07/30/24 16:46 Dose: 650 mg Al Hydroxide/Mg Hydroxide (Magnesium Hydrox/Alum Hydrox 30 Ml Oral.Susp) 30 ml PO Q6H PRN PRN Reason: Heartburn/Nausea Albuterol Sulfate (Albuterol Sulfate 90 Mcg 8 Gm Inhaler) 2 puff INHALE RQ4H PRN PRN Reason: Shortness of Breath Divalproex Sodium (Divalproex Sodium Er 500 Mg Tab.Er.24h) 1,500 mg PO BEDTIME [facility] Fluoxetine HCl (Fluoxetine Hcl 20 Mg Capsule) 20 mg PO DAILY [facility] Last Admin: 08/04/24 08:48 Dose: 20 mg Haloperidol (Haloperidol 5 Mg Tablet) 10 mg PO BID [facility] Last Admin: 08/04/24 09:45 Dose: 10 mg Hydroxyzine HCl (Hydroxyzine Hcl 25 Mg Tablet) 25 mg PO Q6H PRN PRN Reason: mild anxiety Last Admin: 08/04/24 12:10 Dose: 25 mg Ibuprofen (Ibuprofen 800 Mg Tablet) 800 mg PO Q8H PRN PRN Reason: back pain Last Admin: 07/30/24 10:28 Dose: 800 mg Lactic Acid (Ammonium Lactate 12 % Lotion 226 Gm Bottle) 1 appl TOPICAL DAILY PRN; Protocol PRN Reason: Dry Skin Magnesium Hydroxide (Milk Of Magnesia 30 Ml Oral.Susp) 30 ml PO DAILY PRN PRN Reason: Constipation Magnesium Hydroxide (Milk Of Magnesia 30 Ml Oral.Susp) 30 ml PO DAILY PRN PRN Reason: Constipation Melatonin (Melatonin 3 Mg Tablet) 6 mg PO BEDTIME [facility] Last Admin: 08/03/24 20:28 Dose: 6 mg Multi-Ingred Cream/Lotion/Oil/Oint (Mineral Oil/Petrolatum,White 106 Gm Tube) 1 appl TOPICAL BID [facility]; Protocol Last Admin: 08/04/24 09:54 Dose: Not Given Nicotine Polacrilex (Nicotine Polacrilex 2 Mg Gum) 4 mg BUCCAL Q2H PRN PRN Reason: Nicotine Cravings Last Admin: 08/04/24 12:10 Dose: 4 mg Olanzapine (Olanzapine 7.5 Mg Tablet) 15 mg PO BID [facility] Last Admin: 08/04/24 08:47 Dose: 15 mg Olanzapine (Olanzapine 5 Mg Tablet) 5 mg PO BID PRN PRN Reason: agitation Last Admin: 08/04/24 06:35 Dose: 5 mg Pantoprazole Sodium (Pantoprazole Sodium 20 Mg Tablet.Dr) 40 mg PO DAILY@0630 [facility] Last Admin: 08/04/24 06:32 Dose: 40 mg Trazodone HCl (Trazodone Hcl 50 Mg Tablet) 50 mg PO BEDTIME MRX1 PRN PRN Reason: Insomnia Last Admin: 08/03/24 22:15 Dose: 50 mg Vitamin E (Vitamin E (Dl,Tocopheryl Acet) 180 Mg (400 Unit) Capsule) 180 mg PO DAILY [facility] Last Admin: 08/04/24 08:48 Dose: 180 mg Allergies Allergies Allergy/AdvReac Type Severity Reaction Status Date / Time No Known Allergies Allergy Mild NOT Verified 07/28/24 10:06 APPLICABLE Assessment & Plan Assessment & Plan (1) Schizoaffective disorder, bipolar type: Status: Acute Code(s): F25.0 - Schizoaffective disorder, bipolar type Plan Admit, CV, 15 minute checks Re-establish regime Titrate Valproate- 1000 mg HS Pt has filed a three day notice. Today, he has no insight as to the severity of this attempt which is very concerning. Diagnostics as needed Collateral contact Encourage milieu engagement 07/31- somewhat withdrawn and resistent to care today - hx multiple suicide attempts over the years- 08/01 - more open to discussion today, up and dressed, less withdrawn. tolerating inc depakote dose 08/02- Valproate level 08/03. Continue titration when level is known. 08/03 Patient tells newswriter that he wants to go home tomorrow SS 3 day notice is due. Says AH is low and denies any SI. Patient however remains intermittently agitated and was slamming doors on unit. Later, totally unprovoked yelled loudly in the hallway fuck you..fuck you and postured at this peer -Depakote level WNL but room to increase. -increase Depakote ER to 1500 mg q.h.s. 08/04- repeat TSH Klonopin 1 mg bid Tolerating increase in Depakote Increase Haldol to 10 mg bid Reason for continued inpatient stay Substantial Risk for: rapid decompensation Time Spent With Patient Time: Total time managing care of this patient today ____ minutes.
[2024-08-04] MEDS: clonazePAM 1 MG TABLET PO ×2 (16:58→21:58)
[2024-08-04] MEDS: Divalproex Sodium ER 500 MG TAB.ER.24H 1500 MG PO (21:56)
[2024-08-04] MEDS: Melatonin 3 MG TABLET 6 MG PO (21:58)
[2024-08-05] MEDS: Ibuprofen 800 MG TABLET PO (06:24)
[2024-08-05] MEDS: Pantoprazole Sodium 20 MG TABLET.DR 40 MG PO (06:24)
[2024-08-05] MEDS: Nicotine Polacrilex 2 MG GUM 4 MG BUCCAL ×6 (06:25→20:17)
[2024-08-05 07:00] VITALS: BMI 24.7
[2024-08-05 08:03] VITALS: BP 104/62; PULSE 109; TEMP 36.6; O2SAT 98
[2024-08-05] MEDS: OLANZapine 7.5 MG TABLET 15 MG PO ×2 (08:52→20:17)
[2024-08-05] MEDS: Vitamin E (Dl,Tocopheryl Acet) 180 MG (400 UNIT) CAPSULE PO (08:52)
[2024-08-05] MEDS: HaloperidoL 5 MG TABLET 10 MG PO ×2 (08:52→20:21)
[2024-08-05] MEDS: FLUoxetine HCl 20 MG CAPSULE PO (08:59)
[2024-08-05] MEDS: clonazePAM 1 MG TABLET PO ×2 (10:03→20:20)
--- NOTE | 2024-08-05 11:17 | HO.PSYCHPN ---
Subjective Subjective Date of Service: 08/05/24 Reason For Visit: Schizoaffective D/O Bipolar Type SI Subjective Notes: Section 7 Healthcare Proxy: No Guardianship: No Medical Problems Affecting Mental Status: No Interim History: Pt is anxious to discharge. This afternoon, he had a verbal outburst with a peer, requiring team intervention, prn medication, and isolation from the milieu in order to calm. In discussion he reports, this is what I do at home. Focused on outbursts as being the rationale for his staying in hospital and for treatment interventions. He reports he was able to calm quicker today and still hopes to discharge next week. Medication Compliance: Yes Side effects from medications: No Attending Groups: Intermittent Review of Systems Acute medical concerns: No Review of Systems Review of Systems Denies Mental Status Exam Mental Status Exam Narrative: Pt experienced a verbal outburst this afternoon with a peer. Patient Appearance: Appropriate Patient Orientation: Person, Place, Time and Situation Level of Consciousness: Alert Patient Behavior: Appropriate, Talkative, Cooperative, Anxious, Distractible and Good Eye Contact Mood Description: Anxious, Labile and Apprehensive Affect Description: Anxious and Apprehensive Patient Cognition Impaired: No Ability to Follow Directions: Good Speech Pattern: Spontaneous Speech Memory Description: Episodic Impaired Hallucinations: None (denies,?) Delusions: Paranoid Ideation and Present Perceptual Disturbances: Depersonalization Thought Process: Rumination Thought Content: positive for [place], positive for Obsessional Thoughts, positive for Perseveration and positive for Suicidal Ideation (denies) Depressive Symptoms: Increased Anxiety, Diff. Making Decisions, Increased Irritability and Difficulty Concentrating Abnormal Motor Activity Signs and Symptoms: Restlessness Judgement: Poor Diagnostics Vital Signs (24Hr): Vital Signs - 24 hr 08/05/24 08:03 Temperature 98 F Pulse Rate 109 H Blood Pressure 104/62 Pulse Oximetry 98 Oxygen Delivery Method Room Air BMI result Body Mass Index 24.7 Labs 07/28/24 10:10 07/28/24 10:10 Medications Medications Current Medications Acetaminophen (Acetaminophen 325 Mg Tablet) 650 mg PO Q6H PRN PRN Reason: Headache/Pain, Scale 1-10 Last Admin: 07/30/24 16:46 Dose: 650 mg Al Hydroxide/Mg Hydroxide (Magnesium Hydrox/Alum Hydrox 30 Ml Oral.Susp) 30 ml PO Q6H PRN PRN Reason: Heartburn/Nausea Albuterol Sulfate (Albuterol Sulfate 90 Mcg 8 Gm Inhaler) 2 puff INHALE RQ4H PRN PRN Reason: Shortness of Breath Clonazepam (Clonazepam 1 Mg Tablet) 1 mg PO BID [facility] Last Admin: 08/05/24 10:03 Dose: 1 mg Divalproex Sodium (Divalproex Sodium Er 500 Mg Tab.Er.24h) 1,500 mg PO BEDTIME [facility] Last Admin: 08/04/24 21:56 Dose: 1,500 mg Fluoxetine HCl (Fluoxetine Hcl 20 Mg Capsule) 20 mg PO DAILY [facility] Last Admin: 08/05/24 08:59 Dose: 20 mg Haloperidol (Haloperidol 5 Mg Tablet) 10 mg PO BID [facility] Last Admin: 08/05/24 08:52 Dose: 10 mg Hydroxyzine HCl (Hydroxyzine Hcl 25 Mg Tablet) 25 mg PO Q6H PRN PRN Reason: mild anxiety Last Admin: 08/04/24 12:10 Dose: 25 mg Ibuprofen (Ibuprofen 800 Mg Tablet) 800 mg PO Q8H PRN PRN Reason: back pain Last Admin: 08/05/24 06:24 Dose: 800 mg Lactic Acid (Ammonium Lactate 12 % Lotion 226 Gm Bottle) 1 appl TOPICAL DAILY PRN; Protocol PRN Reason: Dry Skin Magnesium Hydroxide (Milk Of Magnesia 30 Ml Oral.Susp) 30 ml PO DAILY PRN PRN Reason: Constipation Magnesium Hydroxide (Milk Of Magnesia 30 Ml Oral.Susp) 30 ml PO DAILY PRN PRN Reason: Constipation Melatonin (Melatonin 3 Mg Tablet) 6 mg PO BEDTIME [facility] Last Admin: 08/04/24 21:58 Dose: 6 mg Multi-Ingred Cream/Lotion/Oil/Oint (Mineral Oil/Petrolatum,White 106 Gm Tube) 1 appl TOPICAL BID [facility]; Protocol Last Admin: 08/05/24 08:59 Dose: Not Given Nicotine Polacrilex (Nicotine Polacrilex 2 Mg Gum) 4 mg BUCCAL Q2H PRN PRN Reason: Nicotine Cravings Last Admin: 08/05/24 10:42 Dose: 4 mg Olanzapine (Olanzapine 7.5 Mg Tablet) 15 mg PO BID [facility] Last Admin: 08/05/24 08:52 Dose: 15 mg Olanzapine (Olanzapine 5 Mg Tablet) 5 mg PO BID PRN PRN Reason: agitation Last Admin: 08/04/24 14:20 Dose: 5 mg Pantoprazole Sodium (Pantoprazole Sodium 20 Mg Tablet.) 40 mg PO DAILY@0630 [facility] Last Admin: 08/05/24 06:24 Dose: 40 mg Trazodone HCl (Trazodone Hcl 50 Mg Tablet) 50 mg PO BEDTIME MRX1 PRN PRN Reason: Insomnia Last Admin: 08/03/24 22:15 Dose: 50 mg Vitamin E (Vitamin E (Dl,Tocopheryl Acet) 180 Mg (400 Unit) Capsule) 180 mg PO DAILY [facility] Last Admin: 08/05/24 08:52 Dose: 180 mg Allergies Allergies Allergy/AdvReac Type Severity Reaction Status Date / Time No Known Allergies Allergy Mild NOT Verified 07/28/24 10:06 APPLICABLE Assessment & Plan Assessment & Plan (1) Schizoaffective disorder, bipolar type: Status: Acute Code(s): F25.0 - Schizoaffective disorder, bipolar type Plan Admit, CV, 15 minute checks Re-establish regime Titrate Valproate- 1000 mg HS Pt has filed a three day notice. Today, he has no insight as to the severity of this attempt which is very concerning. Diagnostics as needed Collateral contact Encourage milieu engagement 07/31- somewhat withdrawn and resistent to care today - hx multiple suicide attempts over the years- 08/01 - more open to discussion today, up and dressed, less withdrawn. tolerating inc depakote dose 08/02- Valproate level 08/03. Continue titration when level is known. 08/03 Patient tells consumer loan underwriter that he wants to go home tomorrow SS 3 day notice is due. Says AH is low and denies any SI. Patient however remains intermittently agitated and was slamming doors on unit. Later, totally unprovoked yelled loudly in the hallway fuck you..fuck you and postured at this peer -Depakote level WNL but room to increase. -increase Depakote ER to 1500 mg q.h.s. 08/04- repeat TSH Klonopin 1 mg bid Tolerating increase in Depakote Increase Haldol to 10 mg bid 08/05 Outburst today Increase Depakote to 1750 mg HS Clonidine 0.1 mg bid TSH WNL today Reason for continued inpatient stay Substantial Risk for: rapid decompensation Time Spent With Patient Time: Total time managing care of this patient today ____ minutes.
[2024-08-05 12:21] LABS: Thyroid Stimulating Hormone 3.08 uIU/mL (0.32-4.0)
[2024-08-05] MEDS: hydrOXYzine HCL 25 MG TABLET PO (16:13)
[2024-08-05] MEDS: OLANZapine 5 MG TABLET PO (16:13)
[2024-08-05 17:45] VITALS: BP 125/68
[2024-08-05] MEDS: cloNIDine HCL 0.1 MG TABLET PO (17:45)
[2024-08-05 20:00] VITALS: BP 120/66; PULSE 101; TEMP 36.3; O2SAT 98
[2024-08-05] MEDS: traZODone HCL 50 MG TABLET PO (20:19)
[2024-08-05] MEDS: Divalproex Sodium ER 250 MG TAB.ER.24H 1750 MG PO (20:20)
[2024-08-05] MEDS: Melatonin 3 MG TABLET 6 MG PO (20:21)
--- NOTE | 2024-08-06 | EEG_ITS ---
FINDINGS: The waking background activity consists of low voltage fast frequencies seen diffusely intermixed with a low voltage fast 8 Hz alpha frequency. Photic stimulation was without activation. Hyperventilation was omitted. No focal, lateralizing, or paroxysmal discharges seen. IMPRESSION: This waking EEG is within normal limits. MD BETY Cuenca/BRIGHT / [id number]
[2024-08-06] MEDS: OLANZapine 5 MG TABLET PO ×2 (05:27→16:00)
[2024-08-06] MEDS: Nicotine Polacrilex 2 MG GUM 4 MG BUCCAL ×5 (05:29→16:00)
[2024-08-06] MEDS: Pantoprazole Sodium 20 MG TABLET.DR 40 MG PO (05:30)
[2024-08-06 08:00] VITALS: BP 113/70; PULSE 101; RESP 16; TEMP 36.7; O2SAT 97
[2024-08-06] MEDS: Vitamin E (Dl,Tocopheryl Acet) 180 MG (400 UNIT) CAPSULE PO (08:41)
[2024-08-06] MEDS: HaloperidoL 5 MG TABLET 10 MG PO (08:41)
[2024-08-06] MEDS: clonazePAM 1 MG TABLET PO ×2 (08:42→20:48)
[2024-08-06] MEDS: FLUoxetine HCl 20 MG CAPSULE PO (08:42)
[2024-08-06] MEDS: cloNIDine HCL 0.1 MG TABLET PO ×2 (08:42→20:48)
[2024-08-06] MEDS: OLANZapine 7.5 MG TABLET 15 MG PO ×2 (08:42→20:48)
[2024-08-06] MEDS: hydrOXYzine HCL 25 MG TABLET PO ×3 (08:53→20:47)
[2024-08-06] MEDS: chlorproMAZINE HCl 100 MG TABLET PO ×2 (10:06→13:03)
[2024-08-06] MEDS: chlorproMAZINE HCl 25 MG TABLET 50 MG PO ×2 (14:26→20:47)
--- NOTE | 2024-08-06 16:34 | P.PNPSI_ITS ---
Subjective Subjective Date of Service: 08/06/24 Reason For Visit: Schizoaffective D/O Bipolar Type SI Subjective Notes: Section 7 Healthcare Proxy: No Guardianship: No Medical Problems Affecting Mental Status: No Interim History: Intermittent outbursts. Haldol discontinued Chlorpromazine 50 mg tid with prn trial. Consistently asking about discharge, discussed getting sx under control prior to discharge. Will order EEG Medication Compliance: Yes Side effects from medications: No Attending Groups: Intermittent Review of Systems Acute medical concerns: No Review of Systems Review of Systems denies Mental Status Exam Mental Status Exam Narrative: Pt experienced a verbal outburst this afternoon Patient Appearance: Appropriate Patient Orientation: Person, Place, Time and Situation Level of Consciousness: Alert Patient Behavior: Appropriate, Talkative, Cooperative, Anxious, Distractible and Good Eye Contact Mood Description: Anxious, Labile and Apprehensive Affect Description: Anxious and Apprehensive Patient Cognition Impaired: No Ability to Follow Directions: Good Speech Pattern: Spontaneous Speech Memory Description: Episodic Impaired Hallucinations: None (denies,?) Delusions: Paranoid Ideation and Present Perceptual Disturbances: Depersonalization Thought Process: Rumination Thought Content: positive for [place], positive for Obsessional Thoughts, positive for Perseveration and positive for Suicidal Ideation (denies) Depressive Symptoms: Increased Anxiety, Diff. Making Decisions, Increased Irritability and Difficulty Concentrating Abnormal Motor Activity Signs and Symptoms: Restlessness Judgement: Poor Diagnostics Vital Signs (24Hr): Vital Signs - 24 hr 08/05/24 17:45 08/05/24 20:00 08/06/24 08:00 Temperature 97.3 F 98.1 F Pulse Rate 101 H 101 H Respiratory Rate 16 Blood Pressure 125/68 120/66 113/70 Pulse Oximetry 98 97 Oxygen Delivery Method Room Air Room Air BMI result Body Mass Index 24.7 Labs 07/28/24 10:10 07/28/24 10:10 Labs: Laboratory Results - last 48 hr 08/05/24 08/05/24 11:23 11:32 Hold Purple Top SEE NOTE TSH 3.08 Medications Medications Current Medications Acetaminophen (Acetaminophen 325 Mg Tablet) 650 mg PO Q6H PRN PRN Reason: Headache/Pain, Scale 1-10 Last Admin: 07/30/24 16:46 Dose: 650 mg Al Hydroxide/Mg Hydroxide (Magnesium Hydrox/Alum Hydrox 30 Ml Oral.Susp) 30 ml PO Q6H PRN PRN Reason: Heartburn/Nausea Albuterol Sulfate (Albuterol Sulfate 90 Mcg 8 Gm Inhaler) 2 puff INHALE RQ4H PRN PRN Reason: Shortness of Breath Chlorpromazine HCl (Chlorpromazine Hcl 100 Mg Tablet) 100 mg PO TID PRN PRN Reason: agitation, violence Last Admin: 08/06/24 13:03 Dose: 100 mg Chlorpromazine HCl (Chlorpromazine Hcl 25 Mg Tablet) 50 mg PO TID [facility] Last Admin: 08/06/24 14:26 Dose: 50 mg Clonazepam (Clonazepam 1 Mg Tablet) 1 mg PO BID [facility] Last Admin: 08/06/24 08:42 Dose: 1 mg Clonidine HCl (Clonidine Hcl 0.1 Mg Tablet) 0.1 mg PO BID [facility]; Protocol Last Admin: 08/06/24 08:42 Dose: 0.1 mg [place] Butter/Zinc Oxide ([place] Butter/Zinc Oxide Supp.Rect) 1 supp [place] BID PRN PRN Reason: Hemorrhoids Divalproex Sodium (Divalproex Sodium Er 250 Mg Tab.Er.24h) 1,750 mg PO BEDTIME [facility] Last Admin: 08/05/24 20:20 Dose: 1,750 mg Fluoxetine HCl (Fluoxetine Hcl 20 Mg Capsule) 20 mg PO DAILY [facility] Last Admin: 08/06/24 08:42 Dose: 20 mg Hydroxyzine HCl (Hydroxyzine Hcl 25 Mg Tablet) 25 mg PO Q6H PRN PRN Reason: mild anxiety Last Admin: 08/06/24 08:53 Dose: 25 mg Ibuprofen (Ibuprofen 800 Mg Tablet) 800 mg PO Q8H PRN PRN Reason: back pain Last Admin: 08/05/24 06:24 Dose: 800 mg Lactic Acid (Ammonium Lactate 12 % Lotion 226 Gm Bottle) 1 appl TOPICAL DAILY PRN; Protocol PRN Reason: Dry Skin Magnesium Hydroxide (Milk Of Magnesia 30 Ml Oral.Susp) 30 ml PO DAILY PRN PRN Reason: Constipation Magnesium Hydroxide (Milk Of Magnesia 30 Ml Oral.Susp) 30 ml PO DAILY PRN PRN Reason: Constipation Melatonin (Melatonin 3 Mg Tablet) 6 mg PO BEDTIME [facility] Last Admin: 08/05/24 20:21 Dose: 6 mg Multi-Ingred Cream/Lotion/Oil/Oint (Mineral Oil/Petrolatum,White 106 Gm Tube) 1 appl TOPICAL BID [facility]; Protocol Last Admin: 08/06/24 08:43 Dose: Not Given Nicotine Polacrilex (Nicotine Polacrilex 2 Mg Gum) 4 mg BUCCAL Q2H PRN PRN Reason: Nicotine Cravings Last Admin: 08/06/24 16:00 Dose: 4 mg Olanzapine (Olanzapine 7.5 Mg Tablet) 15 mg PO BID [facility] Last Admin: 08/06/24 08:42 Dose: 15 mg Olanzapine (Olanzapine 5 Mg Tablet) 5 mg PO BID PRN PRN Reason: agitation Last Admin: 08/06/24 16:00 Dose: 5 mg Pantoprazole Sodium (Pantoprazole Sodium 20 Mg Tablet.Dr) 40 mg PO DAILY@0630 [facility] Last Admin: 08/06/24 05:30 Dose: 40 mg Trazodone HCl (Trazodone Hcl 50 Mg Tablet) 50 mg PO BEDTIME MRX1 PRN PRN Reason: Insomnia Last Admin: 08/05/24 20:19 Dose: 50 mg Vitamin E (Vitamin E (Dl,Tocopheryl Acet) 180 Mg (400 Unit) Capsule) 180 mg PO DAILY [facility] Last Admin: 08/06/24 08:41 Dose: 180 mg Allergies Allergies Allergy/AdvReac Type Severity Reaction Status Date / Time No Known Allergies Allergy Mild NOT Verified 07/28/24 10:06 APPLICABLE Assessment & Plan Assessment & Plan (1) Schizoaffective disorder, bipolar type: Status: Acute Code(s): F25.0 - Schizoaffective disorder, bipolar type Plan Admit, CV, 15 minute checks Re-establish regime Titrate Valproate- 1000 mg HS Pt has filed a three day notice. Today, he has no insight as to the severity of this attempt which is very concerning. Diagnostics as needed Collateral contact Encourage milieu engagement 07/31- somewhat withdrawn and resistent to care today - hx multiple suicide attempts over the years- 08/01 - more open to discussion today, up and dressed, less withdrawn. tolerating inc depakote dose 08/02- Valproate level 08/03. Continue titration when level is known. 08/03 Patient tells property underwriter that he wants to go home tomorrow SS 3 day notice is due. Says AH is low and denies any SI. Patient however remains intermittently agitated and was slamming doors on unit. Later, totally unprovoked yelled loudly in the hallway randy aggarwal..govindk you and postured at this peer -Depakote level WNL but room to increase. -increase Depakote ER to 1500 mg q.h.s. 08/04- repeat TSH Klonopin 1 mg bid Tolerating increase in Depakote Increase Haldol to 10 mg bid 08/05 Outburst today Increase Depakote to 1750 mg HS Clonidine 0.1 mg bid TSH WNL today 08/06 DC Haldol Chlorpromazine 50 mg tid and prn EEG- ?Tourette type sx, may need MRI as well. Reason for continued inpatient stay Substantial Risk for: rapid decompensation Time Spent With Patient Time: Total time managing care of this patient today ____ minutes.
[2024-08-06 19:35] VITALS: BP 104/72; PULSE 106; TEMP 36.6; O2SAT 98
[2024-08-06] MEDS: traZODone HCL 50 MG TABLET PO (20:47)
[2024-08-06] MEDS: Divalproex Sodium ER 250 MG TAB.ER.24H 1750 MG PO (20:47)
[2024-08-06] MEDS: Melatonin 3 MG TABLET 6 MG PO (20:47)
[2024-08-07] MEDS: hydrOXYzine HCL 25 MG TABLET PO ×2 (00:30→16:02)
[2024-08-07] MEDS: Nicotine Polacrilex 2 MG GUM 4 MG BUCCAL ×6 (00:30→22:30)
[2024-08-07] MEDS: Ibuprofen 800 MG TABLET PO ×2 (00:30→20:35)
[2024-08-07] MEDS: traZODone HCL 50 MG TABLET PO ×2 (00:30→20:35)
[2024-08-07 08:31] VITALS: BP 113/79; PULSE 116; TEMP 36.3; O2SAT 97
[2024-08-07] MEDS: cloNIDine HCL 0.1 MG TABLET PO ×2 (08:31→20:37)
[2024-08-07] MEDS: FLUoxetine HCl 20 MG CAPSULE PO (08:31)
[2024-08-07] MEDS: clonazePAM 1 MG TABLET PO ×2 (08:31→20:35)
[2024-08-07] MEDS: Vitamin E (Dl,Tocopheryl Acet) 180 MG (400 UNIT) CAPSULE PO (08:31)
[2024-08-07] MEDS: Pantoprazole Sodium 20 MG TABLET.DR 40 MG PO (08:32)
[2024-08-07] MEDS: OLANZapine 7.5 MG TABLET 15 MG PO ×2 (08:32→20:35)
[2024-08-07] MEDS: chlorproMAZINE HCl 25 MG TABLET 50 MG PO ×3 (08:32→20:35)
--- NOTE | 2024-08-07 10:58 | HO.PSYCHPN ---
Subjective Subjective Date of Service: 08/07/24 Reason For Visit: Schizoaffective D/O Bipolar Type SI Subjective Notes: Section 7 Interim History: Patient was seen and discussed in rounds today. Records and plans were reviewed. He continues to be anxious, somewhat labile at times. Compliant with medications. No side effects to Thorazine. Some irritability reported. He is complaining of some back pain for which he is going to use an analgesic. No outbursts reported. No SI. No changes were made today Review of Systems Review of Systems Back pain Yes all other systems are reviewed and are negative Mental Status Exam Mental Status Exam Narrative: In today's visit he is alert, oriented and pleasant. Normal speech. Minimal eye contact. Affect is appropriate and constricted. No signs of psychosis. No AVH. Cognitively is grossly intact. Able to move all limbs. No gait abnormalities. Judgment is intact Diagnostics Vital Signs (24Hr): Vital Signs - 24 hr 08/06/24 19:35 08/07/24 08:31 08/07/24 08:31 Temperature 97.8 F 97.3 F Pulse Rate 106 H 116 H Blood Pressure 104/72 113/79 113/79 Pulse Oximetry 98 97 Oxygen Delivery Method Room Air Room Air BMI result Body Mass Index 24.7 Labs 07/28/24 10:10 07/28/24 10:10 Labs: Laboratory Results - last 48 hr 08/05/24 08/05/24 11:23 11:32 Hold Purple Top SEE NOTE TSH 3.08 Medications Medications Current Medications Acetaminophen (Acetaminophen 325 Mg Tablet) 650 mg PO Q6H PRN PRN Reason: Headache/Pain, Scale 1-10 Last Admin: 07/30/24 16:46 Dose: 650 mg Al Hydroxide/Mg Hydroxide (Magnesium Hydrox/Alum Hydrox 30 Ml Oral.Susp) 30 ml PO Q6H PRN PRN Reason: Heartburn/Nausea Albuterol Sulfate (Albuterol Sulfate 90 Mcg 8 Gm Inhaler) 2 puff INHALE RQ4H PRN PRN Reason: Shortness of Breath Chlorpromazine HCl (Chlorpromazine Hcl 100 Mg Tablet) 100 mg PO TID PRN PRN Reason: agitation, violence Last Admin: 08/06/24 13:03 Dose: 100 mg Chlorpromazine HCl (Chlorpromazine Hcl 25 Mg Tablet) 50 mg PO TID [facility] Last Admin: 08/07/24 08:32 Dose: 50 mg Clonazepam (Clonazepam 1 Mg Tablet) 1 mg PO BID [facility] Last Admin: 08/07/24 08:31 Dose: 1 mg Clonidine HCl (Clonidine Hcl 0.1 Mg Tablet) 0.1 mg PO BID [facility]; Protocol Last Admin: 08/07/24 08:31 Dose: 0.1 mg [place] Butter/Zinc Oxide ([place] Butter/Zinc Oxide Supp.Rect) 1 supp [place] BID PRN PRN Reason: Hemorrhoids Divalproex Sodium (Divalproex Sodium Er 250 Mg Tab.Er.24h) 1,750 mg PO BEDTIME [facility] Last Admin: 08/06/24 20:47 Dose: 1,750 mg Fluoxetine HCl (Fluoxetine Hcl 20 Mg Capsule) 20 mg PO DAILY [facility] Last Admin: 08/07/24 08:31 Dose: 20 mg Hydroxyzine HCl (Hydroxyzine Hcl 25 Mg Tablet) 25 mg PO Q6H PRN PRN Reason: mild anxiety Last Admin: 08/07/24 00:30 Dose: 25 mg Ibuprofen (Ibuprofen 800 Mg Tablet) 800 mg PO Q8H PRN PRN Reason: back pain Last Admin: 08/07/24 00:30 Dose: 800 mg Lactic Acid (Ammonium Lactate 12 % Lotion 226 Gm Bottle) 1 appl TOPICAL DAILY PRN; Protocol PRN Reason: Dry Skin Magnesium Hydroxide (Milk Of Magnesia 30 Ml Oral.Susp) 30 ml PO DAILY PRN PRN Reason: Constipation Magnesium Hydroxide (Milk Of Magnesia 30 Ml Oral.Susp) 30 ml PO DAILY PRN PRN Reason: Constipation Melatonin (Melatonin 3 Mg Tablet) 6 mg PO BEDTIME [facility] Last Admin: 08/06/24 20:47 Dose: 6 mg Multi-Ingred Cream/Lotion/Oil/Oint (Mineral Oil/Petrolatum,White 106 Gm Tube) 1 appl TOPICAL BID [facility]; Protocol Last Admin: 08/07/24 09:06 Dose: Not Given Nicotine Polacrilex (Nicotine Polacrilex 2 Mg Gum) 4 mg BUCCAL Q2H PRN PRN Reason: Nicotine Cravings Last Admin: 08/07/24 08:59 Dose: 4 mg Olanzapine (Olanzapine 7.5 Mg Tablet) 15 mg PO BID [facility] Last Admin: 08/07/24 08:32 Dose: 15 mg Olanzapine (Olanzapine 5 Mg Tablet) 5 mg PO BID PRN PRN Reason: agitation Last Admin: 08/06/24 16:00 Dose: 5 mg Pantoprazole Sodium (Pantoprazole Sodium 20 Mg Tablet.) 40 mg PO DAILY@0630 [facility] Last Admin: 08/07/24 08:32 Dose: 40 mg Trazodone HCl (Trazodone Hcl 50 Mg Tablet) 50 mg PO BEDTIME MRX1 PRN PRN Reason: Insomnia Last Admin: 08/07/24 00:30 Dose: 50 mg Vitamin E (Vitamin E (Dl,Tocopheryl Acet) 180 Mg (400 Unit) Capsule) 180 mg PO DAILY [facility] Last Admin: 08/07/24 08:31 Dose: 180 mg Allergies Allergies Allergy/AdvReac Type Severity Reaction Status Date / Time No Known Allergies Allergy Mild NOT Verified 07/28/24 10:06 APPLICABLE Assessment & Plan Assessment & Plan (1) Schizoaffective disorder, bipolar type: Status: Acute Code(s): F25.0 - Schizoaffective disorder, bipolar type Plan Admit, CV, 15 minute checks Re-establish regime Titrate Valproate- 1000 mg HS Pt has filed a three day notice. Today, he has no insight as to the severity of this attempt which is very concerning. Diagnostics as needed Collateral contact Encourage milieu engagement 07/31- somewhat withdrawn and resistent to care today - hx multiple suicide attempts over the years- 08/01 - more open to discussion today, up and dressed, less withdrawn. tolerating inc depakote dose 08/02- Valproate level 08/03. Continue titration when level is known. 08/03 Patient tells policy writer typist that he wants to go home tomorrow SS 3 day notice is due. Says AH is low and denies any SI. Patient however remains intermittently agitated and was slamming doors on unit. Later, totally unprovoked yelled loudly in the hallway fuck you..fuck you and postured at this peer -Depakote level WNL but room to increase. -increase Depakote ER to 1500 mg q.h.s. 08/04- repeat TSH Klonopin 1 mg bid Tolerating increase in Depakote Increase Haldol to 10 mg bid 08/05 Outburst today Increase Depakote to 1750 mg HS Clonidine 0.1 mg bid TSH WNL today 08/06 DC Haldol Chlorpromazine 50 mg tid and prn EEG- ?Tourette type sx, may need MRI as well. 08/07: Continue current regimen and plans Reason for continued inpatient stay Substantial Risk for: med/psych decompensation Time Spent With Patient Time: Total time managing care of this patient today ____ minutes.
[2024-08-07] MEDS: OLANZapine 5 MG TABLET PO (13:43)
[2024-08-07 19:32] VITALS: BP 141/96; PULSE 86; TEMP 36.4; O2SAT 94
[2024-08-07] MEDS: Divalproex Sodium ER 250 MG TAB.ER.24H 1750 MG PO (20:34)
[2024-08-07] MEDS: Melatonin 3 MG TABLET 6 MG PO (20:35)
[2024-08-07] MEDS: chlorproMAZINE HCl 100 MG TABLET PO (22:30)
[2024-08-08] MEDS: chlorproMAZINE HCl 25 MG TABLET 50 MG PO ×3 (07:55→21:32)
[2024-08-08] MEDS: Pantoprazole Sodium 20 MG TABLET.DR 40 MG PO (07:55)
[2024-08-08] MEDS: FLUoxetine HCl 20 MG CAPSULE PO (07:55)
[2024-08-08] MEDS: OLANZapine 7.5 MG TABLET 15 MG PO ×2 (07:55→21:31)
[2024-08-08 07:56] VITALS: BP 115/74; PULSE 121; TEMP 36.5; O2SAT 95
[2024-08-08] MEDS: cloNIDine HCL 0.1 MG TABLET PO ×2 (07:56→21:35)
[2024-08-08] MEDS: Vitamin E (Dl,Tocopheryl Acet) 180 MG (400 UNIT) CAPSULE PO (07:56)
[2024-08-08] MEDS: clonazePAM 1 MG TABLET PO ×2 (07:56→21:32)
[2024-08-08] MEDS: Nicotine Polacrilex 2 MG GUM 4 MG BUCCAL ×7 (08:00→21:32)
[2024-08-08 08:18] VITALS: PULSE 104
--- NOTE | 2024-08-08 10:05 | P.PNPSI_ITS ---
Subjective Subjective Date of Service: 08/08/24 Reason For Visit: Schizoaffective D/O Bipolar Type SI Subjective Notes: Section 7 Interim History: Patient was seen and discussed in rounds today. Records and plans were reviewed. He has been stable with moderate continued anxiety. No side effects. Continues to be quite paranoid but pleasant and interactive. Endorses AH. No outbursts. Slept 8 hours. No changes were made today Review of Systems Review of Systems Yes all other systems are reviewed and are negative Mental Status Exam Mental Status Exam Narrative: In today's visit he is alert, oriented and pleasant. Normal speech. Minimal eye contact. Affect is appropriate and constricted. No signs of psychosis. No AVH. Cognitively is grossly intact. No SI. Able to move all limbs. No gait abnormalities. Judgment is intact Diagnostics Vital Signs (24Hr): Vital Signs - 24 hr 08/07/24 19:32 08/08/24 07:56 08/08/24 07:56 Temperature 97.6 F 97.7 F Pulse Rate 86 121 H Blood Pressure 141/96 H 115/74 115/74 Pulse Oximetry 94 95 Oxygen Delivery Method Room Air Room Air 08/08/24 08:18 Temperature Pulse Rate 104 H Blood Pressure Pulse Oximetry Oxygen Delivery Method BMI result Body Mass Index 24.7 Labs 07/28/24 10:10 07/28/24 10:10 Medications Medications Current Medications Acetaminophen (Acetaminophen 325 Mg Tablet) 650 mg PO Q6H PRN PRN Reason: Headache/Pain, Scale 1-10 Last Admin: 07/30/24 16:46 Dose: 650 mg Al Hydroxide/Mg Hydroxide (Magnesium Hydrox/Alum Hydrox 30 Ml Oral.Susp) 30 ml PO Q6H PRN PRN Reason: Heartburn/Nausea Albuterol Sulfate (Albuterol Sulfate 90 Mcg 8 Gm Inhaler) 2 puff INHALE RQ4H PRN PRN Reason: Shortness of Breath Chlorpromazine HCl (Chlorpromazine Hcl 100 Mg Tablet) 100 mg PO TID PRN PRN Reason: agitation, violence Last Admin: 08/07/24 22:30 Dose: 100 mg Chlorpromazine HCl (Chlorpromazine Hcl 25 Mg Tablet) 50 mg PO TID [facility] Last Admin: 08/08/24 07:55 Dose: 50 mg Clonazepam (Clonazepam 1 Mg Tablet) 1 mg PO BID [facility] Last Admin: 08/08/24 07:56 Dose: 1 mg Clonidine HCl (Clonidine Hcl 0.1 Mg Tablet) 0.1 mg PO BID [facility]; Protocol Last Admin: 08/08/24 07:56 Dose: 0.1 mg [place] Butter/Zinc Oxide ([place] Butter/Zinc Oxide Supp.Rect) 1 supp [place] BID PRN PRN Reason: Hemorrhoids Divalproex Sodium (Divalproex Sodium Er 250 Mg Tab.Er.24h) 1,750 mg PO BEDTIME [facility] Last Admin: 08/07/24 20:34 Dose: 1,750 mg Fluoxetine HCl (Fluoxetine Hcl 20 Mg Capsule) 20 mg PO DAILY [facility] Last Admin: 08/08/24 07:55 Dose: 20 mg Hydroxyzine HCl (Hydroxyzine Hcl 25 Mg Tablet) 25 mg PO Q6H PRN PRN Reason: mild anxiety Last Admin: 08/07/24 16:02 Dose: 25 mg Ibuprofen (Ibuprofen 800 Mg Tablet) 800 mg PO Q8H PRN PRN Reason: back pain Last Admin: 08/07/24 20:35 Dose: 800 mg Lactic Acid (Ammonium Lactate 12 % Lotion 226 Gm Bottle) 1 appl TOPICAL DAILY PRN; Protocol PRN Reason: Dry Skin Magnesium Hydroxide (Milk Of Magnesia 30 Ml Oral.Susp) 30 ml PO DAILY PRN PRN Reason: Constipation Magnesium Hydroxide (Milk Of Magnesia 30 Ml Oral.Susp) 30 ml PO DAILY PRN PRN Reason: Constipation Melatonin (Melatonin 3 Mg Tablet) 6 mg PO BEDTIME [facility] Last Admin: 08/07/24 20:35 Dose: 6 mg Multi-Ingred Cream/Lotion/Oil/Oint (Mineral Oil/Petrolatum,White 106 Gm Tube) 1 appl TOPICAL BID [facility]; Protocol Last Admin: 08/08/24 09:03 Dose: Not Given Nicotine Polacrilex (Nicotine Polacrilex 2 Mg Gum) 4 mg BUCCAL Q2H PRN PRN Reason: Nicotine Cravings Last Admin: 08/08/24 08:00 Dose: 4 mg Olanzapine (Olanzapine 7.5 Mg Tablet) 15 mg PO BID [facility] Last Admin: 08/08/24 07:55 Dose: 15 mg Olanzapine (Olanzapine 5 Mg Tablet) 5 mg PO BID PRN PRN Reason: agitation Last Admin: 08/07/24 13:43 Dose: 5 mg Pantoprazole Sodium (Pantoprazole Sodium 20 Mg Tablet.) 40 mg PO DAILY@0630 [facility] Last Admin: 08/08/24 07:55 Dose: 40 mg Trazodone HCl (Trazodone Hcl 50 Mg Tablet) 50 mg PO BEDTIME MRX1 PRN PRN Reason: Insomnia Last Admin: 08/07/24 20:35 Dose: 50 mg Vitamin E (Vitamin E (Dl,Tocopheryl Acet) 180 Mg (400 Unit) Capsule) 180 mg PO DAILY [facility] Last Admin: 08/08/24 07:56 Dose: 180 mg Allergies Allergies Allergy/AdvReac Type Severity Reaction Status Date / Time No Known Allergies Allergy Mild NOT Verified 07/28/24 10:06 APPLICABLE Assessment & Plan Assessment & Plan (1) Schizoaffective disorder, bipolar type: Status: Acute Code(s): F25.0 - Schizoaffective disorder, bipolar type Plan Admit, CV, 15 minute checks Re-establish regime Titrate Valproate- 1000 mg HS Pt has filed a three day notice. Today, he has no insight as to the severity of this attempt which is very concerning. Diagnostics as needed Collateral contact Encourage milieu engagement 07/31- somewhat withdrawn and resistent to care today - hx multiple suicide attempts over the years- 08/01 - more open to discussion today, up and dressed, less withdrawn. tolerating inc depakote dose 08/02- Valproate level 08/03. Continue titration when level is known. 08/03 Patient tells remote mortgage underwriter that he wants to go home tomorrow SS 3 day notice is due. Says AH is low and denies any SI. Patient however remains intermittently agitated and was slamming doors on unit. Later, totally unprovoked yelled loudly in the hallway fuck you..fuck you and postured at this peer -Depakote level WNL but room to increase. -increase Depakote ER to 1500 mg q.h.s. 08/04- repeat TSH Klonopin 1 mg bid Tolerating increase in Depakote Increase Haldol to 10 mg bid 08/05 Outburst today Increase Depakote to 1750 mg HS Clonidine 0.1 mg bid TSH WNL today 08/06 DC Haldol Chlorpromazine 50 mg tid and prn EEG- ?Tourette type sx, may need MRI as well. 08/07: Continue current regimen and plans 08/08: Continue current plans and regimen Reason for continued inpatient stay Substantial Risk for: med/psych decompensation Time Spent With Patient Time: Total time managing care of this patient today ____ minutes.
[2024-08-08] MEDS: chlorproMAZINE HCl 100 MG TABLET PO ×3 (11:47→17:44)
[2024-08-08] MEDS: hydrOXYzine HCL 25 MG TABLET PO ×2 (11:47→17:44)
[2024-08-08 20:00] VITALS: BP 110/71; PULSE 112; RESP 18; TEMP 36.7; O2SAT 95
[2024-08-08] MEDS: Melatonin 3 MG TABLET 6 MG PO (21:31)
[2024-08-08] MEDS: Divalproex Sodium ER 250 MG TAB.ER.24H 1750 MG PO (21:32)
[2024-08-08 21:35] VITALS: BP 118/78
[2024-08-08] MEDS: Acetaminophen 325 MG TABLET 650 MG PO (21:41)
[2024-08-09 07:58] VITALS: BP 106/74; PULSE 114; RESP 20; TEMP 36.4; O2SAT 97
[2024-08-09] MEDS: FLUoxetine HCl 20 MG CAPSULE PO (08:16)
[2024-08-09] MEDS: cloNIDine HCL 0.1 MG TABLET PO ×2 (08:16→20:29)
[2024-08-09] MEDS: Pantoprazole Sodium 20 MG TABLET.DR 40 MG PO (08:17)
[2024-08-09] MEDS: Vitamin E (Dl,Tocopheryl Acet) 180 MG (400 UNIT) CAPSULE PO (08:17)
[2024-08-09] MEDS: clonazePAM 1 MG TABLET PO ×2 (08:17→20:28)
[2024-08-09] MEDS: chlorproMAZINE HCl 25 MG TABLET 50 MG PO ×3 (08:18→20:29)
[2024-08-09] MEDS: OLANZapine 7.5 MG TABLET 15 MG PO ×2 (08:18→20:29)
[2024-08-09] MEDS: Nicotine Polacrilex 2 MG GUM 4 MG BUCCAL ×6 (08:33→20:28)
--- NOTE | 2024-08-09 09:54 | HO.PSYCHPN ---
Subjective Subjective Date of Service: 08/09/24 Reason For Visit: Schizoaffective D/O Bipolar Type SI Interim History: met with patient; discussed with team; reviewed chart Intermittently slamming doors yesterday but otherwise no outbursts. Patient says the door slamming was because he got upset but that he will not do it anymore and that he is not feeling agitated. Asks about discharge plan and understands to discuss it with primary team when they return tomorrow. Otherwise slept, denies SI/HI Mental Status Exam Mental Status Exam Narrative: Pt is alert and oriented; behavior is more calm though still intermittently agitated; patient is not in distress; dressed in casual attire with adequate hygiene; mood is described as okay and affect congruent; eye contact appropriate; Speech is normal rate, volume and prosody and not pressured; psychomotor agitation present; thought process is goal directed; Thought content is on discharge; denies any SI/HI. Patients insight and judgment impaired Diagnostics Vital Signs (24Hr): Vital Signs - 24 hr 08/08/24 20:00 08/08/24 21:35 08/09/24 07:58 Temperature 98.0 F 97.6 F Pulse Rate 112 H 114 H Respiratory Rate 18 20 Blood Pressure 110/71 118/78 106/74 Pulse Oximetry 95 97 Oxygen Delivery Method Room Air Room Air BMI result Body Mass Index 24.7 Labs 07/28/24 10:10 07/28/24 10:10 Medications Medications Current Medications Acetaminophen (Acetaminophen 325 Mg Tablet) 650 mg PO Q6H PRN PRN Reason: Headache/Pain, Scale 1-10 Last Admin: 08/08/24 21:41 Dose: 650 mg Al Hydroxide/Mg Hydroxide (Magnesium Hydrox/Alum Hydrox 30 Ml Oral.Susp) 30 ml PO Q6H PRN PRN Reason: Heartburn/Nausea Albuterol Sulfate (Albuterol Sulfate 90 Mcg 8 Gm Inhaler) 2 puff INHALE RQ4H PRN PRN Reason: Shortness of Breath Chlorpromazine HCl (Chlorpromazine Hcl 100 Mg Tablet) 100 mg PO TID PRN PRN Reason: agitation, violence Last Admin: 08/08/24 17:44 Dose: 100 mg Chlorpromazine HCl (Chlorpromazine Hcl 25 Mg Tablet) 50 mg PO TID [facility] Last Admin: 08/09/24 08:18 Dose: 50 mg Clonazepam (Clonazepam 1 Mg Tablet) 1 mg PO BID [facility] Last Admin: 08/09/24 08:17 Dose: 1 mg Clonidine HCl (Clonidine Hcl 0.1 Mg Tablet) 0.1 mg PO BID [facility]; Protocol Last Admin: 08/09/24 08:16 Dose: 0.1 mg [place] Butter/Zinc Oxide ([place] Butter/Zinc Oxide Supp.Rect) 1 supp [place] BID PRN PRN Reason: Hemorrhoids Divalproex Sodium (Divalproex Sodium Er 250 Mg Tab.Er.24h) 1,750 mg PO BEDTIME [facility] Last Admin: 08/08/24 21:32 Dose: 1,750 mg Fluoxetine HCl (Fluoxetine Hcl 20 Mg Capsule) 20 mg PO DAILY [facility] Last Admin: 08/09/24 08:16 Dose: 20 mg Hydroxyzine HCl (Hydroxyzine Hcl 25 Mg Tablet) 25 mg PO Q6H PRN PRN Reason: mild anxiety Last Admin: 08/08/24 17:44 Dose: 25 mg Ibuprofen (Ibuprofen 800 Mg Tablet) 800 mg PO Q8H PRN PRN Reason: back pain Last Admin: 08/07/24 20:35 Dose: 800 mg Lactic Acid (Ammonium Lactate 12 % Lotion 226 Gm Bottle) 1 appl TOPICAL DAILY PRN; Protocol PRN Reason: Dry Skin Magnesium Hydroxide (Milk Of Magnesia 30 Ml Oral.Susp) 30 ml PO DAILY PRN PRN Reason: Constipation Magnesium Hydroxide (Milk Of Magnesia 30 Ml Oral.Susp) 30 ml PO DAILY PRN PRN Reason: Constipation Melatonin (Melatonin 3 Mg Tablet) 6 mg PO BEDTIME [facility] Last Admin: 08/08/24 21:31 Dose: 6 mg Multi-Ingred Cream/Lotion/Oil/Oint (Mineral Oil/Petrolatum,White 106 Gm Tube) 1 appl TOPICAL BID [facility]; Protocol Last Admin: 08/09/24 08:19 Dose: Not Given Nicotine Polacrilex (Nicotine Polacrilex 2 Mg Gum) 4 mg BUCCAL Q2H PRN PRN Reason: Nicotine Cravings Last Admin: 08/09/24 08:33 Dose: 4 mg Olanzapine (Olanzapine 7.5 Mg Tablet) 15 mg PO BID [facility] Last Admin: 08/09/24 08:18 Dose: 15 mg Olanzapine (Olanzapine 5 Mg Tablet) 5 mg PO BID PRN PRN Reason: agitation Last Admin: 08/07/24 13:43 Dose: 5 mg Pantoprazole Sodium (Pantoprazole Sodium 20 Mg Tablet.) 40 mg PO DAILY@0630 [facility] Last Admin: 08/09/24 08:17 Dose: 40 mg Trazodone HCl (Trazodone Hcl 50 Mg Tablet) 50 mg PO BEDTIME MRX1 PRN PRN Reason: Insomnia Last Admin: 08/07/24 20:35 Dose: 50 mg Vitamin E (Vitamin E (Dl,Tocopheryl Acet) 180 Mg (400 Unit) Capsule) 180 mg PO DAILY [facility] Last Admin: 08/09/24 08:17 Dose: 180 mg Allergies Allergies Allergy/AdvReac Type Severity Reaction Status Date / Time No Known Allergies Allergy Mild NOT Verified 07/28/24 10:06 APPLICABLE Assessment & Plan Assessment & Plan (1) Schizoaffective disorder, bipolar type: Status: Acute Code(s): F25.0 - Schizoaffective disorder, bipolar type Plan Admit, CV, 15 minute checks Re-establish regime Titrate Valproate- 1000 mg HS Pt has filed a three day notice. Today, he has no insight as to the severity of this attempt which is very concerning. Diagnostics as needed Collateral contact Encourage milieu engagement 07/31- somewhat withdrawn and resistent to care today - hx multiple suicide attempts over the years- 08/01 - more open to discussion today, up and dressed, less withdrawn. tolerating inc depakote dose 08/02- Valproate level 08/03. Continue titration when level is known. 08/03 Patient tells technical report writer that he wants to go home tomorrow SS 3 day notice is due. Says AH is low and denies any SI. Patient however remains intermittently agitated and was slamming doors on unit. Later, totally unprovoked yelled loudly in the hallway fuck you..fuck you and postured at this peer -Depakote level WNL but room to increase. -increase Depakote ER to 1500 mg q.h.s. 08/04- repeat TSH Klonopin 1 mg bid Tolerating increase in Depakote Increase Haldol to 10 mg bid 08/05 Outburst today Increase Depakote to 1750 mg HS Clonidine 0.1 mg bid TSH WNL today 08/06 DC Haldol Chlorpromazine 50 mg tid and prn EEG- ?Tourette type sx, may need MRI as well. 08/07: Continue current regimen and plans 08/08: Continue current plans and regimen 08/09 Intermittently slamming doors yesterday but otherwise no outbursts. Patient says the door slamming was because he got upset but that he will not do it anymore and that he is not feeling agitated. Asks about discharge plan and understands to discuss it with primary team when they return tomorrow. Otherwise slept, denies SI/HI/AVH Patient educated on: diagnosis Informed Consent: understands, does not understand and further education needed Reason for continued inpatient stay Substantial Risk for: rapid decompensation Time Spent With Patient Time: Total time managing care of this patient today ____ minutes.
[2024-08-09] MEDS: Ibuprofen 800 MG TABLET PO (10:29)
[2024-08-09] MEDS: hydrOXYzine HCL 25 MG TABLET PO (13:22)
[2024-08-09] MEDS: OLANZapine 5 MG TABLET PO ×2 (13:22→19:10)
[2024-08-09] MEDS: chlorproMAZINE HCl 100 MG TABLET PO (19:10)
[2024-08-09 20:00] VITALS: BP 117/66; PULSE 108; RESP 18; TEMP 36.8; O2SAT 96
[2024-08-09] MEDS: Divalproex Sodium ER 250 MG TAB.ER.24H 1750 MG PO (20:28)
[2024-08-09] MEDS: Melatonin 3 MG TABLET 6 MG PO (20:29)
[2024-08-10] MEDS: Nicotine Polacrilex 2 MG GUM 4 MG BUCCAL ×8 (02:53→21:44)
[2024-08-10 08:00] VITALS: BP 118/63; PULSE 122; RESP 18; TEMP 37; O2SAT 96
[2024-08-10] MEDS: Pantoprazole Sodium 20 MG TABLET.DR 40 MG PO ×2 (08:39→08:48)
[2024-08-10] MEDS: cloNIDine HCL 0.1 MG TABLET PO ×2 (08:39→20:10)
[2024-08-10] MEDS: clonazePAM 1 MG TABLET PO ×2 (08:39→20:10)
[2024-08-10] MEDS: chlorproMAZINE HCl 25 MG TABLET 50 MG PO ×3 (08:40→21:44)
[2024-08-10] MEDS: FLUoxetine HCl 20 MG CAPSULE PO (08:40)
[2024-08-10] MEDS: OLANZapine 7.5 MG TABLET 15 MG PO ×2 (08:40→20:10)
[2024-08-10] MEDS: Vitamin E (Dl,Tocopheryl Acet) 180 MG (400 UNIT) CAPSULE PO (08:41)
[2024-08-10] MEDS: chlorproMAZINE HCl 100 MG TABLET PO (09:46)
[2024-08-10] MEDS: hydrOXYzine HCL 25 MG TABLET PO ×2 (10:44→18:00)
[2024-08-10] MEDS: OLANZapine 5 MG TABLET PO ×2 (10:44→18:00)
--- NOTE | 2024-08-10 15:13 | P.PNPSI_ITS ---
Subjective Subjective Date of Service: 08/10/24 Reason For Visit: Schizoaffective D/O Bipolar Type SI Subjective Notes: [facility] [employer] Proxy: No Guardianship: No Medical Problems Affecting Mental Status: No Interim History: I think I am better. I feel ready to go home. Discussed outbursts which have continued per team report, mostly in the afternoons, however pt did experience an outburst this a.m. Discussed concern that prior to admission, pt made a suicide attempt during an outburst and given the severity of this attempt we want to attempt to find an etiology and treatment plan for his safety. Pt states they have been present since childhood and he identifies them as nicotine withdrawal and when people make me angry. Denies SI,HI. Discussed neurology consultation, EEG, which pt agrees with and the goal to have him return to his home as soon as possible. He agreed. Medication Compliance: Yes Side effects from medications: No Attending Groups: Intermittent Review of Systems Acute medical concerns: No Review of Systems Review of Systems Denies Mental Status Exam Mental Status Exam Patient Appearance: Appropriate Patient Orientation: Person, Place, Time and Situation Level of Consciousness: Alert Patient Behavior: Anxious Mood Description: Anxious and Apprehensive Affect Description: Anxious and Apprehensive Patient Cognition Impaired: No Ability to Follow Directions: Good Speech Pattern: Spontaneous Speech Memory Description: Intact Hallucinations: None (denies) Thought Process: Distracted and Rumination Thought Content: positive for Circumstantial, positive for Goal Oriented, positive for Suicidal Ideation (denies) and positive for Homicidal Ideation (denies) Depressive Symptoms: Thoughts of /Suicide (denies) Judgement: Fair Diagnostics Vital Signs (24Hr): Vital Signs - 24 hr 08/09/24 20:00 08/10/24 08:00 Temperature 98.2 F 98.6 F Pulse Rate 108 H 122 H Respiratory Rate 18 18 Blood Pressure 117/66 118/63 Pulse Oximetry 96 96 Oxygen Delivery Method Room Air Room Air BMI result Body Mass Index 24.7 Labs 07/28/24 10:10 07/28/24 10:10 Medications Medications Current Medications Acetaminophen (Acetaminophen 325 Mg Tablet) 650 mg PO Q6H PRN PRN Reason: Headache/Pain, Scale 1-10 Last Admin: 08/08/24 21:41 Dose: 650 mg Al Hydroxide/Mg Hydroxide (Magnesium Hydrox/Alum Hydrox 30 Ml Oral.Susp) 30 ml PO Q6H PRN PRN Reason: Heartburn/Nausea Albuterol Sulfate (Albuterol Sulfate 90 Mcg 8 Gm Inhaler) 2 puff INHALE RQ4H PRN PRN Reason: Shortness of Breath Chlorpromazine HCl (Chlorpromazine Hcl 100 Mg Tablet) 100 mg PO TID PRN PRN Reason: agitation, violence Last Admin: 08/10/24 09:46 Dose: 100 mg Chlorpromazine HCl (Chlorpromazine Hcl 25 Mg Tablet) 50 mg PO TID ON LICENSE OF [facility] Last Admin: 08/10/24 08:40 Dose: 50 mg Clonazepam (Clonazepam 1 Mg Tablet) 1 mg PO BID ON LICENSE OF [facility] Last Admin: 08/10/24 08:39 Dose: 1 mg Clonidine HCl (Clonidine Hcl 0.1 Mg Tablet) 0.1 mg PO BID ON [facility] OF [facility]; Protocol Last Admin: 08/10/24 08:39 Dose: 0.1 mg [place] Butter/Zinc Oxide ([place] Butter/Zinc Oxide Supp.Rect) 1 supp [place] BID PRN PRN Reason: Hemorrhoids Divalproex Sodium (Divalproex Sodium Er 250 Mg Tab.Er.24h) 1,750 mg PO BEDTIME ON [facility] OF [facility] Last Admin: 08/09/24 20:28 Dose: 1,750 mg Fluoxetine HCl (Fluoxetine Hcl 20 Mg Capsule) 20 mg PO DAILY ON [facility] OF [facility] Last Admin: 08/10/24 08:40 Dose: 20 mg Hydroxyzine HCl (Hydroxyzine Hcl 25 Mg Tablet) 25 mg PO Q6H PRN PRN Reason: mild anxiety Last Admin: 08/10/24 10:44 Dose: 25 mg Ibuprofen (Ibuprofen 800 Mg Tablet) 800 mg PO Q8H PRN PRN Reason: back pain Last Admin: 08/09/24 10:29 Dose: 800 mg Lactic Acid (Ammonium Lactate 12 % Lotion 226 Gm Bottle) 1 appl TOPICAL DAILY PRN; Protocol PRN Reason: Dry Skin Magnesium Hydroxide (Milk Of Magnesia 30 Ml Oral.Susp) 30 ml PO DAILY PRN PRN Reason: Constipation Magnesium Hydroxide (Milk Of Magnesia 30 Ml Oral.Susp) 30 ml PO DAILY PRN PRN Reason: Constipation Melatonin (Melatonin 3 Mg Tablet) 6 mg PO BEDTIME ON [facility] Last Admin: 08/09/24 20:29 Dose: 6 mg Multi-Ingred Cream/Lotion/Oil/Oint (Mineral Oil/Petrolatum,White 106 Gm Tube) 1 appl TOPICAL BID ON [facility] OF [facility]; Protocol Last Admin: 08/10/24 08:41 Dose: Not Given Nicotine Polacrilex (Nicotine Polacrilex 2 Mg Gum) 4 mg BUCCAL Q2H PRN PRN Reason: Nicotine Cravings Last Admin: 08/10/24 12:58 Dose: 4 mg Olanzapine (Olanzapine 7.5 Mg Tablet) 15 mg PO BID ON [facility] OF [facility] Last Admin: 08/10/24 08:40 Dose: 15 mg Olanzapine (Olanzapine 5 Mg Tablet) 5 mg PO BID PRN PRN Reason: agitation Last Admin: 08/10/24 10:44 Dose: 5 mg Pantoprazole Sodium (Pantoprazole Sodium 20 Mg Tablet.Dr) 40 mg PO DAILY@0630 ON [facility] Last Admin: 08/10/24 08:48 Dose: 40 mg Trazodone HCl (Trazodone Hcl 50 Mg Tablet) 50 mg PO BEDTIME MRX1 PRN PRN Reason: Insomnia Last Admin: 08/07/24 20:35 Dose: 50 mg Vitamin E (Vitamin E (Dl,Tocopheryl Acet) 180 Mg (400 Unit) Capsule) 180 mg PO DAILY ON [facility] Last Admin: 08/10/24 08:41 Dose: 180 mg Allergies Allergies Allergy/AdvReac Type Severity Reaction Status Date / Time No Known Allergies Allergy Mild NOT Verified 07/28/24 10:06 APPLICABLE Assessment & Plan Assessment & Plan (1) Schizoaffective disorder, bipolar type: Status: Acute Code(s): F25.0 - Schizoaffective disorder, bipolar type Plan Admit, CV, 15 minute checks Re-establish regime Titrate Valproate- 1000 mg HS Pt has filed a three day notice. Today, he has no insight as to the severity of this attempt which is very concerning. Diagnostics as needed Collateral contact Encourage milieu engagement 07/31- somewhat withdrawn and resistent to care today - hx multiple suicide attempts over the years- 08/01 - more open to discussion today, up and dressed, less withdrawn. tolerating inc depakote dose 08/02- Valproate level 08/03. Continue titration when level is known. 08/03 Patient tells investment underwriter that he wants to go home tomorrow SS 3 day notice is due. Says AH is low and denies any SI. Patient however remains intermittently agitated and was slamming doors on unit. Later, totally unprovoked yelled loudly in the hallway fuck you..fuck you and postured at this peer -Depakote level WNL but room to increase. -increase Depakote ER to 1500 mg q.h.s. 08/04- repeat TSH Klonopin 1 mg bid Tolerating increase in Depakote Increase Haldol to 10 mg bid 08/05 Outburst today Increase Depakote to 1750 mg HS Clonidine 0.1 mg bid TSH WNL today 08/06 DC Haldol Chlorpromazine 50 mg tid and prn EEG- ?Tourette type sx, may need MRI as well. 08/07: Continue current regimen and plans 08/08: Continue current plans and regimen 08/09 Intermittently slamming doors yesterday but otherwise no outbursts. Patient says the door slamming was because he got upset but that he will not do it anymore and that he is not feeling agitated. Asks about discharge plan and understands to discuss it with primary team when they return tomorrow. Otherwise slept, denies SI/HI/AVH 08/10: DC Chlorpromazine, Chlorpromazine 50 mg tid prn Topiramate 25 mg daily Neurology consultation- ?tics, ?Tourette type sx Patient educated on: medication risk/benefits and therapeutic strategies Reason for continued inpatient stay Substantial Risk for: rapid decompensation Time Spent With Patient Time: Total time managing care of this patient today ____ minutes.
[2024-08-10 20:00] VITALS: BP 116/60; PULSE 110; RESP 16; TEMP 36.6; O2SAT 97
[2024-08-10] MEDS: Divalproex Sodium ER 250 MG TAB.ER.24H 1750 MG PO (20:10)
[2024-08-10] MEDS: Melatonin 3 MG TABLET 6 MG PO (20:10)
[2024-08-11] MEDS: Nicotine Polacrilex 2 MG GUM 4 MG BUCCAL ×6 (04:33→21:13)
[2024-08-11] MEDS: hydrOXYzine HCL 25 MG TABLET PO ×2 (04:33→09:58)
[2024-08-11] MEDS: Ibuprofen 800 MG TABLET PO (04:33)
[2024-08-11] MEDS: OLANZapine 5 MG TABLET PO (05:12)
[2024-08-11] MEDS: chlorproMAZINE HCl 25 MG TABLET 50 MG PO ×3 (05:12→19:08)
[2024-08-11 08:06] VITALS: BP 115/69; PULSE 95; TEMP 36.8; O2SAT 97
[2024-08-11] MEDS: Pantoprazole Sodium 20 MG TABLET.DR 40 MG PO (08:06)
[2024-08-11] MEDS: cloNIDine HCL 0.1 MG TABLET PO ×2 (08:06→20:49)
[2024-08-11] MEDS: OLANZapine 7.5 MG TABLET 15 MG PO ×2 (08:27→20:56)
[2024-08-11] MEDS: Vitamin E (Dl,Tocopheryl Acet) 180 MG (400 UNIT) CAPSULE PO (08:28)
[2024-08-11] MEDS: clonazePAM 1 MG TABLET PO ×2 (08:28→20:49)
[2024-08-11] MEDS: FLUoxetine HCl 20 MG CAPSULE PO (08:28)
[2024-08-11] MEDS: Topiramate 25 MG TABLET PO (08:28)
--- NOTE | 2024-08-11 10:03 | P.PNPSI_ITS ---
Subjective Subjective Date of Service: 08/11/24 Reason For Visit: Schizoaffective D/O Bipolar Type SI Subjective Notes: [facility] [employer] Proxy: No Guardianship: No Medical Problems Affecting Mental Status: No Interim History: EEG completed. Pt with two outbursts today per team report. Asks about DC Friday. Attempting to complete neuro eval prior to DC. Topiramate initiated to assist with sx mgt. Denies SI,HI,AH,VH. Discussed wanting to make sure sx precipitating admit are properly evaluated medically prior to discharge. Pt verbalized understanding of this. I will not make another suicide attempt . I think the medicine changes are helping. Medication Compliance: Yes Side effects from medications: No Attending Groups: Yes Review of Systems Acute medical concerns: No Review of Systems Review of Systems Denies today Mental Status Exam Mental Status Exam Patient Appearance: Appropriate Patient Orientation: Person, Place, Time and Situation Level of Consciousness: Alert Patient Behavior: Anxious Mood Description: Anxious and Apprehensive Affect Description: Anxious and Apprehensive Patient Cognition Impaired: No Ability to Follow Directions: Good Speech Pattern: Spontaneous Speech Memory Description: Intact Hallucinations: None (denies) Thought Process: Distracted and Rumination Thought Content: positive for Circumstantial, positive for Goal Oriented, positive for Suicidal Ideation (denies) and positive for Homicidal Ideation (denies) Depressive Symptoms: Thoughts of /Suicide (denies) Judgement: Fair Diagnostics Vital Signs (24Hr): Vital Signs - 24 hr 08/10/24 20:00 08/11/24 08:06 08/11/24 08:06 Temperature 97.9 F 98.2 F Pulse Rate 110 H 95 Respiratory Rate 16 Blood Pressure 116/60 115/69 115/69 Pulse Oximetry 97 97 Oxygen Delivery Method Room Air Room Air BMI result Body Mass Index 24.7 Labs 07/28/24 10:10 07/28/24 10:10 Medications Medications Current Medications Acetaminophen (Acetaminophen 325 Mg Tablet) 650 mg PO Q6H PRN PRN Reason: Headache/Pain, Scale 1-10 Last Admin: 08/08/24 21:41 Dose: 650 mg Al Hydroxide/Mg Hydroxide (Magnesium Hydrox/Alum Hydrox 30 Ml Oral.Susp) 30 ml PO Q6H PRN PRN Reason: Heartburn/Nausea Albuterol Sulfate (Albuterol Sulfate 90 Mcg 8 Gm Inhaler) 2 puff INHALE RQ4H PRN PRN Reason: Shortness of Breath Chlorpromazine HCl (Chlorpromazine Hcl 25 Mg Tablet) 50 mg PO TID PRN PRN Reason: agitation, violence Last Admin: 08/11/24 05:12 Dose: 50 mg Clonazepam (Clonazepam 1 Mg Tablet) 1 mg PO BID [facility] Last Admin: 08/11/24 08:28 Dose: 1 mg Clonidine HCl (Clonidine Hcl 0.1 Mg Tablet) 0.1 mg PO BID [facility]; Protocol Last Admin: 08/11/24 08:06 Dose: 0.1 mg [place] Butter/Zinc Oxide ([place] Butter/Zinc Oxide Supp.Rect) [address] BID PRN PRN Reason: Hemorrhoids Divalproex Sodium (Divalproex Sodium Er 250 Mg Tab.Er.24h) 1,750 mg PO BEDTIME [facility] Last Admin: 08/10/24 20:10 Dose: 1,750 mg Fluoxetine HCl (Fluoxetine Hcl 20 Mg Capsule) 20 mg PO DAILY [facility] Last Admin: 08/11/24 08:28 Dose: 20 mg Hydroxyzine HCl (Hydroxyzine Hcl 25 Mg Tablet) 25 mg PO Q6H PRN PRN Reason: mild anxiety Last Admin: 08/11/24 09:58 Dose: 25 mg Ibuprofen (Ibuprofen 800 Mg Tablet) 800 mg PO Q8H PRN PRN Reason: back pain Last Admin: 08/11/24 04:33 Dose: 800 mg Lactic Acid (Ammonium Lactate 12 % Lotion 226 Gm Bottle) 1 appl TOPICAL DAILY PRN; Protocol PRN Reason: Dry Skin Magnesium Hydroxide (Milk Of Magnesia 30 Ml Oral.Susp) 30 ml PO DAILY PRN PRN Reason: Constipation Magnesium Hydroxide (Milk Of Magnesia 30 Ml Oral.Susp) 30 ml PO DAILY PRN PRN Reason: Constipation Melatonin (Melatonin 3 Mg Tablet) 6 mg PO BEDTIME [facility] Last Admin: 08/10/24 20:10 Dose: 6 mg Multi-Ingred Cream/Lotion/Oil/Oint (Mineral Oil/Petrolatum,White 106 Gm Tube) 1 appl TOPICAL BID [facility]; Protocol Last Admin: 08/11/24 09:59 Dose: Not Given Nicotine Polacrilex (Nicotine Polacrilex 2 Mg Gum) 4 mg BUCCAL Q2H PRN PRN Reason: Nicotine Cravings Last Admin: 08/11/24 08:06 Dose: 4 mg Olanzapine (Olanzapine 7.5 Mg Tablet) 15 mg PO BID [facility] Last Admin: 08/11/24 08:27 Dose: 15 mg Olanzapine (Olanzapine 5 Mg Tablet) 5 mg PO BID PRN PRN Reason: agitation Last Admin: 08/11/24 05:12 Dose: 5 mg Pantoprazole Sodium (Pantoprazole Sodium 20 Mg Tablet.) 40 mg PO DAILY@0630 [facility] Last Admin: 08/11/24 08:06 Dose: 40 mg Topiramate (Topiramate 25 Mg Tablet) 25 mg PO DAILY [facility] Last Admin: 08/11/24 08:28 Dose: 25 mg Trazodone HCl (Trazodone Hcl 50 Mg Tablet) 50 mg PO BEDTIME MRX1 PRN PRN Reason: Insomnia Last Admin: 08/07/24 20:35 Dose: 50 mg Vitamin E (Vitamin E (Dl,Tocopheryl Acet) 180 Mg (400 Unit) Capsule) 180 mg PO DAILY [facility] Last Admin: 08/11/24 08:28 Dose: 180 mg Allergies Allergies Allergy/AdvReac Type Severity Reaction Status Date / Time No Known Allergies Allergy Mild NOT Verified 07/28/24 10:06 APPLICABLE Assessment & Plan Assessment & Plan (1) Schizoaffective disorder, bipolar type: Status: Acute Code(s): F25.0 - Schizoaffective disorder, bipolar type Plan Admit, CV, 15 minute checks Re-establish regime Titrate Valproate- 1000 mg HS Pt has filed a three day notice. Today, he has no insight as to the severity of this attempt which is very concerning. Diagnostics as needed Collateral contact Encourage milieu engagement 07/31- somewhat withdrawn and resistent to care today - hx multiple suicide attempts over the years- 08/01 - more open to discussion today, up and dressed, less withdrawn. tolerating inc depakote dose 08/02- Valproate level 08/03. Continue titration when level is known. 08/03 Patient tells fiction writer that he wants to go home tomorrow SS 3 day notice is due. Says AH is low and denies any SI. Patient however remains intermittently agitated and was slamming doors on unit. Later, totally unprovoked yelled loudly in the hallway fuck you..fuck you and postured at this peer -Depakote level WNL but room to increase. -increase Depakote ER to 1500 mg q.h.s. 08/04- repeat TSH Klonopin 1 mg bid Tolerating increase in Depakote Increase Haldol to 10 mg bid 08/05 Outburst today Increase Depakote to 1750 mg HS Clonidine 0.1 mg bid TSH WNL today 08/06 DC Haldol Chlorpromazine 50 mg tid and prn EEG- ?Tourette type sx, may need MRI as well. 08/07: Continue current regimen and plans 08/08: Continue current plans and regimen 08/09 Intermittently slamming doors yesterday but otherwise no outbursts. Patient says the door slamming was because he got upset but that he will not do it anymore and that he is not feeling agitated. Asks about discharge plan and understands to discuss it with primary team when they return tomorrow. Otherwise slept, denies SI/HI/AVH 08/10: DC Chlorpromazine, Chlorpromazine 50 mg tid prn Topiramate 25 mg daily Neurology consultation- ?tics, ?Tourette type sx 08/11: EEG completed Await neuro consult. Reason for continued inpatient stay Substantial Risk for: rapid decompensation Time Spent With Patient Time: Total time managing care of this patient today ____ minutes.
[2024-08-11 20:49] VITALS: BP 100/61
[2024-08-11] MEDS: Melatonin 3 MG TABLET 6 MG PO (20:49)
[2024-08-11 20:50] VITALS: BP 100/61; PULSE 116; TEMP 37.1; O2SAT 97
[2024-08-11] MEDS: Divalproex Sodium ER 250 MG TAB.ER.24H 1750 MG PO (20:54)
[2024-08-11] MEDS: traZODone HCL 50 MG TABLET PO (20:55)
[2024-08-12 07:00] VITALS: BMI 25.7
[2024-08-12 08:00] VITALS: BP 107/59; PULSE 90; RESP 16; TEMP 36.6; O2SAT 98
[2024-08-12] MEDS: OLANZapine 7.5 MG TABLET 15 MG PO ×2 (08:53→20:23)
[2024-08-12 08:54] VITALS: BP 107/60
[2024-08-12] MEDS: cloNIDine HCL 0.1 MG TABLET PO ×2 (08:54→20:23)
[2024-08-12] MEDS: Vitamin E (Dl,Tocopheryl Acet) 180 MG (400 UNIT) CAPSULE PO (08:55)
[2024-08-12] MEDS: clonazePAM 1 MG TABLET PO ×2 (08:55→20:21)
[2024-08-12] MEDS: Pantoprazole Sodium 20 MG TABLET.DR 40 MG PO (08:55)
[2024-08-12] MEDS: FLUoxetine HCl 20 MG CAPSULE PO (08:56)
[2024-08-12] MEDS: Topiramate 25 MG TABLET PO (08:56)
[2024-08-12] MEDS: Nicotine Polacrilex 2 MG GUM 4 MG BUCCAL ×5 (08:57→20:21)
[2024-08-12 20:00] VITALS: BP 134/71; PULSE 122; TEMP 36.9; O2SAT 96
[2024-08-12] MEDS: Melatonin 3 MG TABLET 6 MG PO (20:21)
[2024-08-12] MEDS: traZODone HCL 50 MG TABLET PO (20:22)
[2024-08-12] MEDS: Divalproex Sodium ER 250 MG TAB.ER.24H 1750 MG PO (20:22)
[2024-08-12 20:23] VITALS: BP 134/71
--- NOTE | 2024-08-12 21:21 | P.PNPSI_ITS ---
Subjective Subjective Date of Service: 08/12/24 Reason For Visit: Schizoaffective D/O Bipolar Type SI Subjective Notes: [facility] [employer] Proxy: No Guardianship: No Medical Problems Affecting Mental Status: No Interim History: Pt reports feeling well, prepared to discharge. Reports he feels outbursts have decreased and he is feeling in improved control. He discussed his brother's visit and believes his brother received a letter from the court stating we would send pt to [facility]. We discussed that this is not accurate, that pt will discharge to his [facility] on 08/16 and we await neurology input regarding his symptoms to complete his assessment and treatment planning, thus his extended stay on [facility]. Discussed that upon discharge, the [employer] will not be in place any longer and he has no legal ties to this current treatment episode. Pt discussed that he thought medicine changes have been tolerated and of use. Encouraged to continue to work with his out pt team on dosages and efficacy. Pt denies SI,HI,AH,VH. He is in the milieu, in control and interactive with peers and team today. Team has completed MOCA, scoring 03/20. Medication Compliance: Yes Side effects from medications: No Attending Groups: Yes Review of Systems Acute medical concerns: No Review of Systems Review of Systems Denies Mental Status Exam Mental Status Exam Patient Appearance: Appropriate Patient Orientation: Person, Place, Time and Situation Level of Consciousness: Alert Patient Behavior: Anxious Mood Description: Anxious and Apprehensive Affect Description: Anxious and Apprehensive Patient Cognition Impaired: No Ability to Follow Directions: Good Speech Pattern: Spontaneous Speech Memory Description: Intact Hallucinations: None (denies) Thought Process: Distracted and Rumination Thought Content: positive for Circumstantial, positive for Goal Oriented, positive for Suicidal Ideation (denies) and positive for Homicidal Ideation (denies) Depressive Symptoms: Thoughts of /Suicide (denies) Judgement: Fair Diagnostics Vital Signs (24Hr): Vital Signs - 24 hr 08/12/24 08:00 08/12/24 08:54 08/12/24 20:23 Temperature 97.8 F Pulse Rate 90 Respiratory Rate 16 Blood Pressure 107/59 L 107/60 134/71 Pulse Oximetry 98 Oxygen Delivery Method Room Air BMI result Body Mass Index 25.7 Labs 07/28/24 10:10 07/28/24 10:10 Medications Medications Current Medications Acetaminophen (Acetaminophen 325 Mg Tablet) 650 mg PO Q6H PRN PRN Reason: Headache/Pain, Scale 1-10 Last Admin: 08/08/24 21:41 Dose: 650 mg Al Hydroxide/Mg Hydroxide (Magnesium Hydrox/Alum Hydrox 30 Ml Oral.Susp) 30 ml PO Q6H PRN PRN Reason: Heartburn/Nausea Albuterol Sulfate (Albuterol Sulfate 90 Mcg 8 Gm Inhaler) 2 puff INHALE RQ4H PRN PRN Reason: Shortness of Breath Chlorpromazine HCl (Chlorpromazine Hcl 25 Mg Tablet) 50 mg PO TID PRN PRN Reason: agitation, violence Last Admin: 08/11/24 19:08 Dose: 50 mg Clonazepam (Clonazepam 1 Mg Tablet) 1 mg PO BID [facility] Last Admin: 08/12/24 20:21 Dose: 1 mg Clonidine HCl (Clonidine Hcl 0.1 Mg Tablet) 0.1 mg PO BID [facility]; Protocol Last Admin: 08/12/24 20:23 Dose: 0.1 mg [place] Butter/Zinc Oxide ([place] Butter/Zinc Oxide Supp.Rect) 1 supp [place] BID PRN PRN Reason: Hemorrhoids Divalproex Sodium (Divalproex Sodium Er 250 Mg Tab.Er.24h) 1,750 mg PO BEDTIME [facility] Last Admin: 08/12/24 20:22 Dose: 1,750 mg Fluoxetine HCl (Fluoxetine Hcl 20 Mg Capsule) 20 mg PO DAILY [facility] Last Admin: 08/12/24 08:56 Dose: 20 mg Hydroxyzine HCl (Hydroxyzine Hcl 25 Mg Tablet) 25 mg PO Q6H PRN PRN Reason: mild anxiety Last Admin: 08/11/24 09:58 Dose: 25 mg Ibuprofen (Ibuprofen 800 Mg Tablet) 800 mg PO Q8H PRN PRN Reason: back pain Last Admin: 08/11/24 04:33 Dose: 800 mg Lactic Acid (Ammonium Lactate 12 % Lotion 226 Gm Bottle) 1 appl TOPICAL DAILY PRN; Protocol PRN Reason: Dry Skin Magnesium Hydroxide (Milk Of Magnesia 30 Ml Oral.Susp) 30 ml PO DAILY PRN PRN Reason: Constipation Magnesium Hydroxide (Milk Of Magnesia 30 Ml Oral.Susp) 30 ml PO DAILY PRN PRN Reason: Constipation Melatonin (Melatonin 3 Mg Tablet) 6 mg PO BEDTIME [facility] Last Admin: 08/12/24 20:21 Dose: 6 mg Multi-Ingred Cream/Lotion/Oil/Oint (Mineral Oil/Petrolatum,White 106 Gm Tube) 1 appl TOPICAL BID [facility]; Protocol Last Admin: 08/12/24 10:21 Dose: Not Given Nicotine Polacrilex (Nicotine Polacrilex 2 Mg Gum) 4 mg BUCCAL Q2H PRN PRN Reason: Nicotine Cravings Last Admin: 08/12/24 20:21 Dose: 4 mg Olanzapine (Olanzapine 7.5 Mg Tablet) 15 mg PO BID [facility] Last Admin: 08/12/24 20:23 Dose: 15 mg Olanzapine (Olanzapine 5 Mg Tablet) 5 mg PO BID PRN PRN Reason: agitation Last Admin: 08/11/24 05:12 Dose: 5 mg Pantoprazole Sodium (Pantoprazole Sodium 20 Mg Tablet.Dr) 40 mg PO DAILY@0630 [facility] Last Admin: 08/12/24 08:55 Dose: 40 mg Topiramate (Topiramate 25 Mg Tablet) 25 mg PO DAILY [facility] Last Admin: 08/12/24 08:56 Dose: 25 mg Trazodone HCl (Trazodone Hcl 50 Mg Tablet) 50 mg PO BEDTIME MRX1 PRN PRN Reason: Insomnia Last Admin: 08/12/24 20:22 Dose: 50 mg Vitamin E (Vitamin E (Dl,Tocopheryl Acet) 180 Mg (400 Unit) Capsule) 180 mg PO DAILY [facility] Last Admin: 08/12/24 08:55 Dose: 180 mg Allergies Allergies Allergy/AdvReac Type Severity Reaction Status Date / Time No Known Allergies Allergy Mild NOT Verified 07/28/24 10:06 APPLICABLE Assessment & Plan Assessment & Plan (1) Schizoaffective disorder, bipolar type: Status: Acute Code(s): F25.0 - Schizoaffective disorder, bipolar type Plan Admit, CV, 15 minute checks Re-establish regime Titrate Valproate- 1000 mg HS Pt has filed a three day notice. Today, he has no insight as to the severity of this attempt which is very concerning. Diagnostics as needed Collateral contact Encourage milieu engagement 07/31- somewhat withdrawn and resistent to care today - hx multiple suicide attempts over the years- 08/01 - more open to discussion today, up and dressed, less withdrawn. tolerating inc depakote dose 08/02- Valproate level 08/03. Continue titration when level is known. 08/03 Patient tells policy writer typist that he wants to go home tomorrow SS 3 day notice is due. Says AH is low and denies any SI. Patient however remains intermittently agitated and was slamming doors on unit. Later, totally unprovoked yelled loudly in the hallway fuck you..fuck you and postured at this peer -Depakote level WNL but room to increase. -increase Depakote ER to 1500 mg q.h.s. 08/04- repeat TSH Klonopin 1 mg bid Tolerating increase in Depakote Increase Haldol to 10 mg bid 08/05 Outburst today Increase Depakote to 1750 mg HS Clonidine 0.1 mg bid TSH WNL today 08/06 DC Haldol Chlorpromazine 50 mg tid and prn EEG- ?Tourette type sx, may need MRI as well. 08/07: Continue current regimen and plans 08/08: Continue current plans and regimen 08/09 Intermittently slamming doors yesterday but otherwise no outbursts. Patient says the door slamming was because he got upset but that he will not do it anymore and that he is not feeling agitated. Asks about discharge plan and understands to discuss it with primary team when they return tomorrow. Otherwise slept, denies SI/HI/AVH 08/10: DC Chlorpromazine, Chlorpromazine 50 mg tid prn Topiramate 25 mg daily Neurology consultation- ?tics, ?Tourette type sx 08/11: EEG completed Await neuro consult. 08/12 DC 08/16 Await neuro consult. Continue current regime/plan. Reason for continued inpatient stay Substantial Risk for: rapid decompensation Time Spent With Patient Time: Total time managing care of this patient today ____ minutes.
[2024-08-13] MEDS: Nicotine Polacrilex 2 MG GUM 4 MG BUCCAL ×6 (03:50→20:26)
[2024-08-13 08:12] VITALS: BP 132/77; PULSE 87; RESP 16; TEMP 36.4; O2SAT 97
[2024-08-13] MEDS: Vitamin E (Dl,Tocopheryl Acet) 180 MG (400 UNIT) CAPSULE PO (08:40)
[2024-08-13] MEDS: OLANZapine 7.5 MG TABLET 15 MG PO ×2 (08:40→20:26)
[2024-08-13] MEDS: cloNIDine HCL 0.1 MG TABLET PO ×2 (08:40→20:26)
[2024-08-13] MEDS: clonazePAM 1 MG TABLET PO ×2 (08:40→20:26)
[2024-08-13] MEDS: Pantoprazole Sodium 20 MG TABLET.DR 40 MG PO (08:40)
[2024-08-13] MEDS: FLUoxetine HCl 20 MG CAPSULE PO (08:40)
[2024-08-13] MEDS: Topiramate 25 MG TABLET PO (08:41)
--- NOTE | 2024-08-13 09:42 | HO.PSYCHPN ---
Subjective Subjective Date of Service: 08/13/24 Reason For Visit: Schizoaffective D/O Bipolar Type SI Subjective Notes: [employer] Proxy: No Guardianship: No Medical Problems Affecting Mental Status: No Interim History: I may need to go to respite on Friday. Pt discussing respite with a peer. Asked to go to respite on Friday, then made a decision change, no I do want to go home. Await neuro consult Some increased tension and stress this afternoon with peers. When addressed, I feel OK Medication Compliance: Yes Side effects from medications: No Attending Groups: Yes Review of Systems Acute medical concerns: No Review of Systems Review of Systems Denies Mental Status Exam Mental Status Exam Patient Appearance: Appropriate Patient Orientation: Person, Place, Time and Situation Level of Consciousness: Alert Patient Behavior: Anxious Mood Description: Anxious and Apprehensive Affect Description: Anxious and Apprehensive Patient Cognition Impaired: No Ability to Follow Directions: Good Speech Pattern: Spontaneous Speech Memory Description: Intact Hallucinations: None (denies) Thought Process: Distracted and Rumination Thought Content: positive for Circumstantial, positive for Goal Oriented, positive for Suicidal Ideation (denies) and positive for Homicidal Ideation (denies) Depressive Symptoms: Thoughts of /Suicide (denies) Judgement: Fair Diagnostics Vital Signs (24Hr): Vital Signs - 24 hr 08/12/24 20:00 08/12/24 20:23 08/13/24 08:12 Temperature 98.4 F 97.6 F Pulse Rate 122 H 87 Respiratory Rate 16 Blood Pressure 134/71 134/71 132/77 Pulse Oximetry 96 97 Oxygen Delivery Method Room Air Room Air BMI result Body Mass Index 25.7 Labs 07/28/24 10:10 07/28/24 10:10 Medications Medications Current Medications Acetaminophen (Acetaminophen 325 Mg Tablet) 650 mg PO Q6H PRN PRN Reason: Headache/Pain, Scale 1-10 Last Admin: 08/08/24 21:41 Dose: 650 mg Al Hydroxide/Mg Hydroxide (Magnesium Hydrox/Alum Hydrox 30 Ml Oral.Susp) 30 ml PO Q6H PRN PRN Reason: Heartburn/Nausea Albuterol Sulfate (Albuterol Sulfate 90 Mcg 8 Gm Inhaler) 2 puff INHALE RQ4H PRN PRN Reason: Shortness of Breath Chlorpromazine HCl (Chlorpromazine Hcl 25 Mg Tablet) 50 mg PO TID PRN PRN Reason: agitation, violence Last Admin: 08/11/24 19:08 Dose: 50 mg Clonazepam (Clonazepam 1 Mg Tablet) 1 mg PO BID [facility] Last Admin: 08/13/24 08:40 Dose: 1 mg Clonidine HCl (Clonidine Hcl 0.1 Mg Tablet) 0.1 mg PO BID [facility]ITA; Protocol Last Admin: 08/13/24 08:40 Dose: 0.1 mg [place] Butter/Zinc Oxide ([place] Butter/Zinc Oxide Supp.Rect) 1 supp [place] BID PRN PRN Reason: Hemorrhoids Divalproex Sodium (Divalproex Sodium Er 250 Mg Tab.Er.24h) 1,750 mg PO BEDTIME CARLITA Last Admin: 08/12/24 20:22 Dose: 1,750 mg Fluoxetine HCl (Fluoxetine Hcl 20 Mg Capsule) 20 mg PO DAILY [facility] Last Admin: 08/13/24 08:40 Dose: 20 mg Hydroxyzine HCl (Hydroxyzine Hcl 25 Mg Tablet) 25 mg PO Q6H PRN PRN Reason: mild anxiety Last Admin: 08/11/24 09:58 Dose: 25 mg Ibuprofen (Ibuprofen 800 Mg Tablet) 800 mg PO Q8H PRN PRN Reason: back pain Last Admin: 08/11/24 04:33 Dose: 800 mg Lactic Acid (Ammonium Lactate 12 % Lotion 226 Gm Bottle) 1 appl TOPICAL DAILY PRN; Protocol PRN Reason: Dry Skin Magnesium Hydroxide (Milk Of Magnesia 30 Ml Oral.Susp) 30 ml PO DAILY PRN PRN Reason: Constipation Magnesium Hydroxide (Milk Of Magnesia 30 Ml Oral.Susp) 30 ml PO DAILY PRN PRN Reason: Constipation Melatonin (Melatonin 3 Mg Tablet) 6 mg PO BEDTIME [facility]LITA Last Admin: 08/12/24 20:21 Dose: 6 mg Multi-Ingred Cream/Lotion/Oil/Oint (Mineral Oil/Petrolatum,White 106 Gm Tube) 1 appl TOPICAL BID CARLITA; Protocol Last Admin: 08/13/24 09:16 Dose: Not Given Nicotine Polacrilex (Nicotine Polacrilex 2 Mg Gum) 4 mg BUCCAL Q2H PRN PRN Reason: Nicotine Cravings Last Admin: 08/13/24 08:42 Dose: 4 mg Olanzapine (Olanzapine 7.5 Mg Tablet) 15 mg PO BID CARLITA Last Admin: 08/13/24 08:40 Dose: 15 mg Olanzapine (Olanzapine 5 Mg Tablet) 5 mg PO BID PRN PRN Reason: agitation Last Admin: 08/11/24 05:12 Dose: 5 mg Pantoprazole Sodium (Pantoprazole Sodium 20 Mg Tablet.) 40 mg PO DAILY@0630 [facility] Last Admin: 08/13/24 08:40 Dose: 40 mg Topiramate (Topiramate 25 Mg Tablet) 25 mg PO DAILY [facility] Last Admin: 08/13/24 08:41 Dose: 25 mg Trazodone HCl (Trazodone Hcl 50 Mg Tablet) 50 mg PO BEDTIME MRX1 PRN PRN Reason: Insomnia Last Admin: 08/12/24 20:22 Dose: 50 mg Vitamin E (Vitamin E (Dl,Tocopheryl Acet) 180 Mg (400 Unit) Capsule) 180 mg PO DAILY [facility] Last Admin: 08/13/24 08:40 Dose: 180 mg Allergies Allergies Allergy/AdvReac Type Severity Reaction Status Date / Time No Known Allergies Allergy Mild NOT Verified 07/28/24 10:06 APPLICABLE Assessment & Plan Assessment & Plan (1) Schizoaffective disorder, bipolar type: Status: Acute Code(s): F25.0 - Schizoaffective disorder, bipolar type Plan Admit, CV, 15 minute checks Re-establish regime Titrate Valproate- 1000 mg HS Pt has filed a three day notice. Today, he has no insight as to the severity of this attempt which is very concerning. Diagnostics as needed Collateral contact Encourage milieu engagement 07/31- somewhat withdrawn and resistent to care today - hx multiple suicide attempts over the years- 08/01 - more open to discussion today, up and dressed, less withdrawn. tolerating inc depakote dose 08/02- Valproate level 08/03. Continue titration when level is known. 08/03 Patient tells movie writer that he wants to go home tomorrow SS 3 day notice is due. Says AH is low and denies any SI. Patient however remains intermittently agitated and was slamming doors on unit. Later, totally unprovoked yelled loudly in the hallway fuck you..fuck you and postured at this peer -Depakote level WNL but room to increase. -increase Depakote ER to 1500 mg q.h.s. 08/04- repeat TSH Klonopin 1 mg bid Tolerating increase in Depakote Increase Haldol to 10 mg bid 08/05 Outburst today Increase Depakote to 1750 mg HS Clonidine 0.1 mg bid TSH WNL today 08/06 DC Haldol Chlorpromazine 50 mg tid and prn EEG- ?Tourette type sx, may need MRI as well. 08/07: Continue current regimen and plans 08/08: Continue current plans and regimen 08/09 Intermittently slamming doors yesterday but otherwise no outbursts. Patient says the door slamming was because he got upset but that he will not do it anymore and that he is not feeling agitated. Asks about discharge plan and understands to discuss it with primary team when they return tomorrow. Otherwise slept, denies SI/HI/AVH 08/10: DC Chlorpromazine, Chlorpromazine 50 mg tid prn Topiramate 25 mg daily Neurology consultation- ?tics, ?Tourette type sx 08/11: EEG completed Await neuro consult. 08/13: Continue plan DC 08/16 Reason for continued inpatient stay Substantial Risk for: rapid decompensation Time Spent With Patient Time: Total time managing care of this patient today ____ minutes.
[2024-08-13] MEDS: hydrOXYzine HCL 25 MG TABLET PO (13:10)
[2024-08-13] MEDS: OLANZapine 5 MG TABLET PO (16:22)
[2024-08-13] MEDS: chlorproMAZINE HCl 25 MG TABLET 50 MG PO (18:28)
[2024-08-13 20:24] VITALS: BP 116/72; PULSE 100; RESP 16; TEMP 37; O2SAT 98
[2024-08-13] MEDS: Divalproex Sodium ER 250 MG TAB.ER.24H 1750 MG PO (20:26)
[2024-08-13] MEDS: Melatonin 3 MG TABLET 6 MG PO (20:26)
[2024-08-14] MEDS: Pantoprazole Sodium 20 MG TABLET.DR 40 MG PO (06:06)
[2024-08-14] MEDS: Ibuprofen 800 MG TABLET PO (06:08)
[2024-08-14] MEDS: Nicotine Polacrilex 2 MG GUM 4 MG BUCCAL ×5 (06:16→21:19)
[2024-08-14 07:51] LABS: MANUAL DIFF FLAG NO
[2024-08-14 07:56] LABS: Basophils Percent Auto 0.6 % (0-2); Eosinophils Absolute Auto 0.6 X10*3/uL (0.0-0.4); Eosinophils Percent Auto 9.7 % (0-4); Hematocrit 35.2 % (42.0-52.0); Hemoglobin 11.7 g/dl (14.0-18.0); Imm Gran Pct Auto 1.6 % (0.0-0.4); Lymphocytes Absolute Auto 2.2 X10*3/uL (1.2-4.9); Lymphocytes Percent Auto 34.6 % (20-40); Mean Corpuscular HGB Conc 33.2 g/dl (31.0-36.0); Mean Corpuscular Hemoglobin 30.7 pg (27.0-33.0); Mean Corpuscular Volume 92.4 fL (80.0-98.0); Mean Platelet Volume 9.7 fL (9.4-12.4); Neutrophils Absolute Auto 2.4 x10*3/uL (2.0-8.3); Neutrophils Percent Auto 37.5 % (45-73); Platelet Count 283 X10*3/uL (160-400); Red Blood Count 3.81 X10*6/uL (4.60-5.80); White Blood Count 6.3 X10*3/uL (4.8-10.8)
[2024-08-14 08:05] VITALS: BP 92/65; PULSE 94; RESP 16; TEMP 36.7; O2SAT 100
[2024-08-14 08:12] LABS: Ammonia 66 umol/L (13-55)
[2024-08-14 08:19] LABS: Valproate 50.9 mcg/mL (50.0-100.0)
[2024-08-14 08:24] LABS: Alanine Aminotransferase 81 U/L (0-40); Albumin Level 3.6 g/dL (3.5-5.0); Alkaline Phosphatase 76 U/L (39-117); Anion Gap 11 (12-20); Aspartate Amino Transferase 34 U/L (5-37); Bilirubin Total 0.2 mg/dL (0.0-1.0); Blood Urea Nitrogen 26 mg/dL (9-16); Calcium 9.1 mg/dL (8.4-10.2); Carbon Dioxide 24 mmol/L (22-29); Chloride 109 mmol/L (96-108); Creatinine Clr Calc Pharmacy 91.3; Estimated Glomerular Filt Rate > 60; Glucose Random 97 mg/dL (60-115); Sodium 140 mmol/L (135-145); Total Protein 6.9 g/dL (6.5-8.0)
[2024-08-14 09:15] VITALS: BP 107/62
[2024-08-14] MEDS: OLANZapine 7.5 MG TABLET 15 MG PO ×2 (09:15→21:02)
[2024-08-14] MEDS: clonazePAM 1 MG TABLET PO ×2 (09:15→21:04)
[2024-08-14] MEDS: FLUoxetine HCl 20 MG CAPSULE PO (09:15)
[2024-08-14] MEDS: Vitamin E (Dl,Tocopheryl Acet) 180 MG (400 UNIT) CAPSULE PO (09:15)
[2024-08-14] MEDS: Topiramate 25 MG TABLET PO (09:15)
[2024-08-14] MEDS: cloNIDine HCL 0.1 MG TABLET PO ×2 (09:15→21:03)
--- NOTE | 2024-08-14 09:25 | P.PNPSI_ITS ---
Subjective Subjective Date of Service: 08/14/24 Reason For Visit: Schizoaffective D/O Bipolar Type SI Interim History: Met with patient; discussed with team Patient reports that he is doing well, good mood and feeling ready to go home. He denies any SI/HI/AVH. Talked about discharge plans for Friday and wanted to clarify. Staff concurs that patient has been in good behavioral and impulse control Mental Status Exam Mental Status Exam Narrative: Pt is alert and oriented; behavior is cooperative, friendly and calm; patient is not in distress; dressed in casual attire with unkempt hair but adequate hygiene; mood is described as good and affect congruent; eye contact appropriate; Speech is with a little stutter, but normal rate, volume and prosody and not pressured; no psychomotor agitation/retardation present; thought process is organized and goal directed; Thought content is on tx; otherwise pertinent to relevant topics and without any delusional content, paranoid ideations or grandiosity; denies any SI/HI. Denies AVH and there is no evidence of perceptual disturbance. Patients insight and judgment adequate and at baseline. Diagnostics Vital Signs (24Hr): Vital Signs - 24 hr 08/13/24 20:24 08/14/24 08:05 08/14/24 09:15 Temperature 98.6 F 98.1 F Pulse Rate 100 94 Respiratory Rate 16 16 Blood Pressure 116/72 92/65 107/62 Pulse Oximetry 98 100 Oxygen Delivery Method Room Air Room Air BMI result Body Mass Index 25.7 Labs 08/14/24 07:47 08/14/24 07:47 Labs: Laboratory Results - last 48 hr 08/14/24 07:47 WBC 6.3 RBC 3.81 L Hgb 11.7 L Hct 35.2 L MCV 92.4 MCH 30.7 MCHC 33.2 RDW 14.0 Plt Count 283 MPV 9.7 Immature Gran % (Auto) 1.6 H Neut % (Auto) 37.5 L Lymph % (Auto) 34.6 [place] % (Auto) 16.0 H Eos % (Auto) 9.7 H Baso % (Auto) 0.6 Lymph # (Auto) 2.2 [place] # (Auto) 1.0 Eos # (Auto) 0.6 H Baso # (Auto) 0.0 Abs Immat Gran (auto) 0.10 H Absolute Neuts (auto) 2.4 Absolute Nucleated RBC 0.000 Nucleated RBC % (auto) 0.0 Sodium 140 Potassium 4.0 Chloride 109 H Carbon Dioxide 24 Anion Gap 11 L BUN 26 H Creatinine 0.95 Estim Creat Clear Calc 91.3 Estimated GFR > 60 Random Glucose 97 Calcium 9.1 Total Bilirubin 0.2 AST 34 ALT 81 H Alkaline Phosphatase 76 Ammonia 66 H Total Protein 6.9 Albumin 3.6 Valproic Acid 50.9 Medications Medications Current Medications Acetaminophen (Acetaminophen 325 Mg Tablet) 650 mg PO Q6H PRN PRN Reason: Headache/Pain, Scale 1-10 Last Admin: 08/08/24 21:41 Dose: 650 mg Al Hydroxide/Mg Hydroxide (Magnesium Hydrox/Alum Hydrox 30 Ml Oral.Susp) 30 ml PO Q6H PRN PRN Reason: Heartburn/Nausea Albuterol Sulfate (Albuterol Sulfate 90 Mcg 8 Gm Inhaler) 2 puff INHALE RQ4H PRN PRN Reason: Shortness of Breath Chlorpromazine HCl (Chlorpromazine Hcl 25 Mg Tablet) 50 mg PO TID PRN PRN Reason: agitation, violence Last Admin: 08/13/24 18:28 Dose: 50 mg Clonazepam (Clonazepam 1 Mg Tablet) 1 mg PO BID [facility] Last Admin: 08/14/24 09:15 Dose: 1 mg Clonidine HCl (Clonidine Hcl 0.1 Mg Tablet) 0.1 mg PO BID [facility]; Protocol Last Admin: 08/14/24 09:15 Dose: 0.1 mg [place] Butter/Zinc Oxide ([place] Butter/Zinc Oxide Supp.Rect) 1 supp [place] BID PRN PRN Reason: Hemorrhoids Divalproex Sodium (Divalproex Sodium Er 250 Mg Tab.Er.24h) 1,750 mg PO BEDTIME CARLITA Last Admin: 08/13/24 20:26 Dose: 1,750 mg Fluoxetine HCl (Fluoxetine Hcl 20 Mg Capsule) 20 mg PO DAILY [facility] Last Admin: 08/14/24 09:15 Dose: 20 mg Hydroxyzine HCl (Hydroxyzine Hcl 25 Mg Tablet) 25 mg PO Q6H PRN PRN Reason: mild anxiety Last Admin: 08/13/24 13:10 Dose: 25 mg Ibuprofen (Ibuprofen 800 Mg Tablet) 800 mg PO Q8H PRN PRN Reason: back pain Last Admin: 08/14/24 06:08 Dose: 800 mg Lactic Acid (Ammonium Lactate 12 % Lotion 226 Gm Bottle) 1 appl TOPICAL DAILY PRN; Protocol PRN Reason: Dry Skin Magnesium Hydroxide (Milk Of Magnesia 30 Ml Oral.Susp) 30 ml PO DAILY PRN PRN Reason: Constipation Magnesium Hydroxide (Milk Of Magnesia 30 Ml Oral.Susp) 30 ml PO DAILY PRN PRN Reason: Constipation Melatonin (Melatonin 3 Mg Tablet) 6 mg PO BEDTIME [facility] Last Admin: 08/13/24 20:26 Dose: 6 mg Multi-Ingred Cream/Lotion/Oil/Oint (Mineral Oil/Petrolatum,White 106 Gm Tube) 1 appl TOPICAL BID CARLITA; Protocol Last Admin: 08/14/24 07:52 Dose: Not Given Nicotine Polacrilex (Nicotine Polacrilex 2 Mg Gum) 4 mg BUCCAL Q2H PRN PRN Reason: Nicotine Cravings Last Admin: 08/14/24 09:15 Dose: 4 mg Olanzapine (Olanzapine 7.5 Mg Tablet) 15 mg PO BID [facility] Last Admin: 08/14/24 09:15 Dose: 15 mg Olanzapine (Olanzapine 5 Mg Tablet) 5 mg PO BID PRN PRN Reason: agitation Last Admin: 08/13/24 16:22 Dose: 5 mg Pantoprazole Sodium (Pantoprazole Sodium 20 Mg Tablet.Dr) 40 mg PO DAILY@0630 [facility] Last Admin: 08/14/24 06:06 Dose: 40 mg Topiramate (Topiramate 25 Mg Tablet) 25 mg PO DAILY [facility] Last Admin: 08/14/24 09:15 Dose: 25 mg Trazodone HCl (Trazodone Hcl 50 Mg Tablet) 50 mg PO BEDTIME MRX1 PRN PRN Reason: Insomnia Last Admin: 08/12/24 20:22 Dose: 50 mg Vitamin E (Vitamin E (Dl,Tocopheryl Acet) 180 Mg (400 Unit) Capsule) 180 mg PO DAILY [facility] Last Admin: 08/14/24 09:15 Dose: 180 mg Allergies Allergies Allergy/AdvReac Type Severity Reaction Status Date / Time No Known Allergies Allergy Mild NOT Verified 07/28/24 10:06 APPLICABLE Assessment & Plan Assessment & Plan (1) Schizoaffective disorder, bipolar type: Status: Acute Code(s): F25.0 - Schizoaffective disorder, bipolar type Plan Admit, CV, 15 minute checks Re-establish regime Titrate Valproate- 1000 mg HS Pt has filed a three day notice. Today, he has no insight as to the severity of this attempt which is very concerning. Diagnostics as needed Collateral contact Encourage milieu engagement 07/31- somewhat withdrawn and resistent to care today - hx multiple suicide attempts over the years- 08/01 - more open to discussion today, up and dressed, less withdrawn. tolerating inc depakote dose 08/02- Valproate level 08/03. Continue titration when level is known. 08/03 Patient tells comic writer that he wants to go home tomorrow SS 3 day notice is due. Says AH is low and denies any SI. Patient however remains intermittently agitated and was slamming doors on unit. Later, totally unprovoked yelled loudly in the hallway fuck you..fuck you and postured at this peer -Depakote level WNL but room to increase. -increase Depakote ER to 1500 mg q.h.s. 08/04- repeat TSH Klonopin 1 mg bid Tolerating increase in Depakote Increase Haldol to 10 mg bid 08/05 Outburst today Increase Depakote to 1750 mg HS Clonidine 0.1 mg bid TSH WNL today 08/06 DC Haldol Chlorpromazine 50 mg tid and prn EEG- ?Tourette type sx, may need MRI as well. 08/07: Continue current regimen and plans 08/08: Continue current plans and regimen 08/09 Intermittently slamming doors yesterday but otherwise no outbursts. Patient says the door slamming was because he got upset but that he will not do it anymore and that he is not feeling agitated. Asks about discharge plan and understands to discuss it with primary team when they return tomorrow. Otherwise slept, denies SI/HI/AVH 08/10: DC Chlorpromazine, Chlorpromazine 50 mg tid prn Topiramate 25 mg daily Neurology consultation- ?tics, ?Tourette type sx 08/11: EEG completed Await neuro consult. 08/13: Continue plan DC 08/16 08/14 Patient reports that he is doing well, good mood and feeling ready to go home. He denies any SI/HI/AVH. Talked about discharge plans for Friday and wanted to clarify. Staff concurs that patient has been in good behavioral and impulse control Patient educated on: diagnosis, medication risk/benefits and therapeutic strategies Informed Consent: understands Reason for continued inpatient stay Substantial Risk for: stable for discharge and rapid decompensation Time Spent With Patient Time: Total time managing care of this patient today ____ minutes.
[2024-08-14] MEDS: chlorproMAZINE HCl 25 MG TABLET 50 MG PO (19:08)
[2024-08-14 20:00] VITALS: BP 111/60; PULSE 90; TEMP 36.9; O2SAT 98
[2024-08-14] MEDS: Divalproex Sodium ER 250 MG TAB.ER.24H 1750 MG PO (21:02)
[2024-08-14 21:03] VITALS: BP 111/60
[2024-08-14] MEDS: Melatonin 3 MG TABLET 6 MG PO (21:04)
[2024-08-15 08:00] VITALS: BP 110/84; PULSE 90; RESP 16; TEMP 36.6; O2SAT 96
[2024-08-15 08:47] VITALS: BP 110/84
[2024-08-15] MEDS: FLUoxetine HCl 20 MG CAPSULE PO (08:47)
[2024-08-15] MEDS: Nicotine Polacrilex 2 MG GUM 4 MG BUCCAL ×4 (08:47→20:21)
[2024-08-15] MEDS: Pantoprazole Sodium 20 MG TABLET.DR 40 MG PO (08:47)
[2024-08-15] MEDS: clonazePAM 1 MG TABLET PO ×2 (08:47→20:21)
[2024-08-15] MEDS: cloNIDine HCL 0.1 MG TABLET PO ×2 (08:47→20:19)
[2024-08-15] MEDS: Vitamin E (Dl,Tocopheryl Acet) 180 MG (400 UNIT) CAPSULE PO (08:47)
[2024-08-15] MEDS: OLANZapine 7.5 MG TABLET 15 MG PO ×2 (08:47→20:21)
[2024-08-15] MEDS: Topiramate 25 MG TABLET PO (08:47)
[2024-08-15] MEDS: hydrOXYzine HCL 25 MG TABLET PO (12:20)
[2024-08-15] MEDS: OLANZapine 5 MG TABLET PO (13:57)
[2024-08-15 20:00] VITALS: BP 113/63; PULSE 110; RESP 16; TEMP 36.9; O2SAT 98
[2024-08-15 20:19] VITALS: BP 113/63
[2024-08-15] MEDS: traZODone HCL 50 MG TABLET PO (20:19)
[2024-08-15] MEDS: chlorproMAZINE HCl 25 MG TABLET 50 MG PO (20:20)
[2024-08-15] MEDS: Melatonin 3 MG TABLET 6 MG PO (20:20)
[2024-08-15] MEDS: Divalproex Sodium ER 250 MG TAB.ER.24H 1750 MG PO (20:20)
[2024-08-16] MEDS: Nicotine Polacrilex 2 MG GUM 4 MG BUCCAL ×3 (04:25→08:51)
[2024-08-16] MEDS: Pantoprazole Sodium 20 MG TABLET.DR 40 MG PO (06:52)
[2024-08-16 08:00] VITALS: BP 135/78; PULSE 87; RESP 18; TEMP 36.5; O2SAT 98
[2024-08-16] MEDS: Topiramate 25 MG TABLET PO (08:24)
[2024-08-16] MEDS: OLANZapine 7.5 MG TABLET 15 MG PO (08:24)
[2024-08-16] MEDS: Vitamin E (Dl,Tocopheryl Acet) 180 MG (400 UNIT) CAPSULE PO (08:25)
[2024-08-16] MEDS: clonazePAM 1 MG TABLET PO (08:25)
[2024-08-16] MEDS: cloNIDine HCL 0.1 MG TABLET PO (08:25)
[2024-08-16] MEDS: FLUoxetine HCl 20 MG CAPSULE PO (08:26)
--- NOTE | 2024-08-16 09:17 | P.PNPSI_ITS ---
Subjective Subjective Date of Service: 08/15/24 Reason For Visit: Schizoaffective D/O Bipolar Type SI Interim History: Late entry note for patient seen on 08/15; discussed with team pt reports he's doing well; focused on discharge friday; denies psych symptoms. Remains in behavioral/impulse control. Mental Status Exam Mental Status Exam Narrative: Pt is alert and oriented; behavior is cooperative, friendly and calm; patient is not in distress; dressed in casual attire with unkempt hair but adequate hygiene; mood is described as good and affect congruent; eye contact appropriate; Speech is with a little stutter, but normal rate, volume and prosody and not pressured; no psychomotor agitation/retardation present; thought process is organized and goal directed; Thought content is on tx; otherwise pertinent to relevant topics and without any delusional content, paranoid ideations or grandiosity; denies any SI/HI. Denies AVH and there is no evidence of perceptual disturbance. Patients insight and judgment adequate and at baseline. Diagnostics Vital Signs (24Hr): Vital Signs - 24 hr 08/15/24 20:00 08/15/24 20:19 08/16/24 08:00 Temperature 98.5 F 97.7 F Pulse Rate 110 H 87 Respiratory Rate 16 18 Blood Pressure 113/63 113/63 135/78 Pulse Oximetry 98 98 Oxygen Delivery Method Room Air Room Air BMI result Body Mass Index 25.7 Labs 08/14/24 07:47 08/14/24 07:47 Medications Medications Current Medications Acetaminophen (Acetaminophen 325 Mg Tablet) 650 mg PO Q6H PRN PRN Reason: Headache/Pain, Scale 1-10 Last Admin: 08/08/24 21:41 Dose: 650 mg Al Hydroxide/Mg Hydroxide (Magnesium Hydrox/Alum Hydrox 30 Ml Oral.Susp) 30 ml PO Q6H PRN PRN Reason: Heartburn/Nausea Albuterol Sulfate (Albuterol Sulfate 90 Mcg 8 Gm Inhaler) 2 puff INHALE RQ4H PRN PRN Reason: Shortness of Breath Chlorpromazine HCl (Chlorpromazine Hcl 25 Mg Tablet) 50 mg PO TID PRN PRN Reason: agitation, violence Last Admin: 08/15/24 20:20 Dose: 50 mg Clonazepam (Clonazepam 1 Mg Tablet) 1 mg PO BID CARLITA Last Admin: 08/16/24 08:25 Dose: 1 mg Clonidine HCl (Clonidine Hcl 0.1 Mg Tablet) 0.1 mg PO BID [facility]; Protocol Last Admin: 08/16/24 08:25 Dose: 0.1 mg [place] Butter/Zinc Oxide ([place] Butter/Zinc Oxide Supp.Rect) 1 supp [place] BID PRN PRN Reason: Hemorrhoids Divalproex Sodium (Divalproex Sodium Er 250 Mg Tab.Er.24h) 1,750 mg PO BEDTIME [facility] Last Admin: 08/15/24 20:20 Dose: 1,750 mg Fluoxetine HCl (Fluoxetine Hcl 20 Mg Capsule) 20 mg PO DAILY [facility] Last Admin: 08/16/24 08:26 Dose: 20 mg Hydroxyzine HCl (Hydroxyzine Hcl 25 Mg Tablet) 25 mg PO Q6H PRN PRN Reason: mild anxiety Last Admin: 08/15/24 12:20 Dose: 25 mg Ibuprofen (Ibuprofen 800 Mg Tablet) 800 mg PO Q8H PRN PRN Reason: back pain Last Admin: 08/14/24 06:08 Dose: 800 mg Lactic Acid (Ammonium Lactate 12 % Lotion 226 Gm Bottle) 1 appl TOPICAL DAILY PRN; Protocol PRN Reason: Dry Skin Magnesium Hydroxide (Milk Of Magnesia 30 Ml Oral.Susp) 30 ml PO DAILY PRN PRN Reason: Constipation Magnesium Hydroxide (Milk Of Magnesia 30 Ml Oral.Susp) 30 ml PO DAILY PRN PRN Reason: Constipation Melatonin (Melatonin 3 Mg Tablet) 6 mg PO BEDTIME [facility] Last Admin: 08/15/24 20:20 Dose: 6 mg Multi-Ingred Cream/Lotion/Oil/Oint (Mineral Oil/Petrolatum,White 106 Gm Tube) 1 appl TOPICAL BID [facility]; Protocol Last Admin: 08/16/24 08:26 Dose: Not Given Nicotine Polacrilex (Nicotine Polacrilex 2 Mg Gum) 4 mg BUCCAL Q2H PRN PRN Reason: Nicotine Cravings Last Admin: 08/16/24 08:51 Dose: 4 mg Olanzapine (Olanzapine 7.5 Mg Tablet) 15 mg PO BID [facility] Last Admin: 08/16/24 08:24 Dose: 15 mg Olanzapine (Olanzapine 5 Mg Tablet) 5 mg PO BID PRN PRN Reason: agitation Last Admin: 08/15/24 13:57 Dose: 5 mg Pantoprazole Sodium (Pantoprazole Sodium 20 Mg Tablet.) 40 mg PO DAILY@0630 [facility] Last Admin: 08/16/24 06:52 Dose: 40 mg Topiramate (Topiramate 25 Mg Tablet) 25 mg PO DAILY [facility] Last Admin: 08/16/24 08:24 Dose: 25 mg Trazodone HCl (Trazodone Hcl 50 Mg Tablet) 50 mg PO BEDTIME MRX1 PRN PRN Reason: Insomnia Last Admin: 08/15/24 20:19 Dose: 50 mg Vitamin E (Vitamin E (Dl,Tocopheryl Acet) 180 Mg (400 Unit) Capsule) 180 mg PO DAILY [facility] Last Admin: 08/16/24 08:25 Dose: 180 mg Allergies Allergies Allergy/AdvReac Type Severity Reaction Status Date / Time No Known Allergies Allergy Mild NOT Verified 07/28/24 10:06 APPLICABLE Assessment & Plan Assessment & Plan (1) Schizoaffective disorder, bipolar type: Status: Acute Code(s): F25.0 - Schizoaffective disorder, bipolar type Plan Admit, CV, 15 minute checks Re-establish regime Titrate Valproate- 1000 mg HS Pt has filed a three day notice. Today, he has no insight as to the severity of this attempt which is very concerning. Diagnostics as needed Collateral contact Encourage milieu engagement 07/31- somewhat withdrawn and resistent to care today - hx multiple suicide attempts over the years- 08/01 - more open to discussion today, up and dressed, less withdrawn. tolerating inc depakote dose 08/02- Valproate level 08/03. Continue titration when level is known. 08/03 Patient tells contract writer that he wants to go home tomorrow SS 3 day notice is due. Says AH is low and denies any SI. Patient however remains intermittently agitated and was slamming doors on unit. Later, totally unprovoked yelled loudly in the hallway fuck you..fuck you and postured at this peer -Depakote level WNL but room to increase. -increase Depakote ER to 1500 mg q.h.s. 08/04- repeat TSH Klonopin 1 mg bid Tolerating increase in Depakote Increase Haldol to 10 mg bid 08/05 Outburst today Increase Depakote to 1750 mg HS Clonidine 0.1 mg bid TSH WNL today 08/06 DC Haldol Chlorpromazine 50 mg tid and prn EEG- ?Tourette type sx, may need MRI as well. 08/07: Continue current regimen and plans 08/08: Continue current plans and regimen 08/09 Intermittently slamming doors yesterday but otherwise no outbursts. Patient says the door slamming was because he got upset but that he will not do it anymore and that he is not feeling agitated. Asks about discharge plan and understands to discuss it with primary team when they return tomorrow. Otherwise slept, denies SI/HI/AVH 08/10: DC Chlorpromazine, Chlorpromazine 50 mg tid prn Topiramate 25 mg daily Neurology consultation- ?tics, ?Tourette type sx 08/11: EEG completed Await neuro consult. 08/13: Continue plan DC 08/16 08/14 Patient reports that he is doing well, good mood and feeling ready to go home. He denies any SI/HI/AVH. Talked about discharge plans for Friday and wanted to clarify. Staff concurs that patient has been in good behavioral and impulse control 08/15 pt reports he's doing well; focused on discharge friday; denies psych symptoms. Remains in behavioral/impulse control. Patient educated on: diagnosis Informed Consent: understands Reason for continued inpatient stay Substantial Risk for: stable for discharge Time Spent With Patient Time: Total time managing care of this patient today ____ minutes.
--- NOTE | 2024-08-16 10:17 | PM.PSYDC ---
DS: Providers Provider Date of admission: 07/29/24 11:35 Primary care physician: Unknown Physician Consults: 08/10/24 16:03 Consult to Neurology Routine Consulting Provider: [facility] Reason for consultation: Behavioral outbursts-minimal med response, ?tics,?Tourette sx Has provider been notified: No DS: Diagnosis Discharge Diagnosis (1) Schizoaffective disorder, bipolar type: Status: Acute DS: Medications Discharge Medications Home Medications: Home Medications ?Medication ?Instructions ?Recorded ?Confirmed ibuprofen 400 mg tablet 400 mg PO Q6H PRN Pain 07/17/24 07/28/24 Previous Rx's ?Medication ?Instructions ?Recorded acetaminophen 325 mg tablet 650 mg (2 x 325 mg) PO Q6H PRN 08/16/24 Headache/Pain, Scale 1-10 #0 tabs albuterol sulfate 90 mcg/actuation 2 puff inhalation RQ4H PRN 08/16/24 aerosol inhaler (Ventolin HFA) Shortness Of Breath #6.7 grams ammonium lactate 12 % lotion 1 appl topical DAILY PRN Dry Skin 08/16/24 #30 applicators chlorpromazine 25 mg tablet 50 mg (2 x 25 mg) PO TID PRN 08/16/24 agitation, violence #30 tabs clonazepam 1 mg tablet 1 mg PO BID #60 tabs 08/16/24 clonidine HCl 0.1 mg tablet 0.1 mg PO BID #60 tabs 08/16/24 divalproex 250 mg tablet,extended 1,750 mg (7 x 250 mg) PO BEDTIME 08/16/24 release 24 hr #210 tabs fluoxetine 20 mg capsule 20 mg PO DAILY #30 caps 08/16/24 hydroxyzine HCl 25 mg tablet 25 mg PO Q6H PRN mild anxiety #30 08/16/24 tabs melatonin 1 mg tablet 6 mg (6 x 1 mg) PO BEDTIME #30 tabs 08/16/24 nicotine (polacrilex) 2 mg gum 4 mg buccal Q2H PRN Nicotine 08/16/24 Cravings #110 ea olanzapine 15 mg tablet (Zyprexa) 15 mg PO BID #60 tabs 08/16/24 olanzapine 5 mg tablet 5 mg PO BID PRN agitation #30 tabs 08/16/24 pantoprazole 40 mg tablet,delayed 40 mg PO DAILY #30 tabs 08/16/24 release (Protonix) topiramate 25 mg tablet 25 mg PO DAILY #25 tabs 08/16/24 trazodone 50 mg tablet 50 mg PO BEDTIME MRX1 PRN Insomnia 08/16/24 #30 tabs vitamin E (dl, acetate) 180 mg 180 mg PO DAILY #30 caps 08/16/24 (400 unit) capsule white petrolatum-mineral oil 1 appl topical BID #396 grams 08/16/24 topical cream (Dermacerin topical cream) Data Data Completed and Pending Completed studies during hospitalization [Text1]: 08/14/24 07:47 WBC 6.3 RBC 3.81 L Hgb 11.7 L Hct 35.2 L MCV 92.4 MCH 30.7 MCHC 33.2 RDW 14.0 Plt Count 283 MPV 9.7 Immature Gran % (Auto) 1.6 H Neut % (Auto) 37.5 L Lymph % (Auto) 34.6 [place] % (Auto) 16.0 H Eos % (Auto) 9.7 H Baso % (Auto) 0.6 Lymph # (Auto) 2.2 [place] # (Auto) 1.0 Eos # (Auto) 0.6 H Baso # (Auto) 0.0 Abs Immat Gran (auto) 0.10 H Absolute Neuts (auto) 2.4 Absolute Nucleated RBC 0.000 Nucleated RBC % (auto) 0.0 Sodium 140 Potassium 4.0 Chloride 109 H Carbon Dioxide 24 Anion Gap 11 L BUN 26 H Creatinine 0.95 Estim Creat Clear Calc 91.3 Estimated GFR > 60 Random Glucose 97 Calcium 9.1 Total Bilirubin 0.2 AST 34 ALT 81 H Alkaline Phosphatase 76 Ammonia 66 H Total Protein 6.9 Albumin 3.6 Valproic Acid 50.9 07/28/24 Unknown Urine clean catch - Clean Catch Midstream Urine Culture - Final No growth. DS: Summary Time Spent with Patient Time attestation: Total time managing care of this patient today ____ minutes. Discharge Plan Discharge Anticipated Discharge Date/Time: 08/16/24 12:00 Patient Disposition: Xfer Other Discharge Diagnosis: Schizoaffective Disorder, Bipolar Type Referrals: Physician,Unknown J [Primary Care Provider] - 1 Week Discharge Medications: New clonidine HCl 0.1 mg Tablet 0.1 mg PO BID Qty: 60 0RF Protocol: Hold for SBP< HOLD for SBP < : 90 acetaminophen 325 mg Tablet 650 mg PO Q6H PRN (Reason: Headache/Pain, Scale 1-10) Qty: 0 0RF trazodone 50 mg Tablet 50 mg PO BEDTIME MRX1 PRN (Reason: Insomnia) Qty: 30 0RF nicotine (polacrilex) 2 mg Gum 4 mg buccal Q2H PRN (Reason: Nicotine Cravings) Qty: 110 0RF olanzapine 5 mg Tablet 5 mg PO BID PRN (Reason: agitation) Qty: 30 0RF clonazepam 1 mg Tablet 1 mg PO BID Qty: 60 0RF topiramate 25 mg Tablet 25 mg PO DAILY Qty: 25 0RF chlorpromazine 25 mg Tablet 50 mg PO TID PRN (Reason: agitation, violence) Qty: 30 0RF hydroxyzine HCl 25 mg Tablet 25 mg PO Q6H PRN (Reason: mild anxiety) Qty: 30 0RF albuterol sulfate [Ventolin HFA] 90 mcg/actuation Hfa Aerosol Inhaler 2 puff inhalation RQ4H PRN (Reason: Shortness Of Breath) Qty: 6.7 0RF divalproex 250 mg Tablet Extended Release 24 Hr 1,750 mg PO BEDTIME Qty: 210 0RF Dermacerin Cream 1 appl topical BID Qty: 396 0RF Protocol: Apply to: Apply to: b/l legs/shins vitamin E (dl, acetate) 180 mg (400 unit) Capsule 180 mg PO DAILY Qty: 30 0RF Continued ibuprofen 400 mg Tablet 400 mg PO Q6H PRN (Reason: Pain) ammonium lactate 12 % Lotion 1 appl TOPICAL DAILY PRN (Reason: Dry Skin) Qty: 30 0RF pantoprazole [Protonix] 40 mg Tablet,Delayed Release (Dr/Ec) 40 mg PO DAILY Qty: 30 0RF olanzapine [Zyprexa] 15 mg Tablet 15 mg PO BID Qty: 60 0RF fluoxetine 20 mg Capsule 20 mg PO DAILY Qty: 30 0RF melatonin 1 mg Tablet 6 mg PO BEDTIME Qty: 30 0RF Discontinued albuterol 90 mcg/actuation Aerosol 90 mcg INHALATION Q4H PRN (Reason: SOB) Rx Instructions: 2 puffs Q 4 hours PRN nicotine (polacrilex) 4 mg Gum 4 mg BUCCAL Q2H PRN (Reason: Nicotine Cravings) vitamin E 400 unit Tablet 400 unit PO DAILY divalproex [Depakote ER] 250 mg Tablet Extended Release 24 Hr 750 mg PO BEDTIME Discharge Orders: Discharge Order (Routine); Ordered 08/16/24 Ordered By: Nakia Sánchez Diet: Advance to usual diet Activity on Discharge: As tolerated Stand Alone Forms: Patient Portal Discharge page Print Language: Uzbek Care Plan Goals: Mood and Behavioral Stabilization Health Concerns: Mood and Behavioral Stabilization Plan of Treatment: Attend scheduled appointments Take medications as directed Assessment: Pt has insight and demonstrates good judgment in terms of wanting to pursue treatment. Pt has a safety plan that includes presenting to the closest ER or calling 911 if feeling unsafe.
== END 2024-08-16 13:33 | disposition other institution (70) | DRG 885 ==
LOC: HO.ED 07-29 12:14 → HO.PM5 07-29 12:39
PROVIDERS: Admitting Provider Clinical Nurse Specialist Psychiatric/Mental Health, Adult; Emergency Provider Emergency Medicine; Visit Provider Clinical Nurse Specialist Psychiatric/Mental Health, Adult
DX: F25.0 Schizoaffective disorder, bipolar type (principal); F10.20 Alcohol dependence, uncomplicated; F17.210 Nicotine dependence, cigarettes, uncomplicated; F43.10 Post-traumatic stress disorder, unspecified; Z91.51 Personal history of suicidal behavior; Z91.148 Patient's other noncompliance with medication regimen for other reason; Z79.899 Other long term (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
CPT/HCPCS: 36415; 80053; 80061; 80164; 80307; 81001; 81003; 82140; 82607; 82746; 83036; 83735; 84439; 84443; 85025; 87086; 93005; 95816; 99285; S9485

== ENCOUNTER → 2024-07-28 12:33 | Outpatient (BNV) | payer MEDICARE, MEDICAID, SELFPAY | PROVIDERS: Emergency Provider Emergency Medicine; Visit Provider Internal Medicine Cardiovascular Disease | DX: Z13.6 Encounter for screening for cardiovascular disorders (principal) | CPT/HCPCS: 93010 ==

== ENCOUNTER → 2024-07-29 11:35 | Outpatient (BNV) | payer MEDICARE, SELFPAY | PROVIDERS: Admitting Provider Clinical Nurse Specialist Psychiatric/Mental Health, Adult; Emergency Provider Emergency Medicine; Visit Provider Clinical Nurse Specialist Psychiatric/Mental Health, Adult | DX: F25.0 Schizoaffective disorder, bipolar type (principal) | CPT/HCPCS: 90792 ==

== ENCOUNTER 2024-11-20 12:37 | Emergency (ER) | payer MEDICARE, MEDICAID, SELFPAY ==
--- NOTE | 2024-11-20 12:47 | ED_ITS ---
HPI - Psych General Chief Complaint: Psychiatric Symptoms Stated Complaint: CRISIS Time Seen by Provider: 11/20/24 12:47 Source: patient, EMS, RN notes reviewed and old records reviewed Mode of arrival: EMS History of Present Illness ED Provider: Ariana MEDINA Narrative: Patient is a 59-year-old male with history of schizoaffective disorder, bipolar type presenting to the ED via EMS for agitation, depression, and suicidal ideation. Patient states that he was in [place] and became agitated at his longterm. He reports that he has recently been more depressed and also reports suicidal ideation. He denies any current physical complaints. He denies homicidal ideation. Denies auditory or visual hallucinations. MD complaint: suicidal ideation and feels depressed Related Data Home Medications ?Medication ?Instructions ?Recorded ?Confirmed ibuprofen 400 mg tablet 400 mg PO Q6H PRN Pain 07/1711/20/24 Previous Rx's ?Medication ?Instructions ?Recorded acetaminophen 325 mg tablet 650 mg (2 x 325 mg) PO Q6H PRN 08/16/24 Headache/Pain, Scale 1-10 #0 tabs albuterol sulfate 90 mcg/actuation 2 puff inhalation R Q4H PRN 08/16/24 aerosol inhaler (Ventolin HFA) Shortness Of Breath #6. 7 grams ammonium lactate 12 % lotion 1 appl topical DAILY PRN Dry Skin 08/16/24 #30 applicators chlorpromazine 25 mg tablet 50 mg (2 x 25 mg) PO TID P RN 08/16/24 agitation, violence #30 tabs clonazepam 1 mg tablet 1 mg PO BID #60 tabs 5 clonidine HCl 0.1 mg tablet 0.1 mg PO BID #60 tabs divalproex 250 mg tablet,extended 1,750 mg (7 x 250 mg ) PO BEDTIME 08/16/24 release 24 hr #210 tabs fluoxetine 20 mg capsule 20 mg PO DAILY #30 caps 07/21 12/13 hydroxyzine HCl 25 mg tablet 25 mg PO Q6H PRN mild anx iety #30 08/16/24 tabs melatonin 1 mg tablet 6 mg (6 x 1 mg) PO BEDTIME # 30 tabs 08/16/24 nicotine (polacrilex) 2 mg gum 4 mg buccal Q2H PRN Juan Luis otine 08/16/24 Cravings #110 ea olanzapine 15 mg tablet (Zyprexa) 15 mg PO BID #60 tab s 08/16/24 olanzapine 5 mg tablet 5 mg PO BID PRN agitation #3 0 tabs 08/16/24 pantoprazole 40 mg tablet,delayed 40 mg PO DAILY #30 t abs 08/16/24 release (Protonix) topiramate 25 mg tablet 25 mg PO DAILY #25 tabs 07/21 12/13 trazodone 50 mg tablet 50 mg PO BEDTIME MRX1 PRN In somnia 08/16/24 #30 tabs vitamin E (dl, acetate) 180 mg 180 mg PO DAILY #30 cap s 08/16/24 (400 unit) capsule white petrolatum-mineral oil 1 appl topical BID #396 g cornel 08/16/24 topical cream (Dermacerin topical cream) Allergies Allergy/AdvReac Type Severity Reaction Status Date / Time No Known Allergies Allergy Mild NOT Verified 11/20/24 13:11 APPLICABLE Review of Systems 2 Review of Systems: As per hpi Yes all other systems are reviewed and are negative Constitutional: Constitutional: Reports as per HPI PMFSH Past Medical History Medical History (Updated 11/20/24 @ 19:18 by Marshall Allen MD) Schizoaffective disorder, bipolar type Cocaine use disorder Alcohol use disorder, severe, dependence PTSD (post-traumatic stress disorder) Chronic schizophrenia Depression Bipolar disorder Suicidal ideation Social History Social History Household Members: Other Household Members Other:: Pt resides in longterm. Housing: Homeless Do you presently have visiting nurse or other home services: No Unable to assess alcohol history related to: Refusing to respond Patient Tobacco Use Status: Current everyday Tobacco user Tobacco use type: Cigarette Cigarette Packs Per Day: 0.5 Cigarettes Per Day: 10.0 Smoked in Last 30 Days: Yes Use of substances other than those prescribed or required for medical reasons: No Substance Use Type: Crack/Cocaine Advance Directives: No Advance Directives Information Provided: No Do you have a plan to hurt others: No Plan service: No Sexual orientation: Decline to Answer Physical Exam 2 Vital Signs: Vital Signs: Last Vital Signs Temp 98.0 F 11/20/24 13:17 Pulse 90 11/20/24 13:17 Resp 15 11/20/24 13:17 BP 95/61 11/20/24 13:17 Pulse Ox 96 11/20/24 13:17 O2 Del Method Room Air 11/20/24 13:17 BMI result Body Mass Index 23.0 Vital signs have been reviewed and appear to be correct. Blood pressure normal. Heart rate normal. Respiratory rate normal. Temperature normal. Oxygen saturation normal. Const: General: cooperative, healthy appearing and no acute distress O rientation/consciousness: oriented to person, oriented to place, oriented to time and patient oriented x3 Limitations: no limitations HEENT: Head: Yes normocephalic and Yes atraumatic Ears: external ears normal General nose exam: Normal external nose present Face and sinus: Yes face symmetric Mouth: oropharynx normal and moist mucous membranes Throat: Yes uvula midline Eyes: Pupils: Equal, round and reactive pupils present Neck: Neck: Yes normal visual inspection and Yes supple Resp: Effort & Inspection: normal respiratory effort and able to speak in complete sentences Auscultation: clear to auscultation bilaterally Cardio: Rate: regular rate Rhythm: regular rhythm Heart sounds: S1 normal heart sound present and S2 normal heart sound present GI: Palpation (GI): Soft to palpation and nontender Auscultation: n ormoactive bowel sounds : General: Yes no CVA tenderness Back/Spine/Pelvis: Back: no CVA tenderness Skin: General skin exam: elasticity normal and turgor normal Neuro: General: oriented to person, oriented to place, oriented to time, patient oriented x3, moves all extremities, no focal motor deficits and CN's II- XI intact bilaterally Cranial nerves: Yes Equal, round and reactive pupils present Cognition (Neuro): normal cognition Extrem: General: Yes full ROM, Yes no pedal edema and Yes no calf tenderness Psych: Appearance: grossly normal Mental Status: mental status grossly normal Affect: normal affect Attitude: cooperative Thought process: N ormal thought process present Thought content: Suicidality present, no homicidality, no hallucinations and Depressive thoughts present Insight: L imited insight present (Psych) Judgement: Limited judgement present (Psych) Medications Administered Generic Name Dose Route Start Last Admin Trade Name Freq PRN Reason Stop Dose Admin Nicotine Polacrilex 2 mg 11/20/24 14:50 11/20/24 14:53 Nicotine Polacrilex 2 Mg Gum BUCCAL 2 mg Q2H PRN Administration Nicotine Cravings Medical Decision Making Medical Decision Making [facility] Narrative: Patient is a 59-year-old male with history of schizoaffective disorder, bipolar type presenting to the ED via EMS for agitation, depression, and suicidal ideation. On exam patient is awake, A+Ox3, VS WNL, afebrile, normal neurological exam without focal deficits, physical exam findings as above. Given reported symptoms and physical exam findings, initial differential includes but is not limited to depression, suicidal ideation, schizoaffective disorder. Labs unremarkable, ethanol negative. Patient placed on physician observation at this time pending care team evaluation. 2650 patient is seen by care team advised the patient can go back to longterm and to continue same medication as he was taking before Differential Diagnosis Differential Diagnoses: The differential diagnosis associated with the presentation includes as per [facility] Admission/Observation Consideration of admission/observation: Escalation of care including admission/observation considered Consult Healthcare Provider Management of the patient was discussed with: Behavioral Health Provider Lab Data [facility] Lab Attestation statement: I reviewed the patient's lab results. as per [facility] 11/20/24 13:50 11/20/24 13:50 Labs: Lab Results 11/20/24 11/20/24 11/20/24 Range/Units 13:50 13:56 18:31 WBC 6.9 (4.8-10.8) X10*3/uL RBC 4.32 L (4.60-5.80) X10*6/uL Hgb 13.4 L (14.0-18.0) g/dl Hct 39.4 L (42.0-52.0) % MCV 91.2 (80.0-98.0) fL MCH 31.0 (27.0-33.0) pg MCHC 34.0 (31.0-36.0) g/dl RDW 13.2 (11.0-16.0) % Plt Count 216 (160-400) X10*3/uL MPV 9.9 (9.4-12.4) fL Immature Gran % (Auto) 0.1 (0.0-0.4) % Neut % (Auto) 59.5 (45-73) % Lymph % (Auto) 32.4 (20-40) % [place] % (Auto) 4.5 (2-11) % Eos % (Auto) 2.9 (0-4) % Baso % (Auto) 0.6 (0-2) % Lymph # (Auto) 2.2 (1.2-4.9) X10*3/uL [place] # (Auto) 0.3 (0.1-1.2) X10*3/uL Eos # (Auto) 0.2 (0.0-0.4) X10*3/uL Baso # (Auto) 0.0 (0.0-0.2) X10*3/uL Abs Immat Gran (auto) 0.01 (0.00-0.03) X10*3/uL Absolute Neuts (auto) 4.1 (2.0-8.3) x10*3/uL Absolute Nucleated RBC 0.000 (0.0-0.012) X10*3/uL Nucleated RBC % (auto) 0.0 (0.0-0.2) /100WBC Sodium 140 (135-145) mmol/L Potassium 3.7 (3.3-5.1) mmol/L Chloride 111 H (96-108) mmol/L Carbon Dioxide 24 (22-29) mmol/L Anion Gap 9 L (12-20) BUN 19 H (9-16) mg/dL Creatinine 0.91 (0.5-1.4) mg/dL Estim Creat Clear Calc 94.8 Estimated GFR > 60 Random Glucose 141 H (60-115) mg/dL Calcium 9.4 (8.4-10.2) mg/dL Total Bilirubin 0.3 (0.0-1.0) mg/dL AST 25 (5-37) U/L ALT 14 (0-40) U/L Alkaline Phosphatase 51 (39-117) U/L Total Protein 7.4 (6.5-8.0) g/dL Albumin 4.4 (3.5-5.0) g/dL Urine Color Yellow Urine Appearance Clear Urine pH 6.5 (5.0-9.0) Ur Specific [place] 1.015 (1.005-1.025) Urine Protein Negative (Neg-Trace) mg/dL Urine Glucose (UA) Negative (Negative) mg/dL Urine Ketones Negative (Negative) mg/dL Urine Blood Negative (Negative) Urine Nitrite Negative (Negative) Ur Leukocyte Esterase Negative (Negative) Urine Opiates Screen Not Detected (Not Detect) Ur Buprenorphine Scrn Not Detected (Not Detect) ng/mL Ur Oxycodone Screen Not Detected (Not Detect) ng/mL Urine Methadone Screen Not Detected (Not Detect) ng/mL Urine Fentanyl Screen Not Detected (Not Detect) Ur Barbiturates Screen Not Detected (Not Detect) Ur Phencyclidine Scrn Not Detected (Not Detect) Ur Amphetamines Screen Not Detected (Not Detect) U Benzodiazepines Scrn Not Detected (Not Detect) Urine Cocaine Screen Not Detected (Not Detect) U Marijuana (THC) Screen Not Detected (Not Detect) Ethyl Alcohol < 10 mg/dL Influenza Type A (PCR) NEGATIVE (Negative) Influenza Type B (PCR) NEGATIVE (Negative) RSV RNA Qual (PCR) NEGATIVE (Negative) SARS-CoV-2 RNA (RT-PCR) NEGATIVE (Negative) External Record Review External record reviewed: Inpatient record, Office record and Outpatient record Discharge Plan Discharge Clinical Impression: Schizoaffective disorder, bipolar type Patient Disposition: Home, Self-Care Instructions: Schizoaffective Disorder (ED) Additional Instructions: Medically cleared to go back to longterm Prescriptions: No Action ibuprofen 400 mg Tablet 400 mg PO Q6H PRN (Reason: Pain) clonidine HCl 0.1 mg Tablet 0.1 mg PO BID Qty: 60 0RF Protocol: Hold for SBP< HOLD for SBP < : 90 acetaminophen 325 mg Tablet 650 mg PO Q6H PRN (Reason: Headache/Pain, Scale 1-10) Qty: 0 0RF trazodone 50 mg Tablet 50 mg PO BEDTIME MRX1 PRN (Reason: Insomnia) Qty: 30 0RF nicotine (polacrilex) 2 mg Gum 4 mg buccal Q2H PRN (Reason: Nicotine Cravings) Qty: 110 0RF olanzapine 5 mg Tablet 5 mg PO BID PRN (Reason: agitation) Qty: 30 0RF clonazepam 1 mg Tablet 1 mg PO BID Qty: 60 0RF topiramate 25 mg Tablet 25 mg PO DAILY Qty: 25 0RF chlorpromazine 25 mg Tablet 50 mg PO TID PRN (Reason: agitation, violence) Qty: 30 0RF hydroxyzine HCl 25 mg Tablet 25 mg PO Q6H PRN (Reason: mild anxiety) Qty: 30 0RF albuterol sulfate [Ventolin HFA] 90 mcg/actuation Hfa Aerosol Inhaler 2 puff inhalation RQ4H PRN (Reason: Shortness Of Breath) Qty: 6.7 0RF divalproex 250 mg Tablet Extended Release 24 Hr 1,750 mg PO BEDTIME Qty: 210 0RF Dermacerin Cream 1 appl topical BID Qty: 396 0RF Protocol: Apply to: Apply to: b/l legs/shins vitamin E (dl, acetate) 180 mg (400 unit) Capsule 180 mg PO DAILY Qty: 30 0RF ammonium lactate 12 % Lotion 1 appl TOPICAL DAILY PRN (Reason: Dry Skin) Qty: 30 0RF pantoprazole [Protonix] 40 mg Tablet,Delayed Release (Dr/Ec) 40 mg PO DAILY Qty: 30 0RF olanzapine [Zyprexa] 15 mg Tablet 15 mg PO BID Qty: 60 0RF fluoxetine 20 mg Capsule 20 mg PO DAILY Qty: 30 0RF melatonin 1 mg Tablet 6 mg PO BEDTIME Qty: 30 0RF Interventions: [place]-Suicide Risk Severity Scale Last Done: 11/20/24 13:17 Print Language: Moroccan
[2024-11-20 12:48] VITALS: BP 126/84; PULSE 90; O2SAT 98
[2024-11-20 13:07] VITALS: BP 95/61; PULSE 90; RESP 15; TEMP 36.7; O2SAT 96; BMI 23.0
[2024-11-20 13:17] VITALS: BP 95/61; PULSE 90; RESP 15; TEMP 36.7; O2SAT 96
--- NOTE | 2024-11-20 13:21 | PC.NURSE ---
Patient presents to ED c/o SI with plan to cut self. [facility], threw a coffee mug and a bowl of cereal. Patient was recently seen at [facility] for SI w/ plan to cut self. Patient wanted to go to [place] but was discharged home. Patient had meeting with crisis @ 1700 today but decided to call EMS. Patient SI at this time but no HI. Denies audio/visual hallucinations. Denies pain. Patient changed over with security. Patient calm and cooperative.
[2024-11-20 14:03] LABS: Hematocrit 39.4 % (42.0-52.0); Hemoglobin 13.4 g/dl (14.0-18.0); Imm Gran Abs Auto 0.01 X10*3/uL (0.00-0.03); Imm Gran Pct Auto 0.1 % (0.0-0.4); Lymphocytes Absolute Auto 2.2 X10*3/uL (1.2-4.9); MANUAL DIFF FLAG NO; Mean Corpuscular HGB Conc 34.0 g/dl (31.0-36.0); Mean Corpuscular Hemoglobin 31.0 pg (27.0-33.0); Mean Corpuscular Volume 91.2 fL (80.0-98.0); NRBC Abs Auto 0.000 X10*3/uL (0.0-0.012); NRBC Pct Auto 0.0 /100WBC (0.0-0.2); Platelet Count 216 X10*3/uL (160-400); Red Blood Count 4.32 X10*6/uL (4.60-5.80); White Blood Count 6.9 X10*3/uL (4.8-10.8)
[2024-11-20 14:25] LABS: Alanine Aminotransferase 14 U/L (0-40); Albumin Level 4.4 g/dL (3.5-5.0); Alkaline Phosphatase 51 U/L (39-117); Anion Gap 9 (12-20); Aspartate Amino Transferase 25 U/L (5-37); Blood Urea Nitrogen 19 mg/dL (9-16); Calcium 9.4 mg/dL (8.4-10.2); Carbon Dioxide 24 mmol/L (22-29); Chloride 111 mmol/L (96-108); Creatinine Clr Calc Pharmacy 94.8; Estimated Glomerular Filt Rate > 60; Potassium 3.7 mmol/L (3.3-5.1); Sodium 140 mmol/L (135-145); Total Protein 7.4 g/dL (6.5-8.0)
[2024-11-20 14:40] LABS: Resp Syncy Virus RNA Qual PCR NEGATIVE (Negative); SARS COV2 PCR INHOUSE NEGATIVE (Negative)
--- NOTE | 2024-11-20 14:54 | PC.NURSE ---
Patient experiencing nicotine cravings. Notified provider. Received order for nicotine gum, administered per MAR
--- NOTE | 2024-11-20 16:29 | PC.NURSE ---
Attempted to reconcile patient medications with [facility]. Pharmacy closed at this time, Patient gave number for staff at [facility]. Spoke with Javier and reconciled medications with her list medications. Phone number for [facility] [phone]
[2024-11-20 18:37] LABS: Appearance Urine Clear; Glucose Urine UA Negative (Negative); PH 6.5 (5.0-9.0); Specific Gravity - Urine 1.015 (1.005-1.025)
[2024-11-20 18:52] LABS: Cannabinoid Screen Urine Not Detected (Not Detect)
[2024-11-20 19:42] VITALS: BP 119/80; PULSE 99; RESP 16; TEMP 36.5; O2SAT 96
== END 2024-11-20 19:43 | disposition home or self-care (01) ==
PROVIDERS: Registered Nurse Emergency; Emergency Provider Emergency Medicine Emergency Medical Services
DX: F25.1 Schizoaffective disorder, depressive type (principal); R45.851 Suicidal ideations; Z79.899 Other long term (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; Z03.818 Encounter for observation for suspected exposure to other biological agents ruled out; Z51.81 Encounter for therapeutic drug level monitoring
CPT/HCPCS: 80053; 80307; 81003; 85025; 87637; 99285; S9485

== ENCOUNTER 2024-11-25 13:34 | Emergency (ER) | payer MEDICARE, MEDICAID, SELFPAY ==
--- OUTSIDE RECORDS SUMMARY | 2024-11-11 07:00 | XMS_ITS ---
Author Organization [facility] Address [address], [place] [id number] Care Team Providers Care Roofer Helper Name Role Phone NO, PCP Primary Care Provider [phone] Velia Love Unavailable [phone] REASON FOR VISIT Apply for [employer] Insurance Encounters Encounter Location Date Provider Diagnosis [facility] [address] [place] [id number] 11/11/2024 Velia Love Plan Of Treatment No Information Progress Notes * Bishnu YENDOB:[birth year] (59 yo M)Acc No.[id number]:11/11/2024 Case Management New Patient: Bishnu MORENO Provider: Kim Love :1965 A ge:59 Y S ex:Male Date:11/11/2024 Address:[address] [place], [place] [id number] Pcp:PCP NO Subjective: * Chief Complaints: * 1 . Apply for [employer] Insurance. Objective: Assessment: Plan: * Treatment: * Images: Billing Information: * Visit Code: * Procedure Codes: Care Plan Details* * Electronic signature of Tyrese Gtz on 11/25/2024 at 02:31 PM EDT Sign off status: Pending * Provider: Kim Love Date: 11/11/2024 Generated for Dani villalta/Fernandez/Cyndy on: 11/25/2024 02:31 PM EDT
[2024-11-25 13:55] VITALS: BP 105/72; BP 124/78; PULSE 110; PULSE 92; RESP 18; TEMP 36.4; O2SAT 97; O2SAT 98; BMI 22.7
--- NOTE | 2024-11-25 14:15 | ED.GENADULT ---
HPI - General Adult General Chief complaint: Psychiatric Symptoms Stated complaint: SI Time Seen by Provider: 11/25/24 14:14 Source: patient and EMS Mode of arrival: EMS Limitations: no limitations History of Present Illness ED Provider: Brittney Madden PA-C HPI narrative: Patient is a 59 year old assigned male at with a history of schizoaffective disorder presenting to the emergency department today with suicidal ideation with a plan to slit his throat. Patient states that he is feeling more down and wants to kill himself. Patient denies any dizziness, lightheadedness, abdominal pain, nausea, vomiting, fever, chills, blurry vision, double vision, loss of vision, chest pain, difficulty breathing, shortness of breath, back pain, night sweats, pain with urination, increased urinary frequency, increased urinary urgency, blood in his urine or stool, syncope or a near syncopal episode, recent trauma or falls, bowel incontinence, bladder incontinence, or any other complaints at this time. Relieving factors: none Exacerbating factors: none Associated symptoms: denies other symptoms Treatments prior to arrival: none Related Data Home Medications ?Medication ?Instructions ?Recorded ?Confirmed ibuprofen 400 mg tablet 400 mg PO DAILY PRN Pain (Scale 07/17/24 11/25/24 Score 1-3) acetaminophen 325 mg tablet 650 mg PO DAILY PRN Pain (Scale 11/25/24 11/25/24 Score 1-3) divalproex 250 mg tablet,extended 1,250 mg PO BEDTIME 11/25/24 11/25/24 release 24 hr trazodone 50 mg tablet 50 mg PO BEDTIME 11/25/24 11/25/24 Previous Rx's ?Medication ?Instructions ?Recorded albuterol sulfate 90 mcg/actuation 2 puff inhalation RQ4H PRN 08/16/24 aerosol inhaler (Ventolin HFA) Shortness Of Breath #6.7 grams ammonium lactate 12 % lotion 1 appl topical DAILY PRN Dry Skin 08/16/24 #30 applicators clonazepam 1 mg tablet 1 mg PO BID #60 tabs 08/16/24 fluoxetine 20 mg capsule 20 mg PO DAILY #30 caps 08/16/24 olanzapine 15 mg tablet (Zyprexa) 15 mg PO BID #60 tabs 08/16/24 topiramate 25 mg tablet 25 mg PO DAILY #25 tabs 08/16/24 vitamin E (dl, acetate) 180 mg 180 mg PO DAILY #30 caps 08/16/24 (400 unit) capsule Allergies Allergy/AdvReac Type Severity Reaction Status Date / Time No Known Allergies Allergy Mild NOT Verified 11/25/24 13:59 APPLICABLE Review of Systems Constitutional: Constitutional: Reports no additional constitutional complaints, Denies chills, Denies fever(s) and Denies night sweats Eyes: Eyes: Reports no additional eye complaints, Denies blurry vision, Denies change in vision, Denies diplopia, Denies eye discharge, Denies loss of vision and Denies eye pain ENT: Denies dizziness Cardiovascular: Cardiovascular: Reports no additional cardiovascular complaints, Denies chest pain, Denies lightheadedness, Denies Loss of Consciousness and Denies dyspnea Respiratory: Respiratory: Reports no additional respiratory complaints and Denies dyspnea Gastrointestinal: Gastrointestinal: Reports no additional gastrointestinal complaints, Denies abdominal pain, Denies melena, Denies hematochezia, Denies change in bowel habits and Denies change in stool character Genitourinary: Genitourinary: Reports no additional male genitourinary complaints, Denies hematuria, Denies oliguria, Denies difficulty urinating, Denies dysuria, Denies urinary frequency, Denies urinary hesitancy, Denies urinary incontinence and Denies urinary urgency Musculoskeletal: Musculoskeletal: Reports no additional musculoskeletal complaints, Denies numbness and Denies tingling Neurologic: Denies dizziness, Denies loss of vision, Denies numbness and Denies tingling Psychiatric: Psychiatric: Reports no additional psychiatric complaints, Denies homicidal ideation and Reports suicidal ideation Endocrine: Endocrine: Reports no additional endocrine complaints Hematologic/Lymphatic: Hematologic/Lymphatic: Reports no additional hematologic/lymphatic complaints Allergic/Immunologic: Allergic/Immunologic: Reports no additional allergic/immunologic complaints [facility] Past Medical History Attestation statement: The following information was validated with the patient. Source: old records reviewed and nursing notes reviewed Medical History Schizoaffective disorder, bipolar type Cocaine use disorder Alcohol use disorder, severe, dependence PTSD (post-traumatic stress disorder) Chronic schizophrenia Depression Bipolar disorder Suicidal ideation Social History Social History Household Members: Other Household Members Other:: Pt resides in [facility] Housing: Homeless Do you presently have visiting nurse or other home services: No Unable to assess alcohol history related to: Refusing to respond Patient Tobacco Use Status: Current everyday Tobacco user Tobacco use type: Cigarette Cigarette Packs Per Day: 0.5 Cigarettes Per Day: 10.0 Substance Use Type: Crack/Cocaine Advance Directives: No Advance Directives Information Provided: Yes service: No Sexual orientation: Decline to Answer Physical Exam ED Vital Signs: Vital Signs - 24 hr 11/25/24 13:55 Temperature 97.6 F Pulse Rate 92 Respiratory Rate 18 Blood Pressure 105/72 Pulse Oximetry 97 Oxygen Delivery Method Room Air BMI result Body Mass Index 22.7 Const General: cooperative, no acute distress, alert and awake Nutritional Appearance: well nourished Orientation/consciousness: patient oriented x3 HENMT Head: Yes normal to inspection and Yes atraumatic Ears: hearing grossly normal bilaterally and external ears normal General nose exam: Normal external nose present, no nasal discharge noted and no epistaxis Face and sinus: Yes normal facial exam, No abrasion and No laceration Mouth: Normal oral and palatal mucosa present, no drooling and no muffled voice Eyes General: appearance normal, both eyes and all related structures Periorbital: periorbital findings normal Eyelids: Yes eyelids normal Conjunctivae: conjunctivae normal Pupils: Equal, round and reactive pupils present EOM: EOMs intact bilaterally Neck Neck: Yes normal visual inspection, Yes full ROM and Yes no lymphadenopathy Resp Effort & Inspection: normal respiratory effort and able to speak in complete sentences Neuro General: patient oriented x3, moves all extremities and CN's II-XI intact bilaterally Cranial nerves: Yes Equal, round and reactive pupils present Cognition (Neuro): normal cognition Extrem General: Yes normal to inspection, Yes full ROM and Yes capillary refill normal Psych Appearance: grossly normal Mental Status: mental status grossly normal Affect: Labile affect present Thought content: Suicidality present Medical Decision Making Medical Decision Making MDM Narrative: Patient is a 59 year old assigned male at with a history of schizoaffective disorder presenting to the emergency department today with suicidal ideation with a plan to slit his throat. Patient's physical exam was as noted in the physical exam portion of this note. Patient's blood work was unremarkable. CARE team met with the patient and recommended discharge back to his [facility] [facility] stating the patient has been to our crisis center and [facility] multiple times in the last week with the same complaint and he has no immediate risk / concern - [facility] is comfortable with accepting the patient. I explained my physical exam findings as well as all test results to the patient. I answered all questions asked by the patient. I stressed the importance of the patient taking his medication as directed (either prescribed or as the over the counter packaging recommends). I stressed the importance of the patient following up with his primary care provider. I stressed the importance of the patient returning to the emergency department immediately if his symptoms were to worsen or if he were to develop any dizziness, shortness of breath, difficulty breathing, chest pain, blurry vision, loss of vision, nausea, vomiting, abdominal pain, fever, chills, back pain, or any other complaints. Patient verbalized agreement and understanding with this treatment plan and discharge. Differential Diagnosis Differential Diagnoses: The differential diagnosis associated with the presentation includes Suicidal ideation Admission/Observation Consideration of admission/observation: Escalation of care including admission/observation considered Patient would have been admitted to the hospital had his work up had any findings where hospital admission was appropriate and his clinical presentation warranted hospital admission. Consult Healthcare Provider Management of the patient was discussed with: Behavioral Health Provider (spoke with the CARE team as noted in the MDM Rationale portion of this note. ) Lab Data [facility] Lab Attestation statement: I reviewed the patient's lab results. My interpretation of these results are in the MDM Rationale portion of this note. 11/25/24 15:29 11/25/24 15:29 Labs: Lab Results 11/25/24 Range/Units 15:29 WBC 8.2 (4.8-10.8) X10*3/uL RBC 4.20 L (4.60-5.80) X10*6/uL Hgb 12.8 L (14.0-18.0) g/dl Hct 39.2 L (42.0-52.0) % MCV 93.3 (80.0-98.0) fL MCH 30.5 (27.0-33.0) pg MCHC 32.7 (31.0-36.0) g/dl RDW 13.2 (11.0-16.0) % Plt Count 242 (160-400) X10*3/uL MPV 10.1 (9.4-12.4) fL Immature Gran % (Auto) 0.2 (0.0-0.4) % Neut % (Auto) 57.2 (45-73) % Lymph % (Auto) 29.5 (20-40) % [place] % (Auto) 9.2 (2-11) % Eos % (Auto) 2.9 (0-4) % Baso % (Auto) 1.0 (0-2) % Lymph # (Auto) 2.4 (1.2-4.9) X10*3/uL [place] # (Auto) 0.8 (0.1-1.2) X10*3/uL Eos # (Auto) 0.2 (0.0-0.4) X10*3/uL Baso # (Auto) 0.1 (0.0-0.2) X10*3/uL Abs Immat Gran (auto) 0.02 (0.00-0.03) X10*3/uL Absolute Neuts (auto) 4.7 (2.0-8.3) x10*3/uL Absolute Nucleated RBC 0.000 (0.0-0.012) X10*3/uL Nucleated RBC % (auto) 0.0 (0.0-0.2) /100WBC Sodium 140 (135-145) mmol/L Potassium 3.8 (3.3-5.1) mmol/L Chloride 107 (96-108) mmol/L Carbon Dioxide 25 (22-29) mmol/L Anion Gap 12 (12-20) BUN 14 (9-16) mg/dL Creatinine 1.05 (0.5-1.4) mg/dL Estim Creat Clear Calc 81.1 Estimated GFR > 60 Random Glucose 87 (60-115) mg/dL Calcium 9.5 (8.4-10.2) mg/dL Total Bilirubin 0.2 (0.0-1.0) mg/dL AST 35 (5-37) U/L ALT 20 (0-40) U/L Alkaline Phosphatase 50 (39-117) U/L Total Protein 7.5 (6.5-8.0) g/dL Albumin 4.3 (3.5-5.0) g/dL Salicylates < 5.0 L (15-30) mg/dL Acetaminophen < 3 (<30) mcg/mL Ethyl Alcohol < 10 mg/dL Independent Historian Clinical information obtained from an independent historian. History obtained from or confirmed by: EMS (EMS provided additional history and confirmed the history provided by the patient. ) Critical Care Time Critical Care Time Critical Care Time: Yes Total Critical Care Time: 36 Attestation: I spent 36 minutes of Critical Care Time with this patient. This does not include time spent on separately reported billable procedures. Discharge Plan Discharge Clinical Impression: Schizoaffective disorder, bipolar type Patient Disposition: Xfer Other Transfer Details: Going back to [facility] Instructions: Schizoaffective Disorder (ED) Additional Instructions: You were seen in our Emergency Department today for a concern regarding your mental / behavioral behavioral health. It is important after this visit today that you follow up with either your mental / behavioral health or primary care provider within 7 days (from today).? Return for any worsening symptoms or concerns such as thoughts of harming yourself or others. Please call 911 immediately if you feel your mental health is worsening.? National Suicide and Crisis Lifeline: Available 24 hours a day, 7 days a week, 365 days a year Dial 988 with any telephone to speak to someone immediately [facility] (Mental / Behavioral health therapist: [address] [place] [address] [facility]: [address] [place] [address] Open from 10am - 12pm (walk ins welcome) [facility] Crisis Services: [address] [place] [address] Walk in hours from 10am - 12pm Behavioral health Network: [address] [place] [phone] [address] [place] [phone] Friday through Friday 8am - 8pm Friday and Friday 9am - 5pm IF you are prescribed medications and/or you are taking over the counter medications - it is very important you continue to do so as prescribed / directed unless told otherwise. Follow up with your primary care provider. Return to the emergency department immediately if your symptoms worsen or if you develop any numbness, tingling, dizziness, shortness of breath, difficulty breathing, chest pain, blurry vision, loss of vision, nausea, vomiting, abdominal pain, fever, chills, back pain, or any other complaints. Prescriptions: No Action divalproex 250 mg tablet extended release 24 hr 1,250 mg PO BEDTIME acetaminophen 325 mg Tablet 650 mg PO DAILY PRN (Reason: Pain (Scale Score 1-3)) trazodone 50 mg Tablet 50 mg PO BEDTIME ibuprofen 400 mg Tablet 400 mg PO DAILY PRN (Reason: Pain (Scale Score 1-3)) clonazepam 1 mg Tablet 1 mg PO BID Qty: 60 0RF topiramate 25 mg Tablet 25 mg PO DAILY Qty: 25 0RF albuterol sulfate [Ventolin HFA] 90 mcg/actuation Hfa Aerosol Inhaler 2 puff inhalation RQ4H PRN (Reason: Shortness Of Breath) Qty: 6.7 0RF vitamin E (dl, acetate) 180 mg (400 unit) Capsule 180 mg PO DAILY Qty: 30 0RF ammonium lactate 12 % Lotion 1 appl TOPICAL DAILY PRN (Reason: Dry Skin) Qty: 30 0RF olanzapine [Zyprexa] 15 mg Tablet 15 mg PO BID Qty: 60 0RF fluoxetine 20 mg Capsule 20 mg PO DAILY Qty: 30 0RF Print Language: Faroese
--- OUTSIDE RECORDS SUMMARY | 2024-11-25 14:32 | XMS_ITS | Clinical Summary ---
Author Organization [facility] Address [address] [place] [address] Phone Care Team Providers Care [employer] Agent Name Role Phone Physician, No Pcp Primary Care Provider Unavaila ble Allergies Active Allergy Reactions Criticality Noted Date Comments Lactose Other 09/12/2023 Nausea/vomiting/loose stools Medical History Medical History Date Comments Bipolar 1 disorder (CMS/[facility] V24, CMS/[facility]ER[facility] V28) Depression Schizoaffective disorder (CMS/[facility] V24, CMS/[facility]ER[facility] V 28) Social History Tobacco Use Types Packs/Day Years [...] 93 03/14/2024 8:26 AM EST Temperature 36.5 C (97.7 F) 03/14/2024 8:26 AM EST Respiratory Rate 18 03/14/2024 8:26 AM EST [...] HIV Screening 03/24/2022 Hepatitis C Screening 03/24/2022 Medicare Annual Wellness Visit 03/24/2022 Social Influencers of Health Screening 03/24/2022 COVID-19 Vaccine ( season) 2023 08/29/2021, 08/01/2021 Depression Screening 04/21/2024 Influenza Vaccine (#1) 2024 , 01/15/2022, 02/12/2021, Additional history exists Hypertension/CHF/CAD [...] LDL Routine 04/28/2024 7:00 AM EST Other [facility] (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 COMPREHENSIVE METABOLIC PANEL STAT [...] 1:24 PM EST [facility] HDL 47 >=40 mg/dL LAB CHEMISTRY METHOD 04/28/2024 1:24 PM EST [facility] LDL Calculated 131(H) 0 - 100 mg/dL LAB CHEMISTRY METHOD 04/28/2024 1:24 PM [facility] VLDL Cholesterol Von 23.2 mg/dL LAB CHEMISTRY METHOD 04/28/2024 1:24 PM EST [facility] Non HDL Chol. (LDL+VLDL) 154(H) <145 mg/dL LAB CHEMISTRY METHOD 04/28/2024 1:24 PM EST [facility] Chol/HDL Ratio 4.3 0.0 - 4.4 LAB CHEMISTRY METHOD 04/28/2024 1:24 PM [facility] Blood Venous blood specimen / Unknown Venipuncture / Unknown 04/28/2024 7:00 AM EST 04/28/2024 12:15 PM EST us Radha Damon ABRASIVE WORKER LAB BLOOD ORDERABLES Fi nal Result [facility] [address] [place] [address], * (ABNORMAL) Comprehensive metabolic panel (03/14/2024 8:39 AM EST) Sodium 141 133 - 145 mmol/L LAB CHEMISTRY METHOD 03/14/2024 9:29 AM [facility] Potassium 4.5 3.5 - 5.5 mmol/L LAB CHEMISTRY METHOD 03/14/2024 9:29 AM [facility] Comment:Hemolysis present Chloride 109 96 - 110 mmol/L LAB CHEMISTRY METHOD 03/14/2024 9:29 AM [facility] CO2 25 21 - 32 mmol/L LAB CHEMISTRY METHOD 03/14/2024 9:29 AM [facility] Anion Gap 7 3 - 11 LAB CHEMISTRY METHOD 03/14/2024 9:29 AM [facility] Glucose 93 70 - 100 mg/dL LAB CHEMISTRY METHOD 03/14/2024 9:29 AM [facility] BUN 17 5 - 25 mg/dL LAB CHEMISTRY METHOD 03/14/2024 9:29 AM [facility] Creatinine 1.05 0.70 - 1.30 mg/dL LAB CHEMISTRY METHOD 03/14/2024 9:29 AM [facility] eGFR 83 >=60 mL/min/1. 73m2 LAB CHEMISTRY METHOD 03/14/2024 9:29 AM [facility] Comment:Calculation based on the Chronic Kidney Disease Epidemiology Collaboration (CKD-EPI) equation refit without adjustment for race. BUN/Creatinine Ratio 16.2 LAB CHEMISTRY METHOD 03/14/2024 9:29 AM [facility] Calcium 9.0 8.5 - 10.5 mg/dL LAB CHEMISTRY METHOD 03/14/2024 9:29 AM [facility] AST (SGOT) 55(H) 10 - 42 unit/L LAB CHEMISTRY METHOD 03/14/2024 9:29 AM [facility] Comment:Hemolysis present ALT (SGPT) 116(H) 10 - 60 unit/L LAB CHEMISTRY METHOD 03/14/2024 9:29 AM [facility] Alkaline Phosphatase 91 42 - 121 unit/L LAB CHEMISTRY METHOD 03/14/2024 9:29 AM [facility] Total Protein 7.0 6.0 - 8.0 g/dL LAB CHEMISTRY METHOD 03/14/2024 9:29 AM EST [facility] Albumin 3.4 3.2 - 5.0 g/dL LAB CHEMISTRY METHOD 03/14/2024 9:29 AM EST [facility] Total Bilirubin 0.2 0.0 - 1.4 mg/dL LAB CHEMISTRY METHOD 03/14/2024 9:29 AM EST [facility] Blood Venous blood specimen / Unknown Venipuncture / Unknown 03/14/2024 8:39 AM EST 03/14/2024 8:42 AM EST us Last Aponte MD LAB BLOOD ORDERABLES Final Res ult [facility] [address] [place] [address], [place] [phone] from Last 3 Months or Most Recently Relevant to Health Maintenance Insurance MEDICARE MEDICAID - [place] Advance Directives Documents on File Type Date Recorded Patient Visualizer Expl anation Health Care Decision (hx) 04/17/2017 [...] (hx) 04/17/2017 AD WOLF DIRECTIVE Care Teams [employer] Agent Relationship Specialty Start Date End Date Physician, No Pcp PCP - General 03/14/24
--- OUTSIDE RECORDS SUMMARY | 2024-11-25 14:32 | XMS_ITS | Encounter Summary ---
Author Organization [employer] Address [address] [place] [address] Care Team Providers Care Weight Clerk Name Role Phone Alison Valentine MD Primary Care Provider [phone] Encounter Details Date Type Department Care Team ([facility] Contact Info) Description 04/12/2022 Orders Only [facility] MEDICINE [address] [place] [address] Alison Valentine MD [address] [place] [address] Gastroesophageal reflux disease without esophagitis (Primary Dx) [...] as of this encounter Plan of Treatment Upcoming Encounters Date Type Department Care Team ([facility] Contact Info) Description 12/17/2024 2:00 PM EDT Office Visit [facility] [address] [place] [address] Alison Valentine MD [address] [place] [address] documented as of this encounter Visit Diagnoses Diagnosis Gastroesophageal reflux disease without esophagitis- Primary Esophageal reflux documented in this encounter Care Teams Weight Clerk Relationship Specialty Start Date End Date Alison Valentine MD [address] [place] [address] PCP - General Internal Medicine 05/21/13 documented as of this encounter
[2024-11-25 15:34] LABS: MANUAL DIFF FLAG NO
[2024-11-25 15:41] LABS: Hematocrit 39.2 % (42.0-52.0); Hemoglobin 12.8 g/dl (14.0-18.0); Imm Gran Abs Auto 0.02 X10*3/uL (0.00-0.03); Imm Gran Pct Auto 0.2 % (0.0-0.4); Lymphocytes Absolute Auto 2.4 X10*3/uL (1.2-4.9); Mean Corpuscular HGB Conc 32.7 g/dl (31.0-36.0); Mean Corpuscular Hemoglobin 30.5 pg (27.0-33.0); Mean Corpuscular Volume 93.3 fL (80.0-98.0); NRBC Abs Auto 0.000 X10*3/uL (0.0-0.012); NRBC Pct Auto 0.0 /100WBC (0.0-0.2); Platelet Count 242 X10*3/uL (160-400); Red Blood Count 4.20 X10*6/uL (4.60-5.80); White Blood Count 8.2 X10*3/uL (4.8-10.8)
[2024-11-25 15:57] LABS: Acetaminophen LAB < 3 mcg/mL (<30); Salicylate < 5.0 mg/dL (15-30)
--- NOTE | 2024-11-25 16:42 | PC.NURSE ---
[facility] rec completed [facility]. pt states that he has been taking his meds regularly, denies drug and alcohol use
[2024-11-25 17:00] VITALS: BP 105/72; PULSE 92; RESP 18; TEMP 36.4; O2SAT 97
[2024-11-25 17:22] LABS: Alanine Aminotransferase 20 U/L (0-40); Albumin Level 4.3 g/dL (3.5-5.0); Alkaline Phosphatase 50 U/L (39-117); Anion Gap 12 (12-20); Aspartate Amino Transferase 35 U/L (5-37); Blood Urea Nitrogen 14 mg/dL (9-16); Calcium 9.5 mg/dL (8.4-10.2); Carbon Dioxide 25 mmol/L (22-29); Chloride 107 mmol/L (96-108); Creatinine Clr Calc Pharmacy 81.1; Estimated Glomerular Filt Rate > 60; Potassium 3.8 mmol/L (3.3-5.1); Sodium 140 mmol/L (135-145); Total Protein 7.5 g/dL (6.5-8.0)
--- NOTE | 2024-11-25 17:22 | PHA.MEDREC ---
Pharmacy Consult ? Medication Reconciliation RN has completed the medication reconciliation, pharmacy reviewed. Med list from [facility] .
== END 2024-11-25 17:15 | disposition other institution (70) ==
PROVIDERS: Physician Assistant Medical; Emergency Provider Emergency Medicine
DX: F25.0 Schizoaffective disorder, bipolar type (principal); F43.10 Post-traumatic stress disorder, unspecified; R45.851 Suicidal ideations
CPT/HCPCS: 80053; 80143; 80179; 80307; 85025; 99283; S9485

== ENCOUNTER 2024-12-07 19:32 | Emergency (ER) | payer MEDICARE, MEDICAID, SELFPAY ==
[2024-12-07 19:42] VITALS: BP 122/78; PULSE 94; O2SAT 98
[2024-12-07 20:07] VITALS: BP 112/79; PULSE 89; RESP 18; TEMP 36.7; O2SAT 99; BMI 23.0
--- NOTE | 2024-12-07 20:12 | ED_ITS ---
HPI - General Adult General Chief complaint: Psychiatric Symptoms Stated complaint: SI w/ plan Time Seen by Provider: 12/07/24 20:12 Source: patient Mode of arrival: EMS Limitations: no limitations History of Present Illness ED Provider: Dr. Sanderson HPI narrative: This is a 59-year-old male history of schizoaffective bipolar disorder. Presented hospital today for evaluation of suicidal ideation. Patient stated that he has been going through a lot of social issues including living at a assisted. He states he is unemployed and disabled. He spent his day asking for money on a street and no one gives him money. This makes him anxious. Patient stated that he has been more aggressive toward the young tenants at his assisted. Patient stated that he had thoughts of trying to slit his throat. Denies any medical complaint at this time. Related Data Home Medications ?Medication ?Instructions ?Recorded ?Confirmed ibuprofen 400 mg tablet 400 mg PO DAILY PRN Pain (Sc casandra 07/17/24 12/07/24 Score 1-3) acetaminophen 325 mg tablet 650 mg PO DAILY PRN Pain ( Scale 11/25/24 12/07/24 Score 1-3) divalproex 250 mg tablet,extended 1,250 mg PO BEDTIME 11/25/24 12/07/24 release 24 hr trazodone 50 mg tablet 50 mg PO BEDTIME 11/25/24 Previous Rx's ?Medication ?Instructions ?Recorded albuterol sulfate 90 mcg/actuation 2 puff inhalation R Q4H PRN 08/16/24 aerosol inhaler (Ventolin HFA) Shortness Of Breath #6. 7 grams ammonium lactate 12 % lotion 1 appl topical DAILY PRN Dry Skin 08/16/24 #30 applicators clonazepam 1 mg tablet 1 mg PO BID #60 tabs 5 fluoxetine 20 mg capsule 20 mg PO DAILY #30 caps 07/21 12/13 olanzapine 15 mg tablet (Zyprexa) 15 mg PO BID #60 tab s 08/16/24 topiramate 25 mg tablet 25 mg PO DAILY #25 tabs 07/21 12/13 vitamin E (dl, acetate) 180 mg 180 mg PO DAILY #30 cap s 08/16/24 (400 unit) capsule Allergies Allergy/AdvReac Type Severity Reaction Status Date / Time No Known Allergies Allergy Mild NOT Verified 12/07/24 20:13 APPLICABLE Review of Systems 2 Review of Systems: Pertinent review of system as mentioned in [facility] Past Medical History [facility] Narrative: As mentioned in [facility] Medical History Schizoaffective disorder, bipolar type Cocaine use disorder Alcohol use disorder, severe, dependence PTSD (post-traumatic stress disorder) Chronic schizophrenia Depression Bipolar disorder Suicidal ideation Social History Social History Household Members: Other Household Members Other:: Pt resides in assisted. Housing: Homeless Do you presently have visiting nurse or other home services: No Unable to assess alcohol history related to: Refusing to respond Patient Tobacco Use Status: Current everyday Tobacco user Tobacco use type: Cigarette Cigarette Packs Per Day: 0.5 Cigarettes Per Day: 10.0 Substance Use Type: Crack/Cocaine Advance Directives: No Advance Directives Information Provided: No service: No Sexual orientation: Decline to Answer Physical Exam ED Exam Exam: General: Pleasant, no distress, interacting appropriately Head: Normacephalic, atraumatic ENT: oral mucosa moist, neck supple, no tracheal deviation Cardiovascular: regular rate, regular rhythm, no murmurs, rubbing, gallops Respiratory: CTAB, no wheeze, rales, rhonchi Gastrointestinal: Soft, non distended, non tender, non guarding Skin: Warm and dry Psychiatric: Endorses suicide ideation denies any hallucinations denies any homicidal ideation. Vital Signs: Vital Signs - 24 hr 12/07/24 20:07 Temperature 98.1 F Pulse Rate 89 Respiratory Rate 18 Blood Pressure 112/79 Pulse Oximetry 99 Oxygen Delivery Method Room Air BMI result Body Mass Index 23.0 Medical Decision Making Medical Decision Making [facility] Narrative: This is a 59-year-old male history of schizoaffective bipolar disease presented hospital today for suicide ideation. The patient has no medical complaint at this time. We will plan to consult care management team. Protocol psychiatric lab will be obtained as well. Crisis team evaluated the patient. They stated that patient is no longer suicidal. Patient is stable to be transferred back to assisted. Patient will be discharged back to assisted. Differential Diagnosis Differential Diagnoses: The differential diagnosis associated with the presentation includes Hallucinations, suicide ideation, schizoaffective disorder, Lab Data [facility] Lab Attestation statement: I reviewed the patient's lab results. 12/07/24 20:22 12/07/24 20:23 Labs: Lab Results 12/07/24 12/07/24 12/07/24 Range/Units 19:57 20:22 20:23 WBC 7.2 (4.8-10.8) X10*3/uL RBC 3.91 L (4.60-5.80) X10*6/uL Hgb 12.3 L (14.0-18.0) g/dl Hct 36.2 L (42.0-52.0) % MCV 92.6 (80.0-98.0) fL MCH 31.5 (27.0-33.0) pg MCHC 34.0 (31.0-36.0) g/dl RDW 13.9 (11.0-16.0) % Plt Count 250 (160-400) X10*3/uL MPV 9.5 (9.4-12.4) fL Immature Gran % (Auto) 0.3 (0.0-0.4) % Neut % (Auto) 55.5 (45-73) % Lymph % (Auto) 35.7 (20-40) % [place] % (Auto) 5.1 (2-11) % Eos % (Auto) 2.8 (0-4) % Baso % (Auto) 0.6 (0-2) % Lymph # (Auto) 2.6 (1.2-4.9) X10*3/uL [place] # (Auto) 0.4 (0.1-1.2) X10*3/uL Eos # (Auto) 0.2 (0.0-0.4) X10*3/uL Baso # (Auto) 0.0 (0.0-0.2) X10*3/uL Abs Immat Gran (auto) 0.02 (0.00-0.03) X10*3/uL Absolute Neuts (auto) 4.0 (2.0-8.3) x10*3/uL Absolute Nucleated RBC 0.000 (0.0-0.012) X10*3/uL Nucleated RBC % (auto) 0.0 (0.0-0.2) /100WBC Sodium 144 (135-145) mmol/L Potassium 3.9 (3.3-5.1) mmol/L Chloride 113 H (96-108) mmol/L Carbon Dioxide 21 L (22-29) mmol/L Anion Gap 14 (12-20) BUN 21 H (9-16) mg/dL Creatinine 1.16 (0.5-1.4) mg/dL Estim Creat Clear Calc 74.3 Estimated GFR > 60 Random Glucose 97 (60-115) mg/dL Calcium 8.9 D (8.4-10.2) mg/dL Total Bilirubin 0.1 (0.0-1.0) mg/dL AST 25 (5-37) U/L ALT 14 (0-40) U/L Alkaline Phosphatase 49 (39-117) U/L Total Protein 7.2 (6.5-8.0) g/dL Albumin 4.3 (3.5-5.0) g/dL Urine Color Yellow Urine Appearance Clear Urine pH 7.5 (5.0-9.0) Ur Specific [place] 1.020 (1.005-1.025) Urine Protein Negative (Neg-Trace) mg/dL Urine Glucose (UA) Negative (Negative) mg/dL Urine Ketones Trace (Negative) mg/dL Urine Blood Negative (Negative) Urine Nitrite Negative (Negative) Ur Leukocyte Esterase Negative (Negative) Salicylates < 5.0 L (15-30) mg/dL Urine Opiates Screen Not Detected (Not Detect) Ur Buprenorphine Scrn Not Detected (Not Detect) ng/mL Ur Oxycodone Screen Not Detected (Not Detect) ng/mL Urine Methadone Screen Not Detected (Not Detect) ng/mL Urine Fentanyl Screen Not Detected (Not Detect) Acetaminophen < 3 (<30) mcg/mL Ur Barbiturates Screen Not Detected (Not Detect) Valproic Acid 70.3 (50.0-100.0) mcg/mL Ur Phencyclidine Scrn Not Detected (Not Detect) Ur Amphetamines Screen Not Detected (Not Detect) U Benzodiazepines Scrn Not Detected (Not Detect) Urine Cocaine Screen Not Detected (Not Detect) U Marijuana (THC) Screen Not Detected (Not Detect) Ethyl Alcohol < 10 mg/dL Discharge Plan Discharge Clinical Impression: Schizoaffective disorder, bipolar type Patient Disposition: Home, Self-Care Prescriptions: No Action divalproex 250 mg tablet extended release 24 hr 1,250 mg PO BEDTIME acetaminophen 325 mg Tablet 650 mg PO DAILY PRN (Reason: Pain (Scale Score 1-3)) trazodone 50 mg Tablet 50 mg PO BEDTIME ibuprofen 400 mg Tablet 400 mg PO DAILY PRN (Reason: Pain (Scale Score 1-3)) clonazepam 1 mg Tablet 1 mg PO BID Qty: 60 0RF topiramate 25 mg Tablet 25 mg PO DAILY Qty: 25 0RF albuterol sulfate [Ventolin HFA] 90 mcg/actuation Hfa Aerosol Inhaler 2 puff inhalation RQ4H PRN (Reason: Shortness Of Breath) Qty: 6.7 0RF vitamin E (dl, acetate) 180 mg (400 unit) Capsule 180 mg PO DAILY Qty: 30 0RF ammonium lactate 12 % Lotion 1 appl TOPICAL DAILY PRN (Reason: Dry Skin) Qty: 30 0RF olanzapine [Zyprexa] 15 mg Tablet 15 mg PO BID Qty: 60 0RF fluoxetine 20 mg Capsule 20 mg PO DAILY Qty: 30 0RF Print Language: Kazakh
[2024-12-07 20:31] LABS: Hematocrit 36.2 % (42.0-52.0); Hemoglobin 12.3 g/dl (14.0-18.0); Imm Gran Abs Auto 0.02 X10*3/uL (0.00-0.03); Imm Gran Pct Auto 0.3 % (0.0-0.4); Lymphocytes Absolute Auto 2.6 X10*3/uL (1.2-4.9); MANUAL DIFF FLAG NO; Mean Corpuscular HGB Conc 34.0 g/dl (31.0-36.0); Mean Corpuscular Hemoglobin 31.5 pg (27.0-33.0); Mean Corpuscular Volume 92.6 fL (80.0-98.0); NRBC Abs Auto 0.000 X10*3/uL (0.0-0.012); NRBC Pct Auto 0.0 /100WBC (0.0-0.2); Platelet Count 250 X10*3/uL (160-400); Red Blood Count 3.91 X10*6/uL (4.60-5.80); White Blood Count 7.2 X10*3/uL (4.8-10.8)
[2024-12-07 20:36] LABS: Appearance Urine Clear; Glucose Urine UA Negative (Negative); PH 7.5 (5.0-9.0); Specific Gravity - Urine 1.020 (1.005-1.025)
[2024-12-07 20:47] LABS: Cannabinoid Screen Urine Not Detected (Not Detect)
[2024-12-07 20:48] LABS: Alanine Aminotransferase 14 U/L (0-40); Albumin Level 4.3 g/dL (3.5-5.0); Alkaline Phosphatase 49 U/L (39-117); Anion Gap 14 (12-20); Aspartate Amino Transferase 25 U/L (5-37); Blood Urea Nitrogen 21 mg/dL (9-16); Calcium 8.9 mg/dL (8.4-10.2); Carbon Dioxide 21 mmol/L (22-29); Chloride 113 mmol/L (96-108); Creatinine Clr Calc Pharmacy 74.3; Estimated Glomerular Filt Rate > 60; Potassium 3.9 mmol/L (3.3-5.1); Sodium 144 mmol/L (135-145); Total Protein 7.2 g/dL (6.5-8.0)
[2024-12-07 20:50] LABS: Acetaminophen LAB < 3 mcg/mL (<30); Salicylate < 5.0 mg/dL (15-30)
--- NOTE | 2024-12-07 20:54 | PC.NURSE ---
Addendum entered by Sherron Conrad RN 12/07/24 21:32: Pt cleared by care team to go back to senior care. Pt will be transported via lyft service. Original Note: Med rec complete using senior care current med list.
[2024-12-07 21:43] VITALS: BP 112/79; PULSE 89; RESP 18; TEMP 36.7; O2SAT 99
== END 2024-12-07 21:48 | disposition home or self-care (01) ==
PROVIDERS: Emergency Provider Student in an Organized Health Care Education/Training Program; PCP Internal Medicine
DX: F25.0 Schizoaffective disorder, bipolar type (principal); Z79.899 Other long term (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
CPT/HCPCS: 36415; 80053; 80143; 80164; 80179; 80307; 81003; 85025; 99284; S9485

== ENCOUNTER 2025-01-19 14:15 | Emergency (ER) | payer MEDICARE, MEDICAID, SELFPAY ==
[2025-01-19 14:28] VITALS: BP 120/80; BP 138/88; PULSE 84; PULSE 92; RESP 18; TEMP 36.3; O2SAT 99; BMI 23.7
[2025-01-19 14:36] VITALS: BP 120/80; PULSE 92; RESP 18; TEMP 36.3; O2SAT 99
--- NOTE | 2025-01-19 15:04 | ED_ITS ---
HPI - Psych General Chief Complaint: Psychiatric Symptoms Stated Complaint: from SNF increased agitated, calm cooperative Time Seen by Provider: 01/19/25 14:32 Source: patient and EMS Mode of arrival: EMS Limitations: no limitations History of Present Illness ED Provider: CLARA ATKINSON PA-C HPI Narrative: 59 year old male with pmhx significnat for bipolar disorder, schizophrenia, PTSD, cocaine use disorder, alcohol use disorder, SI presents to the ED today via EMS from for concern of aggressive behavior. Patient states that he asked another individual in the detention for a cigarette and when the individual decline to give him a cigarette, the patient became very anxious, throwing glass cups and stating that you wanted to harm himself. He states he does not know why he acted like this. He states in the moment that has how he felt however declines SI at this time. Denies HI. Denies AH/VH/TH. Denies illicit substance use or etoh consumption. Denies any physical complaints at present, states he feels well. Related Data Home Medications ?Medication ?Instructions ?Recorded ?Confirmed ibuprofen 400 mg tablet 400 mg PO DAILY PRN Pain (Sc casandra 07/17/24 01/19/25 Score 1-3) acetaminophen 325 mg tablet 650 mg PO DAILY PRN Pain ( Scale 11/25/24 01/19/25 Score 1-3) divalproex 250 mg tablet,extended 1,250 mg PO BEDTIME 11/25/24 01/19/25 release 24 hr trazodone 50 mg tablet 50 mg PO BEDTIME 11/25/24 Previous Rx's ?Medication ?Instructions ?Recorded albuterol sulfate 90 mcg/actuation 2 puff inhalation R Q4H PRN 08/16/24 aerosol inhaler (Ventolin HFA) Shortness Of Breath #6. 7 grams ammonium lactate 12 % lotion 1 appl topical DAILY PRN Dry Skin 08/16/24 #30 applicators clonazepam 1 mg tablet 1 mg PO BID #60 tabs 5 fluoxetine 20 mg capsule 20 mg PO DAILY #30 caps 07/21 12/13 olanzapine 15 mg tablet (Zyprexa) 15 mg PO BID #60 tab s 08/16/24 topiramate 25 mg tablet 25 mg PO DAILY #25 tabs 07/21 12/13 vitamin E (dl, acetate) 180 mg 180 mg PO DAILY #30 cap s 08/16/24 (400 unit) capsule Allergies Allergy/AdvReac Type Severity Reaction Status Date / Time No Known Allergies Allergy Mild NOT Verified 01/19/25 14:32 APPLICABLE Review of Systems 2 Review of Systems: Yes all other systems are reviewed and are negative [facility] Past Medical History Attestation statement: The following information was validated with the patient. Source: old records reviewed and nursing notes reviewed Medical History Schizoaffective disorder, bipolar type Cocaine use disorder Alcohol use disorder, severe, dependence PTSD (post-traumatic stress disorder) Chronic schizophrenia Depression Bipolar disorder Suicidal ideation Social History Social History Household Members: Other Household Members Other:: Pt resides in detention. Housing: Homeless Do you presently have visiting nurse or other home services: No Patient Tobacco Use Status: Current everyday Tobacco user Tobacco use type: Cigarette Cigarette Packs Per Day: 0.5 Cigarettes Per Day: 10.0 Substance Use Type: Crack/Cocaine Do you have a plan to hurt others: No Plan service: No Sexual orientation: Decline to Answer Physical Exam 2 Vital Signs: Vital Signs: Last Vital Signs Temp 97.3 F 01/19/25 16:43 Pulse 92 01/19/25 16:43 Resp 18 01/19/25 16:43 BP 120/80 01/19/25 16:43 Pulse Ox 99 01/19/25 14:36 O2 Del Method Room Air 01/19/25 14:36 BMI result Body Mass Index 23.7 vital signs stable General: Well appearing, in no acute distress. Skin: Warm, dry, intact. No rashes or lesions. Head: Normocephalic, atraumatic. EENT: Hearing is intact b/l. Conjunctiva clear. PERRLA. EOM intact. Moist mucous membranes.? Cardiac: Chest wall symmetric. RRR Lungs: Normal respiratory effort without accessory muscle use. CTA bilaterally Ext: Upper and lower extremities atraumatic, without tenderness, deformity, swelling or erythema Neuro: AOx3. Normal speech. CN 2-12 grossly intact. Ambulating with steady gait Course Course Course Narrative: 1550 -- CBC without leukocytosis or left shift. H&H stable. Chemistry without acute electrolyte abnormality requiring intervention. Renal function around baseline. Liver function WNL. Urine without infection. Urine toxicology undetectable. Ethanol undetectable. > at this time, patient is medically cleared for care team evaluation. Placed in physician observation. Reevaluation(s) Reevaluation #1: Ryan from care team has seen and cleared patient. she has spoken with detention and are aware he is returning. ryan will be arranging patient a lyft back. Patient has remained stable throughout ED visit today. Discussed worrisome signs and symptoms and when to return to the ED. All questions answered at this time. Patient is agreeable with disposition and stable for discharge. Medical Decision Making Medical Decision Making [facility] Narrative: 59 year old male with pmhx significnat for bipolar disorder, schizophrenia, PTSD, cocaine use disorder, alcohol use disorder, SI presents to the ED today via EMS from for concern of aggressive behavior. Differential diagnosis includes anemia, electrolyte abnormality, mood disorder, anxiety, depression, SI, polysubstance abuse Presentation not consistent with acute organic causes to include delirium, dementia or drug induced disorders (acute ingestions or withdrawal; no evidence of toxidrome).? Will consult care team to evaluate the patient. Will also obtain labs for medical clearance Differential Diagnosis Differential Diagnoses: The differential diagnosis associated with the presentation includes as above. Admission/Observation not indicated. Lab Data [facility] Lab Attestation statement: I reviewed the patient's lab results. as above. 01/19/25 15:08 01/19/25 15:08 Labs: Lab Results 01/19/25 Range/Units 15:08 WBC 7.8 (4.8-10.8) X10*3/uL RBC 4.40 L (4.60-5.80) X10*6/uL Hgb 14.1 (14.0-18.0) g/dl Hct 41.4 L (42.0-52.0) % MCV 94.1 (80.0-98.0) fL MCH 32.0 (27.0-33.0) pg MCHC 34.1 (31.0-36.0) g/dl RDW 13.4 (11.0-16.0) % Plt Count 211 (160-400) X10*3/uL MPV 9.9 (9.4-12.4) fL Immature Gran % (Auto) 0.3 (0.0-0.4) % Neut % (Auto) 52.9 (45-73) % Lymph % (Auto) 34.7 (20-40) % [place] % (Auto) 7.5 (2-11) % Eos % (Auto) 3.7 (0-4) % Baso % (Auto) 0.9 (0-2) % Lymph # (Auto) 2.7 (1.2-4.9) X10*3/uL [place] # (Auto) 0.6 (0.1-1.2) X10*3/uL Eos # (Auto) 0.3 (0.0-0.4) X10*3/uL Baso # (Auto) 0.1 (0.0-0.2) X10*3/uL Abs Immat Gran (auto) 0.02 (0.00-0.03) X10*3/uL Absolute Neuts (auto) 4.1 (2.0-8.3) x10*3/uL Absolute Nucleated RBC 0.000 (0.0-0.012) X10*3/uL Nucleated RBC % (auto) 0.0 (0.0-0.2) /100WBC Sodium 141 (135-145) mmol/L Potassium 4.0 (3.3-5.1) mmol/L Chloride 113 H (96-108) mmol/L Carbon Dioxide 22 (22-29) mmol/L Anion Gap 10 L (12-20) BUN 22 H (9-16) mg/dL Creatinine 1.00 (0.5-1.4) mg/dL Estim Creat Clear Calc 84.1 Estimated GFR > 60 Random Glucose 88 (60-115) mg/dL Calcium 8.6 (8.4-10.2) mg/dL Total Bilirubin 0.2 (0.0-1.0) mg/dL AST 22 (5-37) U/L ALT 20 (0-40) U/L Alkaline Phosphatase 53 (39-117) U/L Total Protein 7.5 (6.5-8.0) g/dL Albumin 4.3 (3.5-5.0) g/dL Urine Color Yellow Urine Appearance Clear Urine pH 8.0 (5.0-9.0) Ur Specific [place] 1.015 (1.005-1.025) Urine Protein Negative (Neg-Trace) mg/dL Urine Glucose (UA) Negative (Negative) mg/dL Urine Ketones Trace (Negative) mg/dL Urine Blood Negative (Negative) Urine Nitrite Negative (Negative) Ur Leukocyte Esterase Negative (Negative) Urine RBC 3-5 H (0-2) /HPF Urine WBC 0-5 (0-5) /HPF Ur Squamous Epith Cells 0-2 (0-2) /HPF Urine Bacteria None Seen (None Seen) Hyaline Casts 0-2 (0-2) /LPF Urine Opiates Screen Not Detected (Not Detect) Ur Buprenorphine Scrn Not Detected (Not Detect) ng/mL Ur Oxycodone Screen Not Detected (Not Detect) ng/mL Urine Methadone Screen Not Detected (Not Detect) ng/mL Urine Fentanyl Screen Not Detected (Not Detect) Ur Barbiturates Screen Not Detected (Not Detect) Ur Phencyclidine Scrn Not Detected (Not Detect) Ur Amphetamines Screen Not Detected (Not Detect) U Benzodiazepines Scrn Not Detected (Not Detect) Urine Cocaine Screen Not Detected (Not Detect) U Marijuana (THC) Screen Not Detected (Not Detect) Ethyl Alcohol < 10 mg/dL Independent Historian Clinical information obtained from an independent historian. History obtained from or confirmed by: EMS External Record Review External record reviewed: Inpatient record Chronic Conditions Patient?s care impacted by: Other (PTSD, bipolar disorder, schizophrenia) Social Determinants Patient?s care significantly limited by Social Determinants of Health including: Other Social Determinant of Health Critical Care Time Critical Care Time Critical Care Time: No Discharge Plan Discharge Clinical Impression: Schizoaffective disorder, bipolar type Patient Disposition: Home, Self-Care Instructions: Schizoaffective Disorder (ED) Additional Instructions: Workup today is reassuring. You have been seen and cleared by our care team. We will be arranging a lyft back to your detention. Return with any new or worsening symptoms. In the case of an emergency call 911. Prescriptions: No Action divalproex 250 mg tablet extended release 24 hr 1,250 mg PO BEDTIME acetaminophen 325 mg Tablet 650 mg PO DAILY PRN (Reason: Pain (Scale Score 1-3)) trazodone 50 mg Tablet 50 mg PO BEDTIME ibuprofen 400 mg Tablet 400 mg PO DAILY PRN (Reason: Pain (Scale Score 1-3)) clonazepam 1 mg Tablet 1 mg PO BID Qty: 60 0RF topiramate 25 mg Tablet 25 mg PO DAILY Qty: 25 0RF albuterol sulfate [Ventolin HFA] 90 mcg/actuation Hfa Aerosol Inhaler 2 puff inhalation RQ4H PRN (Reason: Shortness Of Breath) Qty: 6.7 0RF vitamin E (dl, acetate) 180 mg (400 unit) Capsule 180 mg PO DAILY Qty: 30 0RF ammonium lactate 12 % Lotion 1 appl TOPICAL DAILY PRN (Reason: Dry Skin) Qty: 30 0RF olanzapine [Zyprexa] 15 mg Tablet 15 mg PO BID Qty: 60 0RF fluoxetine 20 mg Capsule 20 mg PO DAILY Qty: 30 0RF Interventions: Daggett-Suicide Risk Severity Scale Last Done: 01/19/25 14:33 ED Discharge Assessment Last Done: 01/19/25 16:43 Print Language: Persian
[2025-01-19 15:15] LABS: Hematocrit 41.4 % (42.0-52.0); Hemoglobin 14.1 g/dl (14.0-18.0); Imm Gran Abs Auto 0.02 X10*3/uL (0.00-0.03); Imm Gran Pct Auto 0.3 % (0.0-0.4); Lymphocytes Absolute Auto 2.7 X10*3/uL (1.2-4.9); MANUAL DIFF FLAG NO; Mean Corpuscular HGB Conc 34.1 g/dl (31.0-36.0); Mean Corpuscular Hemoglobin 32.0 pg (27.0-33.0); Mean Corpuscular Volume 94.1 fL (80.0-98.0); NRBC Abs Auto 0.000 X10*3/uL (0.0-0.012); NRBC Pct Auto 0.0 /100WBC (0.0-0.2); Platelet Count 211 X10*3/uL (160-400); Red Blood Count 4.40 X10*6/uL (4.60-5.80); White Blood Count 7.8 X10*3/uL (4.8-10.8)
[2025-01-19 15:16] LABS: Appearance Urine Clear; Glucose Urine UA Negative (Negative); PH 8.0 (5.0-9.0); Specific Gravity - Urine 1.015 (1.005-1.025)
[2025-01-19 15:26] LABS: Cannabinoid Screen Urine Not Detected (Not Detect)
[2025-01-19 15:29] LABS: Alanine Aminotransferase 20 U/L (0-40); Albumin Level 4.3 g/dL (3.5-5.0); Alkaline Phosphatase 53 U/L (39-117); Anion Gap 10 (12-20); Aspartate Amino Transferase 22 U/L (5-37); Blood Urea Nitrogen 22 mg/dL (9-16); Calcium 8.6 mg/dL (8.4-10.2); Carbon Dioxide 22 mmol/L (22-29); Chloride 113 mmol/L (96-108); Creatinine Clr Calc Pharmacy 84.1; Estimated Glomerular Filt Rate > 60; Potassium 4.0 mmol/L (3.3-5.1); Sodium 141 mmol/L (135-145); Total Protein 7.5 g/dL (6.5-8.0)
[2025-01-19 16:43] VITALS: BP 120/80; PULSE 92; RESP 18; TEMP 36.3
[2025-01-19 16:56] VITALS: BP 120/80; PULSE 92; RESP 18; TEMP 36.3
--- OUTSIDE RECORDS SUMMARY | 2025-01-19 17:05 | XMS_ITS | Encounter Summary ---
Author Organization [facility] Address [address] [place] [address] Care Team Providers Care Superintendent Container Terminal Name Role Phone Physician, No Pcp Primary Care Provider Unavaila ble Encounter Details Date Type Department Care Team (Late st Contact Info) Description 12/18/2024 Lab Requisition [facility] [address] [facility] [place] [address] Jennifer Kwan [address] [place] [address] Other press tender long goods (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 Social History Tobacco Use [...] Procedure Name Priority Date/Time Associated Diagnosis Comments THYROID STIMULATING HORMONE WITH REFLEX TO FREE T4 AND FREE T3 Routine 12/18/2024 7:00 AM EDT Other press tender long goods (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 FREE THYROXINE WITH REFLEX TO FREE TRIIODOTHYRONINE Routine 12/18/2024 7:00 AM EDT Other halfway (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 VALPROIC ACID LEVEL, TOTAL Routine 12/18/2024 7:00 AM EDT Other halfway (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 COMPREHENSIVE METABOLIC PANEL Routine 12/18/2024 7:00 AM EDT Other halfway (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 documented in this encounter Results * Free thyroxine with reflex to free triiodothyronine (12/18/2024 7:00 AM EDT) Pathologist [facility] Free T4 1.39 0.70 - 1.80 ng/dL LAB CHEMISTRY METHOD 12/18/2024 5:26 PM EDT [facility] Blood Venous blood specimen / Unknown Venipuncture / Unknown 12/18/2024 7:00 AM EDT 12/18/2024 2:39 PM EDT [facility] BLOOD ORDERABLES Shanita l Result Performing Organization Address City/[facility]/ZIP Co de Phone Number [facility] [address] [place] [address], [place] [phone] * Valproic acid level, total (12/18/2024 7:00 AM EDT) [facility] Valproic Acid, Total 84 50 - 100 mcg/mL LAB CHEMISTRY METHOD 12/18/2024 4:10 PM EDT [facility] Blood Venous blood specimen / Unknown Venipuncture / Unknown 12/18/2024 7:00 AM EDT 12/18/2024 2:39 PM EDT [facility] LAB BLOOD ORDERABLES Shanita l Result [facility] [address] [place] [address], [place] [phone] * (ABNORMAL) Thyroid stimulating hormone with reflex to free t4 and free t3 (12/18/2024 7:00 AM EDT) [facility] TSH 4.99(H) 0.40 - 4.00 mcIU/mL LAB CHEMISTRY METHOD 12/18/2024 4:41 PM EDT [facility] Blood Venous blood specimen / Unknown Venipuncture / Unknown 12/18/2024 7:00 AM EDT 12/18/2024 2:39 PM EDT Jennifer Kwan LAB BLOOD ORDERABLES Shanita l Result [facility] [address] [place] [address], [place] [phone] * (ABNORMAL) Comprehensive metabolic panel (12/18/2024 7:00 AM EDT) Pathologist [facility] Sodium 140 133 - 145 mmol/L LAB CHEMISTRY METHOD 12/18/2024 4:10 PM EDT [facility] Potassium 4.4 3.5 - 5.5 mmol/L LAB CHEMISTRY METHOD 12/18/2024 4:10 PM EDT [facility] Comment:Hemolysis present Chloride 109 96 - 110 mmol/L LAB CHEMISTRY METHOD 12/18/2024 4:10 PM [facility] CO2 22 21 - 32 mmol/L LAB CHEMISTRY METHOD 12/18/2024 4:10 PM [facility] Anion Gap 9 3 - 11 LAB CHEMISTRY METHOD 12/18/2024 4:10 PM [facility] Glucose 43(L) 70 - 100 mg/dL LAB CHEMISTRY METHOD 12/18/2024 4:10 PM [facility] BUN 22 5 - 25 mg/dL LAB CHEMISTRY METHOD 12/18/2024 4:10 PM T [facility] Creatinine 0.89 0.70 - 1.30 mg/dL LAB CHEMISTRY METHOD 12/18/2024 4:10 PM [facility] eGFR 100 >=60 mL/min/1. 73m2 LAB CHEMISTRY METHOD 12/18/2024 4:10 PM [facility] Comment:Calculation based on the Chronic Kidney Disease Epidemiology Collaboration (CKD-EPI) equation refit without adjustment for race. BUN/Creatinine Ratio 24.7 LAB CHEMISTRY METHOD 12/18/2024 4:10 PM T [facility] Calcium 9.0 8.5 - 10.5 mg/dL LAB CHEMISTRY METHOD 12/18/2024 4:10 PM [facility] AST (SGOT) 30 10 - 42 unit/L LAB CHEMISTRY METHOD 12/18/2024 4:10 PM [facility] Comment:Hemolysis present ALT (SGPT) 44 10 - 60 unit/L LAB CHEMISTRY METHOD 12/18/2024 4:10 PM EDT [facility] Alkaline Phosphatase 62 42 - 121 unit/L LAB CHEMISTRY METHOD 12/18/2024 4:10 PM [facility] Total Protein 7.4 6.0 - 8.0 g/dL LAB CHEMISTRY METHOD 12/18/2024 4:10 PM [facility] Albumin 3.9 3.2 - 5.0 g/dL LAB CHEMISTRY METHOD 12/18/2024 4:10 PM [facility] Total Bilirubin 0.4 0.0 - 1.4 mg/dL LAB CHEMISTRY METHOD 12/18/2024 4:10 PM [facility] Blood Venous blood specimen / Unknown Venipuncture / Unknown 12/18/2024 7:00 AM EDT 12/18/2024 2:39 PM EDT us Jennifer Mantilla Ot[facility] LAB BLOOD ORDERABLES Shanita l Result [facility] [address] [place] [address], documented in this encounter Visit Diagnoses Diagnosis Other halfway (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 documented in this encounter Care Teams Superintendent Container Terminal Relationship Specialty Start Date End Date Physician, No Pcp PCP - General 03/14/24 documented as of this encounter
--- OUTSIDE RECORDS SUMMARY | 2025-01-19 17:05 | XMS_ITS | Encounter Summary ---
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 Social History Tobacco Use [...] PANEL WITH REFLEX TO DIRECT LDL Routine 12/11/2024 7:00 AM EDT 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 HDL 45 >=40 mg/dL LAB CHEMISTRY METHOD 12/11[facility]24 [facility] LDL Calculated 131(H) 0 - 100 mg/dL LAB CHEMISTRY METHOD 12/11/2024 10:58 AM EDT [facility] Comment:Estimated LDL Calcul ated using equation: Total cholesterol - HDL cholesterol - (Triglycerides/5) VLDL Cholesterol Von 33.8 mg/dL LAB CHEMISTRY METHOD 12/11/2024 10:[address] [facility] Non HDL Chol. (LDL+VLDL) 165(H) <145 mg/dL LAB CHEMISTRY METHOD 12/11/2024 10:[address] [facility] Chol/HDL Ratio 4.7(H) 0.0 - 4.4 LAB CHEMISTRY METHOD 12/11/2024 10:[address] [facility] Blood Venous blood specimen / Unknown Venipuncture / Unknown 12/11/2024 7:00 AM EDT 12/11/2024 9:36 AM EDT Jennifer Kwan LAB BLOOD ORDERABLES Shanita l Result [facility] [address] [place] [address], * Glucose, random (12/11/2024 7:00 AM EDT) Glucose 77 70 - 100 mg/dL LAB CHEMISTRY METHOD 12/11/2024 10:[address] [facility] Blood Venous blood specimen / Unknown Venipuncture / Unknown 12/11/2024 7:00 AM EDT 12/11/2024 9:36 AM EDT Jennifer Mantilla [employer] LAB BLOOD ORDERABLES Shanita l Result Performing Organization Address [facility]/ZIP Co de Phone Number [facility] [address] [place] [address], [place] [phone] * Hemoglobin A1c (12/11/2024 7:00 AM EDT) Hemoglobin A1C 5.7 <6.5 % LAB CHEMISTRY METHOD 12/12/2024 8:12 AM EDT [facility] Mean Bld Glu Estim. 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
--- OUTSIDE RECORDS SUMMARY | 2025-01-19 17:05 | XMS_ITS | Encounter Summary ---
Author Organization [employer] Address [address] [facility] 7t [place] [address] Care Team Providers Care Center Medical And Lab Director Name Role Phone Alison Valentine MD Primary Care Provider [phone] Reason for Visit * Reason Comments Med Refill Encounter Details Date Type Department Care Team ([facility] st Contact Info) Description 07/22/[address] [facility] CHC MED & PEDS [address] [place], [place] [phone] Alison Valentine MD [address] [place], [place] [phone] Acute pain of right shoulder Social History [...] Upcoming Encounters Date Type Department Care Team (Late st Contact Info) Description 01/26/2025 9:15 AM EDT Office Visit [facility] MED & PEDS [address] [place] [address] Alison Valentine MD [address] [place] [address] documented as of this encounter Visit Diagnoses Diagnosis Acute pain of right shoulder documented in this encounter Additional Health Concerns Assessment Noted Time PHQ-9 Depression Total Score: 4 09/24/19 23 8:42 AM EDT documented as of this encounter Care Teams Center Medical And Lab Director Relationship Specialty Start Date End Date Alison Valentine MD [address] [place] [address] PCP - General Internal Medicine 05/21/13 documented as of this encounter
--- OUTSIDE RECORDS SUMMARY | 2025-01-19 17:05 | XMS_ITS | Clinical Summary ---
Author Organization [employer] Address [address] [facility] 7[address] [place] [address] Care Team Providers Care Rescue Worker Name Role Phone Alison Valentine MD Primary Care Provider [phone] Allergies Active Allergy Reactions Criticality Noted Date Comments Lactose Other 09/12/2023 Nausea/vomiting/loose stools Medications * This document contains information received from the source organization and may not represent a complete record from that organization. Elastic Bandages & Supports (Medical Compression Socks) misc Active Ventolin HFA 108 (90 Base) MCG/ACT inhaler Inhale 1-2 puffs by mouth every 4-6 hours as needed; 2 hours prior to exercise 023 Active benztropine (Cogentin) 1 MG tablet Take [...] bedtime (nightly as needed). 90 capsule 1 023 Active divalproex (Depakote ER) 500 MG 24 hr tabletIndications: Chronic schizoaffective schizophrenia (CMS/HCC) (HCC) Do not crush, chew, or split. 4 tablets daily at bedtime 160 tablet 11 023 Active ammonium lactate (Amlactin) 12 % creamIndications:D ry skin dermatitis APPLY TOPICALLY DAILY IF NEEDED FOR DRY SKIN. 385 g 11 024 Active acetaminophen (Tylenol 8 Hour) 650 MG ER tabletIndications: Migraine with aura and without status migrainosus, not intractable Take 1 tablet (650 mg) by mouth if needed each day for mild pain. Do not crush, chew, or split. 30 tablet 2025 Active ibuprofen 400 MG tabletIndications: Migraine with aura and without status migrainosus, not intractable Take 1 tablet (400 mg) by mouth if needed each day for moderate pain. 30 tablet 2025 Active alpha tocopherol (Vitamin E) 400 units capsuleIndications :Vitamin E deficiency Take 1 capsule (400 Units) by mouth Once per day. 30 capsule 2025 Active nicotine polacrilex (Nicorette) 4 MG gumIndications:Smo clarisa addiction Chew 1 each (4 mg) if needed for smoking cessation. 100 each Active pantoprazole (ProtoNix) 40 MG EC tabletIndications: Gastroesophageal reflux disease without esophagitis TAKE 1 TABLET (40 MG) BY MOUTH ONCE PER DAY. 30 tablet Active cholecalciferol (Vitamin D-3) 10 MCG (400 UNIT) tablet Take 2 tablets by mouth Once per day. Active clonazePAM (KlonoPIN) 1 MG tablet Take 1 tablet by mouth 2 times daily. Active FLUoxetine (PROzac) 20 MG capsule Take 1 capsule by mouth Once per day. Active haloperidol (Haldol) 10 MG tablet Take 1 tablet by mouth at bedtime. Active haloperidol (Haldol) 5 MG tablet Take 1 tablet by mouth if needed in the morning and at bedtime for agitation. Active hydrOXYzine pamoate (Vistaril) 50 MG capsule Take 1 capsule by mouth 3 times daily. Active OLANZapine (ZyPREXA) 15 MG tablet Take 1 tablet by mouth 2 times daily. Active topiramate (Topamax) 25 MG tablet Take 50 mg by mouth Once per day. And 25 mg every evening Active naltrexone (Depade) 50 MG tablet Take 1 tablet by mouth 1 (one) time each day. 2024 Discontinued(M ed list cleanup (will not trigger notification to Pharmacy)) busPIRone (Buspar) 15 MG tablet Take 1 tablet by mouth 3 times daily. 023 2024 Discontinued(M ed list cleanup (will not trigger notification to Pharmacy)) gabapentin (Neurontin) 400 MG capsule Take 400 mg by mouth 3 times daily. 023 2024 Discontinued(M ed list cleanup (will not trigger notification to Pharmacy)) risperiDONE (RisperDAL) 4 MG tabletIndications: Chronic schizoaffective schizophrenia ([facility]) (HCC) 4 mg at bedtime 30 tablet 11 023 2024 Discontinued(M ed list cleanup (will not trigger notification to Pharmacy)) hydrOXYzine HCl (Atarax) 50 MG tablet Take 1 tablet by mouth if needed in the morning, at noon, in the evening, and at bedtime for anxiety. 024 2024 Discontinued(M ed list cleanup (will not trigger notification to Pharmacy)) OLANZapine (ZyPREXA) 5 MG tablet Take 1 tablet by mouth every 4 (four) hours if needed. 024 2024 Discontinued(M ed list cleanup (will not trigger notification to Pharmacy)) traZODone (Desyrel) 50 MG tablet Take 1 tablet by mouth if needed at bedtime for sleep. 024 2024 Discontinued(M ed list cleanup (will not trigger notification to Pharmacy)) pantoprazole (ProtoNix) 40 MG EC tabletIndications: Gastroesophageal reflux disease without esophagitis Take 1 tablet (40 mg) by mouth Once per day. 30 tablet 11 024 2024 Discontinued OLANZapine (ZyPREXA) 10 MG tablet Take 1 tablet by mouth 2 times daily. 024 2024 Discontinued(M ed list cleanup (will not trigger notification to Pharmacy)) Active Problems Problem Noted Date Diagnosed Date Schizoaffective disorder ([facility]) 09/10/2023 Macrocytic anemia 01/23/2017 Chronic schizoaffective schizophrenia ([facility]) 11/14/2011 Assessment & Plan (09/23/2022 9:46 AM EDT): Assessment: Edward is being seen for a HDF after [...] AA meeting, has a sponsor, and a control and recovery special tactics that comes to the house on Tuesdays. Bishnu has also signed up for anger management classes. He is currently connected to a therapist and psychiatrist thru [facility]. At this time Bishnu Yen meets criteria for Visit Diagnoses: Problem List Items Addressed This Visit Other Chronic schizoaffective schizophrenia ([facility]) Patient ready to address current needs Yes Strengths include independence PLAN: 1. Follow up with [facility]: Not recommended for follow-up 2. Patient goal is to continue to engage in substance abuse and behavioral health services 3. Behavioral Recommendations a. Patient will continue to engage in OP therapy b. Patient will comply with medication and psychiatric appointment c. Patient will continue to attend AA and meet with sponsor and recover learning coach d. Patient will engage in anger management class, once it begins Deep venous thrombosis of lower extremity 2011 Seizure (CMS/HCC) 11/14/2011 Encounters Date Type Department Care Team Description 01/19/2025 Telephone [facility] MED & PEDS [address] [place] [address] Alison Valentine MD Appointment Request 01/07/2025 Telephone [facility] MEDICINE [address] [place] [phone] Alison Valentine MD No Show 12/28/2024 Patient Outreach [facility] [address] [place] [address] Alison Valentine MD Transition Of Care (Tcm) (HDF scheduled) 12/28/2024 Telephone [facility] [address] [place] [address] Alison Valentine MD HDF 12/27/2024 Refill [facility] MED & PEDS [address] [place] [address] Alison Valentine MD Gastroesophageal reflux disease without esophagitis 12/16/2024 Telephone [facility] MED & PEDS [address] [place] [address] Alison Valentine MD Chart Prep 10/20/2024 Refill [facility] MED & PEDS [address] [place] [address] Alison Valentine MD from Last 3 Months Immunizations Immunization Administration Dates Next Due Influenza injectable quadriv alent IIV4 with preservative 02/23/2018 Influenza injectable quadriv alent preservative free 04/10/2023,01/15/2022,02/12/2021,03/21,01/23/2017 Influenza, IIV3, injectable 03/20/2010 Influenza, Split (incl. gaudencio fied surface antigen) 02/11/2013 Influenza, seasonal, injecta ble, preservative free 03/12/2016 Influenza, trivalent, adjuvanted 03/12/2016 Moderna Covid-19 Vaccine 12+ 08/29/2021,08/02/19 Pneumococcal Polysaccharide PPSV23 08/27/2020, Tdap 01/10/2024,10/01/2008 Zoster, Recombinant 12/17/2021 Social History Tobacco Use [...] Sign Reading Time Taken Comments Blood Pressure 103/63 10/13/2024 11:00 AM EDT Pulse 97 10/13/2024 11:00 AM EDT Temperature 36.8 C (98.3 F) 10/13/2024 11:00 AM EDT Respiratory Rate 20 10/13/2024 11:00 AM EDT Oxygen Saturation 95% 10/13/2024 11:00 AM EDT Inhaled Oxygen Concentration - - Weight 75.8 kg (167 lb) 10/13/2024 11:00 AM EDT Height 180.3 cm (5' 11 ) 10/13/2024 11:00 AM EDT Body Mass Index 23.29 10/13/2024 11:00 AM EDT Plan of Treatment Upcoming Encounters Date Type Department Care Team ([facility] st Contact Info) Description 01/26/2025 9:15 AM EDT Office Visit [facility] CHC MED & PEDS [address] [place] [address] Alison Valentine MD [address] [place] [address] Health Maintenance Due Date Last Done Comments CT Colonography 1967 Colonoscopy 1967 Colorectal Cancer Screening 1967 Dental Oral Exam 1967 Dental Prophylaxis 1967 Dental X-Ray: Bitewings 1967 Dental X-Ray: Full Mouth 1967 FIT DNA/Cologuard 1967 FIT 1967 FOBT 1967 Lipid Panel 1967 Sigmoidoscopy 1967 Disability Screening 1967 Alcohol/Substance Use Screening 1979 Lung Cancer Screening 2017 Zoster Vaccines (2 of 2) 02/11/2022 12/17/2021 Depression Screening 09/24/2023 09/23/2022, 09/24/19 23 SDOH Screening 10/06/2024 10/07/2023 COVID-19 Vaccine (3 - 2024- season) 2024 08/29/2021, 08/01/2021 Influenza Vaccine (#1) 2024 , 04/10/2023, 01/15/2022, Additional history exists HIV Screening 10/13/2025 Postponed from 1967 (Patient Refused) Hepatitis B Vaccines (1 of 3 - 19+ 3-dose series) 10/13/2025 Postponed from 1986 (Patient Refused) Hepatitis C Screening 10/13/2025 Postpo ajith from 1985 (Patient Refused) Pneumococcal Vaccine: 50+ Years (2 of 2 - PCV) 10/13/2025 08/27/2020, 11/01/2009 Postponed from 08/27/2021 (Patient Refused) Tobacco Screening 10/13/2025 10/13/2024 DTaP/Tdap/Td Vaccines (3 - Td or Tdap) 01/09/2034 01/10/2024, 10/01/2008 RSV Patients and Patients Aged 60 years [...] on patient's age to complete this topic Insurance MEDICARE [facility] Care Teams Rescue Worker Relationship Specialty Start Date End Date Alison Valentine MD [address] [place] [phone] PCP - General Internal Medicine 05/21/13
--- OUTSIDE RECORDS SUMMARY | 2025-01-19 17:05 | XMS_ITS | Encounter Summary ---
Author Organization [employer] Address [address] [facility] [address] [place] [address] Care Team Providers Care Palliative Care Specialist Name Role Phone Alison Valentine MD Primary Care Provider [phone] Reason for Visit * Reason Onset Date Comments Appointment Request 01/19/2025 Encounter Details Date Type Department Care Team ([facility] st Contact Info) Description 01/19/2025 Telephone [facility] CHC MED & PEDS [address] [place], [place] [phone] Alison Valentine MD [address] [place], [place] [phone] Appointment Request Social History Tobacco Use Types Packs/Day Years [...] AM EDT documented as of this encounter Miscellaneous Notes * Telephone Encounter - Jaquelin Avina RN - 01/19/2025 9:44 AM EDT TC to pt custodial to reschedule missed HDF. Rescheduled 01/27/25 and advised if pt cannot make it that custodial needs to call and reschedule or notify office. skilled nursing staff verbalized understanding and agreement with plan. documented in this encounter Plan of Treatment Upcoming Encounters Date Type Department Care Team (Late st Contact Info) Description 01/26/2025 9:15 AM EDT Office Visit [facility] CHC MED & PEDS [address] [place] [address] Alison Valentine MD [address] [place] [address] documented as of this encounter Visit Diagnoses Not on filedocumented in this encounter Additional Health Concerns Assessment Noted Time PHQ-9 Depression Total Score: 4 09/24/19 23 8:42 AM EDT documented as of this encounter Care Teams Palliative Care Specialist Relationship Specialty Start Date End Date Alison Valentine MD [address] [place] [address] PCP - General Internal Medicine 05/21/13 documented as of this encounter
--- OUTSIDE RECORDS SUMMARY | 2025-01-19 17:05 | XMS_ITS | Encounter Summary ---
Author Organization [employer] Address [address] [facility] [address] [place] [address] Care Team Providers Care Jewel Hole Rough Opener Name Role Phone Alison Valentine MD Primary Care Provider [phone] Encounter Details Date Type Department Care Team ([facility] Contact Info) Description 04/12/2022 Orders Only [facility] MEDICINE [address] [place] [address] Alison Valentine MD [address] [place] [address] Gastroesophageal reflux disease without esophagitis (Primary Dx) [...] Upcoming Encounters Date Type Department Care Team ([facility] Contact Info) Description 01/26/2025 9:15 AM EDT Office Visit [facility] CHC MED & PEDS [address] [place] [address] Alison Valenitne MD [address] [place] [address] documented as of this encounter Visit Diagnoses Diagnosis Gastroesophageal reflux disease without esophagitis- Primary Esophageal reflux documented in this encounter Care Teams Jewel Hole Rough Opener Relationship Specialty Start Date End Date Alison Valentine MD [address] [place] [address] PCP - General Internal Medicine 05/21/13 documented as of this encounter
--- OUTSIDE RECORDS SUMMARY | 2025-01-19 17:06 | XMS_ITS | Encounter Summary ---
Author Organization [facility] Address [address] [place] [address] Care Team Providers Care Charcoal Unloader Name Role Phone Physician, No Pcp Primary Care Provider Unavaila ble Encounter Details Date Type Department Care Team (Late st Contact Info) Description 04/28/[address] [facility] - Main Lab [address] [facility] [place] [address] Radha Damon NP [address] [place] [address] Other detention (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 Social History Tobacco Use [...] LDL Routine 04/28/2024 7:00 AM EST Other group underwriter (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 HEMOGLOBIN A1C Routine 04/28/2024 7:00 AM EST Other detention (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 VALPROIC ACID LEVEL, TOTAL Routine 04/28/2024 7:00 AM EST Other group underwriter (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 documented in this encounter Results * Valproic acid level, total (04/28/2024 7:00 AM EST) Valproic Acid, Total 91 50 - 100 mcg/mL LAB CHEMISTRY METHOD 04/28/2024 1:24 PM EST [facility] Blood Venous blood specimen / Unknown Venipuncture / Unknown 04/28/2024 7:00 AM EST 04/28/2024 12:15 PM EST us Radha Damon PRODUCTION SUPERVISOR TRAINEE LAB BLOOD ORDERABLES Fi nal Result [facility] [address] [place] [address], [place] [phone] * (ABNORMAL) Lipid panel with reflex to direct LDL (04/28/2024 7:00 AM EST) Cholesterol 201(H) 0 - 200 mg/dL LAB CHEMISTRY METHOD 04/28/2024 1:24 PM EST [facility] Triglycerides 116 0 - 150 [...] 04/28/2024 12:15 PM EST us Radha Damon PRODUCTION SUPERVISOR TRAINEE LAB BLOOD ORDERABLES Fi nal Result Performing Organization Address City/[facility]/ZIP Co de Phone Number [facility] [address] [place] [address], [place] [phone] * Hemoglobin A1c (04/28/2024 7:00 AM EST) Hemoglobin A1C 5.2 <6.5 % LAB CHEMISTRY METHOD 04/28/2024 3:37 PM EST [facility] Mean Bld Glu Estim. 103 mg/dL LAB CHEMISTRY METHOD 04/28/2024 3:37 PM EST [facility] Blood Venous blood specimen / Unknown Venipuncture / Unknown 04/28/2024 7:00 AM EST 04/28/2024 12:15 PM EST Radha Damon PRODUCTION SUPERVISOR TRAINEE LAB BLOOD ORDERABLES Fi nal Result Performing Organization Address [facility]/ZIP Co de Phone Number [facility] [address] [place] [address], [place] [phone] documented in this encounter Visit Diagnoses Diagnosis Other detention (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 documented in this encounter Care Teams Charcoal Unloader Relationship Specialty Start Date End Date Physician, No Pcp PCP - General 03/14/24 documented as of this encounter
--- OUTSIDE RECORDS SUMMARY | 2025-01-19 17:06 | XMS_ITS | Encounter Summary ---
Author Organization [facility] Address [address] [place] [address] Care Team Providers Care Medicine And Health Service Manager Name Role Phone Physician, No Pcp Primary Care Provider Unavaila ble Encounter Details Date Type Department Care Team (Late st Contact Info) Description 05/28/2024 Lab Requisition [facility] - Main Lab [address] [facility] [place] [address] Radha Damon NP [address] [place] [address] Social History Tobacco Use Types [...] on filedocumented in this encounter Care Teams Medicine And Health Service Manager Relationship Specialty Start Date End Date Physician, No Pcp PCP - General 03/14/24 documented as of this encounter
--- OUTSIDE RECORDS SUMMARY | 2025-01-19 17:06 | XMS_ITS | Encounter Summary ---
Author Organization [employer] Address [address] [facility] 7[address] [place] [address] Care Team Providers Care Fine Arts Packer Name Role Phone Alison Valentine MD Primary Care Provider [phone] Reason for Visit * Reason Comments Med Refill Encounter Details Date Type Department Care Team ([facility] st Contact Info) Description 10/20/2024 Refill [facility] CHC MED & PEDS [address] [place], [place] [phone] Alison Valentine MD [address] [place], [place] [phone] Social History Tobacco Use Types Packs/Day Years [...] Description 01/26/2025 9:15 AM EDT Office Visit [facility] CHC MED & PEDS [address] [place] [address] Alison Valentine MD [address] [place] [address] documented as of this encounter Visit Diagnoses Not on filedocumented in this encounter Additional Health Concerns Assessment Noted Time PHQ-9 Depression Total Score: 4 09/24/19 23 8:42 AM EDT documented as of this encounter Care Teams Fine Arts Packer Relationship Specialty Start Date End Date Alison Valentine MD [address] [place] [address] PCP - General Internal Medicine 05/21/13 documented as of this encounter
--- OUTSIDE RECORDS SUMMARY | 2025-01-19 17:06 | XMS_ITS | Clinical Summary ---
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 Name Role Phone Physician, No Pcp Primary Care Provider Unavaila ble Allergies Active Allergy Reactions Criticality Noted Date Comments Lactose Other 09/12/2023 Nausea/vomiting/loose stools Encounters Date Type Department Care Team Description 12/18/2024 Lab Requisition [facility] [address] [place] [phone] OtJennifer brooks [facility] 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 12/11/2024 Lab Requisition [facility] [address] [place] [phone] Otchere, Jennifer Carolour 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 from Last 3 Months Medical History Medical History Date Comments Bipolar 1 disorder ([facility] V24, [facility] V28) Depression [facility]izoaffect[facility] disorder [place] [place], [facility] V 28) Social History Tobacco Use Types [...] Health Maintenance Due Date Last Done Comments Colorectal Cancer Screening: Colonoscopy 1967 Hepatitis B Vaccines (1 of 3 - 19+ 3-dose series) 1986 Pneumococcal Vaccine: 50+ Years (2 of 2 - PCV) 08/27/2021 08/27/2020, 11/01/2009 Zoster Vaccines (2 of 2) 02/11/2022 12/17/2021 HIV Screening 03/24/2022 Hepatitis C Screening 03/24/2022 Medicare Annual Wellness Visit 03/24/2022 Social Influencers of Health Screening 03/24/2022 Depression Screening 04/21/2024 COVID-19 Vaccine ( - season) 2024 08/29/2021, 08/01/2021 Influenza Vaccine (#1) 2024 , 01/15/2022, 02/12/2021, Additional history exists Hypertension/CHF/CAD Annual BMP Blood Test 12/18/2025 12/18/2024, 03/14/2024 Cholesterol Screening (Lipid Panel) 12/11/2029 12/11/2024, 04/28/2024, 09/10/2023 DTaP,Tdap,and Td Vaccines (3 - Td or Tdap) 01/09/2034 01/10/2024, 10/01/2008 RSV Immunization Adult Patients (1 - 1-dose 75+ series) 2042 HIB [...] Procedure Name Priority Date/Time Associated Diagnosis Comments FREE THYROXINE WITH REFLEX TO FREE TRIIODOTHYRONINE Routine 12/18/2024 7:00 AM EDT 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 VALPROIC ACID LEVEL, TOTAL Routine 12/18/2024 7:00 AM EDT 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 THYROID STIMULATING HORMONE WITH REFLEX TO FREE T4 AND FREE T3 Routine 12/18/2024 7:00 AM EDT 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 COMPREHENSIVE METABOLIC PANEL Routine 12/18/2024 7:00 AM EDT Other 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 LIPID PANEL WITH REFLEX TO DIRECT LDL Routine 12/11/2024 7:00 AM EDT 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 ([facility]) [facility] Blood Venous blood specimen / Unknown Venipuncture / Unknown 12/18/2024 7:00 AM EDT 12/18/2024 2:39 PM EDT [facility] LAB BLOOD ORDERABLES Shanita l Result Performing Organization Address [facility]/ZIP Co de Phone Number [facility] [address] [place] [address], [place] [phone] * Free thyroxine with reflex to free triiodothyronine (12/18/2024 7:00 AM EDT) [facility] Free T4 1.39 0.70 - 1.80 ng/dL LAB CHEMISTRY METHOD 12/18/2024 5:26 PM EDT [facility] Blood Venous blood specimen / Unknown Venipuncture / Unknown 12/18/2024 7:00 AM EDT 12/18/2024 2:39 PM EDT [facility] LAB BLOOD ORDERABLES Shanita l Result Performing Organization Address [facility] Co de Phone Number [facility] [address] [place] [address], [place] [phone] * Valproic acid level, total (12/18/2024 7:00 AM EDT) [facility] Valproic Acid, Total 84 50 - 100 mcg/mL LAB CHEMISTRY METHOD 12/18/2024 4:10 PM EDT [facility] Blood Venous blood specimen / Unknown Venipuncture / Unknown 12/18/2024 7:00 AM EDT 12/18/2024 2:39 PM EDT [facility] LAB BLOOD ORDERABLES Shanita l Result Performing Organization Address City/[facility]/ZIP Co de Phone Number [facility] [address] [place] [address], [place] [phone] * (ABNORMAL) Comprehensive metabolic panel (12/18/2024 7:00 AM EDT) [facility] Sodium 140 133 - 145 mmol/L LAB CHEMISTRY METHOD 12/18/2024 4:10 PM [facility] Potassium 4.4 3.5 - 5.5 mmol/L LAB CHEMISTRY METHOD 12/18/2024 4:10 PM [facility] Comment:Hemolysis present Chloride 109 96 - 110 mmol/L LAB CHEMISTRY METHOD 12/18/2024 4:10 PM [facility] CO2 22 21 - 32 mmol/L LAB CHEMISTRY METHOD 12/18/2024 4:10 PM [facility] Anion Gap 9 3 - 11 LAB CHEMISTRY METHOD 12/18/2024 4:10 PM [facility] Glucose 43(L) 70 - 100 mg/dL LAB CHEMISTRY METHOD 12/18/2024 4:10 PM [facility] BUN 22 5 - 25 mg/dL LAB CHEMISTRY METHOD 12/18/2024 4:10 PM [facility] Creatinine 0.89 0.70 - 1.30 mg/dL LAB CHEMISTRY METHOD 12/18/2024 4:10 PM [facility] eGFR 100 >=60 mL/min/1. 73m2 LAB CHEMISTRY METHOD 12/18/2024 4:10 PM [facility] Comment:Calculation based on the Chronic Kidney Disease Epidemiology Collaboration (CKD-EPI) equation refit without adjustment for race. BUN/Creatinine Ratio 24.7 LAB CHEMISTRY METHOD 12/18/2024 4:10 PM [facility] Calcium 9.0 8.5 - 10.5 mg/dL LAB CHEMISTRY METHOD 12/18/2024 4:10 PM [facility] AST (SGOT) 30 10 - 42 unit/L LAB CHEMISTRY METHOD 12/18/2024 4:10 PM [facility] Comment:Hemolysis present ALT (SGPT) 44 10 - 60 unit/L LAB CHEMISTRY METHOD 12/18/2024 4:10 PM [facility] Alkaline Phosphatase 62 42 - 121 unit/L LAB CHEMISTRY METHOD 12/18/2024 4:10 PM EDT [facility] Total Protein 7.4 6.0 - 8.0 g/dL LAB CHEMISTRY METHOD 12/18/2024 4:10 PM EDT [facility] Albumin 3.9 3.2 - 5.0 g/dL LAB CHEMISTRY METHOD 12/18/2024 4:10 PM EDT [facility] Total Bilirubin 0.4 0.0 - 1.4 mg/dL LAB CHEMISTRY METHOD 12/18/2024 4:10 PM EDT [facility] Blood Venous blood specimen / Unknown Venipuncture / Unknown 12/18/2024 7:00 AM EDT 12/18/2024 2:39 PM EDT Jennifer Carolsantosh Otcher LAB BLOOD ORDERABLES Shanita l Result [facility] [address] [place] [address], * (ABNORMAL) Lipid panel with reflex to direct LDL (12/11/2024 7:00 AM EDT) Cholesterol 210(H) 0 - 200 mg/dL LAB CHEMISTRY METHOD 12/11/2024 10:58 AM EDT [facility] Triglycerides 169(H) 0 - 150 mg/dL LAB CHEMISTRY METHOD 12/11/2024 10:58 AM EDT [facility] HDL 45 >=40 mg/dL LAB CHEMISTRY METHOD 12/11/2024 10:58 AM EDT [facility] LDL Calculated 131(H) 0 - 100 mg/dL LAB CHEMISTRY METHOD 12/11/2024 10:58 AM EDT [facility] Comment:Estimated LDL Calcul ated using equation: Total cholesterol - HDL cholesterol - (Triglycerides/5) VLDL Cholesterol Von 33.8 mg/dL LAB CHEMISTRY METHOD 12/11/2024 10:58 AM EDT [facility] Non HDL Chol. (LDL+VLDL) 165(H) <145 mg/dL LAB CHEMISTRY METHOD 12/11/2024 10:58 AM EDT [facility] Chol/HDL Ratio 4.7(H) 0.0 - 4.4 LAB CHEMISTRY METHOD 12/11/2024 10:58 AM EDT [facility] Blood Venous blood specimen / Unknown Venipuncture / Unknown 12/11/2024 7:00 AM EDT 12/11/2024 9:36 AM EDT [facility] BLOOD ORDERABLES Shanita l Result Performing Organization Address City/[facility]/ZIP Co de Phone Number [facility] [address] [place] [address], [place] [phone] * Hemoglobin A1c (12/11/2024 7:00 AM EDT) Hemoglobin A1C 5.7 <6.5 % LAB CHEMISTRY METHOD 12/12/2024 8:12 AM EDT [facility] Mean Bld Glu Estim. 117 mg/dL LAB CHEMISTRY METHOD 12/12/2024 8:12 AM EDT [facility] Blood Venous blood specimen / Unknown Venipuncture / Unknown 12/11/2024 7:00 AM EDT 12/11/2024 9:36 AM EDT [facility] LAB BLOOD ORDERABLES Shanita l Result [facility] [address] [place] [address], [place] [phone] * Glucose, random (12/11/2024 7:00 AM EDT) Glucose 77 70 - 100 mg/dL LAB CHEMISTRY METHOD 12/11/2024 10:58 AM EDT [facility] Blood Venous blood specimen / Unknown Venipuncture / Unknown 12/11/2024 7:00 AM EDT 12/11/2024 9:36 AM EDT us Jennifer Mantilla Otchere LAB BLOOD ORDERABLES Shanita l Result [facility] ([facility]) [facility] [address] [place] [address], from Last 3 Months Insurance MEDICARE MEDICAID - [place] Advance Directives Documents on File Type Date Recorded Patient Building Coordinator Expl anation Health Care Decision (hx) 04/17/2017 [...] (hx) 04/17/2017 AD WOLF DIRECTIVE Care Teams Hand Roller Engraver Relationship Specialty Start Date End Date Physician, No Pcp PCP - General 03/14/24
== END 2025-01-19 17:39 | disposition home or self-care (01) ==
LOC: HO.ED 17:04
PROVIDERS: Physician Assistant Medical; Emergency Provider Emergency Medicine; PCP Internal Medicine
DX: F25.9 Schizoaffective disorder, unspecified (principal); F31.9 Bipolar disorder, unspecified
CPT/HCPCS: 36415; 80053; 80307; 81001; 85025; 99283; 99285; S9485

== ENCOUNTER 2025-02-09 12:55 | Emergency (ER) | payer MEDICARE, MEDICAID, SELFPAY ==
--- NOTE | 2025-02-09 12:58 | ED_ITS ---
HPI - General Adult General Chief complaint: Psychiatric Symptoms Stated complaint: Anxious, Depressed, SI w/ plan of cutting throat Time Seen by Provider: 02/09/25 12:58 Source: patient and EMS Mode of arrival: EMS Limitations: no limitations History of Present Illness ED Provider: Brittney Madden PA-C HPI narrative: Patient is a 60 year old assigned male at with a history of anxiety and schizoaffective disorder (bipolar type) presenting to the emergency department today with suicidal ideation with a plan to slit his throat, increased depression, and increased anxiety. Patient states that he is feeling particularly anxious and he had a thought of killing himself by slitting his throat with a knife so his jail recommended he come to the hospital. Patient denies any other complaints at this time. Related Data Home Medications ?Medication ?Instructions ?Recorded ?Confirmed ibuprofen 400 mg tablet 400 mg PO DAILY PRN Pain (Sc casandra 07/17/24 02/09/25 Score 1-3) acetaminophen 325 mg tablet 650 mg PO DAILY PRN Pain ( Scale 11/25/24 02/09/25 Score 1-3) divalproex 250 mg tablet,extended 1,250 mg PO BEDTIME 11/25/24 02/09/25 release 24 hr trazodone 50 mg tablet 50 mg PO BEDTIME 11/25/24 Previous Rx's ?Medication ?Instructions ?Recorded albuterol sulfate 90 mcg/actuation 2 puff inhalation R Q4H PRN 08/16/24 aerosol inhaler (Ventolin HFA) Shortness Of Breath #6. 7 grams ammonium lactate 12 % lotion 1 appl topical DAILY PRN Dry Skin 08/16/24 #30 applicators clonazepam 1 mg tablet 1 mg PO BID #60 tabs 5 fluoxetine 20 mg capsule 20 mg PO DAILY #30 caps 07/21 12/13 olanzapine 15 mg tablet (Zyprexa) 15 mg PO BID #60 tab s 08/16/24 topiramate 25 mg tablet 25 mg PO DAILY #25 tabs 07/21 12/13 vitamin E (dl, acetate) 180 mg 180 mg PO DAILY #30 cap s 08/16/24 (400 unit) capsule Allergies Allergy/AdvReac Type Severity Reaction Status Date / Time No Known Allergies Allergy Mild NOT Verified 02/09/25 13:22 APPLICABLE Review of Systems 2 Constitutional: Constitutional: Reports as per HPI Eyes: Eyes: Reports as per HPI ENT: Reports as per HPI Cardiovascular: Cardiovascular: Reports as per HPI Respiratory: Respiratory: Reports as per HPI Gastrointestinal: Gastrointestinal: Reports as per HPI Genitourinary: Genitourinary: Reports as per HPI Musculoskeletal: Musculoskeletal: Reports as per HPI Integumentary/Breasts: Skin/Breast: Reports as per HPI Neurologic: Reports as per HPI Psychiatric: Psychiatric: Reports as per HPI Endocrine: Endocrine: Reports as per HPI Hematologic/Lymphatic: Hematologic/Lymphatic: Reports as per HPI Allergic/Immunologic: Allergic/Immunologic: Reports as per HPI [facility] Past Medical History Attestation statement: The following information was validated with the patient. Source: old records reviewed and nursing notes reviewed Medical History Schizoaffective disorder, bipolar type Cocaine use disorder Alcohol use disorder, severe, dependence PTSD (post-traumatic stress disorder) Chronic schizophrenia Depression Bipolar disorder Suicidal ideation Social History Social History Household Members: Other Household Members Other:: Pt resides in jail. Housing: Homeless Do you presently have visiting nurse or other home services: No Unable to assess alcohol history related to: Unknown Patient Tobacco Use Status: Current everyday Tobacco user Tobacco use type: Cigarette Cigarette Packs Per Day: 0.5 Cigarettes Per Day: 10.0 Substance Use Type: Crack/Cocaine Advance Directives: No Advance Directives Information Provided: Yes Do you have a plan to hurt others: No Plan service: No Sexual orientation: Decline to Answer Physical Exam ED Vital Signs: Vital Signs - 24 hr 02/09/25 13:27 Temperature 97.9 F Pulse Rate 92 Respiratory Rate 18 Blood Pressure 103/68 Pulse Oximetry 97 Oxygen Delivery Method Room Air BMI result Body Mass Index 27.3 Const General: cooperative, no acute distress, alert and awake Nutritional Appearance: well nourished Orientation/consciousness: patient oriented x3 HENMT Head: Yes normal to inspection and Yes atraumatic Ears: hearing grossly normal bilaterally and external ears normal General nose exam: Normal external nose present, no nasal discharge noted and no epistaxis Face and sinus: Yes normal facial exam, No abrasion and No laceration Mouth: Normal oral and palatal mucosa present, no drooling and no muffled voice Eyes General: appearance normal, both eyes and all related structures Periorbital: periorbital findings normal Eyelids: Yes eyelids normal Conjunctivae: conjunctivae normal Pupils: Equal, round and reactive pupils present EOM: EOMs intact bilaterally Neck Neck: Yes normal visual inspection and Yes full ROM Resp Effort & Inspection: normal respiratory effort and able to speak in complete sentences Neuro General: patient oriented x3, moves all extremities and CN's II-XI intact bilaterally Cranial nerves: Yes Equal, round and reactive pupils present Cognition (Neuro): normal cognition Extrem General: Yes normal to inspection, Yes full ROM and Yes capillary refill normal Psych Appearance: grossly normal Mental Status: mental status grossly normal Affect: normal affect Attitude: cooperative Medical Decision Making Medical Decision Making MDM Narrative: Patient is a 60 year old assigned male at with a history of anxiety and schizoaffective disorder (bipolar type) presenting to the emergency department today with increased anxiety. Patient's physical exam was as noted in the physical exam portion of this note. Patient's blood work was unremarkable. Patient's urine showed no acute process. Patient's EKG was unremarkable. Patient was evaluated by the CARE team who determined the patient was safe to be discharged back to his jail stating this is a regular presentation for the patient and he is now timbo with safety and declining any thoughts of hurting himself or others. I explained my physical exam findings as well as all test results to the patient. I answered all questions asked by the patient. I stressed the importance of the patient taking his medication as directed (either prescribed or as the over the counter packaging recommends). I stressed the importance of the patient following up with his primary care provider. I stressed the importance of the patient returning to the emergency department immediately if his symptoms were to worsen or if he were to develop any thoughts of hurting himself, thoughts of hurting others, dizziness, shortness of breath, difficulty breathing, chest pain, blurry vision, loss of vision, nausea, vomiting, abdominal pain, fever, chills, back pain, or any other complaints. Patient verbalized agreement and understanding with this treatment plan and discharge. Differential Diagnosis Differential Diagnoses: The differential diagnosis associated with the presentation includes Suicidal ideation Anxiety Admission/Observation Consideration of admission/observation: Escalation of care including admission/observation considered Patient would have been admitted to the hospital had his work up had any findings where hospital admission was appropriate and his] clinical presentation warranted hospital admission. Consult Healthcare Provider Management of the patient was discussed with: Behavioral Health Provider (spoke with the CARE team as noted in the MDM Rationale portion of this note. ) Lab Data [facility] Lab Attestation statement: I reviewed the patient's lab results. My interpretation of these results are in the MDM Rationale portion of this note. 02/09/25 14:39 02/09/25 14:39 Labs: Lab Results 02/09/25 02/09/25 Range/Units 13:16 14:39 WBC 8.8 (4.8-10.8) X10*3/uL RBC 4.27 L (4.60-5.80) X10*6/uL Hgb 13.7 L (14.0-18.0) g/dl Hct 41.1 L (42.0-52.0) % MCV 96.3 (80.0-98.0) fL MCH 32.1 (27.0-33.0) pg MCHC 33.3 (31.0-36.0) g/dl RDW 13.2 (11.0-16.0) % Plt Count 209 (160-400) X10*3/uL MPV 10.0 (9.4-12.4) fL Immature Gran % (Auto) 0.2 (0.0-0.4) % Neut % (Auto) 64.3 (45-73) % Lymph % (Auto) 26.0 (20-40) % [place] % (Auto) 5.7 (2-11) % Eos % (Auto) 3.1 (0-4) % Baso % (Auto) 0.7 (0-2) % Lymph # (Auto) 2.3 (1.2-4.9) X10*3/uL [place] # (Auto) 0.5 (0.1-1.2) X10*3/uL Eos # (Auto) 0.3 (0.0-0.4) X10*3/uL Baso # (Auto) 0.1 (0.0-0.2) X10*3/uL Abs Immat Gran (auto) 0.02 (0.00-0.03) X10*3/uL Absolute Neuts (auto) 5.7 (2.0-8.3) x10*3/uL Absolute Nucleated RBC 0.000 (0.0-0.012) X10*3/uL Nucleated RBC % (auto) 0.0 (0.0-0.2) /100WBC Sodium 143 (135-145) mmol/L Potassium 3.9 (3.3-5.1) mmol/L Chloride 111 H (96-108) mmol/L Carbon Dioxide 24 (22-29) mmol/L Anion Gap 12 (12-20) BUN 27 H (9-16) mg/dL Creatinine 1.03 (0.5-1.4) mg/dL Estim Creat Clear Calc 78.1 Estimated GFR > 60 Random Glucose 105 (60-115) mg/dL Calcium 9.6 D (8.4-10.2) mg/dL Total Bilirubin 0.2 (0.0-1.0) mg/dL AST 31 (5-37) U/L ALT 31 (0-40) U/L Alkaline Phosphatase 53 (39-117) U/L Total Protein 7.4 (6.5-8.0) g/dL Albumin 4.3 (3.5-5.0) g/dL Urine Color Yellow Urine Appearance Clear Urine pH 6.5 (5.0-9.0) Ur Specific Capac 1.020 (1.005-1.025) Urine Protein Negative (Neg-Trace) mg/dL Urine Glucose (UA) Negative (Negative) mg/dL Urine Ketones Trace (Negative) mg/dL Urine Blood Negative (Negative) Urine Nitrite Negative (Negative) Ur Leukocyte Esterase Negative (Negative) Salicylates < 5.0 L (15-30) mg/dL Urine Opiates Screen Not Detected (Not Detect) Ur Buprenorphine Scrn Not Detected (Not Detect) ng/mL Ur Oxycodone Screen Not Detected (Not Detect) ng/mL Urine Methadone Screen Not Detected (Not Detect) ng/mL Urine Fentanyl Screen Not Detected (Not Detect) Acetaminophen < 3 (<30) mcg/mL Ur Barbiturates Screen Not Detected (Not Detect) Ur Phencyclidine Scrn Not Detected (Not Detect) Ur Amphetamines Screen Not Detected (Not Detect) U Benzodiazepines Scrn Not Detected (Not Detect) Urine Cocaine Screen Not Detected (Not Detect) U Marijuana (THC) Screen Not Detected (Not Detect) Ethyl Alcohol < 10 mg/dL COVID-19 (ZOILA) Negative (Negative) COVID-19 Clin Com See Note Independent Interpretation I performed an independent interpretation of an: EKG Interpretation: I independently interpreted this EKG and am in agreement with the below findings: Reason for Exam: medical clearance Vent. Rate: 79 BPM Atrial Rate: 79 BPM P-R Int: 144 ms QRS Dur: 94 ms QT Int: 372 ms P-R-T Axes: 55 56 51 degrees QTcB Int: 426 ms Normal sinus rhythm Normal ECG When compared with ECG of 28-Jul-2024 12:42, No significant change was found DD/ [id number] Independent Historian Clinical information obtained from an independent historian. History obtained from or confirmed by: EMS (EMS provided additional history and confirmed the history provided by the patient. ) Critical Care Time Critical Care Time Critical Care Time: Yes Total Critical Care Time: 32 Attestation: I spent 32 minutes of Critical Care Time with this patient. This does not include time spent on separately reported billable procedures. Discharge Plan Discharge Clinical Impression: Anxiety Patient Disposition: Xfer Other Transfer Details: Back to jail Instructions: Anxiety (ED) Additional Instructions: IF you are prescribed home medications and/or you are taking over the counter medications at home - it is very important you continue to do so as prescribed / directed unless told otherwise. Follow up with your primary care provider. Return to the emergency department immediately if your symptoms worsen or if you develop any numbness, tingling, dizziness, shortness of breath, difficulty breathing, chest pain, blurry vision, loss of vision, nausea, vomiting, abdominal pain, fever, chills, back pain, or any other complaints. Please see the information below about our Patient Portal. If you are not yet enrolled in the [facility] Patient Portal, you will receive an enrollment email invitation following your visit to any [facility] setting. You may also self-enroll in the Patient Portal by visiting our website: [email or web address] The following information is required to access the Patient Portal: - Your [facility] Medical Record Number - Your personal home email address (must match what is in your electronic medical record, Registration staff can assist with this) - Name - Date of Capabilities of the Patient Portal: - Message some providers - View upcoming appointments - Access your health summary, medical history, and visit history - View current conditions and allergies - View procedure and lab results - View your medications, including guidelines, side effects, and precautions - Complete pre-appointment questionnaires requested by your provider - Ready summary reports of your office visits and procedures To access the Patient Portal Mobile Sara, follow these directions: - Search [employer] Display in the Sara Store or [employer] Store - Download the Sara - Search for [facility] - Enter your login/password Prescriptions: No Action divalproex 250 mg tablet extended release 24 hr 1,250 mg PO BEDTIME acetaminophen 325 mg Tablet 650 mg PO DAILY PRN (Reason: Pain (Scale Score 1-3)) trazodone 50 mg Tablet 50 mg PO BEDTIME ibuprofen 400 mg Tablet 400 mg PO DAILY PRN (Reason: Pain (Scale Score 1-3)) clonazepam 1 mg Tablet 1 mg PO BID Qty: 60 0RF topiramate 25 mg Tablet 25 mg PO DAILY Qty: 25 0RF albuterol sulfate [Ventolin HFA] 90 mcg/actuation Hfa Aerosol Inhaler 2 puff inhalation RQ4H PRN (Reason: Shortness Of Breath) Qty: 6.7 0RF vitamin E (dl, acetate) 180 mg (400 unit) Capsule 180 mg PO DAILY Qty: 30 0RF ammonium lactate 12 % Lotion 1 appl TOPICAL DAILY PRN (Reason: Dry Skin) Qty: 30 0RF olanzapine [Zyprexa] 15 mg Tablet 15 mg PO BID Qty: 60 0RF fluoxetine 20 mg Capsule 20 mg PO DAILY Qty: 30 0RF Referrals: Alison Valentine MD [Primary Care Provider, Medical] Interventions: Murphy-Suicide Risk Severity Scale Last Done: 02/09/25 13:22 Print Language: Greek
--- NOTE | 2025-02-09 12:59 | ECG_ITS ---
Test Reason : MEDICAL CLEARANCE Blood Pressure : */* mmHG Vent. Rate : 79 BPM Atrial Rate : 79 BPM P-R Int : 144 ms QRS Dur : 94 ms QT Int : 372 ms P-R-T Axes : 55 56 51 degrees QTcB Int : 426 ms Normal sinus rhythm Normal ECG When compared with ECG of 28-Jul-2024 12:42, No significant change was found Referred By: Brittney Madden Electronically Signed By: SHAYLA KEENE MD
--- NOTE | 2025-02-09 13:10 | MHC.EDTECH ---
Belongings secured in [employer] #7 1 bag only
[2025-02-09 13:19] VITALS: BP 140/90; PULSE 104; O2SAT 96; BMI 27.3
[2025-02-09 13:27] VITALS: BP 103/68; PULSE 92; RESP 18; TEMP 36.6; O2SAT 97
[2025-02-09 13:27] LABS: Appearance Urine Clear; Glucose Urine UA Negative (Negative); PH 6.5 (5.0-9.0); Specific Gravity - Urine 1.020 (1.005-1.025)
[2025-02-09 13:38] LABS: Cannabinoid Screen Urine Not Detected (Not Detect)
[2025-02-09 14:48] LABS: MANUAL DIFF FLAG NO
[2025-02-09 14:49] LABS: Hematocrit 41.1 % (42.0-52.0); Hemoglobin 13.7 g/dl (14.0-18.0); Imm Gran Abs Auto 0.02 X10*3/uL (0.00-0.03); Imm Gran Pct Auto 0.2 % (0.0-0.4); Lymphocytes Absolute Auto 2.3 X10*3/uL (1.2-4.9); Mean Corpuscular HGB Conc 33.3 g/dl (31.0-36.0); Mean Corpuscular Hemoglobin 32.1 pg (27.0-33.0); Mean Corpuscular Volume 96.3 fL (80.0-98.0); NRBC Abs Auto 0.000 X10*3/uL (0.0-0.012); NRBC Pct Auto 0.0 /100WBC (0.0-0.2); Platelet Count 209 X10*3/uL (160-400); Red Blood Count 4.27 X10*6/uL (4.60-5.80); White Blood Count 8.8 X10*3/uL (4.8-10.8)
[2025-02-09 15:05] LABS: Acetaminophen LAB < 3 mcg/mL (<30); Alanine Aminotransferase 31 U/L (0-40); Albumin Level 4.3 g/dL (3.5-5.0); Alkaline Phosphatase 53 U/L (39-117); Anion Gap 12 (12-20); Aspartate Amino Transferase 31 U/L (5-37); Blood Urea Nitrogen 27 mg/dL (9-16); Calcium 9.6 mg/dL (8.4-10.2); Carbon Dioxide 24 mmol/L (22-29); Chloride 111 mmol/L (96-108); Creatinine Clr Calc Pharmacy 78.1; Estimated Glomerular Filt Rate > 60; Potassium 3.9 mmol/L (3.3-5.1); Salicylate < 5.0 mg/dL (15-30); Sodium 143 mmol/L (135-145); Total Protein 7.4 g/dL (6.5-8.0)
[2025-02-09 15:09] LABS: COVID-19 Test Negative (Negative); IDNOW Serial# 55D5AD1C
--- OUTSIDE RECORDS SUMMARY | 2025-02-09 19:44 | XMS_ITS | Encounter Summary ---
Author Organization [facility] Address [address] [place] [address] Care Team Providers Care Modern Languages Professor Name Role Phone Physician, No Pcp Primary Care Provider Unavaila ble Encounter Details Date Type Department Care Team (Late st Contact Info) Description 12/18/2024 Lab Requisition [facility] - Main Lab [address] [facility] [place] [address] Jennifer Kwan [address] [place] [address] Other rn long term care (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 Social History Tobacco Use [...] T3 Routine 12/18/2024 7:00 AM EDT Other assisted (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 FREE THYROXINE WITH REFLEX TO FREE TRIIODOTHYRONINE Routine 12/18/2024 7:00 AM EDT Other assisted (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 VALPROIC ACID LEVEL, TOTAL Routine 12/18/2024 7:00 AM EDT Other rn long term care (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 COMPREHENSIVE METABOLIC PANEL Routine 12/18/2024 7:00 AM EDT Other rn long term care (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 documented in this encounter Results * Free thyroxine with reflex to free triiodothyronine (12/18/2024 7:00 AM EDT) Pathologist [facility] Free T4 1.39 0.70 - 1.80 ng/dL LAB CHEMISTRY METHOD 12/18/2024 5:26 PM EDT [facility] Blood Venous blood specimen / Unknown Venipuncture / Unknown 12/18/2024 7:00 AM EDT 12/18/2024 2:39 PM EDT [facility] [place] LAB BLOOD ORDERABLES Shanita l Result Performing Organization Address City/[facility]/ZIP Co de Phone Number [facility] [address] [place] [address], [place] [phone] * Valproic acid level, total (12/18/2024 7:00 AM EDT) [facility] Valproic Acid, Total 84 50 - 100 mcg/mL LAB CHEMISTRY METHOD 12/18/2024 4:10 PM EDT [facility] Blood Venous blood specimen / Unknown Venipuncture / Unknown 12/18/2024 7:00 AM EDT 12/18/2024 2:39 PM EDT [facility] LAB BLOOD ORDERABLES Shanita l Result [facility] [address] [place] [address], [place] [phone] * (ABNORMAL) Thyroid stimulating hormone with reflex to free t4 and free t3 (12/18/2024 7:00 AM EDT) [facility] TSH 4.99(H) 0.40 - 4.00 mcIU/mL LAB CHEMISTRY METHOD 12/18/2024 4:41 PM EDT [facility] Blood Venous blood specimen / Unknown Venipuncture / Unknown 12/18/2024 7:00 AM EDT 12/18/2024 2:39 PM EDT Jennifer Kwan LAB BLOOD ORDERABLES Shanita l Result [facility] [address] [place] [address], [place] [phone] * (ABNORMAL) Comprehensive metabolic panel (12/18/2024 7:00 AM EDT) Pathologist [facility] Sodium 140 133 - 145 mmol/L LAB CHEMISTRY METHOD 12/18/2024 4:10 PM EDT [facility] Potassium 4.4 3.5 - 5.5 mmol/L LAB CHEMISTRY METHOD 12/18/2024 4:10 PM EDT [facility] Comment:Hemolysis present Chloride 109 96 - 110 mmol/L LAB CHEMISTRY METHOD 12/18/2024 4:10 PM [facility] CO2 22 21 - 32 mmol/L LAB CHEMISTRY METHOD 12/18/2024 4:10 PM [facility] Anion Gap 9 3 - 11 LAB CHEMISTRY METHOD 12/18/2024 4:10 PM [facility] Glucose 43(L) 70 - 100 mg/dL LAB CHEMISTRY METHOD 12/18/2024 4:10 PM [facility] BUN 22 5 - 25 mg/dL LAB CHEMISTRY METHOD 12/18/2024 4:10 PM T [facility] Creatinine 0.89 0.70 - 1.30 mg/dL LAB CHEMISTRY METHOD 12/18/2024 4:10 PM [facility] eGFR 100 >=60 mL/min/1. 73m2 LAB CHEMISTRY METHOD 12/18/2024 4:10 PM [facility] Comment:Calculation based on the Chronic Kidney Disease Epidemiology Collaboration (CKD-EPI) equation refit without adjustment for race. BUN/Creatinine Ratio 24.7 LAB CHEMISTRY METHOD 12/18/2024 4:10 PM T [facility] Calcium 9.0 8.5 - 10.5 mg/dL LAB CHEMISTRY METHOD 12/18/2024 4:10 PM [facility] AST (SGOT) 30 10 - 42 unit/L LAB CHEMISTRY METHOD 12/18/2024 4:10 PM [facility] Comment:Hemolysis present ALT (SGPT) 44 10 - 60 unit/L LAB CHEMISTRY METHOD 12/18/2024 4:10 PM EDT [facility] Alkaline Phosphatase 62 42 - 121 unit/L LAB CHEMISTRY METHOD 12/18/2024 4:10 PM [facility] Total Protein 7.4 6.0 - 8.0 g/dL LAB CHEMISTRY METHOD 12/18/2024 4:10 PM [facility] Albumin 3.9 3.2 - 5.0 g/dL LAB CHEMISTRY METHOD 12/18/2024 4:10 PM [facility] Total Bilirubin 0.4 0.0 - 1.4 mg/dL LAB CHEMISTRY METHOD 12/18/2024 4:10 PM [facility] Blood Venous blood specimen / Unknown Venipuncture / Unknown 12/18/2024 7:00 AM EDT 12/18/2024 2:39 PM EDT us Jennifer Mantilla Otchere LAB BLOOD ORDERABLES Shanita l Result [facility] [address] [place] [address], documented in this encounter Visit Diagnoses Diagnosis Other rn long term care (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 documented in this encounter Care Teams Modern Languages Professor Relationship Specialty Start Date End Date Physician, No Pcp PCP - General 03/14/24 documented as of this encounter
--- OUTSIDE RECORDS SUMMARY | 2025-02-09 19:44 | XMS_ITS | Encounter Summary ---
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 [...] LDL Routine 04/28/2024 7:00 AM EST Other intermediate (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 HEMOGLOBIN A1C Routine 04/28/2024 7:00 AM EST 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 VALPROIC ACID LEVEL, TOTAL Routine 04/28/2024 7:00 AM EST Other intermediate (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 documented in this encounter Results * Valproic acid level, total (04/28/2024 7:00 AM EST) Valproic Acid, Total 91 50 - 100 mcg/mL LAB CHEMISTRY METHOD 04/28/2024 1:24 PM EST [facility] Blood Venous blood specimen / Unknown Venipuncture / Unknown 04/28/2024 7:00 AM EST 04/28/2024 12:15 PM EST us Radha Damon [employer] LAB BLOOD ORDERABLES Fi nal Result [facility] [address] [place] [address], [place] [phone] * (ABNORMAL) Lipid panel with reflex to direct LDL (04/28/2024 7:00 AM EST) Cholesterol 201(H) 0 - 200 mg/dL LAB CHEMISTRY METHOD 04/28/2024 1:24 PM EST [facility] Triglycerides 116 0 - 150 mg/dL LAB CHEMISTRY METHOD 04/28/2024 1:24 PM [facility] HDL 47 >=40 mg/dL LAB CHEMISTRY METHOD 04/28/2024 1:24 PM [facility] LDL Calculated 131(H) 0 - 100 mg/dL LAB CHEMISTRY METHOD 04/28/2024 1:24 PM [facility] VLDL Cholesterol Von 23.2 mg/dL LAB CHEMISTRY METHOD 04/28/2024 1:24 PM [facility] Non HDL Chol. (LDL+VLDL) 154(H) <145 mg/dL LAB CHEMISTRY METHOD 04/28/2024 1:24 PM [facility] Chol/HDL Ratio 4.3 0.0 - 4.4 LAB CHEMISTRY METHOD 04/28/2024 1:24 PM [facility] Blood Venous blood specimen / Unknown Venipuncture / Unknown 04/28/2024 7:00 AM EST 04/28/2024 12:15 PM EST us Radha Damon [employer]SEM[employer] LAB BLOOD ORDERABLES Fi nal Result Performing Organization Address City/[facility]/ZIP Co de Phone Number [facility] [address] [place] [address], [place] [phone] * Hemoglobin A1c (04/28/2024 7:00 AM EST) Hemoglobin A1C 5.2 <6.5 % LAB CHEMISTRY METHOD 04/28/2024 3:37 PM EST [facility] Mean Bld Glu Estim. 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
--- OUTSIDE RECORDS SUMMARY | 2025-02-09 19:44 | XMS_ITS | Encounter Summary ---
Author Organization [employer] Address [address] [facility] 7t [place] [address] Care Team Providers Care Differential Specialist Name Role Phone Alison Valentine MD Primary Care Provider [phone]- [phone] Reason for Visit * Reason Comments Med Refill Encounter Details Date Type Department Care Team ([facility] st Contact Info) Description 07/22/2023 Refill [facility] CHC MED & PEDS [address] [place], [place] [phone] Alison Valentine MD [address] [place], [place] [phone] Acute pain of right shoulder Social History [...] documented as of this encounter Care Teams Differential Specialist Relationship Specialty Start Date End Date Alison Valentine MD [address] [place] [id number] PCP - General Internal Medicine 05/21/13 documented as of this encounter
--- OUTSIDE RECORDS SUMMARY | 2025-02-09 19:44 | XMS_ITS | Encounter Summary ---
Author Organization [employer] Address [address] [facility] 7 [place] [address] Care Team Providers Care Car Supervisor Name Role Phone Alison Valentine MD Primary Care Provider [phone] Encounter Details Date Type Department Care Team (Late st Contact Info) Description 04/12/2022 Orders Only [facility] [address] [place] [address] Alison Valentine MD [address] [place], [place] [phone] Gastroesophageal reflux disease without esophagitis (Primary Dx) [...] reflux documented in this encounter Care Teams Car Supervisor Relationship Specialty Start Date End Date Alison Valentine MD [address] [place], [place] [phone] PCP - General Internal Medicine 05/21/13 documented as of this encounter
--- OUTSIDE RECORDS SUMMARY | 2025-02-09 19:44 | XMS_ITS | Clinical Summary ---
Author Organization [facility] Address [address] [place] [address] Phone Care Team Providers Care Software Sales Manager Name Role Phone Physician, No Pcp Primary Care Provider Unavaila ble Allergies Active Allergy Reactions Criticality Noted Date Comments Lactose Other 09/12/2023 Nausea/vomiting/loose stools Encounters Date Type Department Care Team Description 12/18/2024 Lab Requisition [facility] Lab [address] [place] [phone] OtJennifer brooks Other longterm (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 12/11/2024 Lab Requisition [facility] Lab [address] [place] [phone] Otchere, Jennifer Carolour Other longterm (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 from Last 3 Months Medical History Medical History Date Comments Bipolar 1 disorder ([facility] V24, [facility] V28) Depression Schizoaffective disorder ([facility] V24, [facility] V 28) Social History Tobacco Use Types [...] of 3 - 19+ 3-dose series) 1986 RSV Immunization Adult Patients (1 - Risk 50-74 years 1-dose series) 2017 Pneumococcal Vaccine: 50+ Years (2 of 2 - PCV) 08/27/2021 08/27/2020, 11/01/2009 Zoster Vaccines (2 of 2) 02/11/2022 12/17/2021 HIV Screening 03/24/2022 Hepatitis C Screening 03/24/2022 Lung Cancer Screening (Low Dose CT) 03/24/2022 Medicare Annual Wellness Visit 03/24/2022 Social Influencers of Health Screening 03/24/2022 Depression Screening 04/21/2024 COVID-19 Vaccine (2024- season) 2024 08/29/2021, 08/01/2021 Influenza Vaccine (#1) [...] TRIIODOTHYRONINE Routine 12/18/2024 7:00 AM EDT Other longterm (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 VALPROIC ACID LEVEL, TOTAL Routine 12/18/2024 7:00 AM EDT Other longterm (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 THYROID STIMULATING HORMONE WITH REFLEX TO FREE T4 AND FREE T3 Routine 12/18/2024 7:00 AM EDT Other longterm (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 COMPREHENSIVE METABOLIC PANEL Routine 12/18/2024 7:00 AM EDT Other longterm (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 LIPID PANEL WITH REFLEX TO DIRECT LDL Routine 12/11/2024 7:00 AM EDT Other longterm (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 GLUCOSE, RANDOM Routine 12/11/2024 7:00 AM EDT Other rn long term care (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 HEMOGLOBIN A1C Routine 12/11/2024 7:00 AM EDT Other longterm (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 from Last 3 Months Results * (ABNORMAL) Thyroid stimulating hormone with reflex to free t4 and free t3 (12/18/2024 7:00 AM EDT) [facility] Signature TSH 4.99(H) 0.40 - 4.00 mcIU/mL LAB CHEMISTRY METHOD 12/18/2024 4:[address] [facility] Blood Venous blood specimen / Unknown Venipuncture / Unknown 12/18/2024 7:00 AM EDT 12/18/2024 2:39 PM EDT [facility] LAB BLOOD ORDERABLES Shanita l Result Performing Organization Address City/[facility]/ZIP Co de Phone Number [facility] [address] [place] [address], [place] [phone] * Free thyroxine with reflex to free triiodothyronine (12/18/2024 7:00 AM EDT) [facility] Free T4 1.39 0.70 - 1.80 ng/dL LAB CHEMISTRY METHOD 12/18/2024 5:[address] [facility] Blood Venous blood specimen / Unknown Venipuncture / Unknown 12/18/2024 7:00 AM EDT 12/18/2024 2:39 PM EDT [facility] LAB BLOOD ORDERABLES Shanita l Result Performing Organization Address [facility] Co de Phone Number [facility] [address] [place] [address], [place] [phone] * Valproic acid level, total (12/18/2024 7:00 AM EDT) [facility] Valproic Acid, Total 84 50 - 100 mcg/mL LAB CHEMISTRY METHOD 12/18/2024 4:[address] [facility] Blood Venous blood specimen / Unknown Venipuncture / Unknown 12/18/2024 7:00 AM EDT 12/18/2024 2:39 PM EDT [facility] LAB BLOOD ORDERABLES Shanita l Result Performing Organization Address City/[facility]/ZIP Co de Phone Number [facility] [address] [place] [address], [place] [phone] * (ABNORMAL) Comprehensive metabolic panel (12/18/2024 7:00 AM EDT) [facility] Sodium 140 133 - 145 mmol/L LAB CHEMISTRY METHOD 12/18/2024 4:10 PM [facility] Potassium 4.4 3.5 - 5.5 mmol/L LAB CHEMISTRY METHOD 12/18/2024 4:10 PM [facility] Comment:Hemolysis present Chloride 109 96 [...] 12/18/2024 4:10 PM [facility] Creatinine 0.89 0.70 - 1.30 mg/dL LAB CHEMISTRY METHOD 12/18/2024 4:10 PM [facility] eGFR 100 >=60 mL/min/1. 73m2 LAB CHEMISTRY METHOD 12/18/2024 4:10 PM [facility] Comment:Calculation based on the Chronic Kidney Disease Epidemiology Collaboration (CKD-EPI) equation refit without adjustment for race. BUN/Creatinine Ratio 24.7 LAB CHEMISTRY METHOD 12/18/2024 4:10 PM [facility] Calcium 9.0 8.5 - 10.5 mg/dL LAB CHEMISTRY METHOD 12/18/2024 4:10 PM [facility] AST (SGOT) 30 10 - 42 unit/L LAB CHEMISTRY METHOD 12/18/2024 4:10 PM [facility] Comment:Hemolysis present ALT (SGPT) 44 10 - 60 unit/L LAB CHEMISTRY METHOD 12/18/2024 4:10 PM [facility] Alkaline Phosphatase 62 42 - 121 unit/L LAB CHEMISTRY METHOD 12/18/2024 4:[address] [facility] Total Protein 7.4 6.0 - 8.0 g/dL LAB CHEMISTRY METHOD 12/18/2024 4:[address] [facility] Albumin 3.9 3.2 - 5.0 g/dL LAB CHEMISTRY METHOD 12/18/2024 4:[address] [facility] Total Bilirubin 0.4 0.0 - 1.4 mg/dL LAB CHEMISTRY METHOD 12/18/2024 4:[address] [facility] Blood Venous blood specimen / Unknown Venipuncture / Unknown 12/18/2024 7:00 AM EDT 12/18/2024 2:39 PM EDT Jennifer Mantilla [facility] LAB BLOOD ORDERABLES Shanita l Result [facility] [address] [place] [address], [place] [phone] * (ABNORMAL) Lipid panel with reflex to direct LDL (12/11/2024 7:00 AM EDT) Cholesterol 210(H) 0 - 200 mg/dL LAB CHEMISTRY METHOD 12/11/2024 10:[address] [facility] Triglycerides 169(H) 0 - 150 mg/dL LAB CHEMISTRY METHOD 12/11/2024 10:[address] [facility] HDL 45 >=40 mg/dL LAB CHEMISTRY METHOD 12/11/2024 10:[address] [facility] LDL Calculated 131(H) 0 - 100 mg/dL LAB CHEMISTRY METHOD 12/11/2024 10:[address] [facility] Comment:Estimated LDL Calcul ated using equation: Total cholesterol - HDL cholesterol - (Triglycerides/5) VLDL Cholesterol Von 33.8 mg/dL LAB CHEMISTRY METHOD 12/11/2024 10:[address] [facility] Non HDL Chol. (LDL+VLDL) 165(H) <145 mg/dL LAB CHEMISTRY METHOD 12/11/2024 10:[address] [facility] Chol/HDL Ratio 4.7(H) 0.0 - 4.4 LAB CHEMISTRY METHOD 12/11/2024 10:[address] [facility] Blood Venous blood specimen / Unknown Venipuncture / Unknown 12/11/2024 7:00 AM EDT 12/11/2024 9:36 AM EDT [facility] LAB BLOOD ORDERABLES Shanita l Result Performing Organization Address [facility]/ZIP Co de Phone Number [facility] [address] [place] [address], [place] [phone] * Hemoglobin A1c (12/11/2024 7:00 AM EDT) Hemoglobin A1C 5.7 <6.5 % LAB CHEMISTRY METHOD 12/12/2024 8:[address] [facility] Mean Bld Glu Estim. 117 mg/dL LAB CHEMISTRY METHOD 12/12/2024 8:[address] [facility] Blood Venous blood specimen / Unknown Venipuncture / Unknown 12/11/2024 7:00 AM EDT 12/11/2024 9:36 AM EDT [facility] [employer] LAB BLOOD ORDERABLES Shanita l Result [facility] [address] [place] [address], [place] [phone] * Glucose, random (12/11/2024 7:00 AM EDT) Glucose 77 70 - 100 mg/dL LAB CHEMISTRY METHOD 12/11/2024 10:[address] [facility] Blood Venous blood specimen / Unknown Venipuncture / Unknown 12/11/2024 7:00 AM EDT 12/11/2024 9:36 AM EDT us Jennifer Mantilla Otchere LAB BLOOD ORDERABLES Shanita l Result [facility] [address] [place] [address], from Last 3 Months Insurance MEDICARE [place]ICA[place] - [place] Advance Directives Documents on File Type Date Recorded Patient Signs And Displays Salesperson Expl anation Health Care Decision (hx) 04/17/2017 [...] (hx) 04/17/2017 AD WOLF DIRECTIVE Care Teams Software Sales Manager Relationship Specialty Start Date End Date Physician, No Pcp PCP - General 03/14/24
--- OUTSIDE RECORDS SUMMARY | 2025-02-09 19:44 | XMS_ITS | Encounter Summary ---
Author Organization [facility] Address [address] [place] [address] Care Team Providers Care Infant Nanny Name Role Phone Physician, No Pcp Primary Care Provider Unavaila ble Encounter Details Date Type Department Care Team (Late st Contact Info) Description 12/11/[address] [facility] - Main Lab [address] [facility] [place] [address] Jennifer Kwan [address] [place] [address] Other terminal supervisor (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 Social History Tobacco Use [...] LDL Routine 12/11/2024 7:00 AM EDT Other terminal supervisor (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 HEMOGLOBIN A1C Routine 12/11/2024 7:00 AM EDT Other nursing home (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 GLUCOSE, RANDOM Routine 12/11/2024 7:00 AM EDT Other nursing home (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 documented in this encounter Results * (ABNORMAL) Lipid panel with reflex to direct LDL (12/11/2024 7:00 AM EDT) Cholesterol 210(H) 0 - 200 mg/dL LAB CHEMISTRY METHOD 12/11[facility]2024 10:[facility] Triglycerides 169(H) 0 - 150 mg/dL LAB CHEMISTRY METHOD 12/11/2024 10:58 AM [facility] HDL 45 >=40 mg/dL LAB CHEMISTRY METHOD 12/11/2024 10:58 [facility] LDL Calculated 131(H) 0 - 100 mg/dL LAB CHEMISTRY METHOD 12/11/2024 10:58 AM EDT [facility] Comment:Estimated LDL Calcul ated using equation: Total cholesterol - HDL cholesterol - (Triglycerides/5) VLDL Cholesterol Von 33.8 mg/dL LAB CHEMISTRY METHOD 12/11/2024 10:58 AM [facility] Non HDL Chol. (LDL+VLDL) 165(H) <145 mg/dL LAB CHEMISTRY METHOD 12/11/2024 10:58 AM [facility] Chol/HDL Ratio 4.7(H) 0.0 - 4.4 LAB CHEMISTRY METHOD 12/11/2024 10:58 AM [facility] Blood Venous blood specimen / Unknown Venipuncture / Unknown 12/11/2024 7:00 AM EDT 12/11/2024 9:36 AM EDT Jennifer Kwan LAB BLOOD ORDERABLES Shanita l Result [facility] [address] [place] [address], * Glucose, random (12/11/2024 7:00 AM EDT) Glucose 77 70 - 100 mg/dL LAB CHEMISTRY METHOD 12/11/2024 10:58 AM [facility] Blood Venous blood specimen / Unknown Venipuncture / Unknown 12/11/2024 7:00 AM EDT 12/11/2024 9:36 AM EDT Jennifer Mantilla Otchere LAB BLOOD ORDERABLES Shanita l Result Performing Organization Address [facility]/ZIP Co de Phone Number [facility] [address] [place] [address], [place] [phone] * Hemoglobin A1c (12/11/2024 7:00 AM EDT) Hemoglobin A1C 5.7 <6.5 % LAB CHEMISTRY METHOD 12/12/2024 8:12 AM EDT [facility] Mean Bld Glu Estim. 117 mg/dL LAB CHEMISTRY METHOD 12/12/2024 8:12 AM EDT [facility] Blood Venous blood specimen / Unknown Venipuncture / Unknown 12/11/2024 7:00 AM EDT 12/11/2024 9:36 AM EDT Jennifer Mantilla [facility] LAB BLOOD ORDERABLES Shanita l Result [facility] [address] [place] [address], [place] [phone] documented in this encounter Visit Diagnoses Diagnosis Other nursing home (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 documented in this encounter Care Teams Infant Nanny Relationship Specialty Start Date End Date Physician, No Pcp PCP - General 03/14/24 documented as of this encounter
--- OUTSIDE RECORDS SUMMARY | 2025-02-09 19:44 | XMS_ITS | Encounter Summary ---
Author Organization [employer] Address [address] [facility] 7t [place] [address] Care Team Providers Care Iron Caster Name Role Phone Alison Valentine MD Primary Care Provider [phone] Reason for Visit * Reason Comments Med Refill Encounter Details Date Type Department Care Team ([facility] st Contact Info) Description 10/20/2024 Refill [facility] CHC MED & PEDS [address] [place], [place] [phone] Alison Valentine MD [address] [place], [place] [phone] Social History Tobacco Use Types Packs/Day Years [...] documented as of this encounter Care Teams Iron Caster Relationship Specialty Start Date End Date Alison Valentine MD [address] [place] [address] PCP - General Internal Medicine 05/21/13 documented as of this encounter
--- OUTSIDE RECORDS SUMMARY | 2025-02-09 19:44 | XMS_ITS | Encounter Summary ---
Author Organization [facility] Address [address] [place] [address] Care Team Providers Care Lithographic Stripper Name Role Phone Physician, No Pcp Primary Care Provider Unavaila ble Encounter Details Date Type Department Care Team (Late st Contact Info) Description 05/28/2024 Lab Requisition [facility] - Main Lab [address] [facility] [place] [address] Radha Damon NP [address] [place] [address] Social History Tobacco Use Types [...] on filedocumented in this encounter Care Teams Lithographic Stripper Relationship Specialty Start Date End Date Physician, No Pcp PCP - General 03/14/24 documented as of this encounter
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
--- OUTSIDE RECORDS SUMMARY | 2025-02-09 19:47 | XMS_ITS | Encounter Summary ---
Author Organization [employer] Address [address] [facility] 7 [place] [address] Care Team Providers Care Excavator Backhoe Operator Name Role Phone Alison Valentine MD Primary Care Provider [phone] Reason for Visit * Reason Onset Date Comments Hospital Follow-up 01/26/2025 Encounter Details Date Type Department Care Team ([facility] st Contact Info) Description 01/26/2025 Telephone [facility] [address] [place] [address] Alison Valentine MD [address] [place], [place] [id number] Hospital Follow-up Social History Tobacco Use Types Packs/Day Years [...] encounter Miscellaneous Notes * Telephone Encounter - Iqra Gutierrez - 01/26/2025 9:42 AM EDT Tc from [facility] requesting to reschedule HDF from 01/26 due to who ever financial writer down the information the appointment put the wrong location. Pleas contact Charleen at [phone] documented in this encounter Plan of Treatment Not on file documented as of this encounter Visit Diagnoses Not on filedocumented in this encounter Additional Health Concerns Assessment Noted Time PHQ-9 Depression Total Score: 4 09/24/19 23 8:42 AM EDT documented as of this encounter Care Teams Excavator Backhoe Operator Relationship Specialty Start Date End Date Alison Valentine MD [address] [place] [id number] PCP - General Internal Medicine 05/21/13 documented as of this encounter
== END 2025-02-09 17:00 | disposition other institution (70) ==
PROVIDERS: Physician Assistant Medical; Emergency Provider Emergency Medicine; PCP Internal Medicine
DX: F41.9 Anxiety disorder, unspecified (principal); F25.0 Schizoaffective disorder, bipolar type; R45.851 Suicidal ideations; F14.11 Cocaine abuse, in remission
CPT/HCPCS: 80053; 80143; 80179; 80307; 81003; 85025; 87635; 93005; 99284; 99285; S9485

== ENCOUNTER → 2025-02-09 12:59 | Outpatient (BNV) | payer MEDICARE, MEDICAID, SELFPAY | PROVIDERS: Emergency Provider Emergency Medicine; PCP Internal Medicine; Visit Provider Internal Medicine Cardiovascular Disease | DX: Z13.6 Encounter for screening for cardiovascular disorders (principal) | CPT/HCPCS: 93010 ==

== ENCOUNTER 2025-03-19 12:04 | Emergency (ER) | payer MEDICARE, MEDICAID, SELFPAY ==
[2025-03-19 12:12] VITALS: BP 132/90; PULSE 99; O2SAT 99
[2025-03-19 12:18] VITALS: BP 123/79; PULSE 90; RESP 16; TEMP 36.4; O2SAT 99; BMI 25.3
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
--- OUTSIDE RECORDS SUMMARY | 2025-03-19 13:09 | XMS_ITS | Encounter Summary ---
Author Organization [facility] Address [address] [place] [address] Care Team Providers Care Belt Dresser Name Role Phone Physician, No Pcp Primary Care Provider Unavaila ble Encounter Details Date Type Department Care Team (Late st Contact Info) Description 04/28/2024 Lab Requisition [facility] - Main Lab [address] [facility] [place] [address] Radha Damon NP [address] [place] [address] Other fdc (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 Social History Tobacco Use [...] LDL Routine 04/28/2024 7:00 AM EST Other long winder tender (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 HEMOGLOBIN A1C Routine 04/28/2024 7:00 AM EST Other fdc (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 VALPROIC ACID LEVEL, TOTAL Routine 04/28/2024 7:00 AM EST Other long winder tender (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 documented in this encounter Results * Valproic acid level, total (04/28/2024 7:00 AM EST) Valproic Acid, Total 91 50 - 100 mcg/mL LAB CHEMISTRY METHOD 04/28/2024 1:24 PM EST [facility] Blood Venous blood specimen / Unknown Venipuncture / Unknown 04/28/2024 7:00 AM EST 04/28/2024 12:15 PM EST us Radha Damon RESUME SPECIALIST LAB BLOOD ORDERABLES Fi nal Result [facility] [address] [place] [address], [place] [phone] * (ABNORMAL) Lipid panel with reflex to direct LDL (04/28/2024 7:00 AM EST) Cholesterol 201(H) 0 - 200 mg/dL LAB CHEMISTRY METHOD 04/28/2024 1:24 PM EST [facility] Triglycerides 116 0 - 150 [...] 04/28/2024 12:15 PM EST us Radha Damon RESUME SPECIALIST LAB BLOOD ORDERABLES Fi nal Result Performing Organization Address City/[facility]/ZIP Co de Phone Number [facility] [address] [place] [address], [place] [phone] * Hemoglobin A1c (04/28/2024 7:00 AM EST) Hemoglobin A1C 5.2 <6.5 % LAB CHEMISTRY METHOD 04/28/2024 3:37 PM EST [facility] Mean Bld Glu Estim. 103 mg/dL LAB CHEMISTRY METHOD 04/28/2024 3:37 PM EST [facility] Blood Venous blood specimen / Unknown Venipuncture / Unknown 04/28/2024 7:00 AM EST 04/28/2024 12:15 PM EST Radha Damon RESUME SPECIALIST LAB BLOOD ORDERABLES Fi nal Result Performing Organization Address [facility]/ZIP Co de Phone Number [facility] [address] [place] [address], [place] [phone] documented in this encounter Visit Diagnoses Diagnosis Other long winder tender (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 documented in this encounter Care Teams Belt Dresser Relationship Specialty Start Date End Date Physician, No Pcp PCP - General 03/14/24 documented as of this encounter
--- OUTSIDE RECORDS SUMMARY | 2025-03-19 13:09 | XMS_ITS | Encounter Summary ---
Author Organization [facility] Address [address] [place] [address] Care Team Providers Care Rigger Name Role Phone Physician, No Pcp Primary Care Provider Unavaila ble Encounter Details Date Type Department Care Team (Late st Contact Info) Description 02/12/2025 Lab Requisition [facility] - Main Lab [address] [facility] [place] [address] Ovi Llamas NP [address] [place], [place] [phone] Other residential (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 Social History Tobacco Use [...] PANEL WITH REFLEX TO DIRECT LDL Routine 02/12/2025 7:00 AM EDT Other residential (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 CBC WITH AUTO DIFFERENTIAL Routine 02/12/2025 7:00 AM EDT Other residential (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 CBC AND DIFFERENTIAL Routine 02/12/2025 7:00 AM EDT Other residential (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 HEMOGLOBIN A1C Routine 02/12/2025 7:00 AM EDT Other ophthalmic surgical assistant (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 GLUCOSE, RANDOM Routine 02/12/2025 7:00 AM EDT Other residential (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 VALPROIC ACID LEVEL, TOTAL Routine 02/12/2025 7:00 AM EDT Other residential (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 COMPREHENSIVE METABOLIC PANEL Routine 02/12/2025 7:00 AM EDT Other residential (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 documented in this encounter Results * (ABNORMAL) CBC auto differential (02/12/2025 7:00 AM EDT) [facility] WBC 6.9 4.8 - 10.8 K/mcL LAB HEMETOLOGY METHOD [facility] RBC 4.70 4.50 - 5.50 M/mcL LAB HEMETOLOGY METHOD 02/12/2025 12:[facility] Hemoglobin 14.6 13.5 - 17.5 g/dL LAB HEMETOLOGY METHOD 02/12/2025 12:[facility] Hematocrit 46.9 42.0 - 54.0 % LAB HEMETOLOGY METHOD 02/12/2025 12:17 PM [facility] MCV 100.6(H) 79.0 - 98.0 FL LAB HEMETOLOGY METHOD 02/12/2025 12:17 [facility] MCH 31.3 27.0 - 32.0 pcg LAB HEMETOLOGY METHOD 02/12/2025 12:17 PM [facility] MCHC 31.1(L) 32.0 - 37.0 g/dL LAB HEMETOLOGY METHOD 02/12/2025 12:17 PM [facility] RDW 13.2 11.0 - 15.0 % LAB HEMETOLOGY METHOD 02/12/2025 12:17 PM [facility] Platelets 183 130 - 400 K/mcL LAB HEMETOLOGY METHOD 02/12/2025 12:17 [facility] MPV 11.7(H) 7.0 - 11.0 FL LAB HEMETOLOGY METHOD 02/12/2025 12:17 PM [facility] NRBC 0.0 <1.0 % LAB HEMETOLOGY METHOD 02/12/2025 12:17 PM [facility] NRBC Absolute 0.00 <0.10 K/mcL LAB HEMETOLOGY METHOD 02/12/2025 12:17 PM [facility] Neutrophils Relative 43.5 % LAB HEMETOLOGY METHOD 02/12/2025 12:17 PM [facility] Lymphocytes Relative 41.3 % LAB HEMETOLOGY METHOD 02/12/2025 12:17 PM [facility] Monocytes Relative 9.9 % LAB HEMETOLOGY METHOD 02/12/2025 12:17 PM [facility] Eosinophils Relative 4.2 % LAB HEMETOLOGY METHOD 02/12/2025 12:17 PM [facility] Basophils Relative 1.0 % LAB HEMETOLOGY METHOD 02/12/2025 12:17 PM [facility] Immature Granulocytes Relative 0.1 % LAB HEMETOLOGY METHOD 02/12/2025 12:17 PM [facility] Neutrophils Absolute 3.00 1.50 - 7.00 K/mcL LAB HEMETOLOGY METHOD 02/12/2025 12:17 PM [facility] Lymphocytes Absolute 2.85 1.00 - 5.00 K/mcL LAB HEMETOLOGY METHOD 02/12/2025 12:17 PM [facility] Monocytes Absolute 0.68 0.20 - 1.00 K/mcL LAB HEMETOLOGY METHOD 02/12/2025 12:17 PM [facility] Eosinophils Absolute 0.29 0.00 - 0.50 K/[facility] LAB HEMETOLOGY METHOD 02/12/2025 12:17 PM EDT [facility] Basophils Absolute 0.07 0.00 - 0.20 K/[facility] LAB HEMETOLOGY METHOD 02/12/2025 12:17 PM EDT [facility] Immature Granulocytes Absolute 0.01 0.00 - 0.03 /[facility] LAB HEMETOLOGY METHOD 02/12/2025 12:17 PM EDT [facility] Blood Venous blood specimen / Unknown Venipuncture / Unknown 02/12/2025 7:00 AM EDT 02/12/2025 11:19 AM EDT Ovi Llamas NP LAB BLOOD ORDERABLES Final Resul t Performing Organization Address [facility]/ZIP Co de Phone Number [facility] [address] [place] [address], [place] [phone] * Glucose, random (02/12/2025 7:00 AM EDT) Glucose 72 70 - 100 mg/dL LAB CHEMISTRY METHOD 02/12/2025 12:37 PM EDT [facility] Blood Venous blood specimen / Unknown Venipuncture / Unknown 02/12/2025 7:00 AM EDT 02/12/2025 11:19 AM EDT Ovi Llamas NP LAB BLOOD ORDERABLES Final Resul t Performing Organization Address City/[facility]/ZIP Co de Phone Number [facility] [address] [place] [address], [place] [phone] * Hemoglobin A1c (02/12/2025 7:00 AM EDT) Hemoglobin A1C 5.3 <6.5 % LAB CHEMISTRY METHOD 02/13/2025 7:46 AM EDT [facility] Mean Bld Glu Estim. 105 mg/dL LAB CHEMISTRY METHOD 02/13/2025 7:46 AM EDT [facility] Blood Venous blood specimen / Unknown Venipuncture / Unknown 02/12/2025 7:00 AM EDT 02/12/2025 11:19 AM EDT Ovi Llamas NP LAB BLOOD ORDERABLES Final Resul t Performing Organization Address City/[facility]/ZIP Co de Phone Number [facility] [address] [place] [address], [place] [phone] * (ABNORMAL) Valproic acid level, total (02/12/2025 7:00 AM EDT) [facility] Valproic Acid, Total 44(L) 50 - 100 mcg/mL LAB CHEMISTRY METHOD 02/12/2025 12:38 PM EDT [facility] Blood Venous blood specimen / Unknown Venipuncture / Unknown 02/12/2025 7:00 AM EDT 02/12/2025 11:19 AM EDT Ovi Llamas NP LAB BLOOD ORDERABLES Final Resul t Performing Organization Address [facility]/ZIP Co de Phone Number [facility] [address] [place] [address], [place] [phone] * (ABNORMAL) Comprehensive metabolic panel (02/12/2025 7:00 AM EDT) [facility] Sodium 143 133 - 145 mmol/L LAB CHEMISTRY METHOD 02/12/2025 12:37 PM EDT [facility] Potassium 4.1 3.5 - 5.5 mmol/L LAB CHEMISTRY METHOD 02/12/2025 12:37 PM EDT [facility] Chloride 112(H) 96 - 110 mmol/L LAB CHEMISTRY METHOD 02/12/2025 12:37 PM EDT [facility] CO2 23 21 - 32 mmol/L LAB CHEMISTRY METHOD 02/12/2025 12:37 PM EDT [facility] Anion Gap 8 3 - 11 LAB CHEMISTRY METHOD 02/12/2025 12:37 PM [facility] Glucose 72 70 - 100 mg/dL LAB CHEMISTRY METHOD 02/12/2025 12:37 PM [facility] BUN 24 5 - 25 mg/dL LAB CHEMISTRY METHOD 02/12/2025 12:37 PM [facility] Creatinine 0.92 0.70 - 1.30 mg/dL LAB CHEMISTRY METHOD 02/12/2025 12:37 PM [facility] eGFR 96 >=60 mL/min/1. 73m2 LAB CHEMISTRY METHOD 02/12/2025 12:37 PM [facility] Comment:Calculation based on the Chronic Kidney Disease Epidemiology Collaboration (CKD-EPI) equation refit without adjustment for race. BUN/Creatinine Ratio 26.1 LAB CHEMISTRY METHOD 02/12/2025 12:37 PM [facility] Calcium 9.1 8.5 - 10.5 mg/dL LAB CHEMISTRY METHOD 02/12/2025 12:37 PM [facility] AST (SGOT) 35 10 - 42 unit/L LAB CHEMISTRY METHOD 02/12/2025 12:37 PM [facility] ALT (SGPT) 40 10 - 60 unit/L LAB CHEMISTRY METHOD 02/12/2025 12:37 PM [facility] Alkaline Phosphatase 56 42 - 121 unit/L LAB CHEMISTRY METHOD 02/12/2025 12:37 PM [facility] Total Protein 7.8 6.0 - 8.0 g/dL LAB CHEMISTRY METHOD 02/12/2025 12:37 PM [facility] Albumin 3.8 3.2 - 5.0 g/dL LAB CHEMISTRY METHOD 02/12/2025 12:37 PM [facility] Total Bilirubin 0.4 0.0 - 1.4 mg/dL LAB CHEMISTRY METHOD 02/12/2025 12:37 PM EDT [facility] Blood Venous blood specimen / Unknown Venipuncture / Unknown 02/12/2025 7:00 AM EDT 02/12/2025 11:19 AM EDT us Ovi Llamas NP LAB BLOOD ORDERABLES Final Resul t [facility] [address] [place] [address], [place] [phone] * (ABNORMAL) Lipid panel with reflex to direct LDL (02/12/2025 7:00 AM EDT) Cholesterol 263(H) 0 - 200 mg/dL LAB CHEMISTRY METHOD 02/12/2025 12:37 PM EDT [facility] Triglycerides 120 0 - 150 mg/dL LAB CHEMISTRY METHOD 02/12/2025 12:37 PM EDT [facility] HDL 52 >=40 mg/dL LAB CHEMISTRY METHOD 02/12/2025 12:37 PM EDT [facility] LDL Calculated 187(H) 0 - 100 mg/dL LAB CHEMISTRY METHOD 02/12/2025 12:37 PM EDT [facility] Comment:Estimated LDL Calcul ated using equation: Total cholesterol - HDL cholesterol - (Triglycerides/5) VLDL Cholesterol Von 24 mg/dL LAB CHEMISTRY METHOD 02/12/2025 12:37 PM EDT [facility] Non HDL Chol. (LDL+VLDL) 211(H) <145 mg/dL LAB CHEMISTRY METHOD 02/12/2025 12:37 PM T [facility] Chol/HDL Ratio 5.1(H) 0.0 - 4.4 LAB CHEMISTRY METHOD 02/12/2025 12:37 PM T [facility] Blood Venous blood specimen / Unknown Venipuncture / Unknown 02/12/2025 7:00 AM EDT 02/12/2025 11:19 AM EDT us Ovi Llamas NP LAB BLOOD ORDERABLES Final Resul t [facility] [address] [place] [address], documented in this encounter Visit Diagnoses Diagnosis Other residential (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 documented in this encounter Care Teams Rigger Relationship Specialty Start Date End Date Physician, No Pcp PCP - General 03/14/24 documented as of this encounter
--- OUTSIDE RECORDS SUMMARY | 2025-03-19 13:09 | XMS_ITS | Clinical Summary ---
Author Organization [employer] Address [address] [facility] 7[address] [place] [address] Care Team Providers Care Enamel Machine Operator Name Role Phone Alison Valentine MD Primary Care Provider [phone] Allergies Active Allergy Reactions Criticality Noted Date Comments Lactose Other 09/12/2023 Nausea/vomiting/loose stools Medications * This document contains information received from the source organization and may not represent a complete record from that organization. Ventolin HFA 108 (90 Base) MCG/ACT inhaler Inhale 1-2 puffs by mouth every 4-6 hours as needed; 2 hours prior to exercise 023 Active benztropine (Cogentin) 1 MG tablet Take 1 tablet by mouth at bedtime. Active melatonin 3 MG tablet Take 3 tablets by mouth at bedtime. Active divalproex (Depakote ER) 500 MG 24 hr tabletIndications: Chronic schizoaffective schizophrenia (CMS/HCC) (HCC) Do not crush, chew, or split. 4 tablets daily at bedtime 160 tablet 11 023 Active acetaminophen (Tylenol 8 Hour) 650 MG ER tabletIndications: Migraine with aura and without status migrainosus, not intractable Take 1 tablet (650 mg) by mouth if needed each day for mild pain. Do not crush, chew, or split. 30 tablet 11 025 2025 Active ibuprofen 400 MG tabletIndications: Migraine with aura and without status migrainosus, not intractable Take 1 tablet (400 mg) by mouth if needed each day for moderate pain. 30 tablet 11 025 2025 Active alpha tocopherol (Vitamin E) 400 units capsuleIndications :Vitamin E deficiency Take 1 capsule (400 Units) by mouth Once per day. 30 capsule 11 06/25/2 025 06/25/ 2026 Active pantoprazole (ProtoNix) 40 MG EC tabletIndications: Gastroesophageal reflux disease without esophagitis TAKE 1 TABLET (40 MG) BY MOUTH ONCE PER DAY. 30 tablet Active cholecalciferol (Vitamin D-3) 10 MCG (400 UNIT) tablet Take 2 tablets by mouth Once per day. Active clonazePAM (KlonoPIN) 1 MG tablet Take 1 tablet by mouth 2 times daily. Active haloperidol (Haldol) 10 MG tablet Take [...] day. And 25 mg every evening Active traZODone (Desyrel) 50 MG tablet Take 50 mg by mouth at bedtime. Active nicotine polacrilex (Commit) 2 MG lozenge Active divalproex (Depakote ER) 250 MG 24 hr tablet Take 250 mg by mouth Once per day. Active haloperidol (Haldol) 0.5 MG tablet Take 0.5 mg by mouth if needed in the morning and at bedtime. Active sertraline (Zoloft) 50 MG tablet Take 50 mg by mouth Once per day. Active topiramate 50 MG tablet 50 mg 2 times daily. Active Elastic Bandages & Supports (Medical Compression Socks) misc 2024 Discontinued(M ed list cleanup (will not trigger notification to Pharmacy)) Skin Protectants, Misc. (eucerin) cream Apply topically if needed in the morning and at bedtime for dry skin. 2024 Discontinued(M ed list cleanup (will not trigger notification to Pharmacy)) Docusate Sodium (DSS) 100 MG capsule Take 1 capsule (100 mg) by mouth if needed at bedtime (nightly as needed). 90 capsule 1 023 2024 Discontinued(M ed list cleanup (will not trigger notification to Pharmacy)) ammonium lactate (Amlactin) 12 % creamIndications:D ry skin dermatitis APPLY TOPICALLY DAILY IF NEEDED FOR DRY SKIN. 385 g 11 024 2024 Discontinued(M ed list cleanup (will not trigger notification to Pharmacy)) nicotine polacrilex (Nicorette) 4 MG gumIndications:Smo clarisa addiction Chew 1 each (4 mg) if needed for smoking cessation. 100 each 025 2024 Discontinued(M ed list cleanup (will not trigger notification to Pharmacy)) FLUoxetine (PROzac) 20 MG capsule Take 1 capsule by mouth Once per day. 025 2024 Discontinued(M ed list cleanup (will not trigger notification to Pharmacy)) carbamide peroxide (Debrox) 6.5 % otic solutionIndication s:Impacted cerumen of left ear Administer 5-10 drops into affected ear(s) 2 times daily for 4 days. 30 mL 025 2024 Active Problems Problem Noted Date Diagnosed Date Schizoaffective disorder ([facility]) 09/10/2023 Macrocytic anemia 01/23/2017 Chronic schizoaffective schizophrenia ([facility]) 11/14/2011 Assessment & Plan (09/23/2022 9:46 AM [...] AA meeting, has a sponsor, and a assistant cross country coach that comes to the house on Tuesdays. Bishnu has also signed up for anger management classes. He is currently connected to a therapist and psychiatrist thru [facility]. At this time Bishnu Yen meets criteria for Visit Diagnoses: Problem List Items Addressed This Visit Other Chronic schizoaffective schizophrenia (CMS/HCC) Patient ready to address current needs Yes Strengths include independence PLAN: 1. Follow up with [facility]: Not recommended for follow-up 2. Patient goal is to continue to engage in substance abuse and behavioral health services 3. Behavioral Recommendations a. Patient will continue to engage in OP therapy b. Patient will comply with medication and psychiatric appointment c. Patient will continue to attend AA and meet with sponsor and recover assistant women's rowing coach d. Patient will engage in anger management class, once it begins Deep venous thrombosis of lower extremity 2011 Seizure (CMS/HCC) 11/14/2011 Encounters Date Type Department Care Team Description 03/01/2025 10:45 AM EST Office Visit [facility] [address] [place] [address] Alison Valentine MD Chronic schizoaffective schizophrenia (CMS/HCC) (HCC) (Primary Dx); Decreased hearing of both ears; Impacted cerumen of left ear; Encounter for immunization 03/01/2025 Travel 02/21/2025 Patient Outreach [facility] [address] [place] [address] Alison Valentine MD Transition Of Care (Tcm) (HDF- scheduled ) 02/21/2025 Telephone [facility] [address] [place] [address] Alison Valentine MD 02/11/2025 Telephone [facility] [address] [place] [address] Alison Valentine MD Hospital Follow-up 01/26/2025 Telephone [facility] [address] [place] [address] Alison Valentine MD Hospital Follow-up 01/26/2025 Telephone [facility] [address] [place] [address] Alison Valentine MD Hospital Follow-up 01/24/2025 Telephone [facility] [address] [place] [address] Alison Valentine MD Chart Prep 01/19/2025 Telephone [facility] [address] [place] [address] Alison Valentine MD Appointment Request 01/07/2025 Telephone [facility] [address] [place] [phone] Alison Valentine MD No Show 12/28/2024 Patient Outreach [address] [address] Alison Valentine MD Transition Of Care (Tcm) (HDF scheduled) 12/28/[address] [address] Alison Valentine MD HDF 12/27/2024 Refill [facility] [address] [place] [address] Alison Valentine MD Gastroesophageal reflux disease without esophagitis from Last 3 Months Immunizations Immunization Administration Dates Next Due Influenza, IIV3, injectable 04/10/2023,0 01/15/2022,02/12/2021,03/21,02/23/2018,01/23/2017,03/12/2016 ,03/20/2010 Influenza, seasonal, injecta ble, preservative free 03/01/2025 Moderna Covid-19 Vaccine 12+ 08/29/2021,08/02/19 22 Pneumococcal Polysaccharide PPSV23 08/27/2020, Tdap 01/10/2024,10/01/2008 Zoster, [...] Sign Reading Time Taken Comments Blood Pressure 125/90 03/01/2025 10:52 AM EST Pulse 98 03/01/2025 10:52 AM EST Temperature 36.3 C (97.3 F) 03/01/2025 10:52 AM EST Respiratory Rate 20 03/01/2025 10:52 AM EST Oxygen Saturation 95% 03/01/2025 10:52 AM EST Inhaled Oxygen Concentration - - Weight 80.7 kg (178 lb) 03/01/2025 10:52 AM EST Height 180.3 cm (5' 11 ) 03/01/2025 10:52 AM EST Body Mass Index 24.83 03/01/2025 10:52 AM EST Plan of Treatment Upcoming Encounters Date Type Department Care Team (Late st Contact Info) Description 06/08/2025 9:00 AM EST Office Visit [facility] [address] [place], [place] [phone] Alison Valentine MD [address] [place] [address] Health Maintenance Due Date Last Done Comments CT Colonography 1967 Colonoscopy 1967 Colorectal Cancer Screening 1967 Dental Oral Exam 1967 Dental Prophylaxis 1967 Dental X-Ray: Bitewings 1967 Dental X-Ray: Full Mouth 1967 FIT DNA/Cologuard 1967 FIT 1967 FOBT 1967 Lipid Panel 1967 Sigmoidoscopy 1967 Disability Screening 1967 Alcohol/Substance Use Screening 1979 Lung Cancer Screening 2017 RSV Patients and Patients Aged 60 years or older (1 - Risk 50-74 years 1-dose series) 2017 Zoster Vaccines (2 of 2) 02/11/2022 12/17/2021 Depression Screening 09/24/2023 09/23/2022, 09/24/19 23 SDOH Screening 10/06/2024 10/07/2023 COVID-19 Vaccine (3 - 2024- season) 2024 08/29/2021, 08/01/2021 HIV Screening 10/13/2025 Postponed from 1967 (Patient Refused) Hepatitis B Vaccines (1 of 3 - 19+ 3-dose series) 10/13/2025 Postponed from 1986 (Patient Refused) Hepatitis C Screening 10/13/2025 Postpo ajith from 1985 (Patient Refused) Pneumococcal Vaccine: 50+ Years (2 of 2 - PCV) 10/13/2025 08/27/2020, 11/01/2009 Postponed from 08/27/2021 (Patient Refused) Tobacco Screening 03/01/2026 03/01/2025 DTaP/Tdap/Td Vaccines (3 - Td or Tdap) 01/09/2034 01/10/2024, 10/01/2008 Influenza Vaccine Completed 03/01/2025, , 01/15/2022, Additional history exists HIB Vaccines Aged Out No longer eligi [...] age to complete this topic Insurance MEDICARE [facility] Care Teams Enamel Machine Operator Relationship Specialty Start Date End Date Alison Valentine MD [address] [place] [phone] PCP - General Internal Medicine 05/21/13
--- OUTSIDE RECORDS SUMMARY | 2025-03-19 13:09 | XMS_ITS | Encounter Summary ---
Author Organization [employer] Address [address] [facility] 7t [place] [address] Care Team Providers Care Lens Grinder Name Role Phone Alison Valentine MD Primary Care Provider [phone] Reason for Visit * Reason Comments Med Refill Encounter Details Date Type Department Care Team ([facility] st Contact Info) Description 10/20/2024 Refill [facility] [address] [place], [place] [phone] Alison Valentine MD [address] [place], [place] [phone] Social History Tobacco Use Types Packs/Day Years [...] Description 06/08/2025 9:00 AM EST Office Visit [facility] [address] [place] [address] Alison Valentine MD [address] [place] [address] documented as of this encounter Visit Diagnoses Not on filedocumented in this encounter Additional Health Concerns Assessment Noted Time PHQ-9 Depression Total Score: 4 09/24/19 23 8:42 AM EDT documented as of this encounter Care Teams Lens Grinder Relationship Specialty Start Date End Date Alison Valentine MD [address] [place] [address] PCP - General Internal Medicine 05/21/13 documented as of this encounter
--- OUTSIDE RECORDS SUMMARY | 2025-03-19 13:09 | XMS_ITS | Patient Health Record ---
Author Organization [facility] Address [address] [place] [address] Care Team Providers Care Cultured Marble Products Maker Name Role Phone NO, PCP Primary Care Provider Velia Love Unavailable [phone] Reason For Referral No Information Encounters Encounter Location Date Provider Diagnosis [facility] [address] [place], [place] [phone] 11/15/2024 Velia Love [facility] [address] [place] [address] 11/11/2024 Velia Love Plan Of Treatment No Information Insurance Providers Payer Name Payer Address Payer Phone Subscriber Number Group Number Insured Name Patient Relationship to Insured Coverage Start Date Coverage End Date [place] Medicare [place] [employer] [address] [facility] [place] [address] [id number] Bishnu Yen Self - patient is the insured 5 [place] Medicaid Standard [address] [place] [address] [id number] Bishnu Yen Self - patient is the insured 5
--- OUTSIDE RECORDS SUMMARY | 2025-03-19 13:09 | XMS_ITS | Encounter Summary ---
Author Organization [employer] Address [address] [facility] 7 [place] [address] Care Team Providers Care Eligibility Supervisor Name Role Phone Alison Valentine MD Primary Care Provider [phone] Reason for Visit * Reason Onset Date Comments Hospital Follow-up 01/26/2025 Encounter Details Date Type Department Care Team ([facility] st Contact Info) Description 01/26/2025 Telephone [facility] [address] [place] [address] Alison Valentine MD [address] [place], [place] [phone] Hospital Follow-up Social History Tobacco Use Types [...] - 01/26/2025 9:42 AM EDT Tc from [facility] requesting to reschedule HDF from 01/26 due to who ever technical document writer down the information the appointment put the wrong location. Pleas contact Charleen at [phone] documented in this encounter Plan of Treatment Upcoming Encounters Date Type Department Care Team (Late st Contact Info) Description 06/08/2025 9:00 AM EST Office Visit [facility] [address] [place] [address] Alison Valentine MD [address] [place] [address] documented as of this encounter Visit Diagnoses Not on filedocumented in this encounter Additional Health Concerns Assessment Noted Time PHQ-9 Depression Total Score: 4 09/24/19 23 8:42 AM EDT documented as of this encounter Care Teams Eligibility Supervisor Relationship Specialty Start Date End Date Alison Valentine MD [address] [place] [address] PCP - General Internal Medicine 05/21/13 documented as of this encounter
--- OUTSIDE RECORDS SUMMARY | 2025-03-19 13:09 | XMS_ITS | Encounter Summary ---
Author Organization [facility] Address [address] [place] [address] Care Team Providers Care Appliquer Name Role Phone Physician, No Pcp Primary Care Provider Unavaila ble Encounter Details Date Type Department Care Team (Late st Contact Info) Description 05/28/2024 Lab Requisition [facility] - Main Lab [address] [facility] [place] [address] Radha Damon NP [address] [place] [address] Social History Tobacco Use Types [...] on filedocumented in this encounter Care Teams Appliquer Relationship Specialty Start Date End Date Physician, No Pcp PCP - General 03/14/24 documented as of this encounter
--- OUTSIDE RECORDS SUMMARY | 2025-03-19 13:09 | XMS_ITS | Encounter Summary ---
Author Organization [employer] Address [address] [facility] [address] [place] [address] Care Team Providers Care Resident Care Assistant Name Role Phone Alison Valentine MD Primary Care Provider [phone] Encounter Details Date Type Department Care Team ([facility] Contact Info) Description 04/12/2022 Orders Only [facility] MEDICINE [address] [place] [address] Alison Valentine MD [address] [place], [place] [phone] Gastroesophageal reflux disease without esophagitis (Primary Dx) [...] Upcoming Encounters Date Type Department Care Team ([facility] Contact Info) Description 06/08/2025 9:00 AM EST Office Visit [facility] CHC MED & PEDS [address] [place] [address] Alison Valentine MD [address] [place], [place] [phone] documented as of this encounter Visit Diagnoses Diagnosis Gastroesophageal reflux disease without esophagitis- Primary Esophageal reflux documented in this encounter Care Teams Resident Care Assistant Relationship Specialty Start Date End Date Alison Valentine MD [address] [place] [address] PCP - General Internal Medicine 05/21/13 documented as of this encounter
--- OUTSIDE RECORDS SUMMARY | 2025-03-19 13:09 | XMS_ITS | Encounter Summary ---
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 [...] T3 Routine 12/18/2024 7:00 AM EDT Other [facility] (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 FREE THYROXINE WITH REFLEX TO FREE TRIIODOTHYRONINE Routine 12/18/2024 7:00 AM EDT Other [facility] (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 VALPROIC ACID LEVEL, TOTAL Routine 12/18/2024 7:00 AM EDT 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 COMPREHENSIVE METABOLIC PANEL Routine 12/18/2024 7:00 AM EDT 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 documented in this encounter Results * Free thyroxine with reflex to free triiodothyronine (12/18/2024 7:00 AM EDT) Pathologist [facility] Free T4 1.39 0.70 - 1.80 ng/dL LAB CHEMISTRY METHOD 12/18/2024 5:26 PM EDT [facility] Blood Venous blood specimen / Unknown Venipuncture / Unknown 12/18/2024 7:00 AM EDT 12/18/2024 2:39 PM EDT [facility] LAB BLOOD ORDERABLES Shanita l Result Performing Organization Address City/[facility]/ZIP Co de Phone Number [facility] [address] [place] [address], [place] [phone] * Valproic acid level, total (12/18/2024 7:00 AM EDT) [facility] Valproic Acid, Total 84 50 - 100 mcg/mL LAB CHEMISTRY METHOD 12/18/2024 4:10 PM EDT [facility] Blood Venous blood specimen / Unknown Venipuncture / Unknown 12/18/2024 7:00 AM EDT 12/18/2024 2:39 PM EDT [facility] LAB BLOOD ORDERABLES Shanita l Result [facility] [address] [place] [address], [place] [phone] * (ABNORMAL) Thyroid stimulating hormone with reflex to free t4 and free t3 (12/18/2024 7:00 AM EDT) [facility] TSH 4.99(H) 0.40 - 4.00 mcIU/mL LAB CHEMISTRY METHOD 12/18/2024 4:41 PM EDT [facility] Blood Venous blood specimen / Unknown Venipuncture / Unknown 12/18/2024 7:00 AM EDT 12/18/2024 2:39 PM EDT Jennifer Kwan LAB BLOOD ORDERABLES Shanita l Result [facility] [address] [place] [address], [place] [phone] * (ABNORMAL) Comprehensive metabolic panel (12/18/2024 7:00 AM EDT) Pathologist [facility] Sodium 140 133 - 145 mmol/L LAB CHEMISTRY METHOD 12/18/2024 4:10 PM EDT [facility] Potassium 4.4 3.5 - 5.5 mmol/L LAB CHEMISTRY METHOD 12/18/2024 4:10 PM EDT [facility] Comment:Hemolysis present Chloride 109 96 - 110 mmol/L LAB CHEMISTRY METHOD 12/18/2024 4:10 PM [facility] CO2 22 21 - 32 mmol/L LAB CHEMISTRY METHOD 12/18/2024 4:10 PM [facility] Anion Gap 9 3 - 11 LAB CHEMISTRY METHOD 12/18/2024 4:10 PM [facility] Glucose 43(L) 70 - 100 mg/dL LAB CHEMISTRY METHOD 12/18/2024 4:10 PM [facility] BUN 22 5 - 25 mg/dL LAB CHEMISTRY METHOD 12/18/2024 4:10 PM T [facility] Creatinine 0.89 0.70 - 1.30 mg/dL LAB CHEMISTRY METHOD 12/18/2024 4:10 PM [facility] eGFR 100 >=60 mL/min/1. 73m2 LAB CHEMISTRY METHOD 12/18/2024 4:10 PM [facility] Comment:Calculation based on the Chronic Kidney Disease Epidemiology Collaboration (CKD-EPI) equation refit without adjustment for race. BUN/Creatinine Ratio 24.7 LAB CHEMISTRY METHOD 12/18/2024 4:10 PM T [facility] Calcium 9.0 8.5 - 10.5 mg/dL LAB CHEMISTRY METHOD 12/18/2024 4:10 PM [facility] AST (SGOT) 30 10 - 42 unit/L LAB CHEMISTRY METHOD 12/18/2024 4:10 PM [facility] Comment:Hemolysis present ALT (SGPT) 44 10 - 60 unit/L LAB CHEMISTRY METHOD 12/18/2024 4:10 PM EDT [facility] Alkaline Phosphatase 62 42 - 121 unit/L LAB CHEMISTRY METHOD 12/18/2024 4:10 PM [facility] Total Protein 7.4 6.0 - 8.0 g/dL LAB CHEMISTRY METHOD 12/18/2024 4:10 PM [facility] Albumin 3.9 3.2 - 5.0 g/dL LAB CHEMISTRY METHOD 12/18/2024 4:10 PM [facility] Total Bilirubin 0.4 0.0 - 1.4 mg/dL LAB CHEMISTRY METHOD 12/18/2024 4:10 PM [facility] Blood Venous blood specimen / Unknown Venipuncture / Unknown 12/18/2024 7:00 AM EDT 12/18/2024 2:39 PM EDT us Jennifer Mantilla [facility] LAB BLOOD ORDERABLES Shanita l Result [facility] [address] [place] [address], documented in this encounter Visit Diagnoses Diagnosis 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
--- OUTSIDE RECORDS SUMMARY | 2025-03-19 13:09 | XMS_ITS | Encounter Summary ---
Author Organization [facility] Address [address] [place] [address] Care Team Providers Care Farmer And Grazier Name Role Phone Physician, No Pcp Primary Care Provider Unavaila ble Encounter Details Date Type Department Care Team (Late st Contact Info) Description 12/11/2024 Lab Requisition [facility] - Main Lab [address] [facility] [place] [address] Jennifer Kwan [address] [place] [address] Other meterman (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 Social History Tobacco Use [...] LDL Routine 12/11/2024 7:00 AM EDT Other senior living (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 HEMOGLOBIN A1C Routine 12/11/2024 7:00 AM EDT Other senior living (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 GLUCOSE, RANDOM Routine 12/11/2024 7:00 AM EDT Other meterman (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 documented in this encounter Results * (ABNORMAL) Lipid panel with reflex to direct LDL (12/11/2024 7:00 AM EDT) Cholesterol 210(H) 0 - 200 mg/dL LAB CHEMISTRY METHOD [facility]2024 10:[facility] Triglycerides 169(H) 0 - 150 mg/dL LAB CHEMISTRY METHOD 12/11/2024 10:58 AM [facility] HDL 45 >=40 mg/dL LAB CHEMISTRY METHOD 12/11/2024 10:58 [facility] LDL Calculated 131(H) 0 - 100 mg/dL LAB CHEMISTRY METHOD 12/11/2024 10:58 AM EDT [facility] Comment:Estimated LDL Calcul ated using equation: Total cholesterol - HDL cholesterol - (Triglycerides/5) VLDL Cholesterol Von 33.8 mg/dL LAB CHEMISTRY METHOD 12/11/2024 10:58 AM [facility] Non HDL Chol. (LDL+VLDL) 165(H) <145 mg/dL LAB CHEMISTRY METHOD 12/11/2024 10:58 AM [facility] Chol/HDL Ratio 4.7(H) 0.0 - 4.4 LAB CHEMISTRY METHOD 12/11/2024 10:58 AM [facility] Blood Venous blood specimen / Unknown Venipuncture / Unknown 12/11/2024 7:00 AM EDT 12/11/2024 9:36 AM EDT Jennifer Kwan LAB BLOOD ORDERABLES Shanita l Result [facility] [address] [place] [address], * Glucose, random (12/11/2024 7:00 AM EDT) Glucose 77 70 - 100 mg/dL LAB CHEMISTRY METHOD 12/11/2024 10:58 AM [facility] Blood Venous blood specimen / Unknown Venipuncture / Unknown 12/11/2024 7:00 AM EDT 12/11/2024 9:36 AM EDT Jennifer Mantilla [employer] LAB BLOOD ORDERABLES Shanita l Result Performing Organization Address [facility]/ZIP Co de Phone Number [facility] [address] [place] [address], [place] [phone] * Hemoglobin A1c (12/11/2024 7:00 AM EDT) Hemoglobin A1C 5.7 <6.5 % LAB CHEMISTRY METHOD 12/12/2024 8:12 AM EDT [facility] Mean Bld Glu Estim. 117 mg/dL LAB CHEMISTRY METHOD 12/12/2024 8:12 AM EDT [facility] Blood Venous blood specimen / Unknown Venipuncture / Unknown 12/11/2024 7:00 AM EDT 12/11/2024 9:36 AM EDT Jennifer Mantilla [employer] LAB BLOOD ORDERABLES Shanita l Result [facility] [address] [place] [address], [place] [phone] documented in this encounter Visit Diagnoses Diagnosis Other senior living (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 documented in this encounter Care Teams Farmer And Grazier Relationship Specialty Start Date End Date Physician, No Pcp PCP - General 03/14/24 documented as of this encounter
--- OUTSIDE RECORDS SUMMARY | 2025-03-19 13:09 | XMS_ITS | Clinical Summary ---
Author Organization [facility] Address [address] [place] [address] Phone Care Team Providers Care Photo Finish Photographer Name Role Phone Physician, No Pcp Primary Care Provider Unavaila ble Allergies Active Allergy Reactions Criticality Noted Date Comments Lactose Other 09/12/2023 Nausea/vomiting/loose stools Encounters Date Type Department Care Team Description 02/12/2025 Lab Requisition [facility] Lab [address] [place] [phone] Ovi Llamas NP Other terminal gauger (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 12/18/2024 Lab Requisition [facility] Lab [address] [place] [phone] Jennifer Kwan Other usp (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 from Last 3 Months Medical History Medical History Date Comments Bipolar 1 disorder ([facility] V24, [facility] V28) Depression Schizoaffective disorder ([facility] V24, [facility] V 28) Social History Tobacco Use Types [...] 03/24/2022 Depression Screening 04/21/2024 COVID-19 Vaccine ( season) 2024 08/29/2021, 08/01/2021 Influenza Vaccine (#1) 2024 , 01/15/2022, 02/12/2021, Additional history exists Hypertension/CHF/CAD Annual BMP Blood Test 02/12/2026 02/12/2025, 12/18/2024, 03/14/2024 Cholesterol Screening (Lipid Panel) 02/12/2030 02/12/2025, 12/11/2024, 04/28/2024, Additional history exists DTaP,Tdap,and Td Vaccines (3 - Td or [...] Procedure Name Priority Date/Time Associated Diagnosis Comments CBC WITH AUTO DIFFERENTIAL Routine 02/12/2025 7:00 AM EDT Other usp (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 GLUCOSE, RANDOM Routine 02/12/2025 7:00 AM EDT Other terminal gauger (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 HEMOGLOBIN A1C Routine 02/12/2025 7:00 AM EDT Other usp (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 CBC AND DIFFERENTIAL Routine 02/12/2025 7:00 AM EDT Other usp (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 VALPROIC ACID LEVEL, TOTAL Routine 02/12/2025 7:00 AM EDT Other usp (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 COMPREHENSIVE METABOLIC PANEL Routine 02/12/2025 7:00 AM EDT Other terminal gauger (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 LIPID PANEL WITH REFLEX TO DIRECT LDL Routine 02/12/2025 7:00 AM EDT Other usp (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 FREE THYROXINE WITH REFLEX TO FREE TRIIODOTHYRONINE Routine 12/18/2024 7:00 AM EDT Other usp (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 VALPROIC ACID LEVEL, TOTAL Routine 12/18/2024 7:00 AM EDT Other terminal gauger (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 THYROID STIMULATING HORMONE WITH REFLEX TO FREE T4 AND FREE T3 Routine 12/18/2024 7:00 AM EDT Other usp (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 COMPREHENSIVE METABOLIC PANEL Routine 12/18/2024 7:00 AM EDT Other terminal gauger (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 from Last 3 Months Results * (ABNORMAL) Lipid panel with reflex to direct LDL (02/12/2025 7:00 AM EDT) Cholesterol 263(H) 0 - 200 mg/dL LAB CHEMISTRY METHOD 02/12/2025 12:37 PM EDT [facility] Triglycerides 120 0 - 150 mg/dL LAB CHEMISTRY METHOD 02/12/2025 12:37 PM EDT [facility] HDL 52 >=40 mg/dL LAB CHEMISTRY METHOD 02/12/2025 12:37 PM EDT [facility] LDL Calculated 187(H) 0 - 100 mg/dL LAB CHEMISTRY METHOD 02/12/2025 12:37 PM EDT [facility] Comment:Estimated LDL Calcul ated using equation: Total cholesterol - HDL cholesterol - (Triglycerides/5) VLDL Cholesterol Von 24 mg/dL LAB CHEMISTRY METHOD 02/12/2025 12:37 PM EDT [facility] Non HDL Chol. (LDL+VLDL) 211(H) <145 mg/dL LAB CHEMISTRY METHOD 02/12/2025 12:37 PM EDT [facility] Chol/HDL Ratio 5.1(H) 0.0 - 4.4 LAB CHEMISTRY METHOD 02/12/2025 12:[address] [facility] Blood Venous blood specimen / Unknown Venipuncture / Unknown 02/12/2025 7:00 AM EDT 02/12/2025 11:19 AM EDT us Ovi Llamas NP LAB BLOOD ORDERABLES Final Resul t [facility] [address] [place] [address], [place] [phone] * (ABNORMAL) CBC auto differential (02/12/2025 7:00 AM EDT) Pathologist [facility] WBC 6.9 4.8 - 10.8 K/mcL LAB HEMETOLOGY METHOD 02/12/2025 12:[address] [facility] RBC 4.70 4.50 - 5.50 M/mcL LAB HEMETOLOGY METHOD 02/12/2025 12:[address] [facility] Hemoglobin 14.6 13.5 - 17.5 g/dL LAB HEMETOLOGY METHOD 02/12/2025 12:[address] [facility] Hematocrit 46.9 42.0 - 54.0 % LAB HEMETOLOGY METHOD 02/12/2025 12:[address] [facility] MCV 100.6(H) 79.0 - 98.0 FL LAB HEMETOLOGY METHOD 02/12/2025 12:[address] [facility] MCH 31.3 27.0 - 32.0 pcg LAB HEMETOLOGY METHOD 02/12/2025 12:[address] [facility] MCHC 31.1(L) 32.0 - 37.0 g/dL LAB HEMETOLOGY METHOD 02/12/2025 12:[address] [facility] RDW 13.2 11.0 - 15.0 % LAB HEMETOLOGY METHOD 02/12/2025 12:[address] [facility] Platelets 183 130 - 400 K/[facility] LAB HEMETOLOGY METHOD 02/12/2025 12:[address] [facility] MPV 11.7(H) 7.0 - 11.0 FL LAB HEMETOLOGY METHOD 02/12/2025 12:[address] [facility] NRBC 0.0 <1.0 % LAB HEMETOLOGY METHOD 02/12/2025 12:[address] [facility] NRBC Absolute 0.00 <0.10 K/[facility] LAB HEMETOLOGY METHOD 02/12/2025 12:[address] [facility] Neutrophils Relative 43.5 % LAB HEMETOLOGY METHOD 02/12/2025 12:[address] [facility] Lymphocytes Relative 41.3 % LAB HEMETOLOGY METHOD 02/12/2025 12:[address] [facility] Monocytes Relative 9.9 % LAB HEMETOLOGY METHOD 02/12/2025 12:[address] [facility] Eosinophils Relative 4.2 % LAB HEMETOLOGY METHOD 02/12/2025 12:[address] [facility] Basophils Relative 1.0 % LAB HEMETOLOGY METHOD 02/12/2025 12:[address] [facility] Immature Granulocytes Relative 0.1 % LAB HEMETOLOGY METHOD 02/12/2025 12:[address] [facility] Neutrophils Absolute 3.00 1.50 - 7.00 K/mcL LAB HEMETOLOGY METHOD 02/12/2025 12:[address] [facility] Lymphocytes Absolute 2.85 1.00 - 5.00 K/mcL LAB HEMETOLOGY METHOD 02/12/2025 12:[address] [facility] Monocytes Absolute 0.68 0.20 - 1.00 K/mcL LAB HEMETOLOGY METHOD 02/12/2025 12:[address] [facility] Eosinophils Absolute 0.29 0.00 - 0.50 K/mcL LAB HEMETOLOGY METHOD 02/12/2025 12:[address] [facility] Basophils Absolute 0.07 0.00 - 0.20 K/mcL LAB HEMETOLOGY METHOD 02/12/2025 12:[address] [facility] Immature Granulocytes Absolute 0.01 0.00 - 0.03 K/mcL LAB HEMETOLOGY METHOD 02/12/2025 12:[address] [facility] Blood Venous blood specimen / Unknown Venipuncture / Unknown 02/12/2025 7:00 AM EDT 02/12/2025 11:19 AM EDT us Ovi Llamas NP LAB BLOOD ORDERABLES Final Resul t Performing Organization Address [facility]/ZIP Co de Phone Number [facility] [address] [place] [address], [place] [phone] * Hemoglobin A1c (02/12/2025 7:00 AM EDT) Hemoglobin A1C 5.3 <6.5 % LAB CHEMISTRY METHOD 02/13/2025 7:46 AM EDT [facility] Mean Bld Glu Estim. 105 mg/dL LAB CHEMISTRY METHOD 02/13/2025 7:46 AM EDT [facility] Blood Venous blood specimen / Unknown Venipuncture / Unknown 02/12/2025 7:00 AM EDT 02/12/2025 11:19 AM EDT us Ovi Llamas NP LAB BLOOD ORDERABLES Final Resul t Performing Organization Address [facility] de Phone Number [facility] [address] [place] [address], [place] [phone] * Glucose, random (02/12/2025 7:00 AM EDT) Glucose 72 70 - 100 mg/dL LAB CHEMISTRY METHOD 02/12/2025 12:37 PM EDT [facility] Blood Venous blood specimen / Unknown Venipuncture / Unknown 02/12/2025 7:00 AM EDT 02/12/2025 11:19 AM EDT us Ovi Llamas NP LAB BLOOD ORDERABLES Final Resul t Performing Organization Address City/[facility]/ZIP Co de Phone Number [facility] [address] [place] [address], [place] [phone] * (ABNORMAL) Valproic acid level, total (02/12/2025 7:00 AM EDT) Only the most recent of2 resultswithin the time period is included. [facility] Valproic Acid, Total 44(L) 50 - 100 mcg/mL LAB CHEMISTRY METHOD 02/12/2025 12:38 PM EDT [facility] Blood Venous blood specimen / Unknown Venipuncture / Unknown 02/12/2025 7:00 AM EDT 02/12/2025 11:19 AM EDT us Ovi Llamas NP LAB BLOOD ORDERABLES Final Resul t [facility] [address] [place] [address], [place] [phone] * (ABNORMAL) Comprehensive metabolic panel (02/12/2025 7:00 AM EDT) Only the most recent of2 resultswithin the time period is included. [facility] Sodium 143 133 - 145 mmol/L LAB CHEMISTRY METHOD 02/12/2025 12:[address] [facility] Potassium 4.1 3.5 - 5.5 mmol/L LAB CHEMISTRY METHOD 02/12/2025 12:[address] [facility] Chloride 112(H) 96 - 110 mmol/L LAB CHEMISTRY METHOD 02/12/2025 12:[address] [facility] CO2 23 21 - 32 mmol/L LAB CHEMISTRY METHOD 02/12/2025 12:[address] [facility] Anion Gap 8 3 - 11 LAB CHEMISTRY METHOD 02/12/2025 12:[address] [facility] Glucose 72 70 - 100 mg/dL LAB CHEMISTRY METHOD 02/12/2025 12:[address] [facility] BUN 24 5 - 25 mg/dL LAB CHEMISTRY METHOD 02/12/2025 12:[address] [facility] Creatinine 0.92 0.70 - 1.30 mg/dL LAB CHEMISTRY METHOD 02/12/2025 12:[address] [facility] eGFR 96 >=60 mL/min/1. 73m2 LAB CHEMISTRY METHOD 02/12/2025 12:[address] [facility] Comment:Calculation based on the Chronic Kidney Disease Epidemiology Collaboration (CKD-EPI) equation refit without adjustment for race. BUN/Creatinine Ratio 26.1 LAB CHEMISTRY METHOD 02/12/2025 12:[address] [facility] Calcium 9.1 8.5 - 10.5 mg/dL LAB CHEMISTRY METHOD 02/12/2025 12:[address] [facility] AST (SGOT) 35 10 - 42 unit/L LAB CHEMISTRY METHOD 02/12/2025 12:[address] [facility] ALT (SGPT) 40 10 - 60 unit/L LAB CHEMISTRY METHOD 02/12/2025 12:[address] [facility] Alkaline Phosphatase 56 42 - 121 unit/L LAB CHEMISTRY METHOD 02/12/2025 12:[address] [facility] Total Protein 7.8 6.0 - 8.0 g/dL LAB CHEMISTRY METHOD 02/12/2025 12:[address] [facility] Albumin 3.8 3.2 - 5.0 g/dL LAB CHEMISTRY METHOD 02/12/2025 12:[address] [facility] Total Bilirubin 0.4 0.0 - 1.4 mg/dL LAB CHEMISTRY METHOD 02/12/2025 12:[address] [facility] Blood Venous blood specimen / Unknown Venipuncture / Unknown 02/12/2025 7:00 AM EDT 02/12/2025 11:19 AM EDT us Ovi Llamas NP LAB BLOOD ORDERABLES Final Resul t [facility] [address] [place] [address], [place] [phone] * (ABNORMAL) Thyroid stimulating hormone with reflex to free t4 and free t3 (12/18/2024 7:00 AM EDT) TSH 4.99(H) 0.40 - 4.00 mcIU/mL LAB CHEMISTRY METHOD 12/18/2024 4:41 PM EDT [facility] Blood Venous blood specimen / Unknown Venipuncture / Unknown 12/18/2024 7:00 AM EDT 12/18/2024 2:39 PM EDT [facility] BLOOD ORDERABLES Shanita l Result Performing Organization Address [facility]/State/ZIP Co de Phone Number [facility] [address] [place] [address], [place] [phone] * Free thyroxine with reflex to free triiodothyronine (12/18/2024 7:00 AM EDT) Free T4 1.39 0.70 - 1.80 ng/dL LAB CHEMISTRY METHOD 12/18/2024 5:26 PM EDT [facility] Blood Venous blood specimen / Unknown Venipuncture / Unknown 12/18/2024 7:00 AM EDT 12/18/2024 2:39 PM EDT [facility] LAB BLOOD ORDERABLES Shanita l Result [facility] [address] [place] [address], [place] [phone] from Last 3 Months Insurance MEDICARE [place]ICA[place] - [place] Advance Directives Documents on File Type Date Recorded Patient Congressional Representative Expl anation Health Care Decision (hx) 04/17/2017 [...] (hx) 04/17/2017 AD WOLF DIRECTIVE Care Teams Photo Finish Photographer Relationship Specialty Start Date End Date Physician, No Pcp PCP - General 03/14/24
--- OUTSIDE RECORDS SUMMARY | 2025-03-19 13:09 | XMS_ITS | Encounter Summary ---
Author Organization [employer] Address [address] [facility] [address] [place] [address] Care Team Providers Care Web Solutions Architect Name Role Phone Alison Valentine MD Primary Care Provider [phone] Reason for Visit * Reason Comments Med Refill Encounter Details Date Type Department Care Team ([facility] st Contact Info) Description 07/22/2023 Refill [facility] MED & PEDS [address] [place], [place] [phone] Alison Valentine MD [address] [place], [place] [phone] Acute pain of right shoulder Social History [...] Description 06/08/2025 9:00 AM EST Office Visit [facility] MED & PEDS [address] [place] [address] Alison Valentine MD [address] [place] [address] documented as of this encounter Visit Diagnoses Diagnosis Acute pain of right shoulder documented in this encounter Additional Health Concerns Assessment Noted Time PHQ-9 Depression Total Score: 4 09/24/19 23 8:42 AM EDT documented as of this encounter Care Teams Web Solutions Architect Relationship Specialty Start Date End Date Alison Valentine MD [address] [place] [address] PCP - General Internal Medicine 05/21/13 documented as of this encounter
--- OUTSIDE RECORDS SUMMARY | 2025-03-19 13:09 | XMS_ITS | Encounter Summary ---
Author Organization [employer] Address [address] [facility] [address] [place] [address] Care Team Providers Care Right Of Way Manager Name Role Phone Alison Valentine MD Primary Care Provider [phone] Encounter Details Date Type Department Care Team (Late st Contact Info) Description 02/21/2025 Telephone [facility] MEDICINE [address] [place] [address] Alison Valentine MD [address] [place] [address] Social History Tobacco Use Types Packs/Day Years [...] encounter Miscellaneous Notes * Telephone Encounter - Emanuel Hsu PharmD - 02/21/2025 9:10 AM EST Patient scheduled for HDF 03/01/2025, post discharge from [facility]. No record of summary request in chart. Would it be possible to obtain records for review ahead of visit? Thank you. documented in this encounter Plan of Treatment Upcoming Encounters Date Type Department Care Team (Late st Contact Info) Description 06/08/2025 9:00 AM EST Office Visit [facility] CHC MED & PEDS [address] [place] [address] Alison Valentine MD [address] [place] [address] documented as of this encounter Visit Diagnoses Not on filedocumented in this encounter Additional Health Concerns Assessment Noted Time PHQ-9 Depression Total Score: 4 09/24/19 23 8:42 AM EDT documented as of this encounter Care Teams Right Of Way Manager Relationship Specialty Start Date End Date Alison Valentine MD [address] [place] [address] PCP - General Internal Medicine 05/21/13 documented as of this encounter
--- NOTE | 2025-03-19 13:41 | PC.NURSE ---
dog daycare provider called pts shelter who states pt is able to be transported back via [facility] Pt assisted to bus top by security
[2025-03-19 13:42] VITALS: BP 123/79; PULSE 90; RESP 16; TEMP 36.4; O2SAT 99
== END 2025-03-19 13:44 | disposition home or self-care (01) ==
PROVIDERS: Emergency Provider Emergency Medicine
DX: R51.9 Headache, unspecified (principal); R42 Dizziness and giddiness; R11.0 Nausea; F17.200 Nicotine dependence, unspecified, uncomplicated; Z71.6 Tobacco abuse counseling
CPT/HCPCS: 99283

== ENCOUNTER 2025-04-04 15:01 | Emergency (ER) | payer MEDICARE, MEDICAID, SELFPAY ==
[2025-04-04 15:38] VITALS: BP 122/88; PULSE 110; O2SAT 98; BMI 24.3
[2025-04-04 16:10] LABS: MANUAL DIFF FLAG NO
[2025-04-04 16:13] LABS: Appearance Urine Cloudy; Glucose Urine UA Negative (Negative); PH 6.5 (5.0-9.0); Specific Gravity - Urine 1.015 (1.005-1.025)
[2025-04-04 16:15] LABS: Hematocrit 39.5 % (42.0-52.0); Hemoglobin 13.1 g/dl (14.0-18.0); Imm Gran Abs Auto 0.01 X10*3/uL (0.00-0.03); Imm Gran Pct Auto 0.1 % (0.0-0.4); Lymphocytes Absolute Auto 2.9 X10*3/uL (1.2-4.9); Mean Corpuscular HGB Conc 33.2 g/dl (31.0-36.0); Mean Corpuscular Hemoglobin 32.2 pg (27.0-33.0); Mean Corpuscular Volume 97.1 fL (80.0-98.0); NRBC Abs Auto 0.000 X10*3/uL (0.0-0.012); NRBC Pct Auto 0.0 /100WBC (0.0-0.2); Platelet Count 228 X10*3/uL (160-400); Red Blood Count 4.07 X10*6/uL (4.60-5.80); White Blood Count 7.4 X10*3/uL (4.8-10.8)
[2025-04-04 16:26] LABS: Cannabinoid Screen Urine Not Detected (Not Detect)
[2025-04-04 16:29] LABS: Acetaminophen LAB < 3 mcg/mL (<30); Alanine Aminotransferase 19 U/L (0-40); Albumin Level 4.5 g/dL (3.5-5.0); Alkaline Phosphatase 55 U/L (39-117); Anion Gap 13 (12-20); Aspartate Amino Transferase 19 U/L (5-37); Blood Urea Nitrogen 20 mg/dL (9-16); Calcium 9.2 mg/dL (8.4-10.2); Carbon Dioxide 22 mmol/L (22-29); Chloride 111 mmol/L (96-108); Creatinine Clr Calc Pharmacy 80.3; Estimated Glomerular Filt Rate > 60; Potassium 4.0 mmol/L (3.3-5.1); Salicylate < 5.0 mg/dL (15-30); Sodium 142 mmol/L (135-145); Total Protein 7.5 g/dL (6.5-8.0)
[2025-04-04 16:30] VITALS: BP 114/78; PULSE 91; RESP 16; TEMP 36.7; O2SAT 99
[2025-04-04 16:48] LABS: COVID-19 Test Negative (Negative)
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
[2025-04-04 20:17] VITALS: BP 114/78; PULSE 91; RESP 16; TEMP 36.7; O2SAT 99
--- OUTSIDE RECORDS SUMMARY | 2025-04-04 22:48 | XMS_ITS | Encounter Summary ---
Author Organization [employer] Address [address] [facility] [address] [place] [address] Care Team Providers Care Metal Storage Worker Name Role Phone Alison Valentine MD Primary Care Provider [phone] Reason for Visit * Reason Onset Date Comments Hospital Follow-up 01/26/2025 Encounter Details Date Type Department Care Team ([facility] st Contact Info) Description 01/26/[address] [facility] MEDICINE [address] [place] [address] Alison Valentine MD [address] [place], [place] [phone] Hospital Follow-up Social History Tobacco Use Types [...] - 01/26/2025 9:42 AM EDT Tc from [facility] requesting to reschedule HDF from 01/26 due to who ever policy writer sales down the information the appointment put the wrong location. Pleas contact Charleen at [phone] documented in this encounter Plan of Treatment Upcoming Encounters Date Type Department Care Team (Late st Contact Info) Description 06/08/2025 9:00 AM EST Office Visit [facility] CHC MED & PEDS [address] [place] [address] Alison Valentine MD [address] [place] [address] documented as of this encounter Visit Diagnoses Not on filedocumented in this encounter Additional Health Concerns Assessment Noted Time PHQ-9 Depression Total Score: 4 09/24/19 23 8:42 AM EDT documented as of this encounter Care Teams Metal Storage Worker Relationship Specialty Start Date End Date Alison Valentine MD [address] [place] [address] PCP - General Internal Medicine 05/21/13 documented as of this encounter
--- OUTSIDE RECORDS SUMMARY | 2025-04-04 22:48 | XMS_ITS | Clinical Summary ---
Author Organization [facility] Address [address] [place] [address] Phone Care Team Providers Care Cloth Presser Name Role Phone Physician, No Pcp Primary Care Provider Unavaila ble Allergies Active Allergy Reactions Criticality Noted Date Comments Lactose Other 09/12/2023 Nausea/vomiting/loose stools Encounters Date Type Department Care Team Description 02/12/[address] [facility] - Main Lab [address] [place] [address] Ovi Llamas NP Other aquatics director (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 from Last 3 Months Medical History Medical History Date Comments Bipolar 1 disorder (CMS/HCC V24, CMS/HCC V28) Depression Schizoaffective disorder (CMS/HCC V24, CMS/[facility] V 28) Social History Tobacco Use Types Packs/Day Years Used Date Smoking Tobacco: Never Assessed Sex and Gender Information Value Date Recorded Sex Assigned at Male 03/14/2024 10:32 AM EST Legal Sex Male 5:43 AM EST Gender Identity Male 03/14/2024 10:32 AM EST Sexual Orientation Straight 03/14/2024 10 :32 AM EST Last Filed Vital Signs Vital Sign Reading [...] DIFFERENTIAL Routine 02/12/2025 7:00 AM EDT Other custodial (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 GLUCOSE, RANDOM Routine 02/12/2025 7:00 AM EDT Other custodial (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 HEMOGLOBIN A1C Routine 02/12/2025 7:00 AM EDT Other aquatics director (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 CBC AND DIFFERENTIAL Routine 02/12/2025 7:00 AM EDT Other custodial (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 VALPROIC ACID LEVEL, TOTAL Routine 02/12/2025 7:00 AM EDT Other aquatics director (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 COMPREHENSIVE METABOLIC PANEL Routine 02/12/2025 7:00 AM EDT Other custodial (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 LIPID PANEL WITH REFLEX TO DIRECT LDL Routine 02/12/2025 7:00 AM EDT Other aquatics director (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 from Last 3 Months Results * (ABNORMAL) Lipid panel with reflex to direct LDL (02/12/2025 7:00 AM EDT) Cholesterol 263(H) 0 - 200 mg/dL LAB CHEMISTRY METHOD 02/12/2025 12:37 PM EDT [facility] Triglycerides 120 0 - 150 mg/dL LAB CHEMISTRY METHOD 02/12/2025 12:37 PM EDT [facility] HDL 52 >=40 mg/dL LAB CHEMISTRY METHOD 02/12/2025 12:37 PM EDT [facility] LDL Calculated 187(H) 0 - 100 mg/dL LAB CHEMISTRY METHOD 02/12/2025 12:37 PM EDT [facility] Comment:Estimated LDL Calcul ated using equation: Total cholesterol - HDL cholesterol - (Triglycerides/5) VLDL Cholesterol Von 24 mg/dL LAB CHEMISTRY METHOD 02/12/2025 12:37 PM EDT [facility] Non HDL Chol. (LDL+VLDL) 211(H) <145 mg/dL LAB CHEMISTRY METHOD 02/12/2025 12:37 PM EDT [facility] Chol/HDL Ratio 5.1(H) 0.0 - 4.4 LAB CHEMISTRY METHOD 02/12/2025 12:37 PM EDT [facility] Blood Venous blood specimen / Unknown Venipuncture / Unknown 02/12/2025 7:00 AM EDT 02/12/2025 11:19 AM EDT us Ovi Llamas NP LAB BLOOD ORDERABLES Final Resul t [facility] [address] [place] [address], * (ABNORMAL) CBC auto differential (02/12/2025 7:00 AM EDT) WBC 6.9 4.8 - 10.8 K/mcL LAB HEMETOLOGY METHOD 02/12/2025 12:17 PM T [facility] RBC 4.70 4.50 - 5.50 M/mcL LAB HEMETOLOGY METHOD 02/12/2025 12:17 PM [facility] Hemoglobin 14.6 13.5 - 17.5 g/dL LAB HEMETOLOGY METHOD 02/12/2025 12:17 PM T [facility] Hematocrit 46.9 42.0 - 54.0 % LAB HEMETOLOGY METHOD 02/12/2025 12:17 PM [facility] MCV 100.6(H) 79.0 - 98.0 FL LAB HEMETOLOGY METHOD 02/12/2025 12:17 PM T [facility] MCH 31.3 27.0 - 32.0 pcg LAB HEMETOLOGY [facility] MCHC 31.1(L) 32.0 - 37.0 g/dL LAB HEMETOLOGY METHOD 02/12/2025 12:17 PM [facility] RDW 13.2 11.0 - 15.0 % LAB HEMETOLOGY METHOD 02/12[facility]25 [facility] Platelets 183 130 - 400 K/mcL LAB HEMETOLOGY METHOD 02/12/2025 12:17 PM [facility] MPV 11.7(H) 7.0 - 11.0 FL LAB HEMETOLOGY METHOD 02/12/2025 12:17 PM [facility] NRBC 0.0 <1.0 % LAB HEMETOLOGY METHOD 02/12/2025 12:17 PM [facility] NRBC Absolute 0.00 <0.10 K/mcL LAB HEMETOLOGY METHOD 02/12/2025 12:17 PM [facility] Neutrophils Relative 43.5 % LAB HEMETOLOGY METHOD 02/12/2025 12:17 PM [facility] Lymphocytes Relative 41.3 % LAB HEMETOLOGY METHOD 02/12/2025 12:17 PM [facility] Monocytes Relative 9.9 % LAB HEMETOLOGY METHOD 02/12/2025 12:17 PM [facility] Eosinophils Relative 4.2 % LAB HEMETOLOGY METHOD 02/12/2025 12:17 PM [facility] Basophils Relative 1.0 % LAB HEMETOLOGY METHOD 02/12/2025 12:17 PM [facility] Immature Granulocytes Relative 0.1 % LAB HEMETOLOGY METHOD 02/12/2025 12:17 PM [facility] Neutrophils Absolute 3.00 1.50 - 7.00 K/mcL LAB HEMETOLOGY METHOD 02/12/2025 12:17 PM EDT [facility] Lymphocytes Absolute 2.85 1.00 - 5.00 K/mcL LAB HEMETOLOGY METHOD 02/12/2025 12:17 PM EDT [facility] Monocytes Absolute 0.68 0.20 - 1.00 K/[facility] LAB HEMETOLOGY METHOD 02/12/2025 12:17 PM EDT [facility] Eosinophils Absolute 0.29 0.00 - 0.50 K/[facility] LAB HEMETOLOGY METHOD 02/12/2025 12:17 PM EDT [facility] Basophils Absolute 0.07 0.00 - 0.20 K/mcL LAB HEMETOLOGY METHOD 02/12/2025 12:17 PM EDT [facility] Immature Granulocytes Absolute 0.01 0.00 - 0.03 K/[facility] LAB HEMETOLOGY METHOD 02/12/2025 12:17 PM EDT [facility] Blood Venous blood specimen / Unknown Venipuncture / Unknown 02/12/2025 7:00 AM EDT 02/12/2025 11:19 AM EDT us Ovi Llamas NP LAB BLOOD ORDERABLES Final Resul t [facility] [address] [place] [address], * Hemoglobin A1c (02/12/2025 7:00 AM EDT) Hemoglobin A1C 5.3 <6.5 % LAB CHEMISTRY METHOD 02/13/2025 7:46 AM EDT [facility] Mean Bld Glu Estim. 105 mg/dL LAB CHEMISTRY METHOD 02/13/2025 7:46 AM EDT [facility] Blood Venous blood specimen / Unknown Venipuncture / Unknown 02/12/2025 7:00 AM EDT 02/12/2025 11:19 AM EDT Ovi Llamas NP LAB BLOOD ORDERABLES Final Resul t Performing Organization Address [facility] de Phone Number [facility] [address] [place] [address], [place] [phone] * Glucose, random (02/12/2025 7:00 AM EDT) [facility] Glucose 72 70 - 100 mg/dL LAB CHEMISTRY METHOD 02/12/2025 12:37 PM EDT [facility] Blood Venous blood specimen / Unknown Venipuncture / Unknown 02/12/2025 7:00 AM EDT 02/12/2025 11:19 AM EDT us Ovi Llamas NP LAB BLOOD ORDERABLES Final Resul t Performing Organization Address [facility] de Phone Number [facility] [address] [place] [address], [place] [phone] * (ABNORMAL) Valproic acid level, total (02/12/2025 7:00 AM EDT) [facility] Valproic Acid, Total 44(L) 50 - 100 mcg/mL LAB CHEMISTRY METHOD 02/12/2025 12:38 PM EDT [facility] Blood Venous blood specimen / Unknown Venipuncture / Unknown 02/12/2025 7:00 AM EDT 02/12/2025 11:19 AM EDT us Ovi Llamas NP LAB BLOOD ORDERABLES Final Resul t Performing Organization Address City/[facility]/ZIP Co de Phone Number [facility] [address] [place] [address], [place] [phone] * (ABNORMAL) Comprehensive metabolic panel (02/12/2025 7:00 AM EDT) Sodium 143 133 - 145 mmol/L LAB CHEMISTRY METHOD 02/12/2025 12:37 PM [facility] Potassium 4.1 3.5 - 5.5 mmol/L LAB CHEMISTRY METHOD 02/12/2025 12:37 PM [facility] Chloride 112(H) 96 - 110 mmol/L LAB CHEMISTRY METHOD 02/12/2025 12:37 PM [facility] CO2 23 21 - 32 mmol/L LAB CHEMISTRY METHOD 02/12/2025 12:37 PM [facility] Anion Gap 8 3 - 11 LAB CHEMISTRY METHOD 02/12/2025 12:37 PM [facility] Glucose 72 70 - 100 mg/dL LAB CHEMISTRY METHOD 02/12/2025 12:37 PM [facility] BUN 24 5 - 25 mg/dL LAB CHEMISTRY METHOD 02/12/2025 12:37 PM [facility] Creatinine 0.92 0.70 - 1.30 mg/dL LAB CHEMISTRY METHOD 02/12/2025 12:37 PM [facility] eGFR 96 >=60 mL/min/1. 73m2 LAB CHEMISTRY METHOD 02/12/2025 12:37 PM [facility] Comment:Calculation based on the Chronic Kidney Disease Epidemiology Collaboration (CKD-EPI) equation refit without adjustment for race. BUN/Creatinine Ratio 26.1 LAB CHEMISTRY METHOD 02/12/2025 12:37 PM [facility] Calcium 9.1 8.5 - 10.5 mg/dL LAB CHEMISTRY METHOD 02/12/2025 12:37 PM [facility] AST (SGOT) 35 10 - 42 unit/L LAB CHEMISTRY METHOD 02/12/2025 12:37 PM [facility] ALT (SGPT) 40 10 - 60 unit/L LAB CHEMISTRY METHOD 02/12/2025 12:37 PM EDT [facility] Alkaline Phosphatase 56 42 - 121 unit/L LAB CHEMISTRY METHOD 02/12/2025 12:37 PM EDT [facility] Total Protein 7.8 6.0 - 8.0 g/dL LAB CHEMISTRY METHOD 02/12/2025 12:37 PM EDT [facility] Albumin 3.8 3.2 - 5.0 g/dL LAB CHEMISTRY METHOD 02/12/2025 12:37 PM EDT [facility] Total Bilirubin 0.4 0.0 - 1.4 mg/dL LAB CHEMISTRY METHOD 02/12/2025 12:37 PM EDT [facility] Blood Venous blood specimen / Unknown Venipuncture / Unknown 02/12/2025 7:00 AM EDT 02/12/2025 11:19 AM EDT us Ovi Llamas NP LAB BLOOD ORDERABLES Final Resul t [facility]) [facility] [address] [place] [address], [place] [phone] from Last 3 Months Insurance MEDICARE [place]ICA[place] - [place] Advance Directives Documents on File Type Date Recorded Patient Activity Therapy Teacher Expl anation Health Care Decision (hx) 04/17/2017 [...] (hx) 04/17/2017 AD WOLF DIRECTIVE Care Teams Cloth Presser Relationship Specialty Start Date End Date Physician, No Pcp PCP - General 03/14/24
--- OUTSIDE RECORDS SUMMARY | 2025-04-04 22:48 | XMS_ITS | Encounter Summary ---
Author Organization [employer] Address [address] [facility] [address] [place] [address] Care Team Providers Care Latex Foam Worker Name Role Phone Alisno Valentine MD Primary Care Provider [phone] Reason for Visit * Reason Comments Med Refill Encounter Details Date Type Department Care Team ([facility] st Contact Info) Description 10/20/2024 Refill [facility] MED & PEDS [address] [place], [place] [phone] Alison Valentine MD [address] [place], [place] [phone] Social History Tobacco Use Types Packs/Day Years [...] Description 06/08/2025 9:00 AM EST Office Visit [facility] MED & PEDS [address] [place] [address] Alison Valentine MD [address] [place] [address] documented as of this encounter Visit Diagnoses Not on filedocumented in this encounter Additional Health Concerns Assessment Noted Time PHQ-9 Depression Total Score: 4 09/24/19 23 8:42 AM EDT documented as of this encounter Care Teams Latex Foam Worker Relationship Specialty Start Date End Date Alison Valentine MD [address] [place] [address] PCP - General Internal Medicine 05/21/13 documented as of this encounter
--- OUTSIDE RECORDS SUMMARY | 2025-04-04 22:48 | XMS_ITS | Encounter Summary ---
Author Organization [employer] Address [address] [facility] [address] [place] [address] Care Team Providers Care Dance Critic Name Role Phone Alison Valentine MD Primary Care Provider [phone] Reason for Visit * Reason Comments Med Refill Encounter Details Date Type Department Care Team ([facility] st Contact Info) Description 07/22/2023 Refill [facility] CHC MED & PEDS [address] [place], [place] [phone] Alison Valentine MD [address] [place], [place] [phone] Acute pain of right shoulder Social History [...] Description 06/08/2025 9:00 AM EST Office Visit [facility] MED & PEDS [address] [place] [address] Alison Valentine MD [address] [place] [address] documented as of this encounter Visit Diagnoses Diagnosis Acute pain of right shoulder documented in this encounter Additional Health Concerns Assessment Noted Time PHQ-9 Depression Total Score: 4 09/24/19 23 8:42 AM EDT documented as of this encounter Care Teams Dance Critic Relationship Specialty Start Date End Date Alison Valentine MD [address] [place] [address] PCP - General Internal Medicine 05/21/13 documented as of this encounter
--- OUTSIDE RECORDS SUMMARY | 2025-04-04 22:48 | XMS_ITS | Encounter Summary ---
Author Organization [facility] [address] Address [address] [place] [address] Care Team Providers Care Commercial Designer Name Role Phone Physician, No Pcp Primary Care Provider Unavaila ble Encounter Details Date Type Department Care Team (Late st Contact Info) Description 12/18/2024 Lab Requisition [facility] - Main Lab [address] [facility] [place] [address] Jennifer Kwan [address] [place] [address] Other superintendent terminal (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 Social History Tobacco Use [...] T3 Routine 12/18/2024 7:00 AM EDT Other senior care (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 FREE THYROXINE WITH REFLEX TO FREE TRIIODOTHYRONINE Routine 12/18/2024 7:00 AM EDT Other senior care (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 VALPROIC ACID LEVEL, TOTAL Routine 12/18/2024 7:00 AM EDT Other superintendent terminal (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 COMPREHENSIVE METABOLIC PANEL Routine 12/18/2024 7:00 AM EDT Other superintendent terminal (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 documented in this encounter Results * Free thyroxine with reflex to free triiodothyronine (12/18/2024 7:00 AM EDT) Pathologist [facility] Free T4 1.39 0.70 - 1.80 ng/dL LAB CHEMISTRY METHOD 12/18/2024 5:26 PM EDT [facility] Blood Venous blood specimen / Unknown Venipuncture / Unknown 12/18/2024 7:00 AM EDT 12/18/2024 2:39 PM EDT [facility] LAB BLOOD ORDERABLES Shanita l Result Performing Organization Address City/[facility]/ZIP Co de Phone Number [facility] [address] [place] [address], [place] [phone] * Valproic acid level, total (12/18/2024 7:00 AM EDT) [facility] Valproic Acid, Total 84 50 - 100 mcg/mL LAB CHEMISTRY METHOD 12/18/2024 4:10 PM EDT [facility] Blood Venous blood specimen / Unknown Venipuncture / Unknown 12/18/2024 7:00 AM EDT 12/18/2024 2:39 PM EDT [facility] LAB BLOOD ORDERABLES Shanita l Result [facility] [address] [place] [address], [place] [phone] * (ABNORMAL) Thyroid stimulating hormone with reflex to free t4 and free t3 (12/18/2024 7:00 AM EDT) [facility] TSH 4.99(H) 0.40 - 4.00 mcIU/mL LAB CHEMISTRY METHOD 12/18/2024 4:41 PM EDT [facility] Blood Venous blood specimen / Unknown Venipuncture / Unknown 12/18/2024 7:00 AM EDT 12/18/2024 2:39 PM EDT Jennifer Kwan LAB BLOOD ORDERABLES Shanita l Result [facility] [address] [place] [address], [place] [phone] * (ABNORMAL) Comprehensive metabolic panel (12/18/2024 7:00 AM EDT) Pathologist [facility] Sodium 140 133 - 145 mmol/L LAB CHEMISTRY METHOD 12/18/2024 4:10 PM EDT [facility] Potassium 4.4 3.5 - 5.5 mmol/L LAB CHEMISTRY METHOD 12/18/2024 4:10 PM EDT [facility] Comment:Hemolysis present Chloride 109 96 - 110 mmol/L LAB CHEMISTRY METHOD 12/18/2024 4:10 PM [facility] CO2 22 21 - 32 mmol/L LAB CHEMISTRY METHOD 12/18/2024 4:10 PM [facility] Anion Gap 9 3 - 11 LAB CHEMISTRY METHOD 12/18/2024 4:10 PM [facility] Glucose 43(L) 70 - 100 mg/dL LAB CHEMISTRY METHOD 12/18/2024 4:10 PM [facility] BUN 22 5 - 25 mg/dL LAB CHEMISTRY METHOD 12/18/2024 4:10 PM T [facility] Creatinine 0.89 0.70 - 1.30 mg/dL LAB CHEMISTRY METHOD 12/18/2024 4:10 PM [facility] eGFR 100 >=60 mL/min/1. 73m2 LAB CHEMISTRY METHOD 12/18/2024 4:10 PM [facility] Comment:Calculation based on the Chronic Kidney Disease Epidemiology Collaboration (CKD-EPI) equation refit without adjustment for race. BUN/Creatinine Ratio 24.7 LAB CHEMISTRY METHOD 12/18/2024 4:10 PM T [facility] Calcium 9.0 8.5 - 10.5 mg/dL LAB CHEMISTRY METHOD 12/18/2024 4:10 PM [facility] AST (SGOT) 30 10 - 42 unit/L LAB CHEMISTRY METHOD 12/18/2024 4:10 PM [facility] Comment:Hemolysis present ALT (SGPT) 44 10 - 60 unit/L LAB CHEMISTRY METHOD 12/18/2024 4:10 PM EDT [facility] Alkaline Phosphatase 62 42 - 121 unit/L LAB CHEMISTRY METHOD 12/18/2024 4:10 PM [facility] Total Protein 7.4 6.0 - 8.0 g/dL LAB CHEMISTRY METHOD 12/18/2024 4:10 PM [facility] Albumin 3.9 3.2 - 5.0 g/dL LAB CHEMISTRY METHOD 12/18/2024 4:10 PM [facility] Total Bilirubin 0.4 0.0 - 1.4 mg/dL LAB CHEMISTRY METHOD 12/18/2024 4:10 PM [facility] Blood Venous blood specimen / Unknown Venipuncture / Unknown 12/18/2024 7:00 AM EDT 12/18/2024 2:39 PM EDT us Jennifer Mantilla Otchere LAB BLOOD ORDERABLES Shanita l Result [facility] [address] [place] [address], documented in this encounter Visit Diagnoses Diagnosis Other superintendent terminal (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 documented in this encounter Care Teams Commercial Designer Relationship Specialty Start Date End Date Physician, No Pcp PCP - General 03/14/24 documented as of this encounter
--- OUTSIDE RECORDS SUMMARY | 2025-04-04 22:48 | XMS_ITS | Encounter Summary ---
Author Organization [facility] Address [address] [place] [address] Care Team Providers Care Kaiako Kura [place] Maori Name Role Phone Physician, No Pcp Primary Care Provider Unavaila ble Encounter Details Date Type Department Care Team (Late st Contact Info) Description 05/28/[address] [facility] - Main Lab [address] [facility] [place] [address] Radha Damon NP [address] [place] [address] Social History Tobacco Use Types [...] on filedocumented in this encounter Care Teams Kaiako Kura [place] Ma[place] Relationship Specialty Start Date End Date Physician, No Pcp PCP - General 03/14/24 documented as of this encounter
--- OUTSIDE RECORDS SUMMARY | 2025-04-04 22:48 | XMS_ITS | Patient Health Record ---
Author Organization [facility] Address [address] [place] [address] Care Team Providers Care Director Product Management Name Role Phone NO, PCP Primary Care Provider Velia Love Unavailable [phone] Reason For Referral No Information Encounters Encounter Location Date Provider Diagnosis [facility] [address] [place], [place] [phone] 11/15/2024 Velia Love [facility] [address] [place] [address] 11/11/2024 Velia Love Plan Of Treatment No Information Insurance Providers Payer Name Payer Address Payer Phone Subscriber Number Group Number Insured Name Patient Relationship to Insured Coverage Start Date Coverage End Date [place] Medicare Part A [employer] [address] [facility] [address] [id number] Bishnu Yen Self - patient is the insured 5 [place] Medicaid Standard [address] [place] [address] [id number] Bishnu Yen Self - patient is the insured 5
--- OUTSIDE RECORDS SUMMARY | 2025-04-04 22:48 | XMS_ITS | Encounter Summary ---
Author Organization [facility] Address [address] [place] [address] Care Team Providers Care Family Nurse Name Role Phone Physician, No Pcp Primary Care Provider Unavaila ble Encounter Details Date Type Department Care Team (Late st Contact Info) Description 04/28/2024 Lab Requisition [facility] - Main Lab [address] [facility] [place] [address] Radha Damon NP [address] [place] [address] Other [facility] (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 Social History Tobacco Use [...] LDL Routine 04/28/2024 7:00 AM EST Other intermission coordinator (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 HEMOGLOBIN A1C Routine 04/28/2024 7:00 AM EST Other mcc (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 VALPROIC ACID LEVEL, TOTAL Routine 04/28/2024 7:00 AM EST Other intermission coordinator (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 documented in this encounter Results * Valproic acid level, total (04/28/2024 7:00 AM EST) Valproic Acid, Total 91 50 - 100 mcg/mL LAB CHEMISTRY METHOD 04/28/2024 1:24 PM EST [facility] Blood Venous blood specimen / Unknown Venipuncture / Unknown 04/28/2024 7:00 AM EST 04/28/2024 12:15 PM EST us Radha Damon RUBBER MILL TENDER LAB BLOOD ORDERABLES Fi nal Result [facility] [address] [place] [address], [place] [phone] * (ABNORMAL) Lipid panel with reflex to direct LDL (04/28/2024 7:00 AM EST) Cholesterol 201(H) 0 - 200 mg/dL LAB CHEMISTRY METHOD 04/28/2024 1:24 PM EST [facility] Triglycerides 116 0 - 150 mg/dL LAB CHEMISTRY METHOD 04/28/2024 1:24 PM [facility] HDL 47 >=40 mg/dL LAB CHEMISTRY METHOD 04/28/2024 1:24 PM [facility] LDL Calculated 131(H) 0 - 100 mg/dL LAB CHEMISTRY METHOD 04/28/2024 1:24 PM [facility] VLDL Cholesterol Von 23.2 mg/dL LAB CHEMISTRY METHOD 04/28/2024 1:24 PM [facility] Non HDL Chol. (LDL+VLDL) 154(H) <145 mg/dL LAB CHEMISTRY METHOD 04/28/2024 1:24 PM [facility] Chol/HDL Ratio 4.3 0.0 - 4.4 LAB CHEMISTRY METHOD 04/28/2024 1:24 PM [facility] Blood Venous blood specimen / Unknown Venipuncture / Unknown 04/28/2024 7:00 AM EST 04/28/2024 12:15 PM EST us Radha Damon RUBBER MILL TENDER LAB BLOOD ORDERABLES Fi nal Result Performing Organization Address City/[facility]/ZIP Co de Phone Number [facility] [address] [place] [address], [place] [phone] * Hemoglobin A1c (04/28/2024 7:00 AM EST) Hemoglobin A1C 5.2 <6.5 % LAB CHEMISTRY METHOD 04/28/2024 3:37 PM EST [facility] Mean Bld Glu Estim. 103 mg/dL LAB CHEMISTRY METHOD 04/28/2024 3:37 PM EST [facility] Blood Venous blood specimen / Unknown Venipuncture / Unknown 04/28/2024 7:00 AM EST 04/28/2024 12:15 PM EST Radha Damon RUBBER MILL TENDER LAB BLOOD ORDERABLES Fi nal Result Performing Organization Address [facility]/ZIP Co de Phone Number [facility] [address] [place] [address], [place] [phone] documented in this encounter Visit Diagnoses Diagnosis Other intermission coordinator (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 documented in this encounter Care Teams Family Nurse Relationship Specialty Start Date End Date Physician, No Pcp PCP - General 03/14/24 documented as of this encounter
--- OUTSIDE RECORDS SUMMARY | 2025-04-04 22:48 | XMS_ITS | Encounter Summary ---
Author Organization [employer] Address [address] [facility] [address] [place] [address] Care Team Providers Care Child Development Teacher Name Role Phone Alison Valentine MD Primary Care Provider [phone]- [phone] Encounter Details Date Type Department Care Team ([facility] Contact Info) Description 04/12/2022 Orders Only [facility] [address] [place] [address] Alison Valentine MD [address] [place], [place] [phone] Gastroesophageal reflux disease without esophagitis (Primary Dx) [...] Upcoming Encounters Date Type Department Care Team ([facility] Contact Info) Description 06/08/2025 9:00 AM EST Office Visit [facility] [address] [place] [address] Alison Valentine MD [address] [place], [place] [phone] documented as of this encounter Visit Diagnoses Diagnosis Gastroesophageal reflux disease without esophagitis- Primary Esophageal reflux documented in this encounter Care Teams Child Development Teacher Relationship Specialty Start Date End Date Alison Valentine MD [address] [place] [address] PCP - General Internal Medicine 05/21/13 documented as of this encounter
--- OUTSIDE RECORDS SUMMARY | 2025-04-04 22:48 | XMS_ITS | Encounter Summary ---
Author Organization [facility] Address [address] [place] [address] Care Team Providers Care Hvac Refrigeration Technician Name Role Phone Physician, No Pcp Primary Care Provider Unavaila ble Encounter Details Date Type Department Care Team (Late st Contact Info) Description 12/11/2024 Lab Requisition [facility] - Main Lab [address] [facility] [place] [address] Jennifer Kwan [address] [place] [address] Other terminal makeup operator (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 Social History Tobacco Use [...] LDL Routine 12/11/2024 7:00 AM EDT Other fci (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 HEMOGLOBIN A1C Routine 12/11/2024 7:00 AM EDT Other fci (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 GLUCOSE, RANDOM Routine 12/11/2024 7:00 AM EDT Other terminal makeup operator (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 documented in this encounter Results * (ABNORMAL) Lipid panel with reflex to direct LDL (12/11/2024 7:00 AM EDT) Cholesterol 210(H) 0 - 200 mg/dL LAB CHEMISTRY METHOD 12/[facility] Triglycerides 169(H) 0 - 150 mg/dL LAB CHEMISTRY METHOD 12/11/2024 10:58 AM [facility] HDL 45 >=40 mg/dL LAB CHEMISTRY METHOD 12/11/2024 10:58 [facility] LDL Calculated 131(H) 0 - 100 mg/dL LAB CHEMISTRY METHOD 12/11/2024 10:[address] [facility] Comment:Estimated LDL Calcul ated using equation: Total cholesterol - HDL cholesterol - (Triglycerides/5) VLDL Cholesterol Von 33.8 mg/dL LAB CHEMISTRY METHOD 12/11/2024 10:58 AM [facility] Non HDL Chol. (LDL+VLDL) 165(H) <145 mg/dL LAB CHEMISTRY METHOD 12/11/2024 10:58 AM [facility] Chol/HDL Ratio 4.7(H) 0.0 - 4.4 LAB CHEMISTRY METHOD 12/11/2024 10:58 AM [facility] Blood Venous blood specimen / Unknown Venipuncture / Unknown 12/11/2024 7:00 AM EDT 12/11/2024 9:36 AM EDT Jennifer Kwan LAB BLOOD ORDERABLES Shanita l Result [facility] [address] [place] [address], * Glucose, random (12/11/2024 7:00 AM EDT) Glucose 77 70 - 100 mg/dL LAB CHEMISTRY METHOD 12/11/2024 10:58 AM [facility] Blood Venous blood specimen / Unknown Venipuncture / Unknown 12/11/2024 7:00 AM EDT 12/11/2024 9:36 AM EDT Jennifer Mantilla [employer] LAB BLOOD ORDERABLES Shanita l Result Performing Organization Address [facility]/ZIP Co de Phone Number [facility] [address] [place] [address], [place] [phone] * Hemoglobin A1c (12/11/2024 7:00 AM EDT) Hemoglobin A1C 5.7 <6.5 % LAB CHEMISTRY METHOD 12/12/2024 8:[address] [facility] Mean Bld Glu Estim. 117 mg/dL LAB CHEMISTRY METHOD 12/12/2024 8:[address] [facility] Blood Venous blood specimen / Unknown Venipuncture / Unknown 12/11/2024 7:00 AM EDT 12/11/2024 9:36 AM EDT Jennifer Mantilla [employer] LAB BLOOD ORDERABLES Shanita l Result [facility] [address] [place] [address], [place] [phone] documented in this encounter Visit Diagnoses Diagnosis Other fci (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 documented in this encounter Care Teams Hvac Refrigeration Technician Relationship Specialty Start Date End Date Physician, No Pcp PCP - General 03/14/24 documented as of this encounter
--- OUTSIDE RECORDS SUMMARY | 2025-04-04 22:48 | XMS_ITS | Clinical Summary ---
Author Organization [employer] Address [address] [facility] [address] [place] [address] Care Team Providers Care Preparation Center Coordinator Name Role Phone Alison Valentine MD Primary Care Provider [phone]- [phone] Allergies Active Allergy Reactions Criticality Noted Date [...] tablet 50 mg 2 times daily. Active FLUoxetine (PROzac) 20 MG capsule Take 1 capsule by mouth Once per day. 2024 Discontinued(M ed list cleanup (will not trigger notification to Pharmacy)) carbamide peroxide (Debrox) 6.5 % otic solutionIndication s:Impacted cerumen of left ear Administer 5-10 drops into affected ear(s) 2 times daily for 4 days. 30 mL 025 2024 Active Problems Problem Noted Date Diagnosed Date Schizoaffective disorder ([facility]/HCC) 09/10/2023 Macrocytic anemia 01/23/2017 Chronic schizoaffective schizophrenia ([facility]/HCC) 11/14/2011 Assessment & Plan (09/23/2022 9:46 AM [...] AA meeting, has a sponsor, and a middle school volleyball coach that comes to the house on Tuesdays. Bishnu has also signed up for anger management classes. He is currently connected to a therapist and psychiatrist thru [facility]. At this time Bishnu Yen meets criteria for Visit Diagnoses: Problem List Items Addressed This Visit Other Chronic schizoaffective schizophrenia ([facility]) Patient ready to address current needs Yes Strengths include independence PLAN: 1. Follow up with [facility]: Not recommended for follow-up 2. Patient goal is to continue to engage in substance abuse and behavioral health services 3. Behavioral Recommendations a. Patient will continue to engage in OP therapy b. Patient will comply with medication and psychiatric appointment c. Patient will continue to attend AA and meet with sponsor and recover personal health coach d. Patient will engage in anger management class, once it begins Deep venous thrombosis of lower extremity 2011 Seizure ([facility]/HCC) 11/14/2011 Encounters Date Type Department Care Team Description 03/01/2025 10:45 AM EST Office Visit [facility] [address] [place] [address] Alison Valentine MD Chronic schizoaffective schizophrenia (CMS/HCC) ([facility]) (Primary Dx); Decreased hearing of both ears; Impacted cerumen of left ear; Encounter for immunization 03/01/2025 Travel 02/21/2025 Patient Outreach [facility] [address] [place] [phone] Alison Valentine MD Transition Of Care ([facility]) (HDF- scheduled ) 02/21/[address] [address] Alison Valentine MD 02/11/2025 Telephone [facility] [address] [place] [address] Alison Valentine MD Hospital Follow-up 01/26/2025 Telephone [facility] [address] [place] [address] Alison Valentine MD Hospital Follow-up 01/26/[address] [address] Alison Valentine MD Hospital Follow-up 01/24/2025 Telephone [facility] [address] [place] [address] Alison Valentine MD Chart Prep 01/19/2025 Telephone [facility] [address] [place] [address] Alison Valentine MD Appointment Request 01/07/[address] [address] Alison Valentine MD No Show from Last 3 Months Immunizations Immunization Administration Dates Next Due Influenza, IIV3, injectable 04/10/2023,0 01/15/2022,02/12/2021,03/21,02/23/2018,01/23/2017,03/12/2016 ,03/20/2010 Influenza, seasonal, injecta ble, preservative free 03/01/2025 Moderna Covid-19 Vaccine 12+ 08/29/2021,08/02/19 Pneumococcal Polysaccharide [...] Upcoming Encounters Date Type Department Care Team ([facility] st Contact Info) Description 06/08/2025 9:00 AM EST Office Visit [facility]S [address] [place] [address] Alison Valentine MD [address] [place] [address] Health Maintenance Due Date Last Done Comments [...] 23 SDOH Screening 10/06/2024 10/07/2023 COVID-19 Vaccine ( - 2024- season) 2024 08/29/2021, 08/01/2021 HIV [...] age [place] [id number] [facility] Care Teams Preparation Center Coordinator Relationship Specialty Start Date End Date Alison Valentine MD [address] [place] [phone] PCP - General Internal Medicine 05/21/13
--- OUTSIDE RECORDS SUMMARY | 2025-04-04 22:48 | XMS_ITS | Encounter Summary ---
Author Organization [facility] Address [address] [place] [address] Care Team Providers Care Manager Oncology Name Role Phone Physician, No Pcp Primary Care Provider Unavaila ble Encounter Details Date Type Department Care Team (Late st Contact Info) Description 02/12/2025 Lab Requisition [facility] - Main Lab [address] [facility] [place] [address] Ovi Llamas NP [address] [place], [place] [phone] Other detention (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 Social History [...] LDL Routine 02/12/2025 7:00 AM EDT Other detention (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 CBC WITH AUTO DIFFERENTIAL Routine 02/12/2025 7:00 AM EDT Other detention (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 CBC AND DIFFERENTIAL Routine 02/12/2025 7:00 AM EDT Other detention (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 HEMOGLOBIN A1C Routine 02/12/2025 7:00 AM EDT 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 GLUCOSE, RANDOM Routine 02/12/2025 7:00 AM EDT Other detention (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 VALPROIC ACID LEVEL, TOTAL Routine 02/12/2025 7:00 AM EDT Other detention (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 COMPREHENSIVE METABOLIC PANEL Routine 02/12/2025 7:00 AM EDT Other detention (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 documented in this encounter Results * (ABNORMAL) CBC auto differential (02/12/2025 7:00 AM EDT) [facility] WBC 6.9 4.8 - 10.8 K/mcL LAB HEMETOLOGY [facility] RBC 4.70 4.50 - 5.50 M/mcL LAB HEMETOLOGY METHOD 02/12/2025 12[facility] Hemoglobin 14.6 13.5 - 17.5 g/dL LAB HEMETOLOGY METHOD 02/12/2025 12:[facility] Hematocrit 46.9 42.0 - 54.0 % LAB HEMETOLOGY METHOD 02/12/2025 12:17 PM [facility] MCV 100.6(H) 79.0 - 98.0 FL LAB HEMETOLOGY METHOD 02/12/2025 12:[facility] MCH 31.3 27.0 - 32.0 pcg LAB HEMETOLOGY METHOD 02/12/2025 12:17 PM [facility] MCHC 31.1(L) 32.0 - 37.0 g/dL LAB HEMETOLOGY METHOD 02/12/2025 12:17 PM [facility] RDW 13.2 11.0 - 15.0 % LAB HEMETOLOGY METHOD 02/12/2025 12:17 PM [facility] Platelets 183 130 - 400 K/mcL LAB HEMETOLOGY METHOD 02/12/2025 12:[facility] MPV 11.7(H) 7.0 - 11.0 FL LAB HEMETOLOGY METHOD 02/12/2025 12:17 PM [facility] NRBC 0.0 <1.0 % LAB HEMETOLOGY METHOD 02/12/2025 12:17 PM [facility] NRBC Absolute 0.00 <0.10 K/mcL LAB HEMETOLOGY METHOD 02/12/2025 12:17 PM [facility] Neutrophils Relative 43.5 % LAB HEMETOLOGY METHOD 02/12/2025 12:17 PM [facility] Lymphocytes Relative 41.3 % LAB HEMETOLOGY METHOD 02/12/2025 12:17 PM [facility] Monocytes Relative 9.9 % LAB HEMETOLOGY METHOD 02/12/2025 12:17 PM [facility] Eosinophils Relative 4.2 % LAB HEMETOLOGY METHOD 02/12/2025 12:17 PM [facility] Basophils Relative 1.0 % LAB HEMETOLOGY METHOD 02/12/2025 12:17 PM [facility] Immature Granulocytes Relative 0.1 % LAB HEMETOLOGY METHOD 02/12/2025 12:17 PM [facility] Neutrophils Absolute 3.00 1.50 - 7.00 K/mcL LAB HEMETOLOGY METHOD 02/12/2025 12:17 PM [facility] Lymphocytes Absolute 2.85 1.00 - 5.00 K/mcL LAB HEMETOLOGY METHOD 02/12/2025 12:17 PM [facility] Monocytes Absolute 0.68 0.20 - 1.00 K/mcL LAB HEMETOLOGY METHOD 02/12/2025 12:17 PM [facility] Eosinophils Absolute 0.29 0.00 - 0.50 K/[facility] LAB HEMETOLOGY METHOD 02/12/2025 12:17 PM EDT [facility] Basophils Absolute 0.07 0.00 - 0.20 K/[facility] LAB HEMETOLOGY METHOD 02/12/2025 12:17 PM EDT [facility] Immature Granulocytes Absolute 0.01 0.00 - 0.03 /[facility] LAB HEMETOLOGY METHOD 02/12/2025 12:17 PM EDT [facility] Blood Venous blood specimen / Unknown Venipuncture / Unknown 02/12/2025 7:00 AM EDT 02/12/2025 11:19 AM EDT Ovi Llamas NP LAB BLOOD ORDERABLES Final Resul t Performing Organization Address [facility]/ZIP Co de Phone Number [facility] [address] [place] [address], [place] [phone] * Glucose, random (02/12/2025 7:00 AM EDT) Glucose 72 70 - 100 mg/dL LAB CHEMISTRY METHOD 02/12/2025 12:37 PM EDT [facility] Blood Venous blood specimen / Unknown Venipuncture / Unknown 02/12/2025 7:00 AM EDT 02/12/2025 11:19 AM EDT Ovi Llamas NP LAB BLOOD ORDERABLES Final Resul t Performing Organization Address City/[facility]/ZIP Co de Phone Number [facility] [address] [place] [address], [place] [phone] * Hemoglobin A1c (02/12/2025 7:00 AM EDT) Hemoglobin A1C 5.3 <6.5 % LAB CHEMISTRY METHOD 02/13/2025 7:46 AM EDT [facility] Mean Bld Glu Estim. 105 mg/dL LAB CHEMISTRY METHOD 02/13/2025 7:46 AM EDT [facility] Blood Venous blood specimen / Unknown Venipuncture / Unknown 02/12/2025 7:00 AM EDT 02/12/2025 11:19 AM EDT Ovi Llamas NP LAB BLOOD ORDERABLES Final Resul t Performing Organization Address [facility]/ZIP Co de Phone Number [facility] [address] [place] [address], [place] [phone] * (ABNORMAL) Valproic acid level, total (02/12/2025 7:00 AM EDT) [facility] Valproic Acid, Total 44(L) 50 - 100 mcg/mL LAB CHEMISTRY METHOD 02/12/2025 12:38 PM EDT [facility] Blood Venous blood specimen / Unknown Venipuncture / Unknown 02/12/2025 7:00 AM EDT 02/12/2025 11:19 AM EDT Ovi Llamas NP LAB BLOOD ORDERABLES Final Resul t Performing Organization Address [facility]/ZIP Co de Phone Number [facility] [address] [place] [address], [place] [phone] * (ABNORMAL) Comprehensive metabolic panel (02/12/2025 7:00 AM EDT) [facility] Sodium 143 133 - 145 mmol/L LAB CHEMISTRY METHOD 02/12/2025 12:37 PM EDT [facility] Potassium 4.1 3.5 - 5.5 mmol/L LAB CHEMISTRY METHOD 02/12/2025 12:37 PM EDT [facility] Chloride 112(H) 96 - 110 mmol/L LAB CHEMISTRY METHOD 02/12/2025 12:37 PM EDT [facility] CO2 23 21 - 32 mmol/L LAB CHEMISTRY METHOD 02/12/2025 12:37 PM EDT [facility] Anion Gap 8 3 - 11 LAB CHEMISTRY METHOD 02/12/2025 12:37 PM [facility] Glucose 72 70 - 100 mg/dL LAB CHEMISTRY METHOD 02/12/2025 12:37 PM [facility] BUN 24 5 - 25 mg/dL LAB CHEMISTRY METHOD 02/12/2025 12:37 PM [facility] Creatinine 0.92 0.70 - 1.30 mg/dL LAB CHEMISTRY METHOD 02/12/2025 12:37 PM [facility] eGFR 96 >=60 mL/min/1. 73m2 LAB CHEMISTRY METHOD 02/12/2025 12:37 PM [facility] Comment:Calculation based on the Chronic Kidney Disease Epidemiology Collaboration (CKD-EPI) equation refit without adjustment for race. BUN/Creatinine Ratio 26.1 LAB CHEMISTRY METHOD 02/12/2025 12:37 PM [facility] Calcium 9.1 8.5 - 10.5 mg/dL LAB CHEMISTRY METHOD 02/12/2025 12:37 PM [facility] AST (SGOT) 35 10 - 42 unit/L LAB CHEMISTRY METHOD 02/12/2025 12:37 PM [facility] ALT (SGPT) 40 10 - 60 unit/L LAB CHEMISTRY METHOD 02/12/2025 12:37 PM [facility] Alkaline Phosphatase 56 42 - 121 unit/L LAB CHEMISTRY METHOD 02/12/2025 12:37 PM [facility] Total Protein 7.8 6.0 - 8.0 g/dL LAB CHEMISTRY METHOD 02/12/2025 12:37 PM [facility] Albumin 3.8 3.2 - 5.0 g/dL LAB CHEMISTRY METHOD 02/12/2025 12:37 PM [facility] Total Bilirubin 0.4 0.0 - 1.4 mg/dL LAB CHEMISTRY METHOD 02/12/2025 12:37 PM EDT [facility] Blood Venous blood specimen / Unknown Venipuncture / Unknown 02/12/2025 7:00 AM EDT 02/12/2025 11:19 AM EDT us Ovi Llamas NP LAB BLOOD ORDERABLES Final Resul t [facility] [address] [place] [address], [place] [phone] * (ABNORMAL) Lipid panel with reflex to direct LDL (02/12/2025 7:00 AM EDT) Cholesterol 263(H) 0 - 200 mg/dL LAB CHEMISTRY METHOD 02/12/2025 12:37 PM EDT [facility] Triglycerides 120 0 - 150 mg/dL LAB CHEMISTRY METHOD 02/12/2025 12:37 PM EDT [facility] HDL 52 >=40 mg/dL LAB CHEMISTRY METHOD 02/12/2025 12:37 PM EDT [facility] LDL Calculated 187(H) 0 - 100 mg/dL LAB CHEMISTRY METHOD 02/12/2025 12:37 PM EDT [facility] Comment:Estimated LDL Calcul ated using equation: Total cholesterol - HDL cholesterol - (Triglycerides/5) VLDL Cholesterol Von 24 mg/dL LAB CHEMISTRY METHOD 02/12/2025 12:37 PM EDT [facility] Non HDL Chol. (LDL+VLDL) 211(H) <145 mg/dL LAB CHEMISTRY METHOD 02/12/2025 12:37 PM T [facility] Chol/HDL Ratio 5.1(H) 0.0 - 4.4 LAB CHEMISTRY METHOD 02/12/2025 12:37 PM T [facility] Blood Venous blood specimen / Unknown Venipuncture / Unknown 02/12/2025 7:00 AM EDT 02/12/2025 11:19 AM EDT us Ovi Llamas NP LAB BLOOD ORDERABLES Final Resul t [facility] ([facility] [address] [place] [address], documented in this encounter Visit Diagnoses Diagnosis Other detention (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 documented in this encounter Care Teams Manager Oncology Relationship Specialty Start Date End Date Physician, No Pcp PCP - General 03/14/24 documented as of this encounter
== END 2025-04-04 20:27 | disposition home or self-care (01) ==
PROVIDERS: Physician Assistant Medical; Emergency Provider Student in an Organized Health Care Education/Training Program; PCP Internal Medicine
DX: R45.1 Restlessness and agitation (principal); F25.0 Schizoaffective disorder, bipolar type; F43.10 Post-traumatic stress disorder, unspecified; F17.210 Nicotine dependence, cigarettes, uncomplicated; Z79.899 Other long term (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; Z11.52 Encounter for screening for COVID-19
CPT/HCPCS: 80053; 80143; 80179; 80307; 81003; 85025; 87635; 99284; 99285; S9485